=== PATIENT | male | born 1960 | race Caucasian/White ===

== ENCOUNTER 2019-03-03 13:00 | Inpatient (IN) | payer MEDICARE ==
[~2019-03-03] VITALS: Ht 172.7 cm; Wt 55.6 kg
[2019-03-03 03:49] VITALS: BP 159/63
[~2019-03-03 13:00] MED LIST: ASPI325T70 PO; CARV25TA PO; FURO-68 PO; FURO-69 PO; LISI-338 PO; LISI2.5T PO; POTA10TA12 PO
--- NOTE | 2019-03-03 13:16 | PDOC1 ---
History and Physical Date of Admission Date of Admission DATE: 03/03/19 TIME: 13:16 Identification/Chief Complaint Chief Complaint SEEN IN ER , Patient is a 58 year old MALE who presents with [ CHEST PRESSURE, soa, leg edema] Past Medical History Past Medical History Past Medical History Past Medical History: CHF, COPD Past Surgical History: Other Additional Past Surgical Histo: fX. WRIST Alcohol Use: None Drug Use: None, Marijuana Social History Narrative: last use yesterday Social history :- Ex-smoker,does not drink alcohol.No history of illicit drug use Past Medical History Past Medical History Nonischemic dilated cardiomyopathy, hypertension, hyperlipidemia Past Surgical History Past Surgical History Cardiac catheterization Family History Family History: Hypertension Cardiovascular: Other (CARDIOMYOPATHY) Psych: Addictions Family History Family History: Hypertension Social History Smoke: Quit ALCOHOL: occassional Drugs: Marijuana Current Medications Current Medications Active Scripts Active Reported Lisinopril 2.5 Mg Tablet 2.5 Mg PO NOON Klor-Con M10 (Potassium Chloride) 10 Meq Tab.er.prt 10 Meq PO DAILY Lisinopril 5 Mg Tablet 5 Mg PO DAILY Coreg (Carvedilol) 25 Mg Tablet 25 Mg PO BID Lasix (Furosemide) 40 Mg Tablet 40 Mg PO DAILY Aspirin Buffered 325 Mg Tab (Aspirin/Calcium Carbonate/Mag) 325 Mg Tablet 325 Mg PO DAILY Allergies Allergies: Coded Allergies: No Known Drug Allergies (Unverified , 08/12/13) ROS Review of System Review of Systems Review of Systems Constitutional: Denies fever or chills [] Eyes: Denies change in visual acuity, redness, or eye pain [] HENT: Denies nasal congestion or sore throat [] Respiratory: Denies cough POS shortness of breath [] Cardiovascular: No additional information not addressed in HPI [] GI: Denies abdominal pain, nausea, vomiting, bloody stools or diarrhea [] : Denies dysuria or hematuria [] Musculoskeletal: Denies back pain or joint pain [] Integument: Denies rash or skin lesions [] Neurologic: Denies headache, focal weakness or sensory changes [] Endocrine: Denies polyuria or polydipsia [] 14 PT systems were reviewed and found to be within normal limits, except as doc umented Hematological and Lymphatic: No: Bleeding Problems, Blood Clots, Blood Transfusions, Brusing, Night Sweats, Pallor, Swollen Lymph Nodes, Other Respiratory: YES: Shortness of breath, SOB with excertion Musculoskeletal: Yes Joint Stiffness, Yes Muscular Weakness Physical Exam Physical Exam Physical Exam Physical Exam Constitutional: Well developed, well nourished, no acute distress, non-toxic appearance. [] HENT: Normocephalic, atraumatic, bilateral external ears normal, oropharynx moist, no oral exudates, nose normal. [] Eyes: PERRLA, EOMI, conjunctiva normal, no discharge. [] Neck: Normal range of motion, no tenderness, supple, no stridor. [] Cardiovascular:Heart rate regular rhythm, no murmur [] Lungs & Thorax: Bilateral breath sounds clear to auscultation [] Abdomen: Bowel sounds normal, soft, no tenderness, no masses, no pulsatile masses. [] Skin: Warm, dry, no erythema, no rash. [] Back: No tenderness, no CVA tenderness. [] Extremities: No tenderness, no cyanosis, no clubbing, ROM intact, 2 PLUS ANKLE edema. [] Neurologic: Alert and oriented X 3, normal motor function, normal sensory function, no focal deficits noted. [] Psychologic: Affect normal, judgement normal, mood normal. [] General: Alert, Oriented X3, Cooperative, No acute distress HEENT: Atraumatic, Mucous membr. moist/pink Heart: no thrills Breasts: Not examined Abdomen: Normal bowel sounds, Soft Rectal Exam: not examined Extremities: No cyanosis Neuro: Normal speech, Cranial nerves 3-12 NL Psych/Mental Status: Mental status NL, Mood NL Images Images Tricuspid Valve TR P. Velocity 253cm/s TR Peak Gr. 26mmHg Pulmonary Vein S1 Velocity 54.6cm/s D2 Velocity 42.1cm/s LEFT VENTRICLE The left ventricle is normal size. There is normal left ventricular wall thickness. Left ventricle systolic function is moderately to severely impaired. The Ejection Fraction is 25-30%. RIGHT VENTRICLE The right ventricle is normal size. The right ventricular systolic function is normal. ATRIA The left atrium size is normal. The right atrium size is normal. The interatrial septum is intact with no evidence for an atrial septal defect or patent foramen ovale as noted on 2-D or Doppler imaging. AORTIC VALVE The aortic valve is normal in structure and function. Doppler and Color Flow revealed no significant aortic regurgitation. There is no significant aortic valvular stenosis. MITRAL VALVE The mitral valve is normal in structure and function. There is no mitral valve stenosis. Doppler and Color Flow revealed trace to mild mitral regurgitation. TRICUSPID VALVE The tricuspid valve is normal in structure and function. Doppler and Color Flow revealed trace to mild tricuspid regurgitation. The pulmonary artery systolic pressure is estimated at 30-40 mmHg. PULMONIC VALVE The pulmonic valve is not well visualized. Doppler and Color Flow revealed no pulmonic valvular regurgitation. There is no pulmonic valvular stenosis. GREAT VESSELS The aortic root is normal in size. Normal pulmonary venous flow (Doppler). The IVC is normal in size and collapses >50% with inspiration. PERICARDIAL EFFUSION There is no evidence of significant pericardial effusion. Critical Notification Critical Value: No <Conclusion> Left ventricle systolic function is moderately to severely impaired. The Ejection Fraction is 25-30%. Doppler and Color Flow revealed trace to mild mitral regurgitation. Doppler and Color Flow revealed trace to mild tricuspid regurgitation. The pulmonary artery systolic pressure is estimated at 30-40 mmHg. DICTATED and SIGNED BY: COREY SHERMAN MD DATE: 10/28/13 1526 Imaging Protocol IMAGE PROTOCOL: Rest Tc-99m/stress Tc-99m 1 day Rest: Stress: Viability: Radiopharm. Tc99m Sestamibi Dose 10mCi Img Date 03/03/2019 Inj-Img Time 60min. Rest Admin Site: IV - Right Antecubital Director Sales Support: FELY Camejo, JUS (R)(N) LV Perfusion Normal perfusion at rest. Non-gated study. Stress portion not performed due to lab abnormalities. Patient sent to ER. LV Perf. Quant 17 Seg. SRS 4.00 Stress Defect Extent (% LAD) Rest Defect Extent (% LAD) 0.00 Rev. Defect Extent (% LAD) Stress Defect Extent (% LCX) Rest Defect Extent (% LCX) 15.00 Rev. Defect Extent (% LCX) Stress Defect Extent (% RCA) Rest Defect Extent (% RCA) 0.00 Rev. Defect Extent (% RCA) Stress Defect Extent (% GABBY) Rest Defect Extent (% GABBY) 3.30 Rev. Defect Extent (% GABBY) Other Information Quality:Average Risk Assessment: Low Risk Conclusion 1. Normal perfusion at rest. 2. patient sent to ER for lab abnormalities prior to stress evaluation Signed by : Fahad Ruggiero, Electronically Approved : 03/03/2019 15:01:13 PORTABLE CHEST 1V History: Hypercalcemia Comparison: August 04, 2013. July 06, 2016 Findings: Left lung volume loss. Left mid and basilar masslike opacities with hazy opacities, concerning for left upper lung atelectasis. No pleural effusion. Normal heart size. Impression: 1. Findings concerning for left upper lobe atelectasis with left central and basilar masslike opacities. Recommend CT to further evaluate and rule out obstructing lesion. Electronically signed by: Dylan Hull DO (03/03/2019 2:08 PM) [id number] VTE Prophylaxis Ordered VTE Prophylaxis Devices: Yes VTE Pharmacological Prophylaxi: Yes Assessment/Plan Assessment/Plan Impression: 1. CXR C/W left upper lobe atelectasis with left central and basilar masslike opacities. PLAN CT to further evaluate and rule out obstructing lesion. 2. HX CARDIOMYOPATHY Left ventricle systolic function is moderately to severely impaired. The Ejec tion Fraction is 25-30%. ECHO 2013 3. HYPERCALCEMIA 4. THC ABUSE 5. CHEST DISCOMFORT Normal perfusion at rest. 03/03 6. ACUTE HYPOXIC RESP FAILURE PLAN ADMIT CARDIOLOGY CONSULT CT CHEST/ ABD/ PELVIS GOPAL PULM CONSULT IV FLUID SUPPORT ZOMETA 4 MG IV X 1 DVT PROPHYLAXIS ONCOLOGY CONSULT O2 SUPPORT 78 MIN PT EXAM, CHART REVIEW, > 50% OF TIME SPENT WITH EXAM, CHART REVIEW, PT CARE COORDINATION MIAH HERNANDEZ MD Mar 03, 2019 13:16
--- NOTE | 2019-03-03 13:35 | EKG ---
[facility] [address] [place] [address] Test Date: 2019-03-03 Test Time: 13:12:45 Pat Name: DELORIS VERNON Department: Room: Gender: M [employer]essionals: : 1960 Requested By: DILCIA AVENDANO Order Number: [id number] Reading MD: Measurements Intervals [place] Rate: 81 P: -5 AR: 210 QRS: 20 QRSD: 120 T: 75 QT: 394 QTc: 463 Interpretive Statements SINUS RHYTHM T ABNORMALITY IN HIGH LATERAL LEADS ABNORMAL ECG No previous ECG available for comparison
--- NOTE | 2019-03-03 14:10 | PHYS DOC ---
Past Medical History Past Medical History: CHF, COPD Past Surgical History: Other Additional Past Surgical Histo: fX. 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 Patient had labs performed that showed calcium of 14.2 and potassium of 2.6. Patient denies nausea and vomiting, fever and chills, chest pain, shortness of breath, history of cancer. Review of Systems Review of Systems Constitutional: Denies fever or chills [] Eyes: Denies change in visual acuity, redness, or eye pain [] HENT: Denies nasal congestion or sore throat [] Respiratory: Reports chronic cough and shortness of breath Cardiovascular: No additional information not addressed in HPI [] GI: Denies abdominal pain, nausea, vomiting, bloody stools or diarrhea [] : Denies dysuria or hematuria [] Musculoskeletal: Denies back pain or joint pain [] Integument: Denies rash or skin lesions [] Neurologic: Denies headache, focal weakness or sensory changes [] Endocrine: Denies polyuria or polydipsia [] All other systems were reviewed and found to be within normal limits, except as documented in this note. Current Medications Current Medications Allergies Allergies Allergies Coded Allergies Type Severity Reaction Last Updated Verified No Known Drug Allergies 08/12/13 No Physical Exam Physical Exam Constitutional: Well developed, no distress, non-toxic appearance. [] HENT: Normocephalic, atraumatic, mild pallor. Eyes: PERRLA, EOMI, conjunctiva normal, no discharge. [] Neck: Normal range of motion, no tenderness, supple, no stridor. [] Cardiovascular:Heart rate regular rhythm, no murmur [] Lungs & Thorax: Bibasilar rales without respiratory distress Abdomen: Bowel sounds normal, soft, no tenderness, no masses, no pulsatile masses. [] Skin: Warm, dry, no erythema, no rash. [] Back: No tenderness, no CVA tenderness. [] Extremities: No tenderness, no cyanosis, no clubbing, ROM intact, bilateral lower extremity 2+ edema. [] Neurologic: Alert and oriented X 3, no focal deficits noted. [] Psychologic: Affect normal, judgement normal, mood normal. [] Current Patient Data Vital Signs Vital Signs Date Time Temp Pulse Resp B/P (MAP) Pulse Ox O2 Delivery O2 Flow Rate FiO2 03/03/19 13:05 98.0 82 16 153/72 (99) 94 Nasal Cannula 3.0 98.0 EKG EKG EKG interpreted by me. EKG at 1312 showed normal sinus rhythm at rate of 82, T- wave abnormality and high lateral leads, Q wave in anteroseptal leads, no acute ST and T-wave elevation. Radiology/Procedures Radiology/Procedures [][facility] [address] [place], [place] [id number] IMAGING REPORT Signed PATIENT: DELORIS VERNONACCOUNT: [id number] : 1960 LOCATION: ER AGE: 58 SEX: M EXAM STATUS: REG ER ORD. PHYSICIAN: DILCIA AVENDANO MD REASON: hypercalcemia PROCEDURE: PORTABLE CHEST 1V PORTABLE CHEST 1V History: Hypercalcemia Comparison: August 04, 2013. July 06, 2016 Findings: Left lung volume loss. Left mid and basilar masslike opacities with hazy opacities, concerning for left upper lung atelectasis. No pleural effusion. Normal heart size. Impression: 1. Findings concerning for left upper lobe atelectasis with left central and basilar masslike opacities. Recommend CT to further evaluate and rule out obstructing lesion. Electronically signed by: Dylan Hull DO (03/03/2019 2:08 PM) [id number] DICTATED and SIGNED BY: DYLAN HULL DO DATE: 03/03/19 1408 Course & Med Decision Making Course & Med Decision Making Pertinent Labs and Imaging studies reviewed. (See chart for details) Evaluation of patient in ER showed 58-year-old male patient sent from cardiology office because of high calcium and low potassium without known history of cancer. Patient has CHF and COPD on home oxygen. Plan to evaluate for possible malignancy. Patient treated with IV potassium.Patient requiring admission for further evaluation and treatment. Discussed with Dr. Correa who is in agreement with admission. Discussed findings and plan with patient and family, who acknowledge understanding and agreement. Dragon Disclaimer Dragon Disclaimer This electronic medical record was generated, in whole or in part, using a voice recognition dictation system. Departure Departure Impression: Primary Impression: Hypercalcemia Additional Impressions: Hypokalemia Anemia Hypomagnesemia CHF (congestive heart failure) Tobacco abuse Disposition: 09 ADMITTED INPATIENT (at 1311) Admitting Physician: MARY (Dr. Correa accepted admission at 1311) Condition: IMPROVED Referrals: DION YEE MD (PCP) Problem Qualifiers Additional Impressions: Anemia Anemia type: unspecified type Qualified Codes: D64.9 - Anemia, unspecified CHF (congestive heart failure) Heart failure type: unspecified Heart failure chronicity: unspecified Qualified Codes: I50.9 - Heart failure, unspecified DILCIA AVENDANO MD Mar 03, 2019 14:10
[2019-03-03] MEDS: POTASSIUM CHLORIDE 10MEQ 100 ML IV SCH ×2 (14:11→15:19)
[2019-03-03 14:33] LABS: BILIRUBIN,URINE NEGATIVE (NEG); CLARITY,URINE CLEAR; COLOR,URINE YELLOW; NITRITE,URINE NEGATIVE (NEG); PH,URINE 6.5; PROTEIN,URINE NEGATIVE (NEG-TRACE); UROBILINOGEN,URINE 0.2 mg/dL (0.2 mg/dL)
[2019-03-03 14:36] LABS: PROTHROMBIN TIME PATIENT 12.6 SEC (11.7-14.0)
[2019-03-03 14:43] LABS: BACTERIA,URINE 0 /HPF (0-FEW); HYALINE CASTS, URINE FEW /HPF; RBC,URINE 0 /HPF (0-2); WBC,URINE OCC /HPF (0-4)
[2019-03-03 15:24] LABS: BASO % 0 % (0-3); EOS % 0 % (0-3); HEMATOCRIT 31.1 % (39.0-53.0); LYMPH # 0.8 x10^3/uL (1.0-4.8); LYMPH % 7 % (24-48); MEAN CORPUSCULAR HEMOGLOBIN 30 pg (25-35); MEAN CORPUSCULAR HGB CONC 32 g/dL (31-37); MEAN CORPUSCULAR VOLUME 92 fL (79-100); MONO # 0.8 x10^3/uL (0.0-1.1); MONO % 7 % (0-9); NEUT # 10.1 x10^3/uL (1.8-7.7); NEUT % 86 % (31-73); PLATELET COUNT 487 x10^3/uL (140-400); RED BLOOD COUNT 3.38 x10^6/uL (4.30-5.70); RED CELL DISTRIBUTION WIDTH 12.8 % (11.5-14.5); WHITE BLOOD COUNT 11.8 x10^3/uL (4.0-11.0)
[2019-03-03] MEDS ORDERED: DOCUSATE SODIUM 100 MG CAPSULE. PO PRN (15:30)
[2019-03-03] MEDS ORDERED: ONDANSETRON PF 4 MG/2 ML VIAL. IV PRN (15:30)
[2019-03-03] MEDS ORDERED: guaiFENesin ORAL 200 MG/10 ML LIQUID. PO PRN (15:30)
[2019-03-03] MEDS ORDERED: ALBUTEROL SULFATE 2.5 MG/3 ML NEBU. NEB PRN (15:30)
[2019-03-03] MEDS ORDERED: 0.9 % SODIUM CHLORIDE 10 ML DISP.SYRIN. IV PRN (15:30)
[2019-03-03] MEDS ORDERED: LORazepam 0.5 MG TABLET PO PRN (15:30)
[2019-03-03] MEDS ORDERED: cloNIDine HCL 0.1 MG TABLET PO PRN (15:30)
[2019-03-03] MEDS ORDERED: ACETAMINOPHEN 325 MG TABLET. PO PRN (15:30)
[2019-03-03 15:42] LABS: ALBUMIN 3.1 g/dL (3.4-5.0); ALBUMIN/GLOBULIN RATIO 0.7 (1.0-1.7); ALK PHOS 288 U/L (46-116); ALT (SGPT) 30 U/L (16-63); AST (SGOT) 38 U/L (15-37); BLOOD UREA NITROGEN 17 mg/dL (8-26); BUN/CREATININE RATIO 21 (6-20); CHLORIDE 91 mmol/L (98-107); CREATININE 0.8 mg/dL (0.7-1.3); GFR 98.6; GLUCOSE 116 mg/dL (70-99); SODIUM 142 mmol/L (136-145); TOTAL BILIRUBIN 0.4 mg/dL (0.2-1.0); TOTAL PROTEIN 7.3 g/dL (6.4-8.2)
[2019-03-03 15:45] LABS: CALCIUM 13.5 mg/dL (8.5-10.1); CARBON DIOXIDE > 45 mmol/L (21-32); POTASSIUM 2.6 mmol/L (3.5-5.1)
[2019-03-03 15:52] LABS: % BANDS 6 % (0-9); % LYMPHS 9 % (24-48); % MONOS 2 % (0-10); % SEGS 83 % (35-66)
[2019-03-03 15:53] LABS: PLT ESTIMATE INCREASED (ADEQUATE)
[2019-03-03] MEDS ORDERED: ZOLEDRONICACID 4mg/100mlPREMIX 100 ML IV ONE (16:00)
--- NOTE | 2019-03-03 16:14 | RAD ---
EXAM: CT Chest, Abdomen and Pelvis without IV contrast CLINICAL HISTORY: Mass, shortness of air, chest and abd pain COMPARISON: None. TECHNIQUE: Helical CT of the chest, abdomen and pelvis was performed without intravenous contrast. Axial, coronal and sagittal reformatted images were generated. ---PQRS compliance statement - One or more of the following individualized dose reduction techniques were utilized for this study: 1. Automated exposure control 2. Adjustment of the mA and/or kV according to patient size 3. Use of iterative reconstruction technique--- FINDINGS: Lack of intravenous contrast limits evaluation of solid organs, vasculature, and lymph nodes. Chest: A 1 cm left thyroid nodule is seen. This can be further assessed by thyroid ultrasound. Heart is not enlarged. Coronary artery calcifications are seen. No pericardial effusion. A 2.2 x 2.2 cm left lower lobe pleural-based spiculated mass is seen. Cavitary lingular mass is also seen. 3 mm middle lobe lung nodule (series 2 image 46) is seen. Background of emphysematous change. 4 mm right lower lobe lung nodule is noted. Evaluation of the mediastinal and joe limited on this noncontrast exam. Within these constraints there is a left hilar mass with postobstructive atelectasis of the majority of the left upper lobe with narrowing of the associated central airways. This mass measures approximately 6.8 x 5.5 cm (series 2 image 30) with associated postobstructive atelectasis. Central calcifications are seen. Within the constraints of noncontrast examination, no definite right hilar lymphadenopathy. Prominent mediastinal lymph nodes are seen. No significant pleural effusion or pneumothorax. Abdomen and Pelvis: Numerous rounded hepatic hypodense lesions are seen suspicious for metastatic disease. For example a left hepatic lobe lesion measures approximately 5.2 x 2.5 cm (series 4 image 16) and a right hepatic lobe lesion measures 3.7 x 3.2 cm. Spleen is unremarkable. Mild nodular thickening of the adrenal glands. Lateral Biliary 0 pancreas is unremarkable. Duodenal diverticulum is seen. No focal renal lesion. No hydronephrosis. No hydroureter. Bladder is moderately distended. Moderate to large volume colonic stool content is seen. No evidence for bowel obstruction. Trace pelvic ascites. No abdominal or pelvic lymphadenopathy. Aortic calcifications are seen. Bones: Small right cervical rib is seen. A 4.7 cm lytic left fifth rib lesion is seen. Pathologic fracture through a lytic posterior lateral left seventh rib lesion. Lytic right lateral seventh and ninth rib lesions are seen. A 4.5 cm left iliac wing lytic lesion is seen. A 4.9 x 3.7 cm right proximal femoral shaft lytic lesion extends into the lesser trochanter, predisposing to lesser trochanteric or femoral shaft fracture. Left iliac wing lytic lesion is also seen. IMPRESSION: 1. Left hilar mass with postobstructive atelectasis and spiculated left lower lobe lung mass are seen. 2. Numerous hepatic hypodense lesions likely metastatic. 3. Numerous lytic lesions are seen throughout the skeletal structures including the ribs, pelvis and right proximal femur. The right proximal femoral shaft lesion extends into the lesser trochanter and is sizable enough which may predispose to pathologic fracture of the right lesser trochanter or proximal femoral shaft. Consider orthopedic evaluation. 4. A 1 cm left thyroid nodule is seen. This can be further assessed by thyroid ultrasound. Findings discussed with Dr. Correa at 4:10 PM 03/03/2019 Electronically signed by: Pan James MD (03/03/2019 4:11 PM) [facility]
[2019-03-03 16:15] LABS: BARBITURATES NEG (NEG); BENZODIAZEPINES NEG (NEG); CANNABINOIDS POS (NEG); COCAINE NEG (NEG); METHADONE NEG (NEG); OPIATES NEG (NEG); PHENCYCLIDINE NEG (NEG)
[2019-03-03 16:18] LABS: AMPHETAMINE/METHAMPHETAMINE NEG (NEG)
--- NOTE | 2019-03-03 16:33 | RAD ---
Examination: VENOUS LOWER EXT BILATERAL History: Edema Comparison/Correlation: None FINDINGS: Bilateral lower extremity duplex venous ultrasound exam was performed. Grayscale, color Doppler, and spectral Doppler imaging was performed. Compression and augmentation was performed. The right common femoral vein, superficial femoral vein, popliteal vein, and greater saphenous vein are normal with no evidence of deep venous thrombus. Normal compressibility and augmentation is evident. The left common femoral vein, superficial femoral vein, popliteal vein, and greater saphenous vein are normal with no evidence of deep venous thrombus. Normal compressibility and augmentation is evident. Visualized calf veins bilaterally are unremarkable. 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 IMPRESSION: No evidence of deep venous thrombus involving the lower extremities. Electronically signed by: Nilton Hamlin MD (03/03/2019 4:30 PM) [facility]
[2019-03-03] MEDS: IV NORMAL SALINE 1000ML BAG 1,000 ML IV SCH (16:37)
[2019-03-03] MEDS ORDERED: KETOROLAC 30 MG/ML VIAL. IV ONE (16:45)
[2019-03-03] MEDS ORDERED: MAGNESIUM SULFATE 3 GM in IV DEXTROSE 5% 100ML 100 ML IV ONE (17:00)
[2019-03-03] MEDS: CARVEDILOL 12.5 MG TABLET. PO SCH (18:57)
[2019-03-03 19:50] VITALS: BP 137/49
[2019-03-03] MEDS ORDERED: LISI-334 PO (20:12)
[2019-03-03] MEDS ORDERED: ASPI-630 PO (20:12)
[2019-03-03] MEDS ORDERED: IPRA0.2S5 NEB (20:14)
[2019-03-03] MEDS ORDERED: IBUP-1027 PO (20:14)
[2019-03-03] MEDS: ENOXAPARIN 40 MG/0.4 ML SYRINGE. SQ SCH (21:32)
[2019-03-03] MEDS: IPRATROPIUM BROMIDE 0.5 MG/2.5 ML NEBU. NEB SCH (21:38)
[2019-03-03 23:51] VITALS: BP 138/58
[2019-03-04] VITALS (15 sets, daily range): BP systolic 66–159; BP diastolic 39–96
[2019-03-04] MEDS: IV NORMAL SALINE 1000ML BAG 1,000 ML IV SCH ×3 (01:36→21:25)
[2019-03-04] MEDS: IPRATROPIUM BROMIDE 0.5 MG/2.5 ML NEBU. NEB SCH ×5 (07:30→20:17)
[2019-03-04] MEDS ORDERED: ASPIRIN 325 MG TABLET PO SCH (08:00)
--- NOTE | 2019-03-04 08:11 | PDOC2 ---
TRANG PEREZ PROJECT SYSTEMS ENGINEER 03/04/19 0811: CARDIAC CONSULT DATE OF CONSULT Date of Consult DATE: 03/04/19 TIME: 08:07 REASON FOR CONSULT Reason for Consult: cardiomyopathy, CP REFERRING PHYSICIAN Referring Physician: Fullbright SOURCE Source: Chart review, Patient HISTORY OF PRESENT ILLNESS HISTORY OF PRESENT ILLNESS This is a pleasant 58 yo male admitted for complains of SOA and feeling weak. He has chest pain but mainly generalized body aches. Has been complaining of no energy with some SOA and also constipation. Upon further testing he was noted with high serum calcium and imaging noted with luis CA with mets to the bone. PAST MEDICAL HISTORY Cardiovascular: CHF, HTN, Syncope, Hyperlipidemia, Other (NICM) Pulmonary: COPD CENTRAL NERVOUS SYSTEM: Migraine PAST SURGICAL HISTORY Past Surgical History: Other (tendon repair) SOCIAL HISTORY Smoke: Quit (2012) CURRENT MEDICATIONS CURRENT MEDICATIONS Current Medications Medications (Trade) Dose Ordered Sig/Renetta Route PRN Reason Start Time Stop Time Status Last Admin Dose Admin Potassium Chloride/Water 100 ml @ 100 mls/hr Q1H IV 03/03/19 13:30 03/03/19 15:29 DC 03/03/19 15:19 Zoledronic Acid 100 ml @ 400 mls/hr 1X ONCE IV 03/03/19 16:00 03/03/19 16:14 DC 03/03/19 16:04 Sodium Chloride 1,000 ml @ 100 mls/hr Q10H IV 03/03/19 15:24 03/04/19 01:36 Lorazepam (Ativan) 0.5 mg PRN Q4HRS PRN PO ANXIETY / AGITATION 03/03/19 15:30 03/03/19 21:32 Enoxaparin Sodium (Lovenox 40mg Syringe) 40 mg QHS SQ 03/03/19 21:00 03/03/19 21:32 Carvedilol (Coreg) 25 mg BIDWMEALS PO 03/03/19 17:00 03/03/19 18:57 Magnesium Sulfate 3 gm/Dextrose 106 ml @ 35.333 mls/ hr 1X ONCE IV 03/03/19 17:00 03/03/19 19:59 DC 03/03/19 16:57 Ketorolac Tromethamine (Toradol 30mg Vial) 30 mg 1X ONCE IV 03/03/19 16:45 03/03/19 16:46 DC 03/03/19 16:57 Ipratropium [place] (Atrovent) 0.5 mg RTQID NEB 03/03/19 21:30 03/04/19 07:30 ALLERGIES ALLERGIES: Coded Allergies: No Known Drug Allergies (Unverified , 08/12/13) ROS Review of System 14 point ROS evaluated with pertinent positives noted per HPI PHYSICAL EXAM General: Alert, Oriented X3, Cooperative HEENT: Atraumatic, Mucous membr. moist/pink Lungs: Other (diminished) Heart: Regular rate (SR) Abdomen: Soft, No tenderness Extremities: No cyanosis, Other (1+ bilateral LE pitting edema) Skin: No breakdown, No significant lesion Neuro: Normal speech, Sensation intact Psych/Mental Status: Mental status NL, Mood NL MUSCULOSKELETAL: Osteoarthritic changes both hands VITALS/I&O VITALS/I&O: Vital Signs Date Time Temp Pulse Resp B/P (MAP) Pulse Ox O2 Delivery O2 Flow Rate FiO2 03/04/19 07:31 97 Room Air 03/04/19 03:51 97.7 82 20 159/63 (95) 3.0 97.7 I & O 03/03/19 03/03/19 03/04/19 15:00 23:00 07:00 Intake Total 200 ml 240 ml Output Total 500 ml Balance 200 ml -260 ml LABS Lab: Laboratory Tests Test 03/03/19 14:10 03/03/19 14:21 White Blood Count 11.8 x10^3/uL (4.0-11.0) H Red Blood Count 3.38 x10^6/uL (4.30-5.70) L Hemoglobin 10.0 g/dL (13.0-17.5) L Hematocrit 31.1 % (39.0-53.0) L Mean Corpuscular Volume 92 fL (79-100) Mean Corpuscular Hemoglobin 30 pg (25-35) Mean Corpuscular Hemoglobin Concent 32 g/dL (31-37) Red Cell Distribution Width 12.8 % (11.5-14.5) Platelet Count 487 x10^3/uL (140-400) H Neutrophils (%) (Auto) 86 % (31-73) H Lymphocytes (%) (Auto) 7 % (24-48) L Monocytes (%) (Auto) 7 % (0-9) Eosinophils (%) (Auto) 0 % (0-3) Basophils (%) (Auto) 0 % (0-3) Neutrophils # (Auto) 10.1 x10^3/uL (1.8-7.7) H Lymphocytes # (Auto) 0.8 x10^3/uL (1.0-4.8) L Monocytes # (Auto) 0.8 x10^3/uL (0.0-1.1) Eosinophils # (Auto) 0.0 x10^3/uL (0.0-0.7) Basophils # (Auto) 0.0 x10^3/uL (0.0-0.2) Segmented Neutrophils % 83 % (35-66) H Band Neutrophils % 6 % (0-9) Lymphocytes % 9 % (24-48) L Monocytes % 2 % (0-10) Platelet Estimate Increased (ADEQUATE) Prothrombin Time 12.6 SEC (11.7-14.0) Prothrombin Time INR 1.0 (0.8-1.1) Sodium Level 142 mmol/L (136-145) Potassium Level 2.6 mmol/L (3.5-5.1) *L Chloride Level 91 mmol/L (98-107) L Carbon Dioxide Level > 45 mmol/L (21-32) H Anion Gap (6-14) Blood Urea Nitrogen 17 mg/dL (8-26) Creatinine 0.8 mg/dL (0.7-1.3) Estimated GFR (Cockcroft-Gault) 98.6 BUN/Creatinine Ratio 21 (6-20) H Glucose Level 116 mg/dL (70-99) H Calcium Level 13.5 mg/dL (8.5-10.1) *H Phosphorus Level 2.6 mg/dL (2.6-4.7) Magnesium Level 1.4 mg/dL (1.8-2.4) L Total Bilirubin 0.4 mg/dL (0.2-1.0) Aspartate Amino Transferase (AST) 38 U/L (15-37) H Alanine Aminotransferase (ALT) 30 U/L (16-63) Alkaline Phosphatase 288 U/L (46-116) H Troponin I Quantitative 0.027 ng/mL (0.000-0.055) UR-Yad-B-Type Natriuretic Peptide 1027 pg/mL (0-124) H Total Protein 7.3 g/dL (6.4-8.2) Albumin 3.1 g/dL (3.4-5.0) L Albumin/Globulin Ratio 0.7 (1.0-1.7) L Urine Collection Type Unknown Urine Color Yellow Urine Clarity Clear Urine pH 6.5 Urine Specific [place] 1.010 Urine Protein Negative mg/dL (NEG-TRACE) Urine Glucose (UA) Negative mg/dL (NEG) Urine Ketones (Stick) Negative mg/dL (NEG) Urine Blood Negative (NEG) Urine Nitrite Negative (NEG) Urine Bilirubin Negative (NEG) Urine Urobilinogen Dipstick 0.2 mg/dL (0.2 mg/dL) Urine Leukocyte Esterase Negative (NEG) Urine RBC 0 /HPF (0-2) Urine WBC Occ /HPF (0-4) Urine Bacteria 0 /HPF (0-FEW) Urine Hyaline Casts Few /HPF Urine Mucus Slight /LPF Urine Opiates Screen Neg (NEG) Urine Methadone Screen Neg (NEG) Urine Barbiturates Neg (NEG) Urine Phencyclidine Screen Neg (NEG) Urine Amphetamine/Methamphetamine Neg (NEG) Urine Benzodiazepines Screen Neg (NEG) Urine Cocaine Screen Neg (NEG) Urine Cannabinoids Screen Pos (NEG) Urine Ethyl Alcohol Neg (NEG) Laboratory Tests 03/03/19 14:10 Laboratory Tests 03/03/19 14:10 IMAGES IMAGES IMPRESSION: 1. Left hilar mass with postobstructive atelectasis and spiculated left lower lobe lung mass are seen. 2. Numerous hepatic hypodense lesions likely metastatic. 3. Numerous lytic lesions are seen throughout the skeletal structures including the ribs, pelvis and right proximal femur. The right proximal femoral shaft lesion extends into the lesser trochanter and is sizable enough which may predispose to pathologic fracture of the right lesser trochanter or proximal femoral shaft. Consider orthopedic evaluation. 4. A 1 cm left thyroid nodule is seen. This can be further assessed by thyroid ultrasound. DATE: 03/03/19 1611 ECHOCARDIOGRAM ECHOCARDIOGRAM <Conclusion> Left ventricle ejection fraction is mildly diminished. EF 45% Not well visualized. Mild global hypokinesis. DATE: 05/26/17 1353 STRESS TEST STRESS TEST Conclusion 1. Normal perfusion at rest. 2. patient sent to ER for lab abnormalities prior to stress evaluation DATE: 03/03/19 1307 ASSESSMENT/PLAN ASSESSMENT/PLAN 1. Body aches/CP: possibly due to lung CA with bone mets 2. Lung CA with bone metastasis 3. Hypercalcemia 4. Hypokalemia 5. Mild CM: EF 45%, likely NICM 6. COPD with tobaccoism 7. HTN: controlled Recommendations 1. CA workup ongoing 2. Replace K 3. Nothing further cardiac nair. Caution with IVF 4. Continue with BP regimen, titrate per BP trend. Would hold off ACEi for now till K level is stable. LEANDRA HUDSON MD 03/04/19 1712: CARDIAC CONSULT ASSESSMENT/PLAN ASSESSMENT/PLAN 58-year-old male well known to us admitted with hypercalcemia. Patient seen and examined. Agree with above nurse practitioner note He likely has metastatic lung cancer. Further workup per hematology oncology service as well as the pulmonary service. Supportive care from a cardiac standpoint. Discussed with the patient and his family. Overall poor prognosis. TRANG PEREZ APRN Mar 04, 2019 08:11 LEANDRA HUDSON MD Mar 04, 2019 17:12
[2019-03-04] MEDS: IBUPROFEN 400 MG TABLET. PO PRN ×2 (08:39→16:59)
[2019-03-04] MEDS: CARVEDILOL 12.5 MG TABLET. PO SCH ×2 (08:39→16:58)
[2019-03-04] MEDS: ASPIRIN CHEWABLE 81 MG TABLET. PO SCH (08:39)
[2019-03-04 08:57] LABS: BASO # 0.1 x10^3/uL (0.0-0.2); BASO % 1 % (0-3); EOS # 0.1 x10^3/uL (0.0-0.7); EOS % 1 % (0-3); HEMATOCRIT 30.8 % (39.0-53.0); LYMPH # 0.3 x10^3/uL (1.0-4.8); LYMPH % 2 % (24-48); MEAN CORPUSCULAR HEMOGLOBIN 30 pg (25-35); MEAN CORPUSCULAR HGB CONC 32 g/dL (31-37); MEAN CORPUSCULAR VOLUME 93 fL (79-100); MONO # 0.7 x10^3/uL (0.0-1.1); MONO % 5 % (0-9); NEUT # 12.2 x10^3/uL (1.8-7.7); NEUT % 91 % (31-73); PLATELET COUNT 472 x10^3/uL (140-400); RED BLOOD COUNT 3.32 x10^6/uL (4.30-5.70); RED CELL DISTRIBUTION WIDTH 13.1 % (11.5-14.5); WHITE BLOOD COUNT 13.3 x10^3/uL (4.0-11.0)
[2019-03-04] MEDS ORDERED: LISINOPRIL 20 MG TABLET PO SCH (09:00)
[2019-03-04] MEDS ORDERED: FUROSEMIDE 40 MG TABLET. PO SCH (09:00)
[2019-03-04] MEDS ORDERED: LISINOPRIL 5 MG TABLET. PO SCH ×2 (09:00→12:00)
--- NOTE | 2019-03-04 09:08 | PDOC ---
PROGRESS NOTES Chief Complaint Chief Complaint ACUTE HYPOXIC RESP FAILURE CHEST DISCOMFORT - likely from mass and CHF exacerbation, trend trops HYPERCALCEMIA - likely of malignancy given his lung mass and bony lesions. On NSS and lasix. check phos and vitamin D. Consult nephrology. Left lung mass Liver lesions Bone lytic lesions - right hip needs ortho evaluation Non-ischemic CARDIOMYOPATHY Acute on chronic systolic CHF - EF 25-50% from 2013 echo [facility]C ABUSE Hypokalemia Hypomagnesemia Leukocytosis Anemia Transaminitis Metabolic alkalosis 34 minutes spent on chart review and consultation with specialists History of Present Illness History of Present Illness Mr Almanza is a 58yo M w/ PMHx of Nonischemic dilated cardiomyopathy, hypertension, hyperlipidemia who presents to ED on 03/03 c/o soa, leg edema, chest pressure. Found with WBC 11.8, K 2.6, Ca of 13.5, Mg 1.4 and abnormal CXR which prompted a CT chest which revealed a left hilar mass with post-obstructive atelecatsis and spiculated left lower lobe lung mass as well as numerous hepatic lesions and lytic lesions throughout his skeletal structure ribs, pelvis and right proximal femur and a 1cm left thyroid nodule. He was admitted for further work-up and care. This morning still with calcium 13, low K. He is feeling weak, diffuse pain, short of breath, more swollen in his lower extremities. He is amenable to bronchoscopy for further evaluation of his lung mass. Vitals Vitals Vital Signs Date Time Temp Pulse Resp B/P (MAP) Pulse Ox O2 Delivery O2 Flow Rate FiO2 03/04/19 08:40 85 137/59 03/04/19 07:31 97 Room Air 03/04/19 07:00 97.8 18 2.0 97.8 Physical Exam General: Alert, Oriented X3, Cooperative, No acute distress Abdomen: Normal bowel sounds, Soft Extremities: No cyanosis Labs LABS Laboratory Tests Test 03/03/19 14:10 03/03/19 14:21 White Blood Count 11.8 x10^3/uL (4.0-11.0) Red Blood Count 3.38 x10^6/uL (4.30-5.70) Hemoglobin 10.0 g/dL (13.0-17.5) Hematocrit 31.1 % (39.0-53.0) Mean Corpuscular Volume 92 fL (79-100) Mean Corpuscular Hemoglobin 30 pg (25-35) Mean Corpuscular Hemoglobin Concent 32 g/dL (31-37) Red Cell Distribution Width 12.8 % (11.5-14.5) Platelet Count 487 x10^3/uL (140-400) Neutrophils (%) (Auto) 86 % (31-73) Lymphocytes (%) (Auto) 7 % (24-48) Monocytes (%) (Auto) 7 % (0-9) Eosinophils (%) (Auto) 0 % (0-3) Basophils (%) (Auto) 0 % (0-3) Neutrophils # (Auto) 10.1 x10^3/uL (1.8-7.7) Lymphocytes # (Auto) 0.8 x10^3/uL (1.0-4.8) Monocytes # (Auto) 0.8 x10^3/uL (0.0-1.1) Eosinophils # (Auto) 0.0 x10^3/uL (0.0-0.7) Basophils # (Auto) 0.0 x10^3/uL (0.0-0.2) Segmented Neutrophils % 83 % (35-66) Band Neutrophils % 6 % (0-9) Lymphocytes % 9 % (24-48) Monocytes % 2 % (0-10) Platelet Estimate Increased (ADEQUATE) Prothrombin Time 12.6 SEC (11.7-14.0) Prothromb Time International Ratio 1.0 (0.8-1.1) Sodium Level 142 mmol/L (136-145) Potassium Level 2.6 mmol/L (3.5-5.1) Chloride Level 91 mmol/L (98-107) Carbon Dioxide Level > 45 mmol/L (21-32) Anion Gap (6-14) Blood Urea Nitrogen 17 mg/dL (8-26) Creatinine 0.8 mg/dL (0.7-1.3) Estimated GFR (Cockcroft-Gault) 98.6 BUN/Creatinine Ratio 21 (6-20) Glucose Level 116 mg/dL (70-99) Calcium Level 13.5 mg/dL (8.5-10.1) Phosphorus Level 2.6 mg/dL (2.6-4.7) Magnesium Level 1.4 mg/dL (1.8-2.4) Total Bilirubin 0.4 mg/dL (0.2-1.0) Aspartate Amino Transf (AST/SGOT) 38 U/L (15-37) Alanine Aminotransferase (ALT/SGPT) 30 U/L (16-63) Alkaline Phosphatase 288 U/L (46-116) Troponin I Quantitative 0.027 ng/mL (0.000-0.055) JP-Jpb-C-Type Natriuretic Peptide 1027 pg/mL (0-124) Total Protein 7.3 g/dL (6.4-8.2) Albumin 3.1 g/dL (3.4-5.0) Albumin/Globulin Ratio 0.7 (1.0-1.7) Urine Collection Type Unknown Urine Color Yellow Urine Clarity Clear Urine pH 6.5 Urine Specific [place] 1.010 Urine Protein Negative mg/dL (NEG-TRACE) Urine Glucose (UA) Negative mg/dL (NEG) Urine Ketones (Stick) Negative mg/dL (NEG) Urine Blood Negative (NEG) Urine Nitrite Negative (NEG) Urine Bilirubin Negative (NEG) Urine Urobilinogen Dipstick 0.2 mg/dL (0.2 mg/dL) Urine Leukocyte Esterase Negative (NEG) Urine RBC 0 /HPF (0-2) Urine WBC Occ /HPF (0-4) Urine Bacteria 0 /HPF (0-FEW) Urine Hyaline Casts Few /HPF Urine Mucus Slight /LPF Urine Opiates Screen Neg (NEG) Urine Methadone Screen Neg (NEG) Urine Barbiturates Neg (NEG) Urine Phencyclidine Screen Neg (NEG) Urine Amphetamine/Methamphetamine Neg (NEG) Urine Benzodiazepines Screen Neg (NEG) Urine Cocaine Screen Neg (NEG) Urine Cannabinoids Screen Pos (NEG) Urine Ethyl Alcohol Neg (NEG) Assessment and Plan Assessmemt and Plan Problems Medical Problems: (1) Anemia Status: Acute (2) CHF (congestive heart failure) Status: Acute (3) Hypercalcemia Status: Acute (4) Hypokalemia Status: Acute (5) Hypomagnesemia Status: Acute (6) Tobacco abuse Status: Acute Comment Review of Relevant I have reviewed the following items jose (where applicable) has been applied. Labs Laboratory Tests Test 03/03/19 14:10 03/03/19 14:21 White Blood Count 11.8 x10^3/uL (4.0-11.0) Red Blood Count 3.38 x10^6/uL (4.30-5.70) Hemoglobin 10.0 g/dL (13.0-17.5) Hematocrit 31.1 % (39.0-53.0) Mean Corpuscular Volume 92 fL (79-100) Mean Corpuscular Hemoglobin 30 pg (25-35) Mean Corpuscular Hemoglobin Concent 32 g/dL (31-37) Red Cell Distribution Width 12.8 % (11.5-14.5) Platelet Count 487 x10^3/uL (140-400) Neutrophils (%) (Auto) 86 % (31-73) Lymphocytes (%) (Auto) 7 % (24-48) Monocytes (%) (Auto) 7 % (0-9) Eosinophils (%) (Auto) 0 % (0-3) Basophils (%) (Auto) 0 % (0-3) Neutrophils # (Auto) 10.1 x10^3/uL (1.8-7.7) Lymphocytes # (Auto) 0.8 x10^3/uL (1.0-4.8) Monocytes # (Auto) 0.8 x10^3/uL (0.0-1.1) Eosinophils # (Auto) 0.0 x10^3/uL (0.0-0.7) Basophils # (Auto) 0.0 x10^3/uL (0.0-0.2) Segmented Neutrophils % 83 % (35-66) Band Neutrophils % 6 % (0-9) Lymphocytes % 9 % (24-48) Monocytes % 2 % (0-10) Platelet Estimate Increased (ADEQUATE) Prothrombin Time 12.6 SEC (11.7-14.0) Prothromb Time International Ratio 1.0 (0.8-1.1) Sodium Level 142 mmol/L (136-145) Potassium Level 2.6 mmol/L (3.5-5.1) Chloride Level 91 mmol/L (98-107) Carbon Dioxide Level > 45 mmol/L (21-32) Anion Gap (6-14) Blood Urea Nitrogen 17 mg/dL (8-26) Creatinine 0.8 mg/dL (0.7-1.3) Estimated GFR (Cockcroft-Gault) 98.6 BUN/Creatinine Ratio 21 (6-20) Glucose Level 116 mg/dL (70-99) Calcium Level 13.5 mg/dL (8.5-10.1) Phosphorus Level 2.6 mg/dL (2.6-4.7) Magnesium Level 1.4 mg/dL (1.8-2.4) Total Bilirubin 0.4 mg/dL (0.2-1.0) Aspartate Amino Transf (AST/SGOT) 38 U/L (15-37) Alanine Aminotransferase (ALT/SGPT) 30 U/L (16-63) Alkaline Phosphatase 288 U/L (46-116) Troponin I Quantitative 0.027 ng/mL (0.000-0.055) TA-Nih-E-Type Natriuretic Peptide 1027 pg/mL (0-124) Total Protein 7.3 g/dL (6.4-8.2) Albumin 3.1 g/dL (3.4-5.0) Albumin/Globulin Ratio 0.7 (1.0-1.7) Urine Collection Type Unknown Urine Color Yellow Urine Clarity Clear Urine pH 6.5 Urine Specific [place] 1.010 Urine Protein Negative mg/dL (NEG-TRACE) Urine Glucose (UA) Negative mg/dL (NEG) Urine Ketones (Stick) Negative mg/dL (NEG) Urine Blood Negative (NEG) Urine Nitrite Negative (NEG) Urine Bilirubin Negative (NEG) Urine Urobilinogen Dipstick 0.2 mg/dL (0.2 mg/dL) Urine Leukocyte Esterase Negative (NEG) Urine RBC 0 /HPF (0-2) Urine WBC Occ /HPF (0-4) Urine Bacteria 0 /HPF (0-FEW) Urine Hyaline Casts Few /HPF Urine Mucus Slight /LPF Urine Opiates Screen Neg (NEG) Urine Methadone Screen Neg (NEG) Urine Barbiturates Neg (NEG) Urine Phencyclidine Screen Neg (NEG) Urine Amphetamine/Methamphetamine Neg (NEG) Urine Benzodiazepines Screen Neg (NEG) Urine Cocaine Screen Neg (NEG) Urine Cannabinoids Screen Pos (NEG) Urine Ethyl Alcohol Neg (NEG) Laboratory Tests Test 03/03/19 14:10 03/03/19 14:21 White Blood Count 11.8 x10^3/uL (4.0-11.0) Red Blood Count 3.38 x10^6/uL (4.30-5.70) Hemoglobin 10.0 g/dL (13.0-17.5) Hematocrit 31.1 % (39.0-53.0) Mean Corpuscular Volume 92 fL (79-100) Mean Corpuscular Hemoglobin 30 pg (25-35) Mean Corpuscular Hemoglobin Concent 32 g/dL (31-37) Red Cell Distribution Width 12.8 % (11.5-14.5) Platelet Count 487 x10^3/uL (140-400) Neutrophils (%) (Auto) 86 % (31-73) Lymphocytes (%) (Auto) 7 % (24-48) Monocytes (%) (Auto) 7 % (0-9) Eosinophils (%) (Auto) 0 % (0-3) Basophils (%) (Auto) 0 % (0-3) Neutrophils # (Auto) 10.1 x10^3/uL (1.8-7.7) Lymphocytes # (Auto) 0.8 x10^3/uL (1.0-4.8) Monocytes # (Auto) 0.8 x10^3/uL (0.0-1.1) Eosinophils # (Auto) 0.0 x10^3/uL (0.0-0.7) Basophils # (Auto) 0.0 x10^3/uL (0.0-0.2) Segmented Neutrophils % 83 % (35-66) Band Neutrophils % 6 % (0-9) Lymphocytes % 9 % (24-48) Monocytes % 2 % (0-10) Platelet Estimate Increased (ADEQUATE) Prothrombin Time 12.6 SEC (11.7-14.0) Prothromb Time International Ratio 1.0 (0.8-1.1) Sodium Level 142 mmol/L (136-145) Potassium Level 2.6 mmol/L (3.5-5.1) Chloride Level 91 mmol/L (98-107) Carbon Dioxide Level > 45 mmol/L (21-32) Anion Gap (6-14) Blood Urea Nitrogen 17 mg/dL (8-26) Creatinine 0.8 mg/dL (0.7-1.3) Estimated GFR (Cockcroft-Gault) 98.6 BUN/Creatinine Ratio 21 (6-20) Glucose Level 116 mg/dL (70-99) Calcium Level 13.5 mg/dL (8.5-10.1) Phosphorus Level 2.6 mg/dL (2.6-4.7) Magnesium Level 1.4 mg/dL (1.8-2.4) Total Bilirubin 0.4 mg/dL (0.2-1.0) Aspartate Amino Transf (AST/SGOT) 38 U/L (15-37) Alanine Aminotransferase (ALT/SGPT) 30 U/L (16-63) Alkaline Phosphatase 288 U/L (46-116) Troponin I Quantitative 0.027 ng/mL (0.000-0.055) ZJ-Qlm-T-Type Natriuretic Peptide 1027 pg/mL (0-124) Total Protein 7.3 g/dL (6.4-8.2) Albumin 3.1 g/dL (3.4-5.0) Albumin/Globulin Ratio 0.7 (1.0-1.7) Urine Collection Type Unknown Urine Color Yellow Urine Clarity Clear Urine pH 6.5 Urine Specific [place] 1.010 Urine Protein Negative mg/dL (NEG-TRACE) Urine Glucose (UA) Negative mg/dL (NEG) Urine Ketones (Stick) Negative mg/dL (NEG) Urine Blood Negative (NEG) Urine Nitrite Negative (NEG) Urine Bilirubin Negative (NEG) Urine Urobilinogen Dipstick 0.2 mg/dL (0.2 mg/dL) Urine Leukocyte Esterase Negative (NEG) Urine RBC 0 /HPF (0-2) Urine WBC Occ /HPF (0-4) Urine Bacteria 0 /HPF (0-FEW) Urine Hyaline Casts Few /HPF Urine Mucus Slight /LPF Urine Opiates Screen Neg (NEG) Urine Methadone Screen Neg (NEG) Urine Barbiturates Neg (NEG) Urine Phencyclidine Screen Neg (NEG) Urine Amphetamine/Methamphetamine Neg (NEG) Urine Benzodiazepines Screen Neg (NEG) Urine Cocaine Screen Neg (NEG) Urine Cannabinoids Screen Pos (NEG) Urine Ethyl Alcohol Neg (NEG) Medications Current Medications Potassium Chloride/Water 100 ml @ 100 mls/hr Q1H IV Last administered on 03/03/19at 15:19; Start 03/03/19 at 13:30; Stop 03/03/19 at 15:29; Status DC Zoledronic Acid 100 ml @ 400 mls/hr 1X ONCE IV Last administered on 03/03/19at 16:04; Start 03/03/19 at 16:00; Stop 03/03/19 at 16:14; Status DC Sodium Chloride (Normal Saline Flush) 3 ml QSHIFT PRN IV AFTER MEDS AND BLOOD DRAWS; Start 03/03/19 at 15:30 Sodium Chloride 1,000 ml @ 100 mls/hr Q10H IV Last administered on 03/04/19at 01:36; Start 03/03/19 at 15:24 Ondansetron HCl (Zofran) 4 mg PRN Q4HRS PRN IV NAUSEA/VOMITING; Start 03/03/19 at 15:30 Acetaminophen (Tylenol) 650 mg PRN Q4HRS PRN PO TEMP OVER 100.4F OR MILD PAIN; Start 03/03/19 at 15:30 Clonidine HCl (Catapres) 0.1 mg PRN Q6HRS PRN PO SBP>160 OR DBP>90; Start 03/03/19 at 15:30 Docusate Sodium (Colace) 100 mg PRN BID PRN PO CONSTIPATION; Start 03/03/19 at 15:30 Albuterol Sulfate (Ventolin Neb Soln) 2.5 mg PRN Q4HRS PRN NEB SHORTNESS OF BREATH; Start 03/03/19 at 15:30 Guaifenesin (Robitussin) 200 mg PRN Q4HRS PRN PO COUGH; Start 03/03/19 at 15:30 Lorazepam (Ativan) 0.5 mg PRN Q4HRS PRN PO ANXIETY / AGITATION Last administered on 03/03/19at 21:32; Start 03/03/19 at 15:30 Enoxaparin Sodium (Lovenox 40mg Syringe) 40 mg QHS SQ Last administered on 03/03/19at 21:32; Start 03/03/19 at 21:00 Furosemide (Lasix) 40 mg DAILY PO ; Start 03/04/19 at 09:00 Lisinopril (Prinivil) 5 mg DAILY PO ; Start 03/04/19 at 09:00; Status Cancel Potassium Chloride (Klor-Con) 10 meq DAILY PO ; Start 03/04/19 at 09:00 Aspirin (Marcell Aspirin) 325 mg DAILYWBKFT PO ; Start 03/04/19 at 08:00; Status Cancel Carvedilol (Coreg) 25 mg BIDWMEALS PO Last administered on 03/04/19at 08:40; Start 03/03/19 at 17:00 Lisinopril (Prinivil) 2.5 mg DAILYWLUN PO ; Start 03/04/19 at 12:00; Status Cancel Magnesium Sulfate 3 gm/Dextrose 106 ml @ 35.333 mls/ hr 1X ONCE IV Last administered on 03/03/19at 16:57; Start 03/03/19 at 17:00; Stop 03/03/19 at 19:59; Status DC Ketorolac Tromethamine (Toradol 30mg Vial) 30 mg 1X ONCE IV Last administered on 03/03/19at 16:57; Start 03/03/19 at 16:45; Stop 03/03/19 at 16:46; Status DC Aspirin (Children'S Aspirin) 81 mg DAILY PO Last administered on 03/04/19at 08:40; Start 03/04/19 at 09:00 Ibuprofen (Motrin) 400 mg PRN Q6HRS PRN PO INFLAMMATION Last administered on 03/04/19at 08:40; Start 03/03/19 at 21:15 Lisinopril (Prinivil) 20 mg DAILY PO Last administered on 03/04/19at 08:40; Start 03/04/19 at 09:00 Ipratropium [place] (Atrovent) 0.5 mg RTQID NEB Last administered on 03/04/19at 07:30; Start 03/03/19 at 21:30 Active Scripts Active Reported Ipratropium [place] 0.2 Mg/1 Ml Solution 1 Vial NEB QID Ibuprofen 400 Mg Tablet 400 Mg PO PRN Q6HRS PRN Lisinopril 20 Mg Tablet 1 Tab PO DAILY Aspirin 81 Mg Tab.chew 1 Tab PO DAILY Coreg (Carvedilol) 25 Mg Tablet 25 Mg PO BID Lasix (Furosemide) 40 Mg Tablet 40 Mg PO DAILY Vitals/I & O Vital Sign - Last 24 Hours 03/03/19 03/03/19 03/03/19 03/03/19 13:05 13:30 14:00 14:30 Temp 98.0 98.0 Pulse 82 82 84 86 Resp 16 22 22 20 B/P (MAP) 153/72 (99) 155/72 (99) 151/69 (96) 162/75 (104) Pulse Ox 94 98 100 100 O2 Delivery Nasal Cannula Room Air Room Air Nasal Cannula O2 Flow Rate 3.0 3.0 9/19/03/03/19 03/03/19 03/03/19 15:00 16:00 16:30 17:00 Pulse 84 84 88 86 Resp 22 B/P (MAP) 158/74 (102) 172/81 (111) 179/84 (115) 174/82 (112) Pulse Ox 99 99 97 100 O2 Delivery Nasal Cannula Nasal Cannula Nasal Cannula Nasal Cannula O2 Flow Rate 3.0 3.0 3.0 3.0 03/03/19 03/03/19 03/03/19 03/03/19 18:00 18:30 18:57 19:00 Pulse 86 86 83 82 Resp 20 B/P (MAP) 154/70 (98) 151/73 (99) 138/71 151/73 (99) Pulse Ox 97 97 96 O2 Delivery Nasal Cannula Nasal Cannula Nasal Cannula O2 Flow Rate 3.0 3.0 3.0 03/03/19 03/03/19 03/03/19 03/03/19 19:50 19:50 19:50 21:43 Temp 97.5 97.5 97.5 97.5 Pulse 79 79 Resp 18 B/P (MAP) 137/49 (78) 137/49 (78) Pulse Ox 94 94 98 O2 Delivery Nasal Cannula Nasal Cannula Nasal Cannula Room Air O2 Flow Rate 3.0 3.0 3.0 03/03/19 03/04/19 03/04/19 03/04/19 23:51 03:51 07:00 07:31 Temp 98.3 97.7 97.8 98.3 97.7 97.8 Pulse 81 82 85 Resp 18 B/P (MAP) 138/58 (84) 159/63 (95) 137/59 (85) Pulse Ox 100 94 97 97 O2 Delivery Nasal Cannula Nasal Cannula Nasal Cannula Room Air O2 Flow Rate 3.0 3.0 2.0 03/04/19 03/04/19 08:40 08:40 Pulse 85 85 B/P (MAP) 137/59 137/59 Intake and Output 03/03/19 03/03/19 03/04/19 14:59 22:59 06:59 Intake Total 200 ml 240 ml Output Total 500 ml Balance 200 ml -[address] Chest - 1. Left hilar mass with postobstructive atelectasis and spiculated left lower lobe lung mass are seen. 2. Numerous hepatic hypodense lesions likely metastatic. 3. Numerous lytic lesions are seen throughout the skeletal structures including the ribs, pelvis and right proximal femur. The right proximal femoral shaft lesion extends into the lesser trochanter and is sizable enough which may predispose to pathologic fracture of the right lesser trochanter or proximal femoral shaft. Consider orthopedic evaluation. 4. A 1 cm left thyroid nodule is seen. This can be further assessed by thyroid ultrasound. MARIA FERNANDA STANFORD MD Mar 04, 2019 09:08
[2019-03-04 09:18] LABS: ALBUMIN 3.1 g/dL (3.4-5.0); ALBUMIN/GLOBULIN RATIO 0.7 (1.0-1.7); ALK PHOS 321 U/L (46-116); ALT (SGPT) 33 U/L (16-63); AST (SGOT) 45 U/L (15-37); BLOOD UREA NITROGEN 14 mg/dL (8-26); BUN/CREATININE RATIO 20 (6-20); CHLORIDE 97 mmol/L (98-107); CREATININE 0.7 mg/dL (0.7-1.3); GLUCOSE 121 mg/dL (70-99); SODIUM 144 mmol/L (136-145); TOTAL BILIRUBIN 0.4 mg/dL (0.2-1.0); TOTAL PROTEIN 7.7 g/dL (6.4-8.2)
[2019-03-04 09:21] LABS: CARBON DIOXIDE > 45 mmol/L (21-32)
[2019-03-04 09:29] LABS: ANION GAP 2 (6-14); POTASSIUM 2.8 mmol/L (3.5-5.1)
[2019-03-04 09:31] LABS: MAGNESIUM 1.9 mg/dL (1.8-2.4); PHOSPHORUS 2.2 mg/dL (2.6-4.7)
[2019-03-04 10:15] LABS: CALCIUM PTH 14.3
[2019-03-04 10:16] LABS: PHOSPHORUS PTH 2.3
[2019-03-04 10:17] LABS: CREATININE PTH 0.64
[2019-03-04] MEDS: POTASSIUM CHLORIDE 10MEQ 100 ML IV SCH ×4 (10:37→15:22)
--- NOTE | 2019-03-04 10:53 | CONS ---
DATE OF CONSULTATION: PULMONARY CONSULTATION ATTENDING PHYSICIAN: Sergio Correa MD REASON FOR CONSULTATION: Abnormal CT of the chest, lung mass. HISTORY OF PRESENT ILLNESS: The patient is a 58-year-old male who has been a smoker since age 11, quit in 2012. He presented to the hospital with complaint of overall weakness. He has been on oxygen at 3 liters. He was sent by his digital music instructor because of high calcium level and decreased potassium. The patient had no headaches, no nausea or vomiting, no diarrhea. He has been having pain in his left-sided rib. He has lost about 5 pounds. He has lower extremity edema as well. The patient underwent imaging study including CT of the chest, which was reviewed by me. The patient has a large left hilar mass causing postobstructive atelectasis. He also has a spiculated left lower lobe metastatic lesion as well. He has numerous hepatic lesions suggesting metastasis and also numerous lytic lesions throughout the skeletal structures including ribs, pelvis and right proximal femur. The right proximal femur shaft lesion extends to the lesser trochanter and is sizable enough which may be predisposing to pathological fracture. I have been asked to see him for further evaluation. Oncology has been consulted as well. PAST MEDICAL HISTORY: Significant for history of chronic obstructive airway disease, suspect severe history of chronic hypoxic respiratory failure on 3 liters on a 24-hour basis, and history of nonischemic cardiomyopathy. PAST SURGICAL HISTORY: No recent surgeries. In the past, he had some wrist surgery. SOCIAL HISTORY: Smoked since age 11, quit in 2012. Has some history of marijuana use. Does not drink alcohol. FAMILY HISTORY: Hypertension. ALLERGIES: None. CURRENT MEDICATIONS: Reviewed as listed in the MRAD. PHYSICAL EXAMINATION: VITAL SIGNS: Reviewed. Blood pressure 137/59, afebrile, and pulse ox 97% on 2 liters. HEENT: Sclerae are nonicteric. NECK: Supple. LUNGS: With diminished breath sounds bilaterally. CARDIOVASCULAR: Regular rate. ABDOMEN: Soft and nontender. EXTREMITIES: With no pitting edema. LABORATORY DATA: Reviewed. White cell count 13.3, hemoglobin 10.0, and platelets are 472. His calcium was 13.5 and potassium is 2.8. Albumin is 3.1. IMPRESSION: 1. Abnormal CT chest with a large left hilar mass 6.8 x 5.5 cm in size, resulting in postobstructive left upper lobe atelectasis. In addition, he also has a left lower lobe 2.2 cm pleural based spiculated mass, likely metastatic. He also has a cavitary lingular mass and few smaller lung nodules. He has multiple bony lesions involving the ribs, pelvis in the right proximal femur. In addition, he has suspicious hepatic metastasis. These findings are highly suggestive of metastatic primary lung cancer. 2. Underlying chronic obstructive pulmonary disease with chronic hypoxic respiratory failure. 3. Hypercalcemia of malignancy. 4. Nonischemic cardiomyopathy. RECOMMENDATIONS: 1. Discussed with Dr. Serrano and discussed with the patient. We will proceed with CT-guided biopsy of the pelvic bone.vs the rib lesions. 2. Once diagnosis is confirmed, then he will probably need palliative chemo and radiation. 3. Continue present oxygen. 4. Follow Oncology and Cardiology recommendations. 5. Treatment of hypercalcemia per primary care. 6. We will follow along with you. MAICO COOK MD DR: JAM/wilton JOB#: [id number] / [id number] JASBIR
[2019-03-04] MEDS: POTASSIUM CHLORIDE 10 MEQ TABLET.ER. PO SCH (10:57)
[2019-03-04] MEDS: FUROSEMIDE 40 MG/4 ML VIAL. IVP SCH ×2 (10:57→15:23)
[2019-03-04] MEDS: KETOROLAC 15 MG/ML VIAL. IV PRN (12:01)
[2019-03-04] MEDS ORDERED: TIOT18CA IH (12:09)
--- NOTE | 2019-03-04 12:48 | PDOC2 ---
CONSULT Date of Consult Date of Consult DATE: 03/04/19 TIME: 12:48 Reason for Consult Reason for Consult: Hypercalcemia Source Source: Chart review, Patient History of Present Illness Reason for Visit: Mr Almanza is a 58yo CM w/ PMHx of Nonischemic dilated cardiomyopathy, hypertension, who presents to ED on 03/03 with c/o soa, leg edema, chest pressure. Found to have low K and high Ca CXR was abnormal which prompted a CT chest which revealed a left hilar mass with post-obstructive atelecatsis and spiculated left lower lobe lung mass as well as numerous hepatic lesions and lytic lesions throughout his skeletal st ructure ribs, pelvis and right proximal femur and a 1cm left thyroid nodule. He was admitted for further work-up and care. He states he is feeling weak, diffuse pain, short of breath, and LE edema . He states he has been seeing a supervisor felting recently. He reports he may have lost 5 lbs of weight, appetite decreased, no night sweats. denies any N/V/D. denies any PO TUMS, Vit D or Ca supplements Denies urinary complaints. Denies any baldev-oral numbness or tingling . No Cramps . Home med list- ibuprofen , lisinopril, Furosemide and Coreg Past Medical History Cardiovascular: CHF, HTN, Syncope, Hyperlipidemia, Other (NICM) Pulmonary: COPD CENTRAL NERVOUS SYSTEM: Migraine Psych: Addictions Past Surgical History Past Surgical History: Other (tendon repair) Family History Family History: Hypertension Social History Quit (2012) ALCOHOL: occassional Drugs: Marijuana Current Problem List Problem List Problems Medical Problems: (1) Acute respiratory failure with hypoxia Status: Acute (2) Anemia Status: Acute (3) Atelectasis of left lung Status: Acute (4) CHF (congestive heart failure) Status: Acute (5) Hypercalcemia Status: Acute (6) Hypokalemia Status: Acute (7) Hypomagnesemia Status: Acute (8) Mild tetrahydrocannabinol (THC) abuse Status: Acute (9) Tobacco abuse Status: Acute Current Medications Current Medications Current Medications Potassium Chloride/Water 100 ml @ 100 mls/hr Q1H IV Last administered on 03/03/19at 15:19; Start 03/03/19 at 13:30; Stop 03/03/19 at 15:29; Status DC Zoledronic Acid 100 ml @ 400 mls/hr 1X ONCE IV Last administered on 03/03/19at 16:04; Start 03/03/19 at 16:00; Stop 03/03/19 at 16:14; Status DC Sodium Chloride (Normal Saline Flush) 3 ml QSHIFT PRN IV AFTER MEDS AND BLOOD DRAWS; Start 03/03/19 at 15:30 Sodium Chloride 1,000 ml @ 100 mls/hr Q10H IV Last administered on 03/04/19at 12:02; Start 03/03/19 at 15:24 Ondansetron HCl (Zofran) 4 mg PRN Q4HRS PRN IV NAUSEA/VOMITING; Start 03/03/19 at 15:30 Acetaminophen (Tylenol) 650 mg PRN Q4HRS PRN PO TEMP OVER 100.4F OR MILD PAIN; Start 03/03/19 at 15:30 Clonidine HCl (Catapres) 0.1 mg PRN Q6HRS PRN PO SBP>160 OR DBP>90; Start 03/03/19 at 15:30 Docusate Sodium (Colace) 100 mg PRN BID PRN PO CONSTIPATION; Start 03/03/19 at 15:30 Albuterol Sulfate (Ventolin Neb Soln) 2.5 mg PRN Q4HRS PRN NEB SHORTNESS OF BREATH; Start 03/03/19 at 15:30 Guaifenesin (Robitussin) 200 mg PRN Q4HRS PRN PO COUGH; Start 03/03/19 at 15:30 Lorazepam (Ativan) 0.5 mg PRN Q4HRS PRN PO ANXIETY / AGITATION Last administered on 03/03/19at 21:32; Start 03/03/19 at 15:30 Enoxaparin Sodium (Lovenox 40mg Syringe) 40 mg QHS SQ Last administered on 03/03/19at 21:32; Start 03/03/19 at 21:00 Furosemide (Lasix) 40 mg DAILY PO ; Start 03/04/19 at 09:00; Stop 03/04/19 at 09:59; Status DC Lisinopril (Prinivil) 5 mg DAILY PO ; Start 03/04/19 at 09:00; Status Cancel Potassium Chloride (Klor-Con) 10 meq DAILY PO ; Start 03/04/19 at 09:00 Aspirin (Marcell Aspirin) 325 mg DAILYWBKFT PO ; Start 03/04/19 at 08:00; Status Cancel Carvedilol (Coreg) 25 mg BIDWMEALS PO Last administered on 03/04/19 08:40; Start 03/03/19 at 17:00 Lisinopril (Prinivil) 2.5 mg DAILYWLUN PO ; Start 03/04/19 at 12:00; Status Cancel Magnesium Sulfate 3 gm/Dextrose 106 ml @ 35.333 mls/ hr 1X ONCE IV Last administered on 03/03/19 16:57; Start 03/03/19 at 17:00; Stop 03/03/19 at 19:59; Status DC Ketorolac Tromethamine (Toradol 30mg Vial) 30 mg 1X ONCE IV Last administered on 03/03/19 16:57; Start 03/03/19 at 16:45; Stop 03/03/19 at 16:46; Status DC Aspirin (Children'S Aspirin) 81 mg DAILY PO Last administered on 03/04/19 08:40; Start 03/04/19 at 09:00 Ibuprofen (Motrin) 400 mg PRN Q6HRS PRN PO INFLAMMATION Last administered on 03/04/19 08:40; Start 03/03/19 at 21:15 Lisinopril (Prinivil) 20 mg DAILY PO Last administered on 03/04/19 08:40; Start 03/04/19 at 09:00 Ipratropium Maddock (Atrovent) 0.5 mg RTQID NEB Last administered on 03/04/19 12:11; Start 03/03/19 at 21:30 Potassium Chloride/Water 100 ml @ 100 mls/hr Q1H IV Last administered on 03/04/19 12:02; Start 03/04/19 at 10:30; Stop 03/04/19 at 14:29 Furosemide (Lasix) 40 mg BID92 IVP Last administered on 03/04/19 10:59; Start 03/04/19 at 10:30 Ketorolac Tromethamine (Toradol 15mg Vial) 15 mg PRN Q6HRS PRN IV PAIN Last administered on 03/04/19 12:02; Start 03/04/19 at 12:00; Stop 03/09/19 at 11:59 Active Scripts Active Reported Spiriva (Tiotropium Maddock) 18 Mcg Cap.w.dev 2 Inh IH DAILY Ipratropium Maddock 0.2 Mg/1 Ml Solution 1 Vial NEB QID Ibuprofen 400 Mg Tablet 400 Mg PO PRN Q6HRS PRN Lisinopril 20 Mg Tablet 1 Tab PO DAILY Aspirin 81 Mg Tab.chew 1 Tab PO DAILY Coreg (Carvedilol) 25 Mg Tablet 25 Mg PO BID Lasix (Furosemide) 40 Mg Tablet 40 Mg PO DAILY Allergies Allergies: Coded Allergies: No Known Drug Allergies (Unverified , 08/12/13) ROS Review of System Per HPI Physical Exam Physical Exam Gen- NAD, sitting with his head resting on the table HEENT: Sclerae are nonicteric,OM dryish . NECK: Supple. LUNGS: With diminished breath sounds bilaterally. CARDIOVASCULAR: Regular rate. ABDOMEN: Soft and nontender. EXTREMITIES: Pitting edema LE bilat 1-2+ Neuro- Grossly normal - No Solo Skin No rash Vital Signs Vital Signs Date Time Temp Pulse Resp B/P (MAP) Pulse Ox O2 Delivery O2 Flow Rate FiO2 03/04/19 12:12 97 Room Air 03/04/19 10:50 83 114/57 (76) 03/04/19 07:00 97.8 18 2.0 97.8 Assessment & Plan Hypercalcemia - Etiology presumably Malignancy /dehydration Improving since presentation down to 13 from 14.7 Pt is asymptomatic, PTH Low Normal , further garsia if not improved with IVF including garsia for MM Recommend IVF at 150 to 200 ml/hr (if no hx of CHF), , strict I/O , No indication for Calcitonin or Bisphosphonates currently,Oncology to follow if persistent and 2/2 malignancy Vit D Def- Very low Vit D , PTH low as well Replace Vit D, consider PTHrP, will defer to Onc Bone Lytic lesion - ortho consulted Hypokalemia - Replace Anemia- Per Primary HTN- Home BP Coreg, lisinopril, Lasix Cardiology managing Left hilar mass -with postobstructive atelectasis and spiculated left lower lobe lung mass are seen. with numerous hepatic hypodense lesions likely metastatic and numerous lytic lesions are seen throughout the skeletal structures Left thyroid nodule- radiology recommends US Defer to primary Labs Labs Laboratory Tests Test 03/03/19 10:40 03/03/19 14:10 03/03/19 14:21 03/04/19 08:35 Estimated GFR (Non- 106 EGFR 123 PTH (Intact) Specimen Description Parathyroid Hormone (Intact) 8 Calcium (PTH Intact) 14.3 Creatinine (PTH Intact) 0.64 Phosphorus (PTH Intact) 2.3 White Blood Count 11.8 x10^3/uL (4.0-11.0) 13.3 x10^3/uL (4.0-11.0) Red Blood Count 3.38 x10^6/uL (4.30-5.70) 3.32 x10^6/uL (4.30-5.70) Hemoglobin 10.0 g/dL (13.0-17.5) 10.0 g/dL (13.0-17.5) Hematocrit 31.1 % (39.0-53.0) 30.8 % (39.0-53.0) Mean Corpuscular Volume 92 fL (79-100) 93 fL (79-100) Mean Corpuscular Hemoglobin 30 pg (25-35) 30 pg (25-35) Mean Corpuscular Hemoglobin Concent 32 g/dL (31-37) 32 g/dL (31-37) Red Cell Distribution Width 12.8 % (11.5-14.5) 13.1 % (11.5-14.5) Platelet Count 487 x10^3/uL (140-400) 472 x10^3/uL (140-400) Neutrophils (%) (Auto) 86 % (31-73) 91 % (31-73) Lymphocytes (%) (Auto) 7 % (24-48) 2 % (24-48) Monocytes (%) (Auto) 7 % (0-9) 5 % (0-9) Eosinophils (%) (Auto) 0 % (0-3) 1 % (0-3) Basophils (%) (Auto) 0 % (0-3) 1 % (0-3) Neutrophils # (Auto) 10.1 x10^3/uL (1.8-7.7) 12.2 x10^3/uL (1.8-7.7) Lymphocytes # (Auto) 0.8 x10^3/uL (1.0-4.8) 0.3 x10^3/uL (1.0-4.8) Monocytes # (Auto) 0.8 x10^3/uL (0.0-1.1) 0.7 x10^3/uL (0.0-1.1) Eosinophils # (Auto) 0.0 x10^3/uL (0.0-0.7) 0.1 x10^3/uL (0.0-0.7) Basophils # (Auto) 0.0 x10^3/uL (0.0-0.2) 0.1 x10^3/uL (0.0-0.2) Segmented Neutrophils % 83 % (35-66) Band Neutrophils % 6 % (0-9) Lymphocytes % 9 % (24-48) Monocytes % 2 % (0-10) Platelet Estimate Increased (ADEQUATE) Prothrombin Time 12.6 SEC (11.7-14.0) Prothromb Time International Ratio 1.0 (0.8-1.1) Sodium Level 142 mmol/L (136-145) 144 mmol/L (136-145) Potassium Level 2.6 mmol/L (3.5-5.1) 2.8 mmol/L (3.5-5.1) Chloride Level 91 mmol/L (98-107) 97 mmol/L (98-107) Carbon Dioxide Level > 45 mmol/L (21-32) > 45 mmol/L (21-32) Anion Gap (6-14) 2 (6-14) Blood Urea Nitrogen 17 mg/dL (8-26) 14 mg/dL (8-26) Creatinine 0.8 mg/dL (0.7-1.3) 0.7 mg/dL (0.7-1.3) Estimated GFR (Cockcroft-Gault) 98.6 115.0 BUN/Creatinine Ratio 21 (6-20) 20 (6-20) Glucose Level 116 mg/dL (70-99) 121 mg/dL (70-99) Calcium Level 13.5 mg/dL (8.5-10.1) 13.0 mg/dL (8.5-10.1) Phosphorus Level 2.6 mg/dL (2.6-4.7) 2.2 mg/dL (2.6-4.7) Magnesium Level 1.4 mg/dL (1.8-2.4) 1.9 mg/dL (1.8-2.4) Total Bilirubin 0.4 mg/dL (0.2-1.0) 0.4 mg/dL (0.2-1.0) Aspartate Amino Transf (AST/SGOT) 38 U/L (15-37) 45 U/L (15-37) Alanine Aminotransferase (ALT/SGPT) 30 U/L (16-63) 33 U/L (16-63) Alkaline Phosphatase 288 U/L (46-116) 321 U/L (46-116) Troponin I Quantitative 0.027 ng/mL (0.000-0.055) XT-Vdo-G-Type Natriuretic Peptide 1027 pg/mL (0-124) Total Protein 7.3 g/dL (6.4-8.2) 7.7 g/dL (6.4-8.2) Albumin 3.1 g/dL (3.4-5.0) 3.1 g/dL (3.4-5.0) Albumin/Globulin Ratio 0.7 (1.0-1.7) 0.7 (1.0-1.7) Urine Collection Type Unknown Urine Color Yellow Urine Clarity Clear Urine pH 6.5 Urine Specific [place] 1.010 Urine Protein Negative mg/dL (NEG-TRACE) Urine Glucose (UA) Negative mg/dL (NEG) Urine Ketones (Stick) Negative mg/dL (NEG) Urine Blood Negative (NEG) Urine Nitrite Negative (NEG) Urine Bilirubin Negative (NEG) Urine Urobilinogen Dipstick 0.2 mg/dL (0.2 mg/dL) Urine Leukocyte Esterase Negative (NEG) Urine RBC 0 /HPF (0-2) Urine WBC Occ /HPF (0-4) Urine Bacteria 0 /HPF (0-FEW) Urine Hyaline Casts Few /HPF Urine Mucus Slight /LPF Urine Opiates Screen Neg (NEG) Urine Methadone Screen Neg (NEG) Urine Barbiturates Neg (NEG) Urine Phencyclidine Screen Neg (NEG) Urine Amphetamine/Methamphetamine Neg (NEG) Urine Benzodiazepines Screen Neg (NEG) Urine Cocaine Screen Neg (NEG) Urine Cannabinoids Screen Pos (NEG) Urine Ethyl Alcohol Neg (NEG) 25-Hydroxy Vitamin D Total 7.4 ng/mL (30-100) Thyroid Stimulating Hormone (TSH) 4.303 uIU/mL (0.358-3.74) Laboratory Tests Test 9/19/19 14:10 03/03/19 14:21 03/04/19 08:35 White Blood Count 11.8 x10^3/uL (4.0-11.0) 13.3 x10^3/uL (4.0-11.0) Red Blood Count 3.38 x10^6/uL (4.30-5.70) 3.32 x10^6/uL (4.30-5.70) Hemoglobin 10.0 g/dL (13.0-17.5) 10.0 g/dL (13.0-17.5) Hematocrit 31.1 % (39.0-53.0) 30.8 % (39.0-53.0) Mean Corpuscular Volume 92 fL (79-100) 93 fL (79-100) Mean Corpuscular Hemoglobin 30 pg (25-35) 30 pg (25-35) Mean Corpuscular Hemoglobin Concent 32 g/dL (31-37) 32 g/dL (31-37) Red Cell Distribution Width 12.8 % (11.5-14.5) 13.1 % (11.5-14.5) Platelet Count 487 x10^3/uL (140-400) 472 x10^3/uL (140-400) Neutrophils (%) (Auto) 86 % (31-73) 91 % (31-73) Lymphocytes (%) (Auto) 7 % (24-48) 2 % (24-48) Monocytes (%) (Auto) 7 % (0-9) 5 % (0-9) Eosinophils (%) (Auto) 0 % (0-3) 1 % (0-3) Basophils (%) (Auto) 0 % (0-3) 1 % (0-3) Neutrophils # (Auto) 10.1 x10^3/uL (1.8-7.7) 12.2 x10^3/uL (1.8-7.7) Lymphocytes # (Auto) 0.8 x10^3/uL (1.0-4.8) 0.3 x10^3/uL (1.0-4.8) Monocytes # (Auto) 0.8 x10^3/uL (0.0-1.1) 0.7 x10^3/uL (0.0-1.1) Eosinophils # (Auto) 0.0 x10^3/uL (0.0-0.7) 0.1 x10^3/uL (0.0-0.7) Basophils # (Auto) 0.0 x10^3/uL (0.0-0.2) 0.1 x10^3/uL (0.0-0.2) Segmented Neutrophils % 83 % (35-66) Band Neutrophils % 6 % (0-9) Lymphocytes % 9 % (24-48) Monocytes % 2 % (0-10) Platelet Estimate Increased (ADEQUATE) Prothrombin Time 12.6 SEC (11.7-14.0) Prothromb Time International Ratio 1.0 (0.8-1.1) Sodium Level 142 mmol/L (136-145) 144 mmol/L (136-145) Potassium Level 2.6 mmol/L (3.5-5.1) 2.8 mmol/L (3.5-5.1) Chloride Level 91 mmol/L (98-107) 97 mmol/L (98-107) Carbon Dioxide Level > 45 mmol/L (21-32) > 45 mmol/L (21-32) Anion Gap (6-14) 2 (6-14) Blood Urea Nitrogen 17 mg/dL (8-26) 14 mg/dL (8-26) Creatinine 0.8 mg/dL (0.7-1.3) 0.7 mg/dL (0.7-1.3) Estimated GFR (Cockcroft-Gault) 98.6 115.0 BUN/Creatinine Ratio 21 (6-20) 20 (6-20) Glucose Level 116 mg/dL (70-99) 121 mg/dL (70-99) Calcium Level 13.5 mg/dL (8.5-10.1) 13.0 mg/dL (8.5-10.1) Phosphorus Level 2.6 mg/dL (2.6-4.7) 2.2 mg/dL (2.6-4.7) Magnesium Level 1.4 mg/dL (1.8-2.4) 1.9 mg/dL (1.8-2.4) Total Bilirubin 0.4 mg/dL (0.2-1.0) 0.4 mg/dL (0.2-1.0) Aspartate Amino Transf (AST/SGOT) 38 U/L (15-37) 45 U/L (15-37) Alanine Aminotransferase (ALT/SGPT) 30 U/L (16-63) 33 U/L (16-63) Alkaline Phosphatase 288 U/L (46-116) 321 U/L (46-116) Troponin I Quantitative 0.027 ng/mL (0.000-0.055) CJ-Nht-O-Type Natriuretic Peptide 1027 pg/mL (0-124) Total Protein 7.3 g/dL (6.4-8.2) 7.7 g/dL (6.4-8.2) Albumin 3.1 g/dL (3.4-5.0) 3.1 g/dL (3.4-5.0) Albumin/Globulin Ratio 0.7 (1.0-1.7) 0.7 (1.0-1.7) Urine Collection Type Unknown Urine Color Yellow Urine Clarity Clear Urine pH 6.5 Urine Specific [place] 1.010 Urine Protein Negative mg/dL (NEG-TRACE) Urine Glucose (UA) Negative mg/dL (NEG) Urine Ketones (Stick) Negative mg/dL (NEG) Urine Blood Negative (NEG) Urine Nitrite Negative (NEG) Urine Bilirubin Negative (NEG) Urine Urobilinogen Dipstick 0.2 mg/dL (0.2 mg/dL) Urine Leukocyte Esterase Negative (NEG) Urine RBC 0 /HPF (0-2) Urine WBC Occ /HPF (0-4) Urine Bacteria 0 /HPF (0-FEW) Urine Hyaline Casts Few /HPF Urine Mucus Slight /LPF Urine Opiates Screen Neg (NEG) Urine Methadone Screen Neg (NEG) Urine Barbiturates Neg (NEG) Urine Phencyclidine Screen Neg (NEG) Urine Amphetamine/Methamphetamine Neg (NEG) Urine Benzodiazepines Screen Neg (NEG) Urine Cocaine Screen Neg (NEG) Urine Cannabinoids Screen Pos (NEG) Urine Ethyl Alcohol Neg (NEG) 25-Hydroxy Vitamin D Total 7.4 ng/mL (30-100) Thyroid Stimulating Hormone (TSH) 4.303 uIU/mL (0.358-3.74) Review All relevant outside records, renal labs, imaging studies, telemetry/EKG's were reviewed. Images Images IMPRESSION: 1. Left hilar mass with postobstructive atelectasis and spiculated left lower lobe lung mass are seen. 2. Numerous hepatic hypodense lesions likely metastatic. 3. Numerous lytic lesions are seen throughout the skeletal structures including the ribs, pelvis and right proximal femur. The right proximal femoral shaft lesion extends into the lesser trochanter and is sizable enough which may predispose to pathologic fracture of the right lesser trochanter or proximal femoral shaft. Consider orthopedic evaluation. 4. A 1 cm left thyroid nodule is seen. This can be further assessed by thyroid ultrasound. JEREMIAS SALDANA MD Mar 04, 2019 12:48
[2019-03-04] MEDS ORDERED: LIDOCAINE WITH 8.4% SOD BICARB 3 ML DISP.SYRIN. ONE (14:33)
[2019-03-04] MEDS ORDERED: MIDAZOLAM HCL/PF 2 MG/2 ML VIAL. ONE (14:38)
[2019-03-04] MEDS ORDERED: fentaNYL PF VIAL 100 MCG/2 ML VIAL ONE (14:38)
[2019-03-04] MEDS ORDERED: LIDOCAINE WITH 8.4% SOD BICARB 3 ML DISP.SYRIN. IJ ONE (14:45)
[2019-03-04] MEDS ORDERED: fentaNYL PF VIAL 100 MCG/2 ML VIAL IV ONE (14:45)
[2019-03-04] MEDS ORDERED: MIDAZOLAM HCL/PF 2 MG/2 ML VIAL. IV ONE (14:45)
--- NOTE | 2019-03-04 14:47 | PDOC2 ---
CONSULT Date of Consult Date of Consult DATE: 03/04/19 TIME: 14:46 Reason for Consult Reason for Consult: Right femur lesion Identification/Chief Complaint Chief Complaint Multiple complaints at admission, does report right proximal thigh pain Source Source: Chart review, Patient History of Present Illness Reason for Visit: This 58-year-old man was admitted through the emergency room with shortness of breath and chest pain. He sees a plant tender regularly and is a smoker. He has a very high blood calcium. Initial scans in the ER such as CT of chest abdomen and pelvis seem to indicate that there is metastatic disease. There is a spiculated lesion in the lung. He had a left iliac biopsy today of a lesion. He has right thigh pain and feels fatigued Past Medical History Cardiovascular: CHF, HTN, Syncope, Hyperlipidemia, Other (NICM) Pulmonary: COPD CENTRAL NERVOUS SYSTEM: Migraine Psych: Addictions Past Surgical History Past Surgical History: Other (tendon repair) Family History Family History: Hypertension Social History Quit (2012) ALCOHOL: occassional Drugs: Marijuana Current Problem List Problem List Problems Medical Problems: (1) Acute respiratory failure with hypoxia Status: Acute (2) Anemia Status: Acute (3) Atelectasis of left lung Status: Acute (4) CHF (congestive heart failure) Status: Acute (5) Hypercalcemia Status: Acute (6) Hypokalemia Status: Acute (7) Hypomagnesemia Status: Acute (8) Mild tetrahydrocannabinol (THC) abuse Status: Acute (9) Tobacco abuse Status: Acute Current Medications Current Medications Current Medications Potassium Chloride/Water 100 ml @ 100 mls/hr Q1H IV Last administered on 03/03/19at 15:19; Start 03/03/19 at 13:30; Stop 03/03/19 at 15:29; Status DC Zoledronic Acid 100 ml @ 400 mls/hr 1X ONCE IV Last administered on 03/03/19at 16:04; Start 03/03/19 at 16:00; Stop 03/03/19 at 16:14; Status DC Sodium Chloride (Normal Saline Flush) 3 ml QSHIFT PRN IV AFTER MEDS AND BLOOD DRAWS; Start 03/03/19 at 15:30 Sodium Chloride 1,000 ml @ 100 mls/hr Q10H IV Last administered on 03/04/19at 12:02; Start 03/03/19 at 15:24 Ondansetron HCl (Zofran) 4 mg PRN Q4HRS PRN IV NAUSEA/VOMITING; Start 03/03/19 at 15:30 Acetaminophen (Tylenol) 650 mg PRN Q4HRS PRN PO TEMP OVER 100.4F OR MILD PAIN; Start 03/03/19 at 15:30 Clonidine HCl (Catapres) 0.1 mg PRN Q6HRS PRN PO SBP>160 OR DBP>90; Start 03/03/19 at 15:30 Docusate Sodium (Colace) 100 mg PRN BID PRN PO CONSTIPATION; Start 03/03/19 at 15:30 Albuterol Sulfate (Ventolin Neb Soln) 2.5 mg PRN Q4HRS PRN NEB SHORTNESS OF BREATH; Start 03/03/19 at 15:30 Guaifenesin (Robitussin) 200 mg PRN Q4HRS PRN PO COUGH; Start 03/03/19 at 15:30 Lorazepam (Ativan) 0.5 mg PRN Q4HRS PRN PO ANXIETY / AGITATION Last administered on 03/03/19at 21:32; Start 03/03/19 at 15:30 Enoxaparin Sodium (Lovenox 40mg Syringe) 40 mg QHS SQ Last administered on 03/03/19at 21:32; Start 03/03/19 at 21:00 Furosemide (Lasix) 40 mg DAILY PO ; Start 03/04/19 at 09:00; Stop 03/04/19 at 09:59; Status DC Lisinopril (Prinivil) 5 mg DAILY PO ; Start 03/04/19 at 09:00; Status Cancel Potassium Chloride (Klor-Con) 10 meq DAILY PO ; Start 03/04/19 at 09:00 Aspirin (Marcell Aspirin) 325 mg DAILYWBKFT PO ; Start 03/04/19 at 08:00; Status Cancel Carvedilol (Coreg) 25 mg BIDWMEALS PO Last administered on 03/04/19at 08:40; Start 03/03/19 at 17:00 Lisinopril (Prinivil) 2.5 mg DAILYWLUN PO ; Start 03/04/19 at 12:00; Status Cancel Magnesium Sulfate 3 gm/Dextrose 106 ml @ 35.333 mls/ hr 1X ONCE IV Last administered on 03/03/19 16:57; Start 03/03/19 at 17:00; Stop 03/03/19 at 19:59; Status DC Ketorolac Tromethamine (Toradol 30mg Vial) 30 mg 1X ONCE IV Last administered on 03/03/19 16:57; Start 03/03/19 at 16:45; Stop 03/03/19 at 16:46; Status DC Aspirin (Children'S Aspirin) 81 mg DAILY PO Last administered on 03/04/19 08:40; Start 03/04/19 at 09:00 Ibuprofen (Motrin) 400 mg PRN Q6HRS PRN PO INFLAMMATION Last administered on 03/04/19 08:40; Start 03/03/19 at 21:15 Lisinopril (Prinivil) 20 mg DAILY PO Last administered on 03/04/19 08:40; Start 03/04/19 at 09:00 Ipratropium [place] (Atrovent) 0.5 mg RTQID NEB Last administered on 03/04/19 12:11; Start 03/03/19 at 21:30 Potassium Chloride/Water 100 ml @ 100 mls/hr Q1H IV Last administered on 03/04/19 13:31; Start 03/04/19 at 10:30; Stop 03/04/19 at 14:29; Status DC Furosemide (Lasix) 40 mg BID92 IVP Last administered on 03/04/19 10:59; Start 03/04/19 at 10:30 Ketorolac Tromethamine (Toradol 15mg Vial) 15 mg PRN Q6HRS PRN IV PAIN Last administered on 03/04/19 12:02; Start 03/04/19 at 12:00; Stop 03/09/19 at 11:59 Lidocaine/Sodium Bicarbonate (Buffered Lidocaine 1%) 3 ml STK-MED ONCE .ROUTE ; Start 03/04/19 at 14:33; Stop 03/04/19 at 14:33; Status DC Midazolam HCl (Versed) 2 mg STK-MED ONCE .ROUTE ; Start 03/04/19 at 14:38; Stop 03/04/19 at 14:39; Status DC Fentanyl Citrate (Fentanyl 2ml Vial) 100 mcg STK-MED ONCE .ROUTE ; Start 03/04/19 at 14:38; Stop 03/04/19 at 14:39; Status DC Lidocaine/Sodium Bicarbonate (Buffered Lidocaine 1%) 3 ml 1X ONCE IJ ; Start 03/04/19 at 14:45; Stop 03/04/19 at 14:46; Status DC Midazolam HCl (Versed) 2 mg 1X ONCE IV ; Start 03/04/19 at 14:45; Stop 03/04/19 at 14:46; Status DC Fentanyl Citrate (Fentanyl 2ml Vial) 100 mcg 1X ONCE IV ; Start 03/04/19 at 14:45; Stop 03/04/19 at 14:46; Status DC Active Scripts Active Reported Spiriva (Tiotropium [place]) 18 Mcg Cap.w.dev 2 Inh IH DAILY Ipratropium [place] 0.2 Mg/1 Ml Solution 1 Vial NEB QID Ibuprofen 400 Mg Tablet 400 Mg PO PRN Q6HRS PRN Lisinopril 20 Mg Tablet 1 Tab PO DAILY Aspirin 81 Mg Tab.chew 1 Tab PO DAILY Coreg (Carvedilol) 25 Mg Tablet 25 Mg PO BID Lasix (Furosemide) 40 Mg Tablet 40 Mg PO DAILY Allergies Allergies: Coded Allergies: No Known Drug Allergies (Unverified , 08/12/13) Physical Exam General: Other (appears fatigued, difficult historian) HEENT: Other (appears older than his stated age) Lungs: Normal air movement Heart: Regular rate Abdomen: Soft Extremities: Other (tenderness of the right proximal thigh, no deformity or crepitus) Skin: No breakdown Neuro: Normal speech, Sensation intact Vitals VITALS Vital Signs Date Time Temp Pulse Resp B/P (MAP) Pulse Ox O2 Delivery O2 Flow Rate FiO2 03/04/19 12:12 97 Room Air 03/04/19 10:50 83 114/57 (76) 03/04/19 07:00 97.8 18 2.0 97.8 Labs Labs Laboratory Tests Test 03/03/19 10:40 03/03/19 14:10 03/03/19 14:21 03/04/19 08:35 Estimated GFR (Non- 106 EGFR 123 PTH (Intact) Specimen Description Parathyroid Hormone (Intact) 8 Calcium (PTH Intact) 14.3 Creatinine (PTH Intact) 0.64 Phosphorus (PTH Intact) 2.3 White Blood Count 11.8 x10^3/uL (4.0-11.0) 13.3 x10^3/uL (4.0-11.0) Red Blood Count 3.38 x10^6/uL (4.30-5.70) 3.32 x10^6/uL (4.30-5.70) Hemoglobin 10.0 g/dL (13.0-17.5) 10.0 g/dL (13.0-17.5) Hematocrit 31.1 % (39.0-53.0) 30.8 % (39.0-53.0) Mean Corpuscular Volume 92 fL (79-100) 93 fL (79-100) Mean Corpuscular Hemoglobin 30 pg (25-35) 30 pg (25-35) Mean Corpuscular Hemoglobin Concent 32 g/dL (31-37) 32 g/dL (31-37) Red Cell Distribution Width 12.8 % (11.5-14.5) 13.1 % (11.5-14.5) Platelet Count 487 x10^3/uL (140-400) 472 x10^3/uL (140-400) Neutrophils (%) (Auto) 86 % (31-73) 91 % (31-73) Lymphocytes (%) (Auto) 7 % (24-48) 2 % (24-48) Monocytes (%) (Auto) 7 % (0-9) 5 % (0-9) Eosinophils (%) (Auto) 0 % (0-3) 1 % (0-3) Basophils (%) (Auto) 0 % (0-3) 1 % (0-3) Neutrophils # (Auto) 10.1 x10^3/uL (1.8-7.7) 12.2 x10^3/uL (1.8-7.7) Lymphocytes # (Auto) 0.8 x10^3/uL (1.0-4.8) 0.3 x10^3/uL (1.0-4.8) Monocytes # (Auto) 0.8 x10^3/uL (0.0-1.1) 0.7 x10^3/uL (0.0-1.1) Eosinophils # (Auto) 0.0 x10^3/uL (0.0-0.7) 0.1 x10^3/uL (0.0-0.7) Basophils # (Auto) 0.0 x10^3/uL (0.0-0.2) 0.1 x10^3/uL (0.0-0.2) Segmented Neutrophils % 83 % (35-66) Band Neutrophils % 6 % (0-9) Lymphocytes % 9 % (24-48) Monocytes % 2 % (0-10) Platelet Estimate Increased (ADEQUATE) Prothrombin Time 12.6 SEC (11.7-14.0) Prothromb Time International Ratio 1.0 (0.8-1.1) Sodium Level 142 mmol/L (136-145) 144 mmol/L (136-145) Potassium Level 2.6 mmol/L (3.5-5.1) 2.8 mmol/L (3.5-5.1) Chloride Level 91 mmol/L (98-107) 97 mmol/L (98-107) Carbon Dioxide Level > 45 mmol/L (21-32) > 45 mmol/L (21-32) Anion Gap (6-14) 2 (6-14) Blood Urea Nitrogen 17 mg/dL (8-26) 14 mg/dL (8-26) Creatinine 0.8 mg/dL (0.7-1.3) 0.7 mg/dL (0.7-1.3) Estimated GFR (Cockcroft-Gault) 98.6 115.0 BUN/Creatinine Ratio 21 (6-20) 20 (6-20) Glucose Level 116 mg/dL (70-99) 121 mg/dL (70-99) Calcium Level 13.5 mg/dL (8.5-10.1) 13.0 mg/dL (8.5-10.1) Phosphorus Level 2.6 mg/dL (2.6-4.7) 2.2 mg/dL (2.6-4.7) Magnesium Level 1.4 mg/dL (1.8-2.4) 1.9 mg/dL (1.8-2.4) Total Bilirubin 0.4 mg/dL (0.2-1.0) 0.4 mg/dL (0.2-1.0) Aspartate Amino Transf (AST/SGOT) 38 U/L (15-37) 45 U/L (15-37) Alanine Aminotransferase (ALT/SGPT) 30 U/L (16-63) 33 U/L (16-63) Alkaline Phosphatase 288 U/L (46-116) 321 U/L (46-116) Troponin I Quantitative 0.027 ng/mL (0.000-0.055) QW-Tqt-J-Type Natriuretic Peptide 1027 pg/mL (0-124) Total Protein 7.3 g/dL (6.4-8.2) 7.7 g/dL (6.4-8.2) Albumin 3.1 g/dL (3.4-5.0) 3.1 g/dL (3.4-5.0) Albumin/Globulin Ratio 0.7 (1.0-1.7) 0.7 (1.0-1.7) Urine Collection Type Unknown Urine Color Yellow Urine Clarity Clear Urine pH 6.5 Urine Specific Randall 1.010 Urine Protein Negative mg/dL (NEG-TRACE) Urine Glucose (UA) Negative mg/dL (NEG) Urine Ketones (Stick) Negative mg/dL (NEG) Urine Blood Negative (NEG) Urine Nitrite Negative (NEG) Urine Bilirubin Negative (NEG) Urine Urobilinogen Dipstick 0.2 mg/dL (0.2 mg/dL) Urine Leukocyte Esterase Negative (NEG) Urine RBC 0 /HPF (0-2) Urine WBC Occ /HPF (0-4) Urine Bacteria 0 /HPF (0-FEW) Urine Hyaline Casts Few /HPF Urine Mucus Slight /LPF Urine Opiates Screen Neg (NEG) Urine Methadone Screen Neg (NEG) Urine Barbiturates Neg (NEG) Urine Phencyclidine Screen Neg (NEG) Urine Amphetamine/Methamphetamine Neg (NEG) Urine Benzodiazepines Screen Neg (NEG) Urine Cocaine Screen Neg (NEG) Urine Cannabinoids Screen Pos (NEG) Urine Ethyl Alcohol Neg (NEG) 25-Hydroxy Vitamin D Total 7.4 ng/mL (30-100) Thyroid Stimulating Hormone (TSH) 4.303 uIU/mL (0.358-3.74) Laboratory Tests Test 03/04/19 08:35 White Blood Count 13.3 x10^3/uL (4.0-11.0) Red Blood Count 3.32 x10^6/uL (4.30-5.70) Hemoglobin 10.0 g/dL (13.0-17.5) Hematocrit 30.8 % (39.0-53.0) Mean Corpuscular Volume 93 fL (79-100) Mean Corpuscular Hemoglobin 30 pg (25-35) Mean Corpuscular Hemoglobin Concent 32 g/dL (31-37) Red Cell Distribution Width 13.1 % (11.5-14.5) Platelet Count 472 x10^3/uL (140-400) Neutrophils (%) (Auto) 91 % (31-73) Lymphocytes (%) (Auto) 2 % (24-48) Monocytes (%) (Auto) 5 % (0-9) Eosinophils (%) (Auto) 1 % (0-3) Basophils (%) (Auto) 1 % (0-3) Neutrophils # (Auto) 12.2 x10^3/uL (1.8-7.7) Lymphocytes # (Auto) 0.3 x10^3/uL (1.0-4.8) Monocytes # (Auto) 0.7 x10^3/uL (0.0-1.1) Eosinophils # (Auto) 0.1 x10^3/uL (0.0-0.7) Basophils # (Auto) 0.1 x10^3/uL (0.0-0.2) Sodium Level 144 mmol/L (136-145) Potassium Level 2.8 mmol/L (3.5-5.1) Chloride Level 97 mmol/L (98-107) Carbon Dioxide Level > 45 mmol/L (21-32) Anion Gap 2 (6-14) Blood Urea Nitrogen 14 mg/dL (8-26) Creatinine 0.7 mg/dL (0.7-1.3) Estimated GFR (Cockcroft-Gault) 115.0 BUN/Creatinine Ratio 20 (6-20) Glucose Level 121 mg/dL (70-99) Calcium Level 13.0 mg/dL (8.5-10.1) Phosphorus Level 2.2 mg/dL (2.6-4.7) Magnesium Level 1.9 mg/dL (1.8-2.4) Total Bilirubin 0.4 mg/dL (0.2-1.0) Aspartate Amino Transf (AST/SGOT) 45 U/L (15-37) Alanine Aminotransferase (ALT/SGPT) 33 U/L (16-63) Alkaline Phosphatase 321 U/L (46-116) Total Protein 7.7 g/dL (6.4-8.2) Albumin 3.1 g/dL (3.4-5.0) Albumin/Globulin Ratio 0.7 (1.0-1.7) 25-Hydroxy Vitamin D Total 7.4 ng/mL (30-100) Thyroid Stimulating Hormone (TSH) 4.303 uIU/mL (0.358-3.74) Images Images Report reviewed, images independently reviewed. [facility] [address] [place] [address] IMAGING REPORT Signed PATIENT: DELORIS VERNON ACCOUNT: [id number] : 1960 LOCATION: ER AGE: 58 SEX: M EXAM STATUS: REG ER ORD. PHYSICIAN: MIAH HERNANDEZ MD REASON: MASS, soa, chest and abd pain, non contrast per ordering doctor PROCEDURE: CT CHEST ABDOMEN PELVIS WO EXAM: CT Chest, Abdomen and Pelvis without IV contrast CLINICAL HISTORY: Mass, shortness of air, chest and abd pain COMPARISON: None. TECHNIQUE: Helical CT of the chest, abdomen and pelvis was performed without intravenous contrast. Axial, coronal and sagittal reformatted images were generated. ---PQRS compliance statement - One or more of the following individualized dose reduction techniques were utilized for this study: 1. Automated exposure control 2. Adjustment of the mA and/or kV according to patient size 3. Use of iterative reconstruction technique--- FINDINGS: Lack of intravenous contrast limits evaluation of solid organs, vasculature, and lymph nodes. Chest: A 1 cm left thyroid nodule is seen. This can be further assessed by thyroid ultrasound. Heart is not enlarged. Coronary artery calcifications are seen. No pericardial effusion. A 2.2 x 2.2 cm left lower lobe pleural-based spiculated mass is seen. Cavitary lingular mass is also seen. 3 mm middle lobe lung nodule (series 2 image 46) is seen. Background of emphysematous change. 4 mm right lower lobe lung nodule is noted. Evaluation of the mediastinal and joe limited on this noncontrast exam. Within these constraints there is a left hilar mass with postobstructive atelectasis of the majority of the left upper lobe with narrowing of the associated central airways. This mass measures approximately 6.8 x 5.5 cm (series 2 image 30) with associated postobstructive atelectasis. Central calcifications are seen. Within the constraints of noncontrast examination, no definite right hilar lymphadenopathy. Prominent mediastinal lymph nodes are seen. No significant pleural effusion or pneumothorax. Abdomen and Pelvis: Numerous rounded hepatic hypodense lesions are seen suspicious for metastatic disease. For example a left hepatic lobe lesion measures approximately 5.2 x 2.5 cm (series 4 image 16) and a right hepatic lobe lesion measures 3.7 x 3.2 cm. Spleen is unremarkable. Mild nodular thickening of the adrenal glands. Lateral Biliary 0 pancreas is unremarkable. Duodenal diverticulum is seen. No focal renal lesion. No hydronephrosis. No hydroureter. Bladder is moderately distended. Moderate to large volume colonic stool content is seen. No evidence for bowel obstruction. Trace pelvic ascites. No abdominal or pelvic lymphadenopathy. Aortic calcifications are seen. Bones: Small right cervical rib is seen. A 4.7 cm lytic left fifth rib lesion is seen. Pathologic fracture through a lytic posterior lateral left seventh rib lesion. Lytic right lateral seventh and ninth rib lesions are seen. A 4.5 cm left iliac wing lytic lesion is seen. A 4.9 x 3.7 cm right proximal femoral shaft lytic lesion extends into the lesser trochanter, predisposing to lesser trochanteric or femoral shaft fracture. Left iliac wing lytic lesion is also seen. IMPRESSION: 1. Left hilar mass with postobstructive atelectasis and spiculated left lower lobe lung mass are seen. 2. Numerous hepatic hypodense lesions likely metastatic. 3. Numerous lytic lesions are seen throughout the skeletal structures including the ribs, pelvis and right proximal femur. The right proximal femoral shaft lesion extends into the lesser trochanter and is sizable enough which may predispose to pathologic fracture of the right lesser trochanter or proximal femoral shaft. Consider orthopedic evaluation. 4. A 1 cm left thyroid nodule is seen. This can be further assessed by thyroid ultrasound. Findings discussed with Dr. Hernandez at 4:10 PM 03/03/2019 Electronically signed by: Pan Fine MD (03/03/2019 4:11 PM) [facility] DICTATED and SIGNED BY: PAN FINE MD DATE: 03/03/19 [id number] Assessment/Plan Assessment/Plan Proximal R femoral lesion likely metastatic disease, workup in progress. Biopsy obtained today, so the primary will likely be known in a few days. Will benefit from prophylactic surgical stabilization, most likely IM hip nail, but X-rays ordered for surgical planning. Will order hip/femur x-rays. Discussed my findings with the patient. Probable surgery Thursday. Hopefully by that time the primary will be known, as that can change the surgical planning regarding need for cement, and expected blood loss. He should be toe-touch weightbearing with a walker for now. MASON CROCKER MD Mar 04, 2019 14:47
--- NOTE | 2019-03-04 16:18 | RAD ---
CT-guided bone marrow biopsy. 03/04/2019 2:12 PM Indication: Likely multifocal metastasis involving multiple osseous structures, the liver, and the bilateral lungs. Left hilar and mediastinal mass could represent primary lung cancer. Discussion: The risks and benefits of the procedure, including but not limited to, bleeding and infection were discussed patient. Informed consent was obtained. The patient was brought to the CT scanner and placed in the supine position. A timeout procedure was performed. CT imaging of the pelvis demonstrated relatively large lytic lesion within the anterior left ilium, minimal percutaneous biopsy.. The overlying soft tissues were prepped and draped using maximum sterile barrier technique. 1% lidocaine without epinephrine was administered for local anesthesia. Under intermittent CT guidance, 17-gauge needle was advanced into the lesion. Its position was confirmed with CT. Multiple 18-gauge core biopsies were obtained and placed in formalin. Holden were removed and manual pressure held to achieve hemostasis. Sterile dressings were applied. The procedure was performed under conscious sedation including continuous cardiopulmonary monitoring via dedicated sedation nurse. Sedation time: 20 minutes Impression: CT-guided biopsy, lytic lesion left ilium. PQRS Compliance Statement: One or more of the following individualized dose reduction techniques were utilized for this examination: 1. Automated exposure control 2. Adjustment of the mA and/or kV according to patient size 3. Use of iterative reconstruction technique
--- NOTE | 2019-03-04 17:19 | RAD ---
Examination: 2 views of the right hip and frontal view the pelvis HISTORY: History of right proximal femur lesion COMPARISON: None available Findings/ impression: There is a lytic lesion identified in the region of the right lesser trochanter likely malignancy or metastasis. There is partially visualized lucency identified in the left iliac bone probably metastasis or malignancy. Electronically signed by: Kadeem Yan MD (03/04/2019 5:16 PM) [facility]
[2019-03-04] MEDS: ENOXAPARIN 40 MG/0.4 ML SYRINGE. SQ SCH (21:26)
[2019-03-05] MEDS: IBUPROFEN 400 MG TABLET. PO PRN ×3 (01:21→17:50)
[2019-03-05 03:37] VITALS: BP 136/58
[2019-03-05] MEDS: KETOROLAC 15 MG/ML VIAL. IV PRN ×3 (05:04→20:23)
[2019-03-05 05:43] LABS: ALBUMIN 2.6 g/dL (3.4-5.0); ALBUMIN/GLOBULIN RATIO 0.7 (1.0-1.7); ALK PHOS 258 U/L (46-116); ALT (SGPT) 28 U/L (16-63); AST (SGOT) 39 U/L (15-37); BLOOD UREA NITROGEN 17 mg/dL (8-26); BUN/CREATININE RATIO 28 (6-20); CHLORIDE 98 mmol/L (98-107); CREATININE 0.6 mg/dL (0.7-1.3); GFR 137.4; GLUCOSE 92 mg/dL (70-99); MAGNESIUM 1.6 mg/dL (1.8-2.4); PHOSPHORUS 1.7 mg/dL (2.6-4.7); SODIUM 144 mmol/L (136-145); TOTAL BILIRUBIN 0.3 mg/dL (0.2-1.0); TOTAL PROTEIN 6.4 g/dL (6.4-8.2)
[2019-03-05 05:55] LABS: CARBON DIOXIDE > 45 mmol/L (21-32); POTASSIUM 2.9 mmol/L (3.5-5.1)
--- NOTE | 2019-03-05 06:50 | CONS ---
DATE OF CONSULTATION: 03/04/2019 MEDICAL ONCOLOGY CONSULTATION REQUESTING PHYSICIAN: Dr. Sergio Correa. REASON FOR CONSULTATION: Left lower lobe lung mass along with liver metastasis and bone metastasis, concerning for malignancy. HISTORY OF PRESENT ILLNESS: The patient is a 58-year-old gentleman, who has a history of cigarette smoking from the age of 11 and he quit in 2012. He has a 97-fyre-bgox smoking history, as he used to smoke one and half pack of cigarettes per day. He is currently on home oxygen at 3 L. He was seen by his hse advisor recently, who noted hypercalcemia and hypokalemia and hence he was sent to the Emergency Room. He reports decreased appetite and about a 5-pound weight loss. He has had left-sided rib pains. He has had chronic dyspnea. No fevers, chills, or night sweats. No hematemesis, melena, or hematochezia. No hemoptysis. He underwent further workup with a CT scan of the chest, abdomen, and pelvis on 03/03/2019, which revealed left hilar mass with postobstructive atelectasis and a spiculated left lower lobe lung lesion. Numerous hepatic hypodense lesions are likely metastatic. Numerous lytic lesions are seen throughout the skeletal structures including the ribs, pelvis, and right proximal femur. The right proximal femoral shaft lesion extends into the lesser trochanter and a sizable enough that it may predispose to pathologic fracture of the right lesser trochanter or proximal femoral shaft. Orthopedic consultation was recommended. PAST MEDICAL HISTORY: Chronic obstructive airway disease, he is on home oxygen. He has a history of nonischemic cardiomyopathy. SOCIAL HISTORY: He has a 19-aspm-hmob smoking history that he quit in 2012. FAMILY HISTORY: Positive for hypertension. REVIEW OF SYSTEMS: A 12-point review of system was performed. Pertinent positives are mentioned in the history of present illness. Rest of the system review is negative. PHYSICAL EXAMINATION: GENERAL APPEARANCE: The patient is a 58-year-old gentleman, who is in no acute cardiorespiratory distress. VITAL SIGNS: Blood pressure 114/57 and temperature 97.8. HEENT: Head atraumatic, normocephalic. Eyes, no icterus. NECK: Supple. CHEST: Bilaterally symmetrical, decreased air entry bilaterally. HEART: S1, S2 normal. ABDOMEN: Soft, nontender. CENTRAL NERVOUS SYSTEM: No focal deficits. LYMPHATICS: No lymphadenopathy. SKIN: No rashes. PSYCHOLOGIC: Mood and affect are appropriate. LABORATORY DATA: WBC 13.3, hemoglobin 10, and platelet count 472. Calcium at the time of admission on 03/03/2019, was 13.5. Calcium on 03/04/2019, is 13.0. Creatinine is 0.7, sodium 144, potassium 2.8, total bilirubin 0.4, AST 45, ALT 33, alkaline phosphatase 321, and albumin 3.1. Intact PTH is 8. IMPRESSION AND PLAN: 1. Left lower lobe lung mass along with left hilar mass and numerous hepatic metastatic disease and numerous lytic lesions are all suggestive of a primary lung cancer stage 4. I consulted Dr. Yomi Moncada. I discussed with Dr. Moncada, who is going to consult Interventional Radiology for CT-guided biopsy of the left rib lesion or the lung lesion. I discussed in detail with the patient that the clinical concern is of stage 4 lung cancer and treatments are only palliative and not curative. I will discuss regarding the choice of chemotherapy after histologic diagnosis. 2. 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 The patient received Zometa 4 mg on 03/03/2019. Continue to monitor calcium levels. Consult Nephrology. 3. Chronic obstructive pulmonary disease. He is on oxygen. 4. Nonischemic cardiomyopathy. 5. Anemia. I will check iron studies and B12 levels. I suspect anemia is due to malignancy. 6. Liver metastasis. Continue to monitor. 7. Bone metastasis. I agree to consult Orthopedics because of a potential impending fracture in the femur. Plan radiation therapy after confirmation of diagnosis and also Xgeva as outpatient. SHUN FELDMAN MD DR: LIZZIE/wilton JOB#: [id number] / [id number]
[2019-03-05 07:51] VITALS: BP 127/58
[2019-03-05] MEDS ORDERED: POTASSIUM CHLORIDE 20 MEQ TABLET.ER. PO ONE (08:00)
[2019-03-05] MEDS: POTASSIUM CHLORIDE 10 MEQ TABLET.ER. PO SCH (08:42)
[2019-03-05] MEDS: IV NORMAL SALINE 1000ML BAG 1,000 ML IV SCH ×2 (08:42→20:24)
[2019-03-05] MEDS: FUROSEMIDE 40 MG/4 ML VIAL. IVP SCH ×2 (08:42→15:01)
[2019-03-05] MEDS: CARVEDILOL 12.5 MG TABLET. PO SCH ×2 (08:43→17:43)
[2019-03-05] MEDS: ASPIRIN CHEWABLE 81 MG TABLET. PO SCH (08:43)
[2019-03-05] MEDS: IPRATROPIUM BROMIDE 0.5 MG/2.5 ML NEBU. NEB SCH ×4 (08:54→18:32)
--- NOTE | 2019-03-05 09:22 | PDOC ---
PROGRESS NOTES Chief Complaint Chief Complaint ACUTE HYPOXIC RESP FAILURE CHEST DISCOMFORT - likely from mass and CHF exacerbation, trend trops HYPERCALCEMIA - likely of malignancy given his lung mass and bony lesions. On NSS and lasix. check phos and vitamin D. Consult nephrology. Left lung mass Liver lesions Bone lytic lesions - right hip needs ortho evaluation Non-ischemic CARDIOMYOPATHY Acute on chronic systolic CHF - EF 25-50% from 2014 echo THC ABUSE Hypokalemia Hypomagnesemia Vitamin D deficiency Hypophosphatemia Leukocytosis Anemia Transaminitis Metabolic alkalosis 32 minutes spent on chart review and consultation with specialists History of Present Illness History of Present Illness Mr Almanza is a 58yo M w/ PMHx of Nonischemic dilated cardiomyopathy, hypertension, hyperlipidemia who presents to ED on 03/03 c/o soa, leg edema, chest pressure. Found with WBC 11.8, K 2.6, Ca of 13.5, Mg 1.4 and abnormal CXR which prompted a CT chest which revealed a left hilar mass with post-obstructive atelecatsis and spiculated left lower lobe lung mass as well as numerous hepatic lesions and lytic lesions throughout his skeletal structure ribs, pelvis and right proximal femur and a 1cm left thyroid nodule. He was admitted for further work-up and care. 03/04: This morning still with calcium 13 down from 14.7, low K at 2.9. He is feeling weak, diffuse pain, short of breath, more swollen in his lower extremities. He is amenable to bronchoscopy for further evaluation of his lung mass. Underwent left hip bone biopsy of lytic lesion Still feeling weak. Phos 1.7, Mg 1.6, Ca down to 11. Vitamin D returned at 7.4. K still 2.9. His shortness of breath is stable. Vitals Vitals Vital Signs Date Time Temp Pulse Resp B/P (MAP) Pulse Ox O2 Delivery O2 Flow Rate FiO2 03/05/19 08:56 96 Nasal Cannula 5.0 03/05/19 08:43 84 127/58 03/05/19 07:51 98.3 20 98.3 Physical Exam General: Alert, Oriented X3, Cooperative Heart: Regular rate (SR) Abdomen: Soft, No tenderness Extremities: No cyanosis, Other (1+ bilateral LE pitting edema) Skin: No breakdown, No significant lesion Labs LABS Laboratory Tests Test 03/05/19 04:35 Sodium Level 144 mmol/L (136-145) Potassium Level 2.9 mmol/L (3.5-5.1) Chloride Level 98 mmol/L (98-107) Carbon Dioxide Level > 45 mmol/L (21-32) Anion Gap (6-14) Blood Urea Nitrogen 17 mg/dL (8-26) Creatinine 0.6 mg/dL (0.7-1.3) Estimated GFR (Cockcroft-Gault) 137.4 BUN/Creatinine Ratio 28 (6-20) Glucose Level 92 mg/dL (70-99) Calcium Level 11.0 mg/dL (8.5-10.1) Phosphorus Level 1.7 mg/dL (2.6-4.7) Magnesium Level 1.6 mg/dL (1.8-2.4) Total Bilirubin 0.3 mg/dL (0.2-1.0) Aspartate Amino Transf (AST/SGOT) 39 U/L (15-37) Alanine Aminotransferase (ALT/SGPT) 28 U/L (16-63) Alkaline Phosphatase 258 U/L (46-116) Total Protein 6.4 g/dL (6.4-8.2) Albumin 2.6 g/dL (3.4-5.0) Albumin/Globulin Ratio 0.7 (1.0-1.7) Assessment and Plan Assessmemt and Plan Problems Medical Problems: (1) Acute respiratory failure with hypoxia Status: Acute (2) Anemia Status: Acute (3) Atelectasis of left lung Status: Acute (4) CHF (congestive heart failure) Status: Acute (5) Hypercalcemia Status: Acute (6) Hypokalemia Status: Acute (7) Hypomagnesemia Status: Acute (8) Mild tetrahydrocannabinol (THC) abuse Status: Acute (9) Tobacco abuse Status: Acute Comment Review of Relevant I have reviewed the following items jose (where applicable) has been applied. Labs Laboratory Tests Test 03/03/19 10:40 03/03/19 14:10 03/03/19 14:21 03/04/19 08:35 Estimated GFR (Non- 106 EGFR 123 PTH (Intact) Specimen Description Parathyroid Hormone (Intact) 8 Calcium (PTH Intact) 14.3 Creatinine (PTH Intact) 0.64 Phosphorus (PTH Intact) 2.3 White Blood Count 11.8 x10^3/uL (4.0-11.0) 13.3 x10^3/uL (4.0-11.0) Red Blood Count 3.38 x10^6/uL (4.30-5.70) 3.32 x10^6/uL (4.30-5.70) Hemoglobin 10.0 g/dL (13.0-17.5) 10.0 g/dL (13.0-17.5) Hematocrit 31.1 % (39.0-53.0) 30.8 % (39.0-53.0) Mean Corpuscular Volume 92 fL (79-100) 93 fL (79-100) Mean Corpuscular Hemoglobin 30 pg (25-35) 30 pg (25-35) Mean Corpuscular Hemoglobin Concent 32 g/dL (31-37) 32 g/dL (31-37) Red Cell Distribution Width 12.8 % (11.5-14.5) 13.1 % (11.5-14.5) Platelet Count 487 x10^3/uL (140-400) 472 x10^3/uL (140-400) Neutrophils (%) (Auto) 86 % (31-73) 91 % (31-73) Lymphocytes (%) (Auto) 7 % (24-48) 2 % (24-48) Monocytes (%) (Auto) 7 % (0-9) 5 % (0-9) Eosinophils (%) (Auto) 0 % (0-3) 1 % (0-3) Basophils (%) (Auto) 0 % (0-3) 1 % (0-3) Neutrophils # (Auto) 10.1 x10^3/uL (1.8-7.7) 12.2 x10^3/uL (1.8-7.7) Lymphocytes # (Auto) 0.8 x10^3/uL (1.0-4.8) 0.3 x10^3/uL (1.0-4.8) Monocytes # (Auto) 0.8 x10^3/uL (0.0-1.1) 0.7 x10^3/uL (0.0-1.1) Eosinophils # (Auto) 0.0 x10^3/uL (0.0-0.7) 0.1 x10^3/uL (0.0-0.7) Basophils # (Auto) 0.0 x10^3/uL (0.0-0.2) 0.1 x10^3/uL (0.0-0.2) Segmented Neutrophils % 83 % (35-66) Band Neutrophils % 6 % (0-9) Lymphocytes % 9 % (24-48) Monocytes % 2 % (0-10) Platelet Estimate Increased (ADEQUATE) Prothrombin Time 12.6 SEC (11.7-14.0) Prothromb Time International Ratio 1.0 (0.8-1.1) Sodium Level 142 mmol/L (136-145) 144 mmol/L (136-145) Potassium Level 2.6 mmol/L (3.5-5.1) 2.8 mmol/L (3.5-5.1) Chloride Level 91 mmol/L (98-107) 97 mmol/L (98-107) Carbon Dioxide Level > 45 mmol/L (21-32) > 45 mmol/L (21-32) Anion Gap (6-14) 2 (6-14) Blood Urea Nitrogen 17 mg/dL (8-26) 14 mg/dL (8-26) Creatinine 0.8 mg/dL (0.7-1.3) 0.7 mg/dL (0.7-1.3) Estimated GFR (Cockcroft-Gault) 98.6 115.0 BUN/Creatinine Ratio 21 (6-20) 20 (6-20) Glucose Level 116 mg/dL (70-99) 121 mg/dL (70-99) Calcium Level 13.5 mg/dL (8.5-10.1) 13.0 mg/dL (8.5-10.1) Phosphorus Level 2.6 mg/dL (2.6-4.7) 2.2 mg/dL (2.6-4.7) Magnesium Level 1.4 mg/dL (1.8-2.4) 1.9 mg/dL (1.8-2.4) Total Bilirubin 0.4 mg/dL (0.2-1.0) 0.4 mg/dL (0.2-1.0) Aspartate Amino Transf (AST/SGOT) 38 U/L (15-37) 45 U/L (15-37) Alanine Aminotransferase (ALT/SGPT) 30 U/L (16-63) 33 U/L (16-63) Alkaline Phosphatase 288 U/L (46-116) 321 U/L (46-116) Troponin I Quantitative 0.027 ng/mL (0.000-0.055) AS-Ofa-Z-Type Natriuretic Peptide 1027 pg/mL (0-124) Total Protein 7.3 g/dL (6.4-8.2) 7.7 g/dL (6.4-8.2) Albumin 3.1 g/dL (3.4-5.0) 3.1 g/dL (3.4-5.0) Albumin/Globulin Ratio 0.7 (1.0-1.7) 0.7 (1.0-1.7) Urine Collection Type Unknown Urine Color Yellow Urine Clarity Clear Urine pH 6.5 Urine Specific [place] 1.010 Urine Protein Negative mg/dL (NEG-TRACE) Urine Glucose (UA) Negative mg/dL (NEG) Urine Ketones (Stick) Negative mg/dL (NEG) Urine Blood Negative (NEG) Urine Nitrite Negative (NEG) Urine Bilirubin Negative (NEG) Urine Urobilinogen Dipstick 0.2 mg/dL (0.2 mg/dL) Urine Leukocyte Esterase Negative (NEG) Urine RBC 0 /HPF (0-2) Urine WBC Occ /HPF (0-4) Urine Bacteria 0 /HPF (0-FEW) Urine Hyaline Casts Few /HPF Urine Mucus Slight /LPF Urine Opiates Screen Neg (NEG) Urine Methadone Screen Neg (NEG) Urine Barbiturates Neg (NEG) Urine Phencyclidine Screen Neg (NEG) Urine Amphetamine/Methamphetamine Neg (NEG) Urine Benzodiazepines Screen Neg (NEG) Urine Cocaine Screen Neg (NEG) Urine Cannabinoids Screen Pos (NEG) Urine Ethyl Alcohol Neg (NEG) 25-Hydroxy Vitamin D Total 7.4 ng/mL (30-100) Thyroid Stimulating Hormone (TSH) 4.303 uIU/mL (0.358-3.74) Test 03/05/19 04:35 Sodium Level 144 mmol/L (136-145) Potassium Level 2.9 mmol/L (3.5-5.1) Chloride Level 98 mmol/L (98-107) Carbon Dioxide Level > 45 mmol/L (21-32) Anion Gap (6-14) Blood Urea Nitrogen 17 mg/dL (8-26) Creatinine 0.6 mg/dL (0.7-1.3) Estimated GFR (Cockcroft-Gault) 137.4 BUN/Creatinine Ratio 28 (6-20) Glucose Level 92 mg/dL (70-99) Calcium Level 11.0 mg/dL (8.5-10.1) Phosphorus Level 1.7 mg/dL (2.6-4.7) Magnesium Level 1.6 mg/dL (1.8-2.4) Total Bilirubin 0.3 mg/dL (0.2-1.0) Aspartate Amino Transf (AST/SGOT) 39 U/L (15-37) Alanine Aminotransferase (ALT/SGPT) 28 U/L (16-63) Alkaline Phosphatase 258 U/L (46-116) Total Protein 6.4 g/dL (6.4-8.2) Albumin 2.6 g/dL (3.4-5.0) Albumin/Globulin Ratio 0.7 (1.0-1.7) Laboratory Tests Test 03/05/19 04:35 Sodium Level 144 mmol/L (136-145) Potassium Level 2.9 mmol/L (3.5-5.1) Chloride Level 98 mmol/L (98-107) Carbon Dioxide Level > 45 mmol/L (21-32) Anion Gap (6-14) Blood Urea Nitrogen 17 mg/dL (8-26) Creatinine 0.6 mg/dL (0.7-1.3) Estimated GFR (Cockcroft-Gault) 137.4 BUN/Creatinine Ratio 28 (6-20) Glucose Level 92 mg/dL (70-99) Calcium Level 11.0 mg/dL (8.5-10.1) Phosphorus Level 1.7 mg/dL (2.6-4.7) Magnesium Level 1.6 mg/dL (1.8-2.4) Total Bilirubin 0.3 mg/dL (0.2-1.0) Aspartate Amino Transf (AST/SGOT) 39 U/L (15-37) Alanine Aminotransferase (ALT/SGPT) 28 U/L (16-63) Alkaline Phosphatase 258 U/L (46-116) Total Protein 6.4 g/dL (6.4-8.2) Albumin 2.6 g/dL (3.4-5.0) Albumin/Globulin Ratio 0.7 (1.0-1.7) Medications Current Medications Potassium Chloride/Water 100 ml @ 100 mls/hr Q1H IV Last administered on 03/03/19at 15:19; Start 03/03/19 at 13:30; Stop 03/03/19 at 15:29; Status DC Zoledronic Acid 100 ml @ 400 mls/hr 1X ONCE IV Last administered on 03/03/19at 16:04; Start 03/03/19 at 16:00; Stop 03/03/19 at 16:14; Status DC Sodium Chloride (Normal Saline Flush) 3 ml QSHIFT PRN IV AFTER MEDS AND BLOOD DRAWS; Start 03/03/19 at 15:30 Sodium Chloride 1,000 ml @ 100 mls/hr Q10H IV Last administered on 03/05/19at 08:43; Start 03/03/19 at 15:24 Ondansetron HCl (Zofran) 4 mg PRN Q4HRS PRN IV NAUSEA/VOMITING; Start 03/03/19 at 15:30 Acetaminophen (Tylenol) 650 mg PRN Q4HRS PRN PO TEMP OVER 100.4F OR MILD PAIN; Start 03/03/19 at 15:30 Clonidine HCl (Catapres) 0.1 mg PRN Q6HRS PRN PO SBP>160 OR DBP>90; Start 03/03/19 at 15:30 Docusate Sodium (Colace) 100 mg PRN BID PRN PO CONSTIPATION; Start 03/03/19 at 15:30 Albuterol Sulfate (Ventolin Neb Soln) 2.5 mg PRN Q4HRS PRN NEB SHORTNESS OF BREATH; Start 03/03/19 at 15:30 Guaifenesin (Robitussin) 200 mg PRN Q4HRS PRN PO COUGH; Start 03/03/19 at 15:30 Lorazepam (Ativan) 0.5 mg PRN Q4HRS PRN PO ANXIETY / AGITATION Last administered on 03/03/19at 21:32; Start 03/03/19 at 15:30 Enoxaparin Sodium (Lovenox 40mg Syringe) 40 mg QHS SQ Last administered on 03/04/19at 21:26; Start 03/03/19 at 21:00 Furosemide (Lasix) 40 mg DAILY PO ; Start 03/04/19 at 09:00; Stop 03/04/19 at 09:59; Status DC Lisinopril (Prinivil) 5 mg DAILY PO ; Start 03/04/19 at 09:00; Status Cancel Potassium Chloride (Klor-Con) 10 meq DAILY PO Last administered on 03/05/19at 08:43; Start 03/04/19 at 09:00 Aspirin (Marcell Aspirin) 325 mg DAILYWBKFT PO ; Start 03/04/19 at 08:00; Status Cancel Carvedilol (Coreg) 25 mg BIDWMEALS PO Last administered on 03/05/19at 08:43; Start 03/03/19 at 17:00 Lisinopril (Prinivil) 2.5 mg DAILYWLUN PO ; Start 03/04/19 at 12:00; Status Cancel Magnesium Sulfate 3 gm/Dextrose 106 ml @ 35.333 mls/ hr 1X ONCE IV Last administered on 03/03/19at 16:57; Start 03/03/19 at 17:00; Stop 03/03/19 at 19:59; Status DC Ketorolac Tromethamine (Toradol 30mg Vial) 30 mg 1X ONCE IV Last administered on 03/03/19at 16:57; Start 03/03/19 at 16:45; Stop 03/03/19 at 16:46; Status DC Aspirin (Children'S Aspirin) 81 mg DAILY PO Last administered on 03/05/19at 08:43; Start 03/04/19 at 09:00 Ibuprofen (Motrin) 400 mg PRN Q6HRS PRN PO INFLAMMATION Last administered on 03/05/19at 08:54; Start 03/03/19 at 21:15 Lisinopril (Prinivil) 20 mg DAILY PO Last administered on 03/04/19at 08:40; Start 03/04/19 at 09:00; Stop 03/04/19 at 16:41; Status DC Ipratropium [place] (Atrovent) 0.5 mg RTQID NEB Last administered on 03/05/19at 08:55; Start 03/03/19 at 21:30 Potassium Chloride/Water 100 ml @ 100 mls/hr Q1H IV Last administered on 03/04/19at 15:23; Start 03/04/19 at 10:30; Stop 03/04/19 at 14:29; Status DC Furosemide (Lasix) 40 mg BID92 IVP Last administered on 03/05/19 08:43; Start 03/04/19 at 10:30 Ketorolac Tromethamine (Toradol 15mg Vial) 15 mg PRN Q6HRS PRN IV PAIN Last a dministered on 03/05/19 05:04; Start 03/04/19 at 12:00; Stop 03/09/19 at 11:59 Lidocaine/Sodium Bicarbonate (Buffered Lidocaine 1%) 3 ml STK-MED ONCE .ROUTE ; Start 03/04/19 at 14:33; Stop 03/04/19 at 14:33; Status DC Midazolam HCl (Versed) 2 mg STK-MED ONCE .ROUTE ; Start 03/04/19 at 14:38; Stop 03/04/19 at 14:39; Status DC Fentanyl Citrate (Fentanyl 2ml Vial) 100 mcg STK-MED ONCE .ROUTE ; Start 03/04/19 at 14:38; Stop 03/04/19 at 14:39; Status DC Lidocaine/Sodium Bicarbonate (Buffered Lidocaine 1%) 3 ml 1X ONCE IJ Last administered on 03/04/19 15:11; Start 03/04/19 at 14:45; Stop 03/04/19 at 14:46; Status DC Midazolam HCl (Versed) 2 mg 1X ONCE IV Last administered on 03/04/19 15:11; Start 03/04/19 at 14:45; Stop 03/04/19 at 14:46; Status DC Fentanyl Citrate (Fentanyl 2ml Vial) 100 mcg 1X ONCE IV Last administered on 03/04/19at 15:11; Start 03/04/19 at 14:45; Stop 03/04/19 at 14:46; Status DC Potassium Chloride (Klor-Con) 40 meq BIDWBKFT/SARAHI ONCE PO Last administered on 03/05/19 08:43; Start 03/05/19 at 08:00; Stop 03/05/19 at 08:01; Status DC Active Scripts Active Reported Spiriva (Tiotropium [place]) 18 Mcg Cap.w.dev 2 Inh IH DAILY Ipratropium [place] 0.2 Mg/1 Ml Solution 1 Vial NEB QID Ibuprofen 400 Mg Tablet 400 Mg PO PRN Q6HRS PRN Lisinopril 20 Mg Tablet 1 Tab PO DAILY Aspirin 81 Mg Tab.chew 1 Tab PO DAILY Coreg (Carvedilol) 25 Mg Tablet 25 Mg PO BID Lasix (Furosemide) 40 Mg Tablet 40 Mg PO DAILY Vitals/I & O Vital Sign - Last 24 Hours 03/04/19 03/04/19 03/04/19 03/04/19 10:50 12:12 14:57 15:00 Temp 97.4 97.4 Pulse 83 84 83 Resp 19 19 B/P (MAP) 114/57 (76) 144/96 (112) Pulse Ox 97 97 91 96 O2 Delivery Nasal Cannula Room Air Nasal Cannula Nasal Cannula O2 Flow Rate 4.0 3.0 03/04/19 03/04/19 03/04/19 03/04/19 15:02 15:06 15:11 15:11 Pulse 84 84 84 Resp 16 16 18 18 Pulse Ox 88 87 91 87 O2 Delivery Nasal Cannula Nasal Cannula Nasal Cannula Nasal Cannula O2 Flow Rate 6.0 6.0 6.0 6.0 03/04/19 03/04/19 03/04/19 03/04/19 15:21 15:45 16:01 16:15 Pulse 94 B/P (MAP) 150/71 (97) 144/60 (88) 154/51 (85) Pulse Ox 95 97 O2 Delivery Nasal Cannula O2 Flow Rate 5.0 3.0 03/04/19 03/04/19 03/04/19 03/04/19 16:15 16:30 16:59 17:30 Pulse 89 89 84 B/P (MAP) 143/66 (91) 147/60 99/39 (59) O2 Delivery Nasal Cannula O2 Flow Rate 3.0 03/04/19 03/04/19 03/04/19 03/04/19 19:49 20:00 20:18 23:33 Temp 98.3 97.4 98.3 97.4 Pulse 79 77 Resp 16 16 B/P (MAP) 82/43 (56) 134/65 (88) Pulse Ox 99 97 99 O2 Delivery Nasal Cannula Nasal Cannula Nasal Cannula Nasal Cannula O2 Flow Rate 3.0 3.0 5.0 3.0 03/05/19 03/05/19 03/05/19 03/05/19 03:37 07:51 08:43 08:56 Temp 98.1 98.3 98.1 98.3 Pulse 82 84 84 Resp 16 20 B/P (MAP) 136/58 (84) 127/58 (81) 127/58 Pulse Ox 98 100 96 O2 Delivery Nasal Cannula Nasal Cannula Nasal Cannula O2 Flow Rate 3.0 3.0 5.0 Intake and Output 03/04/19 03/04/19 03/05/19 14:59 22:59 06:59 Output Total 700 ml 400 ml Balance -700 ml -400 ml MARIA FERNANDA STANFORD MD Mar 05, 2019 09:22
[2019-03-05] MEDS ORDERED: MAGNESIUM SULFATE 2GM 50 ML IV ONE (09:30)
[2019-03-05] MEDS: CHOLECALCIFEROL (VITAMIN D3) 5,000 UNIT CAPSULE PO SCH (11:19)
[2019-03-05] MEDS: POTASSIUM & SODIUM PHOSPHATES PACKET. PO SCH (11:19)
[2019-03-05 11:20] VITALS: BP 114/58
--- NOTE | 2019-03-05 12:48 | PDOC ---
SUBJECTIVE ROS Stable, No ac events overnight OBJECTIVE Vital Signs Vital Signs Date Time Temp Pulse Resp B/P (MAP) Pulse Ox O2 Delivery O2 Flow Rate FiO2 03/05/19 11:20 97.4 79 20 114/58 (76) 100 Nasal Cannula 3.0 97.4 I & 0 Intake and Output 03/05/19 07:00 Output Total 1100 ml Balance -1100 ml Output Urine Total 1100 ml # Voids 2 PHYSICAL EXAM Physical Exam Gen- NAD, sitting with his head resting on the table HEENT: Sclerae are nonicteric,OM dryish . NECK: Supple. LUNGS: With diminished breath sounds bilaterally. CARDIOVASCULAR: Regular rate. ABDOMEN: Soft and nontender. EXTREMITIES: Pitting edema LE bilat 1-2+ Neuro- Grossly normal - No Solo Skin No rash DIAGNOSIS/ASSESSMENT Assessment & Plan Hypercalcemia - Etiology presumably Malignancy /dehydration Improving since presentation down to 11 from 14.7 recd one dose of Zometa on 03/03 Vit D Def- Very low Vit D , recommended to replace- On Vit D 5000 U QD Once Ca is normal, recommend 50,000 U Q week x 12 weeks, with close monitoring of Ca/Phos PTH low as well Bone Lytic lesion - ortho consulted HyPoPhos- replace Hypo Mg - Replace Hypokalemia - Replace On lasix PO - if clinically no indication recommend holding, defer to Cardiology Anemia- Per Primary HTN- Home BP Coreg, lisinopril, Lasix Cardiology managing Left hilar mass -with postobstructive atelectasis and spiculated left lower lobe lung mass are seen. with numerous hepatic hypodense lesions likely metastatic and numerous lytic lesions are seen throughout the skeletal structures COMMENT/RELEVANT DATA Meds Current Medications Medications (Trade) Dose Ordered Sig/Renetta Start Time Stop Time Status Last Admin Dose Admin Acetaminophen (Tylenol) 650 mg PRN Q4HRS PRN 03/03/19 15:30 Albuterol Sulfate (Ventolin Neb Soln) 2.5 mg PRN Q4HRS PRN 03/03/19 15:30 Aspirin (Marcell Aspirin) 325 mg DAILYWBKFT 03/04/19 08:00 Cancel Aspirin (Children'S Aspirin) 81 mg DAILY 03/04/19 09:00 03/05/19 08:43 81 MG Carvedilol (Coreg) 25 mg BIDWMEALS 03/03/19 17:00 03/05/19 08:43 25 MG Clonidine HCl (Catapres) 0.1 mg PRN Q6HRS PRN 03/03/19 15:30 Docusate Sodium (Colace) 100 mg PRN BID PRN 03/03/19 15:30 Enoxaparin Sodium (Lovenox 40mg Syringe) 40 mg QHS 03/03/19 21:00 03/04/19 21:26 40 MG Fentanyl Citrate (Fentanyl 2ml Vial) 100 mcg 1X ONCE 03/04/19 14:45 03/04/19 14:46 DC 03/04/19 15:11 50 MCG Furosemide (Lasix) 40 mg BID92 03/04/19 10:30 03/05/19 08:43 40 MG Guaifenesin (Robitussin) 200 mg PRN Q4HRS PRN 03/03/19 15:30 Ibuprofen (Motrin) 400 mg PRN Q6HRS PRN 03/03/19 21:15 03/05/19 08:54 400 MG Ipratropium [place] (Atrovent) 0.5 mg RTQID 03/03/19 21:30 03/05/19 08:55 0.5 MG Ketorolac Tromethamine (Toradol 15mg Vial) 15 mg PRN Q6HRS PRN 03/04/19 12:00 03/09/19 11:59 03/05/19 05:04 15 MG Ketorolac Tromethamine (Toradol 30mg Vial) 30 mg 1X ONCE 03/03/19 16:45 03/03/19 16:46 DC 03/03/19 16:57 30 MG Lidocaine/Sodium Bicarbonate (Buffered Lidocaine 1%) 3 ml 1X ONCE 03/04/19 14:45 03/04/19 14:46 DC 03/04/19 15:11 5 ML Lisinopril (Prinivil) 20 mg DAILY 03/04/19 09:00 03/04/19 16:41 DC 03/04/19 08:40 20 MG Lorazepam (Ativan) 0.5 mg PRN Q4HRS PRN 03/03/19 15:30 03/03/19 21:32 0.5 MG Magnesium Sulfate 50 ml @ 25 mls/hr 1X ONCE 03/05/19 09:30 03/05/19 11:29 DC 03/05/19 11:20 25 MLS/HR Magnesium Sulfate 3 gm/Dextrose 106 ml @ 35.333 mls/ hr 1X ONCE 03/03/19 17:00 03/03/19 19:59 DC 03/03/19 16:57 35.333 MLS/HR Midazolam HCl (Versed) 2 mg 1X ONCE 03/04/19 14:45 03/04/19 14:46 DC 03/04/19 15:11 1 MG Ondansetron HCl (Zofran) 4 mg PRN Q4HRS PRN 03/03/19 15:30 Potassium Chloride/Water 100 ml @ 100 mls/hr Q1H 03/05/19 10:00 03/05/19 13:59 Potassium Chloride (Klor-Con) 40 meq BIDWBKFT/SARAHI ONCE 03/05/19 08:00 03/05/19 08:01 DC 03/05/19 08:43 40 MEQ Potassium Phos/ Sodium Phos (Phos-Nak) 1 pkt DAILY 03/05/19 09:30 03/05/19 11:20 1 PKT Sodium Chloride 1,000 ml @ 100 mls/hr Q10H 03/03/19 15:24 03/05/19 08:43 100 MLS/HR Sodium Chloride (Normal Saline Flush) 3 ml QSHIFT PRN 03/03/19 15:30 Vitamin D (Vitamin D3) 5,000 unit DAILY 03/05/19 09:30 03/05/19 11:20 5,000 UNIT Zoledronic Acid 100 ml @ 400 mls/hr 1X ONCE 03/03/19 16:00 03/03/19 16:14 DC 03/03/19 16:04 400 MLS/HR Lab Laboratory Tests Test 03/05/19 04:35 Sodium Level 144 mmol/L (136-145) Potassium Level 2.9 mmol/L (3.5-5.1) Chloride Level 98 mmol/L (98-107) Carbon Dioxide Level > 45 mmol/L (21-32) Anion Gap (6-14) Blood Urea Nitrogen 17 mg/dL (8-26) Creatinine 0.6 mg/dL (0.7-1.3) Estimated GFR (Cockcroft-Gault) 137.4 BUN/Creatinine Ratio 28 (6-20) Glucose Level 92 mg/dL (70-99) Calcium Level 11.0 mg/dL (8.5-10.1) Phosphorus Level 1.7 mg/dL (2.6-4.7) Magnesium Level 1.6 mg/dL (1.8-2.4) Total Bilirubin 0.3 mg/dL (0.2-1.0) Aspartate Amino Transf (AST/SGOT) 39 U/L (15-37) Alanine Aminotransferase (ALT/SGPT) 28 U/L (16-63) Alkaline Phosphatase 258 U/L (46-116) Total Protein 6.4 g/dL (6.4-8.2) Albumin 2.6 g/dL (3.4-5.0) Albumin/Globulin Ratio 0.7 (1.0-1.7) Results All relevant outside records, renal labs, imaging studies, telemetry/EKG's were reviewed. JEREMIAS SALDANA MD Mar 05, 2019 12:48
[2019-03-05] MEDS: POTASSIUM CHLORIDE 10MEQ 100 ML IV SCH ×4 (13:43→17:44)
[2019-03-05 15:30] VITALS: BP 119/47
--- NOTE | 2019-03-05 17:19 | PDOC ---
PULMONARY PROGRESS NOTES Subjective 58 y.o. male with long past smoking hx, presented with hypoxia, left hilar mass, TITA atelectasis, lytic bone lesions, liver lesions and hypercalcemia. Bone bx done yesterday without complication. Feels the same. Vitals Vital Signs Date Time Temp Pulse Resp B/P (MAP) Pulse Ox O2 Delivery O2 Flow Rate FiO2 03/05/19 16:08 Nasal Cannula 5.0 03/05/19 15:30 97.5 78 20 119/47 (71) 98 97.5 General: Alert, Oriented X4 Lungs: Other (diminished breath sounds bilaterally) Cardiovascular: S1, S2 Abdomen: Soft, Non-tender Neuro Exam: Alert, Oriented, No Focal Findings Extremities: No Edema Labs Laboratory Tests Test 03/04/19 08:35 03/05/19 04:35 White Blood Count 13.3 x10^3/uL (4.0-11.0) Red Blood Count 3.32 x10^6/uL (4.30-5.70) Hemoglobin 10.0 g/dL (13.0-17.5) Hematocrit 30.8 % (39.0-53.0) Mean Corpuscular Volume 93 fL (79-100) Mean Corpuscular Hemoglobin 30 pg (25-35) Mean Corpuscular Hemoglobin Concent 32 g/dL (31-37) Red Cell Distribution Width 13.1 % (11.5-14.5) Platelet Count 472 x10^3/uL (140-400) Neutrophils (%) (Auto) 91 % (31-73) Lymphocytes (%) (Auto) 2 % (24-48) Monocytes (%) (Auto) 5 % (0-9) Eosinophils (%) (Auto) 1 % (0-3) Basophils (%) (Auto) 1 % (0-3) Neutrophils # (Auto) 12.2 x10^3/uL (1.8-7.7) Lymphocytes # (Auto) 0.3 x10^3/uL (1.0-4.8) Monocytes # (Auto) 0.7 x10^3/uL (0.0-1.1) Eosinophils # (Auto) 0.1 x10^3/uL (0.0-0.7) Basophils # (Auto) 0.1 x10^3/uL (0.0-0.2) Sodium Level 144 mmol/L (136-145) 144 mmol/L (136-145) Potassium Level 2.8 mmol/L (3.5-5.1) 2.9 mmol/L (3.5-5.1) Chloride Level 97 mmol/L (98-107) 98 mmol/L (98-107) Carbon Dioxide Level > 45 mmol/L (21-32) > 45 mmol/L (21-32) Anion Gap 2 (6-14) (6-14) Blood Urea Nitrogen 14 mg/dL (8-26) 17 mg/dL (8-26) Creatinine 0.7 mg/dL (0.7-1.3) 0.6 mg/dL (0.7-1.3) Estimated GFR (Cockcroft-Gault) 115.0 137.4 BUN/Creatinine Ratio 20 (6-20) 28 (6-20) Glucose Level 121 mg/dL (70-99) 92 mg/dL (70-99) Calcium Level 13.0 mg/dL (8.5-10.1) 11.0 mg/dL (8.5-10.1) Phosphorus Level 2.2 mg/dL (2.6-4.7) 1.7 mg/dL (2.6-4.7) Magnesium Level 1.9 mg/dL (1.8-2.4) 1.6 mg/dL (1.8-2.4) Total Bilirubin 0.4 mg/dL (0.2-1.0) 0.3 mg/dL (0.2-1.0) Aspartate Amino Transf (AST/SGOT) 45 U/L (15-37) 39 U/L (15-37) Alanine Aminotransferase (ALT/SGPT) 33 U/L (16-63) 28 U/L (16-63) Alkaline Phosphatase 321 U/L (46-116) 258 U/L (46-116) Total Protein 7.7 g/dL (6.4-8.2) 6.4 g/dL (6.4-8.2) Albumin 3.1 g/dL (3.4-5.0) 2.6 g/dL (3.4-5.0) Albumin/Globulin Ratio 0.7 (1.0-1.7) 0.7 (1.0-1.7) 25-Hydroxy Vitamin D Total 7.4 ng/mL (30-100) Thyroid Stimulating Hormone (TSH) 4.303 uIU/mL (0.358-3.74) Laboratory Tests Test 03/05/19 04:35 Sodium Level 144 mmol/L (136-145) Potassium Level 2.9 mmol/L (3.5-5.1) Chloride Level 98 mmol/L (98-107) Carbon Dioxide Level > 45 mmol/L (21-32) Anion Gap (6-14) Blood Urea Nitrogen 17 mg/dL (8-26) Creatinine 0.6 mg/dL (0.7-1.3) Estimated GFR (Cockcroft-Gault) 137.4 BUN/Creatinine Ratio 28 (6-20) Glucose Level 92 mg/dL (70-99) Calcium Level 11.0 mg/dL (8.5-10.1) Phosphorus Level 1.7 mg/dL (2.6-4.7) Magnesium Level 1.6 mg/dL (1.8-2.4) Total Bilirubin 0.3 mg/dL (0.2-1.0) Aspartate Amino Transf (AST/SGOT) 39 U/L (15-37) Alanine Aminotransferase (ALT/SGPT) 28 U/L (16-63) Alkaline Phosphatase 258 U/L (46-116) Total Protein 6.4 g/dL (6.4-8.2) Albumin 2.6 g/dL (3.4-5.0) Albumin/Globulin Ratio 0.7 (1.0-1.7) Medications Active Scripts Medications Dose Route/Sig Max Daily Dose Days Date Category Spiriva (Tiotropium Grayling) 18 Mcg Cap.w.dev 2 Inh IH DAILY 03/04/19 Reported Ipratropium Grayling 0.2 Mg/1 Ml Solution 1 Vial NEB QID 03/03/19 Reported Ibuprofen 400 Mg Tablet 400 Mg PO PRN Q6HRS PRN 03/03/19 Reported Lisinopril 20 Mg Tablet 1 Tab PO DAILY 03/03/19 Reported Aspirin 81 Mg Tab.chew 1 Tab PO DAILY 03/03/19 Reported Coreg (Carvedilol) 25 Mg Tablet 25 Mg PO BID 08/13/13 Reported Lasix (Furosemide) 40 Mg Tablet 40 Mg PO DAILY 08/13/13 Reported Impression . 1. hypoxic respiratory failure 2. metastatic lung cancer, biopsy pending 3. COPD 4. hypercalcemia of malignancy Plan . 1. await bx 2. oxygen 3. nebulized bronchodilators Will follow. MIROSLAVA WELLS MD Mar 05, 2019 17:18
[2019-03-05 19:30] VITALS: BP 101/52
[2019-03-05] MEDS: ENOXAPARIN 40 MG/0.4 ML SYRINGE. SQ SCH (20:19)
[2019-03-05 23:08] VITALS: BP 108/38
[2019-03-06] MEDS: IBUPROFEN 400 MG TABLET. PO PRN ×3 (00:11→21:19)
[2019-03-06 03:00] VITALS: BP 136/58
[2019-03-06] MEDS: IV NORMAL SALINE 1000ML BAG 1,000 ML IV SCH ×3 (03:50→21:07)
[2019-03-06] MEDS: KETOROLAC 15 MG/ML VIAL. IV PRN ×2 (03:50→17:34)
[2019-03-06 05:04] LABS: BASO % 0 % (0-3); EOS # 0.3 x10^3/uL (0.0-0.7); EOS % 3 % (0-3); LYMPH # 0.5 x10^3/uL (1.0-4.8); LYMPH % 5 % (24-48); MEAN CORPUSCULAR HEMOGLOBIN 30 pg (25-35); MEAN CORPUSCULAR HGB CONC 32 g/dL (31-37); MEAN CORPUSCULAR VOLUME 93 fL (79-100); MONO # 0.7 x10^3/uL (0.0-1.1); MONO % 6 % (0-9); NEUT # 9.9 x10^3/uL (1.8-7.7); NEUT % 86 % (31-73); PLATELET COUNT 413 x10^3/uL (140-400); RED CELL DISTRIBUTION WIDTH 13.1 % (11.5-14.5); WHITE BLOOD COUNT 11.5 x10^3/uL (4.0-11.0)
[2019-03-06] MEDS: IPRATROPIUM BROMIDE 0.5 MG/2.5 ML NEBU. NEB SCH ×4 (06:02→21:14)
[2019-03-06 06:13] LABS: ALBUMIN 2.4 g/dL (3.4-5.0); CALCIUM 9.8 mg/dL (8.5-10.1); CREATININE 0.7 mg/dL (0.7-1.3); PHOSPHORUS 1.4 mg/dL (2.6-4.7); POTASSIUM 3.6 mmol/L (3.5-5.1)
[2019-03-06 07:31] VITALS: BP 132/64
--- NOTE | 2019-03-06 07:58 | PDOC ---
PROGRESS NOTES Chief Complaint Chief Complaint ACUTE HYPOXIC RESP FAILURE CHEST DISCOMFORT - likely from mass and CHF exacerbation, trend trops HYPERCALCEMIA - likely of malignancy given his lung mass and bony lesions. On NSS and lasix. check phos and vitamin D. Consult nephrology. Left lung mass Liver lesions Bone lytic lesions - right hip needs ortho evaluation Non-ischemic CARDIOMYOPATHY Acute on chronic systolic CHF - EF 25-50% from 2013 echo THC ABUSE Hypokalemia Hypomagnesemia Vitamin D deficiency Hypophosphatemia Leukocytosis Anemia Transaminitis Metabolic alkalosis 32 minutes spent on chart review and consultation with specialists History of Present Illness History of Present Illness Mr Almanza is a 58yo M w/ PMHx of Nonischemic dilated cardiomyopathy, hypertension, hyperlipidemia who presents to ED on 03/03 c/o soa, leg edema, chest pressure. Found with WBC 11.8, K 2.6, Ca of 13.5, Mg 1.4 and abnormal CXR which prompted a CT chest which revealed a left hilar mass with post-obstructive atelecatsis and spiculated left lower lobe lung mass as well as numerous hepatic lesions and lytic lesions throughout his skeletal structure ribs, pelvis and right proximal femur and a 1cm left thyroid nodule. He was admitted for further work-up and care. 03/04: This morning still with calcium 13 down from 14.7, low K at 2.9. He is feeling weak, diffuse pain, short of breath, more swollen in his lower extremities. He is amenable to bronchoscopy for further evaluation of his lung mass. Underwent left hip bone biopsy of lytic lesion 03/05: Phos 1.7, Mg 1.6, Ca down to 11. Vitamin D returned at 7.4. K still 2.9. His shortness of breath is stable. K up to 3.6. Phos down to 1.4, Ca2+ to 9.8, albumin 2.4. Still feeling weak. Swelling and shortness of breath minimally improved. Hb now 9. He did not sleep at all last night. Plan: F/u biopsy results. Cont electrolyte derangement management, phos is diaz to replace today Monitor Hb Sleep aid Vitals Vitals Vital Signs Date Time Temp Pulse Resp B/P (MAP) Pulse Ox O2 Delivery O2 Flow Rate FiO2 03/06/19 07:31 97.4 77 18 132/64 (86) 100 Nasal Cannula 3.0 97.4 Physical Exam General: Alert, Oriented X3, Cooperative Heart: Regular rate (SR) Lungs: Other (diminished breath sounds bilaterally) Abdomen: Soft, No tenderness Extremities: No cyanosis, Other (1+ bilateral LE pitting edema) Skin: No breakdown, No significant lesion Labs LABS Laboratory Tests Test 03/06/19 04:40 White Blood Count 11.5 x10^3/uL (4.0-11.0) Red Blood Count 3.00 x10^6/uL (4.30-5.70) Hemoglobin 9.0 g/dL (13.0-17.5) Hematocrit 28.0 % (39.0-53.0) Mean Corpuscular Volume 93 fL (79-100) Mean Corpuscular Hemoglobin 30 pg (25-35) Mean Corpuscular Hemoglobin Concent 32 g/dL (31-37) Red Cell Distribution Width 13.1 % (11.5-14.5) Platelet Count 413 x10^3/uL (140-400) Neutrophils (%) (Auto) 86 % (31-73) Lymphocytes (%) (Auto) 5 % (24-48) Monocytes (%) (Auto) 6 % (0-9) Eosinophils (%) (Auto) 3 % (0-3) Basophils (%) (Auto) 0 % (0-3) Neutrophils # (Auto) 9.9 x10^3/uL (1.8-7.7) Lymphocytes # (Auto) 0.5 x10^3/uL (1.0-4.8) Monocytes # (Auto) 0.7 x10^3/uL (0.0-1.1) Eosinophils # (Auto) 0.3 x10^3/uL (0.0-0.7) Basophils # (Auto) 0.0 x10^3/uL (0.0-0.2) Sodium Level 144 mmol/L (136-145) Potassium Level 3.6 mmol/L (3.5-5.1) Chloride Level 100 mmol/L (98-107) Carbon Dioxide Level 43 mmol/L (21-32) Anion Gap 1 (6-14) Blood Urea Nitrogen 16 mg/dL (8-26) Creatinine 0.7 mg/dL (0.7-1.3) Estimated GFR (Cockcroft-Gault) 115.0 Glucose Level 100 mg/dL (70-99) Calcium Level 9.8 mg/dL (8.5-10.1) Phosphorus Level 1.4 mg/dL (2.6-4.7) Albumin 2.4 g/dL (3.4-5.0) Assessment and Plan Assessmemt and Plan Problems Medical Problems: (1) Acute respiratory failure with hypoxia Status: Acute (2) Anemia Status: Acute (3) Atelectasis of left lung Status: Acute (4) CHF (congestive heart failure) Status: Acute (5) Hypercalcemia Status: Acute (6) Hypokalemia Status: Acute (7) Hypomagnesemia Status: Acute (8) Mild tetrahydrocannabinol (THC) abuse Status: Acute (9) Tobacco abuse Status: Acute Comment Review of Relevant I have reviewed the following items jose (where applicable) has been applied. Labs Laboratory Tests Test 03/04/19 08:35 03/05/19 04:35 03/06/19 04:40 White Blood Count 13.3 x10^3/uL (4.0-11.0) 11.5 x10^3/uL (4.0-11.0) Red Blood Count 3.32 x10^6/uL (4.30-5.70) 3.00 x10^6/uL (4.30-5.70) Hemoglobin 10.0 g/dL (13.0-17.5) 9.0 g/dL (13.0-17.5) Hematocrit 30.8 % (39.0-53.0) 28.0 % (39.0-53.0) Mean Corpuscular Volume 93 fL (79-100) 93 fL (79-100) Mean Corpuscular Hemoglobin 30 pg (25-35) 30 pg (25-35) Mean Corpuscular Hemoglobin Concent 32 g/dL (31-37) 32 g/dL (31-37) Red Cell Distribution Width 13.1 % (11.5-14.5) 13.1 % (11.5-14.5) Platelet Count 472 x10^3/uL (140-400) 413 x10^3/uL (140-400) Neutrophils (%) (Auto) 91 % (31-73) 86 % (31-73) Lymphocytes (%) (Auto) 2 % (24-48) 5 % (24-48) Monocytes (%) (Auto) 5 % (0-9) 6 % (0-9) Eosinophils (%) (Auto) 1 % (0-3) 3 % (0-3) Basophils (%) (Auto) 1 % (0-3) 0 % (0-3) Neutrophils # (Auto) 12.2 x10^3/uL (1.8-7.7) 9.9 x10^3/uL (1.8-7.7) Lymphocytes # (Auto) 0.3 x10^3/uL (1.0-4.8) 0.5 x10^3/uL (1.0-4.8) Monocytes # (Auto) 0.7 x10^3/uL (0.0-1.1) 0.7 x10^3/uL (0.0-1.1) Eosinophils # (Auto) 0.1 x10^3/uL (0.0-0.7) 0.3 x10^3/uL (0.0-0.7) Basophils # (Auto) 0.1 x10^3/uL (0.0-0.2) 0.0 x10^3/uL (0.0-0.2) Sodium Level 144 mmol/L (136-145) 144 mmol/L (136-145) 144 mmol/L (136-145) Potassium Level 2.8 mmol/L (3.5-5.1) 2.9 mmol/L (3.5-5.1) 3.6 mmol/L (3.5-5.1) Chloride Level 97 mmol/L (98-107) 98 mmol/L (98-107) 100 mmol/L (98-107) Carbon Dioxide Level > 45 mmol/L (21-32) > 45 mmol/L (21-32) 43 mmol/L (21-32) Anion Gap 2 (6-14) (6-14) 1 (6-14) Blood Urea Nitrogen 14 mg/dL (8-26) 17 mg/dL (8-26) 16 mg/dL (8-26) Creatinine 0.7 mg/dL (0.7-1.3) 0.6 mg/dL (0.7-1.3) 0.7 mg/dL (0.7-1.3) Estimated GFR (Cockcroft-Gault) 115.0 137.4 115.0 BUN/Creatinine Ratio 20 (6-20) 28 (6-20) Glucose Level 121 mg/dL (70-99) 92 mg/dL (70-99) 100 mg/dL (70-99) Calcium Level 13.0 mg/dL (8.5-10.1) 11.0 mg/dL (8.5-10.1) 9.8 mg/dL (8.5-10.1) Phosphorus Level 2.2 mg/dL (2.6-4.7) 1.7 mg/dL (2.6-4.7) 1.4 mg/dL (2.6-4.7) Magnesium Level 1.9 mg/dL (1.8-2.4) 1.6 mg/dL (1.8-2.4) Total Bilirubin 0.4 mg/dL (0.2-1.0) 0.3 mg/dL (0.2-1.0) Aspartate Amino Transf (AST/SGOT) 45 U/L (15-37) 39 U/L (15-37) Alanine Aminotransferase (ALT/SGPT) 33 U/L (16-63) 28 U/L (16-63) Alkaline Phosphatase 321 U/L (46-116) 258 U/L (46-116) Total Protein 7.7 g/dL (6.4-8.2) 6.4 g/dL (6.4-8.2) Albumin 3.1 g/dL (3.4-5.0) 2.6 g/dL (3.4-5.0) 2.4 g/dL (3.4-5.0) Albumin/Globulin Ratio 0.7 (1.0-1.7) 0.7 (1.0-1.7) 25-Hydroxy Vitamin D Total 7.4 ng/mL (30-100) Thyroid Stimulating Hormone (TSH) 4.303 uIU/mL (0.358-3.74) Laboratory Tests Test 03/06/19 04:40 White Blood Count 11.5 x10^3/uL (4.0-11.0) Red Blood Count 3.00 x10^6/uL (4.30-5.70) Hemoglobin 9.0 g/dL (13.0-17.5) Hematocrit 28.0 % (39.0-53.0) Mean Corpuscular Volume 93 fL (79-100) Mean Corpuscular Hemoglobin 30 pg (25-35) Mean Corpuscular Hemoglobin Concent 32 g/dL (31-37) Red Cell Distribution Width 13.1 % (11.5-14.5) Platelet Count 413 x10^3/uL (140-400) Neutrophils (%) (Auto) 86 % (31-73) Lymphocytes (%) (Auto) 5 % (24-48) Monocytes (%) (Auto) 6 % (0-9) Eosinophils (%) (Auto) 3 % (0-3) Basophils (%) (Auto) 0 % (0-3) Neutrophils # (Auto) 9.9 x10^3/uL (1.8-7.7) Lymphocytes # (Auto) 0.5 x10^3/uL (1.0-4.8) Monocytes # (Auto) 0.7 x10^3/uL (0.0-1.1) Eosinophils # (Auto) 0.3 x10^3/uL (0.0-0.7) Basophils # (Auto) 0.0 x10^3/uL (0.0-0.2) Sodium Level 144 mmol/L (136-145) Potassium Level 3.6 mmol/L (3.5-5.1) Chloride Level 100 mmol/L (98-107) Carbon Dioxide Level 43 mmol/L (21-32) Anion Gap 1 (6-14) Blood Urea Nitrogen 16 mg/dL (8-26) Creatinine 0.7 mg/dL (0.7-1.3) Estimated GFR (Cockcroft-Gault) 115.0 Glucose Level 100 mg/dL (70-99) Calcium Level 9.8 mg/dL (8.5-10.1) Phosphorus Level 1.4 mg/dL (2.6-4.7) Albumin 2.4 g/dL (3.4-5.0) Medications Current Medications Potassium Chloride/Water 100 ml @ 100 mls/hr Q1H IV Last administered on 03/03/19at 15:19; Start 03/03/19 at 13:30; Stop 03/03/19 at 15:29; Status DC Zoledronic Acid 100 ml @ 400 mls/hr 1X ONCE IV Last administered on 03/03/19at 16:04; Start 03/03/19 at 16:00; Stop 03/03/19 at 16:14; Status DC Sodium Chloride (Normal Saline Flush) 3 ml QSHIFT PRN IV AFTER MEDS AND BLOOD DRAWS; Start 03/03/19 at 15:30 Sodium Chloride 1,000 ml @ 100 mls/hr Q10H IV Last administered on 03/06/19at 03:50; Start 03/03/19 at 15:24 Ondansetron HCl (Zofran) 4 mg PRN Q4HRS PRN IV NAUSEA/VOMITING; Start 03/03/19 at 15:30 Acetaminophen (Tylenol) 650 mg PRN Q4HRS PRN PO TEMP OVER 100.4F OR MILD PAIN; Start 03/03/19 at 15:30 Clonidine HCl (Catapres) 0.1 mg PRN Q6HRS PRN PO SBP>160 OR DBP>90; Start 03/03/19 at 15:30 Docusate Sodium (Colace) 100 mg PRN BID PRN PO CONSTIPATION; Start 03/03/19 at 15:30 Albuterol Sulfate (Ventolin Neb Soln) 2.5 mg PRN Q4HRS PRN NEB SHORTNESS OF BREATH Last administered on 03/05/19at 12:43; Start 03/03/19 at 15:30 Guaifenesin (Robitussin) 200 mg PRN Q4HRS PRN PO COUGH; Start 03/03/19 at 15:30 Lorazepam (Ativan) 0.5 mg PRN Q4HRS PRN PO ANXIETY / AGITATION Last administered on 03/03/19at 21:32; Start 03/03/19 at 15:30 Enoxaparin Sodium (Lovenox 40mg Syringe) 40 mg QHS SQ Last administered on 03/05/19at 20:24; Start 03/03/19 at 21:00 Furosemide (Lasix) 40 mg DAILY PO ; Start 03/04/19 at 09:00; Stop 03/04/19 at 09:59; Status DC Lisinopril (Prinivil) 5 mg DAILY PO ; Start 03/04/19 at 09:00; Status Cancel Potassium Chloride (Klor-Con) 10 meq DAILY PO Last administered on 03/05/19at 08:43; Start 03/04/19 at 09:00 Aspirin (Marcell Aspirin) 325 mg DAILYWBKFT PO ; Start 03/04/19 at 08:00; Status Cancel Carvedilol (Coreg) 25 mg BIDWMEALS PO Last administered on 03/05/19at 17:44; Start 03/03/19 at 17:00 Lisinopril (Prinivil) 2.5 mg DAILYWLUN PO ; Start 03/04/19 at 12:00; Status Cancel Magnesium Sulfate 3 gm/Dextrose 106 ml @ 35.333 mls/ hr 1X ONCE IV Last administered on 03/03/19 16:57; Start 03/03/19 at 17:00; Stop 03/03/19 at 19:59; Status DC Ketorolac Tromethamine (Toradol 30mg Vial) 30 mg 1X ONCE IV Last administered on 03/03/19at 16:57; Start 03/03/19 at 16:45; Stop 03/03/19 at 16:46; Status DC Aspirin (Children'S Aspirin) 81 mg DAILY PO Last administered on 03/05/19at 08:43; Start 03/04/19 at 09:00 Ibuprofen (Motrin) 400 mg PRN Q6HRS PRN PO INFLAMMATION Last administered on 03/06/19at 06:22; Start 03/03/19 at 21:15 Lisinopril (Prinivil) 20 mg DAILY PO Last administered on 03/04/19at 08:40; Start 03/04/19 at 09:00; Stop 03/04/19 at 16:41; Status DC Ipratropium [place] (Atrovent) 0.5 mg RTQID NEB Last administered on 03/06/19 06:02; Start 03/03/19 at 21:30 Potassium Chloride/Water 100 ml @ 100 mls/hr Q1H IV Last administered on 03/04/19at 15:23; Start 03/04/19 at 10:30; Stop 03/04/19 at 14:29; Status DC Furosemide (Lasix) 40 mg BID92 IVP Last administered on 03/05/19at 15:01; Start 03/04/19 at 10:30 Ketorolac Tromethamine (Toradol 15mg Vial) 15 mg PRN Q6HRS PRN IV PAIN Last administered on 03/06/19at 03:50; Start 03/04/19 at 12:00; Stop 03/09/19 at 11:59 Lidocaine/Sodium Bicarbonate (Buffered Lidocaine 1%) 3 ml STK-MED ONCE .ROUTE ; Start 03/04/19 at 14:33; Stop 03/04/19 at 14:33; Status DC Midazolam HCl (Versed) 2 mg STK-MED ONCE .ROUTE ; Start 03/04/19 at 14:38; Stop 03/04/19 at 14:39; Status DC Fentanyl Citrate (Fentanyl 2ml Vial) 100 mcg STK-MED ONCE .ROUTE ; Start 03/04/19 at 14:38; Stop 03/04/19 at 14:39; Status DC Lidocaine/Sodium Bicarbonate (Buffered Lidocaine 1%) 3 ml 1X ONCE IJ Last administered on 03/04/19at 15:11; Start 03/04/19 at 14:45; Stop 03/04/19 at 14:46; Status DC Midazolam HCl (Versed) 2 mg 1X ONCE IV Last administered on 03/04/19at 15:11; Start 03/04/19 at 14:45; Stop 03/04/19 at 14:46; Status DC Fentanyl Citrate (Fentanyl 2ml Vial) 100 mcg 1X ONCE IV Last administered on 03/04/19at 15:11; Start 03/04/19 at 14:45; Stop 03/04/19 at 14:46; Status DC Potassium Chloride (Klor-Con) 40 meq BIDWBKFT/SARAHI ONCE PO Last administered on 03/05/19at 08:43; Start 03/05/19 at 08:00; Stop 03/05/19 at 08:01; Status DC Magnesium Sulfate 50 ml @ 25 mls/hr 1X ONCE IV Last administered on 03/05/19at 11:20; Start 03/05/19 at 09:30; Stop 03/05/19 at 11:29; Status DC Potassium Chloride/Water 100 ml @ 100 mls/hr Q1H IV Last administered on 03/05/19at 17:44; Start 03/05/19 at 10:00; Stop 03/05/19 at 13:59; Status DC Potassium Phos/ Sodium Phos (Phos-Nak) 1 pkt DAILY PO Last administered on 03/05/19at 11:20; Start 03/05/19 at 09:30 Vitamin D (Vitamin D3) 5,000 unit DAILY PO Last administered on 03/05/19at 11:20; Start 03/05/19 at 09:30 Active Scripts Active Reported Spiriva (Tiotropium [place]) 18 Mcg Cap.w.dev 2 Inh IH DAILY Ipratropium [place] 0.2 Mg/1 Ml Solution 1 Vial NEB QID Ibuprofen 400 Mg Tablet 400 Mg PO PRN Q6HRS PRN Lisinopril 20 Mg Tablet 1 Tab PO DAILY Aspirin 81 Mg Tab.chew 1 Tab PO DAILY Coreg (Carvedilol) 25 Mg Tablet 25 Mg PO BID Lasix (Furosemide) 40 Mg Tablet 40 Mg PO DAILY Vitals/I & O Vital Sign - Last 24 Hours 03/05/19 03/05/19 03/05/19 03/05/19 08:00 08:43 08:56 11:20 Temp 97.4 97.4 Pulse 84 79 Resp 20 B/P (MAP) 127/58 114/58 (76) Pulse Ox 96 100 O2 Delivery Nasal Cannula Nasal Cannula Nasal Cannula O2 Flow Rate 3.0 5.0 3.0 03/05/19 03/05/19 03/05/19 03/05/19 12:44 15:30 16:08 17:44 Temp 97.5 97.5 Pulse 78 78 Resp 20 B/P (MAP) 119/47 (71) 119/47 Pulse Ox 98 O2 Delivery Nasal Cannula Nasal Cannula Nasal Cannula O2 Flow Rate 5.0 3.0 5.0 03/05/19 03/05/19 03/05/19 03/05/19 18:32 19:30 20:05 23:08 Temp 98.5 98.5 98.5 98.5 Pulse 83 80 Resp 16 16 B/P (MAP) 101/52 (68) 108/38 (61) Pulse Ox 97 97 O2 Delivery Nasal Cannula Nasal Cannula Nasal Cannula Nasal Cannula O2 Flow Rate 5.0 3.0 3.0 3.0 03/06/19 03/06/19 03/06/19 03:00 06:02 07:31 Temp 98.7 97.4 98.7 97.4 Pulse 76 77 Resp 18 18 B/P (MAP) 136/58 (84) 132/64 (86) Pulse Ox 98 96 100 O2 Delivery Nasal Cannula Nasal Cannula Nasal Cannula O2 Flow Rate 3.0 3.0 3.0 Intake and Output 03/05/19 03/05/19 03/06/19 15:00 23:00 07:00 Intake Total 400 ml 200 ml 400 ml Output Total 300 ml Balance 400 ml -100 ml 400 ml MARIA FERNANDA STANFORD MD Mar 06, 2019 07:58
[2019-03-06] MEDS: ASPIRIN CHEWABLE 81 MG TABLET. PO SCH (10:26)
[2019-03-06] MEDS: CHOLECALCIFEROL (VITAMIN D3) 5,000 UNIT CAPSULE PO SCH (10:27)
[2019-03-06] MEDS: POTASSIUM CHLORIDE 10 MEQ TABLET.ER. PO SCH (10:27)
[2019-03-06] MEDS: POTASSIUM & SODIUM PHOSPHATES PACKET. PO SCH (10:27)
[2019-03-06] MEDS: CARVEDILOL 12.5 MG TABLET. PO SCH ×2 (10:27→17:21)
[2019-03-06] MEDS: FUROSEMIDE 40 MG/4 ML VIAL. IVP SCH ×2 (10:28→14:36)
[2019-03-06] MEDS: POTASSIUM PHOSPHATE DIBASIC 10 MMOL in IV DEXTROSE 5% 100ML 100 ML IV SCH ×2 (10:28→14:35)
--- NOTE | 2019-03-06 10:48 | PDOC ---
PULMONARY PROGRESS NOTES Subjective 58 y.o. male with long past smoking hx, presented with hypoxia, left hilar mass, TITA atelectasis, lytic bone lesions, liver lesions and hypercalcemia. Bone bx done yesterday without complication. Feels the same. Vitals Vital Signs Date Time Temp Pulse Resp B/P (MAP) Pulse Ox O2 Delivery O2 Flow Rate FiO2 03/06/19 10:28 77 132/64 03/06/19 07:31 97.4 18 100 Nasal Cannula 3.0 97.4 General: Alert, Oriented X4 Lungs: Other (diminished breath sounds bilaterally) Cardiovascular: S1, S2 Abdomen: Soft, Non-tender Neuro Exam: Alert, Oriented, No Focal Findings Extremities: No Edema Labs Laboratory Tests Test 03/05/19 04:35 03/06/19 04:40 Sodium Level 144 mmol/L (136-145) 144 mmol/L (136-145) Potassium Level 2.9 mmol/L (3.5-5.1) 3.6 mmol/L (3.5-5.1) Chloride Level 98 mmol/L (98-107) 100 mmol/L (98-107) Carbon Dioxide Level > 45 mmol/L (21-32) 43 mmol/L (21-32) Anion Gap (6-14) 1 (6-14) Blood Urea Nitrogen 17 mg/dL (8-26) 16 mg/dL (8-26) Creatinine 0.6 mg/dL (0.7-1.3) 0.7 mg/dL (0.7-1.3) Estimated GFR (Cockcroft-Gault) 137.4 115.0 BUN/Creatinine Ratio 28 (6-20) Glucose Level 92 mg/dL (70-99) 100 mg/dL (70-99) Calcium Level 11.0 mg/dL (8.5-10.1) 9.8 mg/dL (8.5-10.1) Phosphorus Level 1.7 mg/dL (2.6-4.7) 1.4 mg/dL (2.6-4.7) Magnesium Level 1.6 mg/dL (1.8-2.4) 1.8 mg/dL (1.8-2.4) Total Bilirubin 0.3 mg/dL (0.2-1.0) Aspartate Amino Transf (AST/SGOT) 39 U/L (15-37) Alanine Aminotransferase (ALT/SGPT) 28 U/L (16-63) Alkaline Phosphatase 258 U/L (46-116) Total Protein 6.4 g/dL (6.4-8.2) Albumin 2.6 g/dL (3.4-5.0) 2.4 g/dL (3.4-5.0) Albumin/Globulin Ratio 0.7 (1.0-1.7) White Blood Count 11.5 x10^3/uL (4.0-11.0) Red Blood Count 3.00 x10^6/uL (4.30-5.70) Hemoglobin 9.0 g/dL (13.0-17.5) Hematocrit 28.0 % (39.0-53.0) Mean Corpuscular Volume 93 fL (79-100) Mean Corpuscular Hemoglobin 30 pg (25-35) Mean Corpuscular Hemoglobin Concent 32 g/dL (31-37) Red Cell Distribution Width 13.1 % (11.5-14.5) Platelet Count 413 x10^3/uL (140-400) Neutrophils (%) (Auto) 86 % (31-73) Lymphocytes (%) (Auto) 5 % (24-48) Monocytes (%) (Auto) 6 % (0-9) Eosinophils (%) (Auto) 3 % (0-3) Basophils (%) (Auto) 0 % (0-3) Neutrophils # (Auto) 9.9 x10^3/uL (1.8-7.7) Lymphocytes # (Auto) 0.5 x10^3/uL (1.0-4.8) Monocytes # (Auto) 0.7 x10^3/uL (0.0-1.1) Eosinophils # (Auto) 0.3 x10^3/uL (0.0-0.7) Basophils # (Auto) 0.0 x10^3/uL (0.0-0.2) Laboratory Tests Test 03/06/19 04:40 White Blood Count 11.5 x10^3/uL (4.0-11.0) Red Blood Count 3.00 x10^6/uL (4.30-5.70) Hemoglobin 9.0 g/dL (13.0-17.5) Hematocrit 28.0 % (39.0-53.0) Mean Corpuscular Volume 93 fL (79-100) Mean Corpuscular Hemoglobin 30 pg (25-35) Mean Corpuscular Hemoglobin Concent 32 g/dL (31-37) Red Cell Distribution Width 13.1 % (11.5-14.5) Platelet Count 413 x10^3/uL (140-400) Neutrophils (%) (Auto) 86 % (31-73) Lymphocytes (%) (Auto) 5 % (24-48) Monocytes (%) (Auto) 6 % (0-9) Eosinophils (%) (Auto) 3 % (0-3) Basophils (%) (Auto) 0 % (0-3) Neutrophils # (Auto) 9.9 x10^3/uL (1.8-7.7) Lymphocytes # (Auto) 0.5 x10^3/uL (1.0-4.8) Monocytes # (Auto) 0.7 x10^3/uL (0.0-1.1) Eosinophils # (Auto) 0.3 x10^3/uL (0.0-0.7) Basophils # (Auto) 0.0 x10^3/uL (0.0-0.2) Sodium Level 144 mmol/L (136-145) Potassium Level 3.6 mmol/L (3.5-5.1) Chloride Level 100 mmol/L (98-107) Carbon Dioxide Level 43 mmol/L (21-32) Anion Gap 1 (6-14) Blood Urea Nitrogen 16 mg/dL (8-26) Creatinine 0.7 mg/dL (0.7-1.3) Estimated GFR (Cockcroft-Gault) 115.0 Glucose Level 100 mg/dL (70-99) Calcium Level 9.8 mg/dL (8.5-10.1) Phosphorus Level 1.4 mg/dL (2.6-4.7) Magnesium Level 1.8 mg/dL (1.8-2.4) Albumin 2.4 g/dL (3.4-5.0) Medications Active Scripts Medications Dose Route/Sig Max Daily Dose Days Date Category Spiriva (Tiotropium [place]) 18 Mcg Cap.w.dev 2 Inh IH DAILY 03/04/19 Reported Ipratropium [place] 0.2 Mg/1 Ml Solution 1 Vial NEB QID 03/03/19 Reported Ibuprofen 400 Mg Tablet 400 Mg PO PRN Q6HRS PRN 03/03/19 Reported Lisinopril 20 Mg Tablet 1 Tab PO DAILY 03/03/19 Reported Aspirin 81 Mg Tab.chew 1 Tab PO DAILY 03/03/19 Reported Coreg (Carvedilol) 25 Mg Tablet 25 Mg PO BID 08/13/13 Reported Lasix (Furosemide) 40 Mg Tablet 40 Mg PO DAILY 08/13/13 Reported Impression . 1. hypoxic respiratory failure, improving 2. metastatic lung cancer, biopsy pending 3. COPD 4. hypercalcemia of malignancy Plan . 1. await bx 2. oxygen 3. nebulized bronchodilators Will follow. MIROSLAVA WELLS MD Mar 06, 2019 10:48
[2019-03-06] MEDS ORDERED: traZODone 50 MG TABLET. PO PRN (11:00)
[2019-03-06] MEDS ORDERED: ZOLPIDEM 5 MG TABLET. PO PRN (11:00)
[2019-03-06 11:56] VITALS: BP 127/51
--- NOTE | 2019-03-06 13:46 | PDOC ---
SUBJECTIVE ROS Stable,looking better, No ac events overnight OBJECTIVE Vital Signs Vital Signs Date Time Temp Pulse Resp B/P (MAP) Pulse Ox O2 Delivery O2 Flow Rate FiO2 03/06/19 11:56 98.2 83 18 127/51 (76) 96 Nasal Cannula 3.0 98.2 I & 0 Intake and Output 03/06/19 06:59 Intake Total 1000 ml Output Total 300 ml Balance 700 ml Intake Oral 1000 ml Output Urine Total 300 ml # Voids 2 PHYSICAL EXAM Physical Exam Gen- NAD, HEENT: Sclerae are nonicteric,OM moist NECK: Supple. LUNGS: With diminished breath sounds bilaterally. CARDIOVASCULAR: Regular rate. ABDOMEN: Soft and nontender. EXTREMITIES: Pitting edema LE bilat 1-2+ Neuro- Grossly normal - No Solo Skin No rash DIAGNOSIS/ASSESSMENT Assessment & Plan Hypercalcemia - Etiology presumably Malignancy /dehydration Ca Back to Normal recd one dose of Zometa on 03/03 Vit D Def- Very low Vit D , on replacement PTH low Alkalosis- Bicarb > 45 , improving Hypercalcemia, furosemide IV Bone Lytic lesion - s/p Bx HyPoPhos- replace Hypo Mg - Replace Hypokalemia - Replace On lasix PO - if clinically no indication recommend holding, defer to Cardiology Anemia- Per Primary HTN- Home BP Coreg, lisinopril, Lasix Cardiology managing Left hilar mass -with postobstructive atelectasis and spiculated left lower lobe lung mass are seen. with numerous hepatic hypodense lesions likely metastatic and numerous lytic lesions are seen throughout the skeletal structures COMMENT/RELEVANT DATA Meds Current Medications Medications (Trade) Dose Ordered Sig/Renetta Start Time Stop Time Status Last Admin Dose Admin Acetaminophen (Tylenol) 650 mg PRN Q4HRS PRN 03/03/19 15:30 Albuterol Sulfate (Ventolin Neb Soln) 2.5 mg PRN Q4HRS PRN 03/03/19 15:30 03/05/19 12:43 2.5 MG Aspirin (Marcell Aspirin) 325 mg DAILYWBKFT 03/04/19 08:00 Cancel Aspirin (Children'S Aspirin) 81 mg DAILY 03/04/19 09:00 03/06/19 10:28 81 MG Carvedilol (Coreg) 25 mg BIDWMEALS 03/03/19 17:00 03/06/19 10:28 25 MG Clonidine HCl (Catapres) 0.1 mg PRN Q6HRS PRN 03/03/19 15:30 Docusate Sodium (Colace) 100 mg PRN BID PRN 03/03/19 15:30 Enoxaparin Sodium (Lovenox 40mg Syringe) 40 mg QHS 03/03/19 21:00 03/05/19 20:24 40 MG Fentanyl Citrate (Fentanyl 2ml Vial) 100 mcg 1X ONCE 03/04/19 14:45 03/04/19 14:46 DC 03/04/19 15:11 50 MCG Furosemide (Lasix) 40 mg [id number] 03/04/19 10:30 03/06/19 10:28 40 MG Guaifenesin (Robitussin) 200 mg PRN Q4HRS PRN 03/03/19 15:30 Ibuprofen (Motrin) 400 mg PRN Q6HRS PRN 03/03/19 21:15 03/06/19 06:22 400 MG Ipratropium [place] (Atrovent) 0.5 mg RTQID 03/03/19 21:30 03/06/19 10:57 0.5 MG Ketorolac Tromethamine (Toradol 15mg Vial) 15 mg PRN Q6HRS PRN 03/04/19 12:00 03/09/19 11:59 03/06/19 03:50 15 MG Ketorolac Tromethamine (Toradol 30mg Vial) 30 mg 1X ONCE 03/03/19 16:45 03/03/19 16:46 DC 03/03/19 16:57 30 MG Lidocaine/Sodium Bicarbonate (Buffered Lidocaine 1%) 3 ml 1X ONCE 03/04/19 14:45 03/04/19 14:46 DC 03/04/19 15:11 5 ML Lisinopril (Prinivil) 20 mg DAILY 03/04/19 09:00 03/04/19 16:41 DC 03/04/19 08:40 20 MG Lorazepam (Ativan) 0.5 mg PRN Q4HRS PRN 03/03/19 15:30 03/03/19 21:32 0.5 MG Magnesium Sulfate 50 ml @ 25 mls/hr 1X ONCE 03/05/19 09:30 03/05/19 11:29 DC 03/05/19 11:20 25 MLS/HR Magnesium Sulfate 3 gm/Dextrose 106 ml @ 35.333 mls/ hr 1X ONCE 03/03/19 17:00 03/03/19 19:59 DC 03/03/19 16:57 35.333 MLS/HR Midazolam HCl (Versed) 2 mg 1X ONCE 03/04/19 14:45 03/04/19 14:46 DC 03/04/19 15:11 1 MG Ondansetron HCl (Zofran) 4 mg PRN Q4HRS PRN 03/03/19 15:30 Potassium Chloride/Water 100 ml @ 100 mls/hr Q1H 03/05/19 10:00 03/05/19 13:59 DC 03/05/19 17:44 100 MLS/HR Potassium Phosphate 10 mmol/ Dextrose 103.3333 ml @ 51.667 m... Q2H 03/06/19 08:00 03/06/19 11:59 DC 03/06/19 10:28 51.667 MLS/HR Potassium Chloride (Klor-Con) 40 meq BIDWBKFT/SARAHI ONCE 03/05/19 08:00 03/05/19 08:01 DC 03/05/19 08:43 40 MEQ Potassium Phos/ Sodium Phos (Phos-Nak) 1 pkt DAILY 03/05/19 09:30 03/06/19 10:28 1 PKT Sodium Chloride 1,000 ml @ 100 mls/hr Q10H 03/03/19 15:24 03/06/19 03:50 100 MLS/HR Sodium Chloride (Normal Saline Flush) 3 ml QSHIFT PRN 03/03/19 15:30 Trazodone HCl (Desyrel) 50 mg PRN QHS PRN 03/06/19 11:00 Vitamin D (Vitamin D3) 5,000 unit DAILY 03/05/19 09:30 03/06/19 10:28 5,000 UNIT Zoledronic Acid 100 ml @ 400 mls/hr 1X ONCE 03/03/19 16:00 03/03/19 16:14 DC 03/03/19 16:04 400 MLS/HR Zolpidem Tartrate (Ambien) 5 mg PRN QHS PRN 03/06/19 11:00 Lab Laboratory Tests Test 03/06/19 04:40 White Blood Count 11.5 x10^3/uL (4.0-11.0) Red Blood Count 3.00 x10^6/uL (4.30-5.70) Hemoglobin 9.0 g/dL (13.0-17.5) Hematocrit 28.0 % (39.0-53.0) Mean Corpuscular Volume 93 fL (79-100) Mean Corpuscular Hemoglobin 30 pg (25-35) Mean Corpuscular Hemoglobin Concent 32 g/dL (31-37) Red Cell Distribution Width 13.1 % (11.5-14.5) Platelet Count 413 x10^3/uL (140-400) Neutrophils (%) (Auto) 86 % (31-73) Lymphocytes (%) (Auto) 5 % (24-48) Monocytes (%) (Auto) 6 % (0-9) Eosinophils (%) (Auto) 3 % (0-3) Basophils (%) (Auto) 0 % (0-3) Neutrophils # (Auto) 9.9 x10^3/uL (1.8-7.7) Lymphocytes # (Auto) 0.5 x10^3/uL (1.0-4.8) Monocytes # (Auto) 0.7 x10^3/uL (0.0-1.1) Eosinophils # (Auto) 0.3 x10^3/uL (0.0-0.7) Basophils # (Auto) 0.0 x10^3/uL (0.0-0.2) Sodium Level 144 mmol/L (136-145) Potassium Level 3.6 mmol/L (3.5-5.1) Chloride Level 100 mmol/L (98-107) Carbon Dioxide Level 43 mmol/L (21-32) Anion Gap 1 (6-14) Blood Urea Nitrogen 16 mg/dL (8-26) Creatinine 0.7 mg/dL (0.7-1.3) Estimated GFR (Cockcroft-Gault) 115.0 Glucose Level 100 mg/dL (70-99) Calcium Level 9.8 mg/dL (8.5-10.1) Phosphorus Level 1.4 mg/dL (2.6-4.7) Magnesium Level 1.8 mg/dL (1.8-2.4) Albumin 2.4 g/dL (3.4-5.0) Results All relevant outside records, renal labs, imaging studies, telemetry/EKG's were reviewed. JEREMIAS SALDANA MD Mar 06, 2019 13:46
[2019-03-06 15:39] VITALS: BP 134/58
[2019-03-06 19:08] VITALS: BP 133/74
[2019-03-06] MEDS: ENOXAPARIN 40 MG/0.4 ML SYRINGE. SQ SCH (21:08)
[2019-03-06 23:05] VITALS: BP 142/61
[2019-03-07 03:17] VITALS: BP 145/78
[2019-03-07 04:14] LABS: ALBUMIN 2.4 g/dL (3.4-5.0); CREATININE 0.7 mg/dL (0.7-1.3); PHOSPHORUS 1.9 mg/dL (2.6-4.7); POTASSIUM 3.6 mmol/L (3.5-5.1)
[2019-03-07 07:00] VITALS: BP 152/71
[2019-03-07] MEDS: IPRATROPIUM BROMIDE 0.5 MG/2.5 ML NEBU. NEB SCH ×4 (07:35→19:44)
[2019-03-07] MEDS: CHOLECALCIFEROL (VITAMIN D3) 5,000 UNIT CAPSULE PO SCH (07:56)
[2019-03-07] MEDS: POTASSIUM CHLORIDE 10 MEQ TABLET.ER. PO SCH (07:57)
[2019-03-07] MEDS: POTASSIUM & SODIUM PHOSPHATES PACKET. PO SCH (07:57)
[2019-03-07] MEDS: CARVEDILOL 12.5 MG TABLET. PO SCH ×2 (07:57→17:09)
[2019-03-07] MEDS: ASPIRIN CHEWABLE 81 MG TABLET. PO SCH (07:58)
[2019-03-07] MEDS: FUROSEMIDE 40 MG/4 ML VIAL. IVP SCH (07:58)
[2019-03-07] MEDS: KETOROLAC 15 MG/ML VIAL. IV PRN ×3 (07:59→21:24)
[2019-03-07] MEDS: IV NORMAL SALINE 1000ML BAG 1,000 ML IV SCH (08:02)
[2019-03-07] MEDS ORDERED: HYDROcodone/APAP 5/325MG 1 TAB TABLET PO PRN (09:00)
--- NOTE | 2019-03-07 09:01 | PDOC ---
PROGRESS NOTES Subjective Subjective HPI - f/u of Bone metastasis ROS - no CP Objective Objective Vital Signs Date Time Temp Pulse Resp B/P (MAP) Pulse Ox O2 Delivery O2 Flow Rate FiO2 03/07/19 08:06 82 145/78 03/07/19 07:37 98 Nasal Cannula 2.0 03/07/19 07:00 97.6 20 97.6 Intake and Output 03/07/19 07:00 Intake Total 700 ml Output Total 450 ml Balance 250 ml Intake Oral 700 ml Output Urine Total 450 ml Physical Exam Heart: Normal S1, Normal S2 General: Alert, Oriented X3 Lungs: Clear to auscultation Neuro: Normal speech Psych/Mental Status: Mental status NL Assessment Assessment Problems Medical Problems: (1) Acute respiratory failure with hypoxia Status: Acute (2) Anemia Status: Acute (3) Atelectasis of left lung Status: Acute (4) CHF (congestive heart failure) Status: Acute (5) Hypercalcemia Status: Acute (6) Hypokalemia Status: Acute (7) Hypomagnesemia Status: Acute (8) Lytic bone lesions on xray Status: Chronic (9) Mild tetrahydrocannabinol (THC) abuse Status: Acute (10) Tobacco abuse Status: Acute IMPRESSION AND PLAN: 1. Left lower lobe lung mass along with left hilar mass and numerous hepatic metastatic disease and numerous lytic lesions are all suggestive of a primary lung cancer stage 4. I consulted Dr. Yomi Moncada. s/p CT-guided biopsy of the lytic lesion left ilium 03/04/19. I discussed in detail with the patient that the clinical concern is of stage 4 lung cancer and treatments are only palliative and not curative. I will discuss regarding the choice of chemotherapy after histologic diagnosis. Consult palliative care. 2. 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 The patient received Zometa 4 mg on 03/03/2019. Continue to monitor calcium levels. Consulted Nephrology. Ca now 9.0. 3. Chronic obstructive pulmonary disease. He is on oxygen. 4. Nonischemic cardiomyopathy. 5. Anemia. I will check iron studies and B12 levels. I suspect anemia is due to malignancy. 6. Liver metastasis. Continue to monitor. 7. Bone metastasis. I agree to consult Orthopedics because of a potential impending fracture in the femur. Plan radiation therapy after confirmation of diagnosis and also Xgeva as outpatient. Appreciate ortho consult: Proximal R femoral lesion likely metastatic disease. Will benefit from prophylactic surgical stabilization, most likely IM hip nail, but X-rays ordered for surgical planning. Probable surgery Thursday. Comment Review of Relevant I have reviewed the following items jose (where applicable) has been applied. Labs Laboratory Tests Test 03/06/19 04:40 03/07/19 03:05 White Blood Count 11.5 x10^3/uL (4.0-11.0) Red Blood Count 3.00 x10^6/uL (4.30-5.70) Hemoglobin 9.0 g/dL (13.0-17.5) Hematocrit 28.0 % (39.0-53.0) Mean Corpuscular Volume 93 fL (79-100) Mean Corpuscular Hemoglobin 30 pg (25-35) Mean Corpuscular Hemoglobin Concent 32 g/dL (31-37) Red Cell Distribution Width 13.1 % (11.5-14.5) Platelet Count 413 x10^3/uL (140-400) Neutrophils (%) (Auto) 86 % (31-73) Lymphocytes (%) (Auto) 5 % (24-48) Monocytes (%) (Auto) 6 % (0-9) Eosinophils (%) (Auto) 3 % (0-3) Basophils (%) (Auto) 0 % (0-3) Neutrophils # (Auto) 9.9 x10^3/uL (1.8-7.7) Lymphocytes # (Auto) 0.5 x10^3/uL (1.0-4.8) Monocytes # (Auto) 0.7 x10^3/uL (0.0-1.1) Eosinophils # (Auto) 0.3 x10^3/uL (0.0-0.7) Basophils # (Auto) 0.0 x10^3/uL (0.0-0.2) Sodium Level 144 mmol/L (136-145) 146 mmol/L (136-145) Potassium Level 3.6 mmol/L (3.5-5.1) 3.6 mmol/L (3.5-5.1) Chloride Level 100 mmol/L (98-107) 101 mmol/L (98-107) Carbon Dioxide Level 43 mmol/L (21-32) 42 mmol/L (21-32) Anion Gap 1 (6-14) 3 (6-14) Blood Urea Nitrogen 16 mg/dL (8-26) 14 mg/dL (8-26) Creatinine 0.7 mg/dL (0.7-1.3) 0.7 mg/dL (0.7-1.3) Estimated GFR (Cockcroft-Gault) 115.0 115.0 Glucose Level 100 mg/dL (70-99) 100 mg/dL (70-99) Calcium Level 9.8 mg/dL (8.5-10.1) 9.0 mg/dL (8.5-10.1) Phosphorus Level 1.4 mg/dL (2.6-4.7) 1.9 mg/dL (2.6-4.7) Magnesium Level 1.8 mg/dL (1.8-2.4) Albumin 2.4 g/dL (3.4-5.0) 2.4 g/dL (3.4-5.0) Laboratory Tests Test 03/07/19 03:05 Sodium Level 146 mmol/L (136-145) Potassium Level 3.6 mmol/L (3.5-5.1) Chloride Level 101 mmol/L (98-107) Carbon Dioxide Level 42 mmol/L (21-32) Anion Gap 3 (6-14) Blood Urea Nitrogen 14 mg/dL (8-26) Creatinine 0.7 mg/dL (0.7-1.3) Estimated GFR (Cockcroft-Gault) 115.0 Glucose Level 100 mg/dL (70-99) Calcium Level 9.0 mg/dL (8.5-10.1) Phosphorus Level 1.9 mg/dL (2.6-4.7) Albumin 2.4 g/dL (3.4-5.0) Medications Current Medications Potassium Chloride/Water 100 ml @ 100 mls/hr Q1H IV Last administered on 03/03/19at 15:19; Start 03/03/19 at 13:30; Stop 03/03/19 at 15:29; Status DC Zoledronic Acid 100 ml @ 400 mls/hr 1X ONCE IV Last administered on 03/03/19at 16:04; Start 03/03/19 at 16:00; Stop 03/03/19 at 16:14; Status DC Sodium Chloride (Normal Saline Flush) 3 ml QSHIFT PRN IV AFTER MEDS AND BLOOD DRAWS; Start 03/03/19 at 15:30 Sodium Chloride 1,000 ml @ 100 mls/hr Q10H IV Last administered on 03/07/19at 08:06; Start 03/03/19 at 15:24 Ondansetron HCl (Zofran) 4 mg PRN Q4HRS PRN IV NAUSEA/VOMITING; Start 03/03/19 at 15:30 Acetaminophen (Tylenol) 650 mg PRN Q4HRS PRN PO TEMP OVER 100.4F OR MILD PAIN; Start 03/03/19 at 15:30 Clonidine HCl (Catapres) 0.1 mg PRN Q6HRS PRN PO SBP>160 OR DBP>90; Start 02/13 03/03 at 15:30 Docusate Sodium (Colace) 100 mg PRN BID PRN PO CONSTIPATION; Start 03/03/19 at 15:30 Albuterol Sulfate (Ventolin Neb Soln) 2.5 mg PRN Q4HRS PRN NEB SHORTNESS OF BREATH Last administered on 03/05/19at 12:43; Start 03/03/19 at 15:30 Guaifenesin (Robitussin) 200 mg PRN Q4HRS PRN PO COUGH; Start 03/03/19 at 15:30 Lorazepam (Ativan) 0.5 mg PRN Q4HRS PRN PO ANXIETY / AGITATION Last administered on 03/03/19at 21:32; Start 03/03/19 at 15:30 Enoxaparin Sodium (Lovenox 40mg Syringe) 40 mg QHS SQ Last administered on 03/06/19at 21:08; Start 03/03/19 at 21:00 Furosemide (Lasix) 40 mg DAILY PO ; Start 03/04/19 at 09:00; Stop 03/04/19 at 09:59; Status DC Lisinopril (Prinivil) 5 mg DAILY PO ; Start 03/04/19 at 09:00; Status Cancel Potassium Chloride (Klor-Con) 10 meq DAILY PO Last administered on 03/07/19at 08:06; Start 03/04/19 at 09:00 Aspirin (Marcell Aspirin) 325 mg DAILYWBKFT PO ; Start 03/04/19 at 08:00; Status Cancel Carvedilol (Coreg) 25 mg BIDWMEALS PO Last administered on 03/07/19 08:06; Start 03/03/19 at 17:00 Lisinopril (Prinivil) 2.5 mg DAILYWLUN PO ; Start 03/04/19 at 12:00; Status Cancel Magnesium Sulfate 3 gm/Dextrose 106 ml @ 35.333 mls/ hr 1X ONCE IV Last administered on 03/03/19 16:57; Start 03/03/19 at 17:00; Stop 03/03/19 at 19:59 ; Status DC Ketorolac Tromethamine (Toradol 30mg Vial) 30 mg 1X ONCE IV Last administered on 03/03/19 16:57; Start 03/03/19 at 16:45; Stop 03/03/19 at 16:46; Status DC Aspirin (Children'S Aspirin) 81 mg DAILY PO Last administered on 03/07/19 08:06; Start 03/04/19 at 09:00 Ibuprofen (Motrin) 400 mg PRN Q6HRS PRN PO INFLAMMATION Last administered on 03/06/19 21:20; Start 03/03/19 at 21:15 Lisinopril (Prinivil) 20 mg DAILY PO Last administered on 03/04/19 08:40; Start 03/04/19 at 09:00; Stop 03/04/19 at 16:41; Status DC Ipratropium [place] (Atrovent) 0.5 mg RTQID NEB Last administered on 03/07/19at 07:35; Start 03/03/19 at 21:30 Potassium Chloride/Water 100 ml @ 100 mls/hr Q1H IV Last administered on 03/04/19at 15:23; Start 03/04/19 at 10:30; Stop 03/04/19 at 14:29; Status DC Furosemide (Lasix) 40 mg BID92 IVP Last administered on 03/07/19 08:06; Start 03/04/19 at 10:30 Ketorolac Tromethamine (Toradol 15mg Vial) 15 mg PRN Q6HRS PRN IV PAIN Last administered on 03/07/19 08:06; Start 03/04/19 at 12:00; Stop 03/09/19 at 11:59 Lidocaine/Sodium Bicarbonate (Buffered Lidocaine 1%) 3 ml STK-MED ONCE .ROUTE ; Start 03/04/19 at 14:33; Stop 03/04/19 at 14:33; Status DC Midazolam HCl (Versed) 2 mg STK-MED ONCE .ROUTE ; Start 03/04/19 at 14:38; Stop 03/04/19 at 14:39; Status DC Fentanyl Citrate (Fentanyl 2ml Vial) 100 mcg STK-MED ONCE .ROUTE ; Start 03/04/19 at 14:38; Stop 03/04/19 at 14:39; Status DC Lidocaine/Sodium Bicarbonate (Buffered Lidocaine 1%) 3 ml 1X ONCE IJ Last administered on 03/04/19at 15:11; Start 03/04/19 at 14:45; Stop 03/04/19 at 14:46; Status DC Midazolam HCl (Versed) 2 mg 1X ONCE IV Last administered on 03/04/19at 15:11; Start 03/04/19 at 14:45; Stop 03/04/19 at 14:46; Status DC Fentanyl Citrate (Fentanyl 2ml Vial) 100 mcg 1X ONCE IV Last administered on 03/04/19at 15:11; Start 03/04/19 at 14:45; Stop 03/04/19 at 14:46; Status DC Potassium Chloride (Klor-Con) 40 meq BIDWBKFT/SARAHI ONCE PO Last administered on 03/05/19at 08:43; Start 03/05/19 at 08:00; Stop 03/05/19 at 08:01; Status DC Magnesium Sulfate 50 ml @ 25 mls/hr 1X ONCE IV Last administered on 03/05/19at 11:20; Start 03/05/19 at 09:30; Stop 03/05/19 at 11:29; Status DC Potassium Chloride/Water 100 ml @ 100 mls/hr Q1H IV Last administered on 03/05/19at 17:44; Start 03/05/19 at 10:00; Stop 03/05/19 at 13:59; Status DC Potassium Phos/ Sodium Phos (Phos-Nak) 1 pkt DAILY PO Last administered on 03/07at 08:06; Start 03/05/19 at 09:30 Vitamin D (Vitamin D3) 5,000 unit DAILY PO Last administered on 03/07/19at 08:06; Start 03/05/19 at 09:30 Potassium Phosphate 10 mmol/ Dextrose 103.3333 ml @ 51.667 m... Q2H IV Last administered on 03/06/19at 14:36; Start 03/06/19 at 08:00; Stop 03/06/19 at 11:59; Status DC Trazodone HCl (Desyrel) 50 mg PRN QHS PRN PO INSOMNIA Last administered on 03/06/19at 21:08; Start 03/06/19 at 11:00 Zolpidem Tartrate (Ambien) 5 mg PRN QHS PRN PO INSOMNIA; Start 03/06/19 at 11:00 Active Scripts Active Reported Spiriva (Tiotropium [place]) 18 Mcg Cap.w.dev 2 Inh IH DAILY Ipratropium [place] 0.2 Mg/1 Ml Solution 1 Vial NEB QID Ibuprofen 400 Mg Tablet 400 Mg PO PRN Q6HRS PRN Lisinopril 20 Mg Tablet 1 Tab PO DAILY Aspirin 81 Mg Tab.chew 1 Tab PO DAILY Coreg (Carvedilol) 25 Mg Tablet 25 Mg PO BID Lasix (Furosemide) 40 Mg Tablet 40 Mg PO DAILY Vitals/I & O Vital Sign - Last 24 Hours 03/06/19 03/06/19 03/06/19 03/06/19 10:28 10:58 11:56 15:39 Temp 98.2 98.0 98.2 98.0 Pulse 77 83 77 Resp 18 18 B/P (MAP) 132/64 127/51 (76) 134/58 (83) Pulse Ox 96 96 O2 Delivery Nasal Cannula Nasal Cannula Nasal Cannula O2 Flow Rate 3.0 3.0 3.0 03/06/19 03/06/19 03/06/19 03/06/19 16:21 17:21 19:08 20:20 Temp 97.4 97.4 Pulse 77 85 Resp 18 B/P (MAP) 134/58 133/74 (93) Pulse Ox 98 O2 Delivery Nasal Cannula Nasal Cannula Nasal Cannula O2 Flow Rate 3.0 3.0 3.0 03/06/19 03/06/19 03/07/19 03/07/19 21:15 23:05 03:17 07:00 Temp 98.5 97.8 97.6 98.5 97.8 97.6 Pulse 84 82 85 Resp 17 18 20 B/P (MAP) 142/61 (88) 145/78 (100) 152/71 (98) Pulse Ox 98 99 99 98 O2 Delivery Nasal Cannula Nasal Cannula Nasal Cannula Nasal Cannula O2 Flow Rate 2.0 3.0 3.0 3.0 03/07/19 03/07/19 07:37 08:06 Pulse 82 B/P (MAP) 145/78 Pulse Ox 98 O2 Delivery Nasal Cannula O2 Flow Rate 2.0 Intake and Output 0 03/06/19 03/06/19 03/07/19 15:00 23:00 07:00 Intake Total 400 ml 200 ml 100 ml Output Total 450 ml Balance 400 ml 200 ml -350 ml SHUN FELDMAN MD Mar 07, 2019 09:01
[2019-03-07 11:00] VITALS: BP 120/61
--- NOTE | 2019-03-07 11:34 | PDOC ---
PROGRESS NOTES Chief Complaint Chief Complaint ACUTE HYPOXIC RESP FAILURE NEw lung CA with mets to bone s/p left iliac biopsy Tobaccosim CHEST DISCOMFORT, pleuritic - likely from mass HYPERCALCEMIA - of malignancy Liver lesions Bone lytic lesions - Non-ischemic CARDIOMYOPATHY Acute on chronic systolic CHF - EF 25-50% from 2013 echo THC ABUSE Hypokalemia, corrected Hypomagnesemia, corrected Vitamin D deficiency Hypophosphatemia, corrected Leukocytosis Anemia Transaminitis Metabolic alkalosis GEn weakness, SNU candidate History of Present Illness History of Present Illness Just worked with OT HE has no complaints HE is agreeable to SNU if needed HE came from home HE is aware of the new luis cancer dx and mets to bone - but he does nt know if chemo is the plan S.p left iliac bone biopsy Ca BETTER! Colleage has him on lasix and IVF HE did move BM 03.06 PLAN: Dc current IVF - EF low MAke lasix PO Ortho plans of sx based on mar 04 note? NOt on any blood thinners Dw RN NPO post MN - just in case OR Vitals Vitals Vital Signs Date Time Temp Pulse Resp B/P (MAP) Pulse Ox O2 Delivery O2 Flow Rate FiO2 03/07/19 11:00 97.7 80 18 120/61 (80) 98 Nasal Cannula 3.0 97.7 Physical Exam General: Alert, Oriented X3 Heart: Regular rate, Normal S1, Normal S2 Lungs: Clear, Other (diminished breath sounds bilaterally) Abdomen: Normal bowel sounds, Soft, No tenderness Extremities: No cyanosis, Other (1+ bilateral LE pitting edema) Skin: No breakdown, No significant lesion Labs LABS Laboratory Tests Test 03/07/19 03:05 Red Blood Count 2.91 x10^6/uL (4.30-5.70) Absolute Reticulocyte Count 0.031 x10^6/uL (0.020-0.120) Percent Reticulocyte Count 1.1 % (0.5-2.3) Immature Reticulocyte Fraction 0.45 (0.20-0.60) Sodium Level 146 mmol/L (136-145) Potassium Level 3.6 mmol/L (3.5-5.1) Chloride Level 101 mmol/L (98-107) Carbon Dioxide Level 42 mmol/L (21-32) Anion Gap 3 (6-14) Blood Urea Nitrogen 14 mg/dL (8-26) Creatinine 0.7 mg/dL (0.7-1.3) Estimated GFR (Cockcroft-Gault) 115.0 Glucose Level 100 mg/dL (70-99) Calcium Level 9.0 mg/dL (8.5-10.1) Phosphorus Level 1.9 mg/dL (2.6-4.7) Iron Level 23 ug/dL (65-175) Ferritin 906 ng/mL (26-388) Albumin 2.4 g/dL (3.4-5.0) Vitamin B12 Level 415 pg/mL (247-911) Review of Systems Review of Systems weak, no soa, no cp, no fevers, no constipation, no abd pain, n,v, Assessment and Plan Assessmemt and Plan Problems Medical Problems: (1) Acute respiratory failure with hypoxia Status: Acute (2) Anemia Status: Acute (3) Atelectasis of left lung Status: Acute (4) CHF (congestive heart failure) Status: Acute (5) Hypercalcemia Status: Acute (6) Hypokalemia Status: Acute (7) Hypomagnesemia Status: Acute (8) Lytic bone lesions on xray Status: Chronic (9) Mild tetrahydrocannabinol (THC) abuse Status: Acute (10) Tobacco abuse Status: Acute Comment Review of Relevant I have reviewed the following items jose (where applicable) has been applied. Labs Laboratory Tests Test 03/06/19 04:40 03/07/19 03:05 White Blood Count 11.5 x10^3/uL (4.0-11.0) Red Blood Count 3.00 x10^6/uL (4.30-5.70) 2.91 x10^6/uL (4.30-5.70) Hemoglobin 9.0 g/dL (13.0-17.5) Hematocrit 28.0 % (39.0-53.0) Mean Corpuscular Volume 93 fL (79-100) Mean Corpuscular Hemoglobin 30 pg (25-35) Mean Corpuscular Hemoglobin Concent 32 g/dL (31-37) Red Cell Distribution Width 13.1 % (11.5-14.5) Platelet Count 413 x10^3/uL (140-400) Neutrophils (%) (Auto) 86 % (31-73) Lymphocytes (%) (Auto) 5 % (24-48) Monocytes (%) (Auto) 6 % (0-9) Eosinophils (%) (Auto) 3 % (0-3) Basophils (%) (Auto) 0 % (0-3) Neutrophils # (Auto) 9.9 x10^3/uL (1.8-7.7) Lymphocytes # (Auto) 0.5 x10^3/uL (1.0-4.8) Monocytes # (Auto) 0.7 x10^3/uL (0.0-1.1) Eosinophils # (Auto) 0.3 x10^3/uL (0.0-0.7) Basophils # (Auto) 0.0 x10^3/uL (0.0-0.2) Sodium Level 144 mmol/L (136-145) 146 mmol/L (136-145) Potassium Level 3.6 mmol/L (3.5-5.1) 3.6 mmol/L (3.5-5.1) Chloride Level 100 mmol/L (98-107) 101 mmol/L (98-107) Carbon Dioxide Level 43 mmol/L (21-32) 42 mmol/L (21-32) Anion Gap 1 (6-14) 3 (6-14) Blood Urea Nitrogen 16 mg/dL (8-26) 14 mg/dL (8-26) Creatinine 0.7 mg/dL (0.7-1.3) 0.7 mg/dL (0.7-1.3) Estimated GFR (Cockcroft-Gault) 115.0 115.0 Glucose Level 100 mg/dL (70-99) 100 mg/dL (70-99) Calcium Level 9.8 mg/dL (8.5-10.1) 9.0 mg/dL (8.5-10.1) Phosphorus Level 1.4 mg/dL (2.6-4.7) 1.9 mg/dL (2.6-4.7) Magnesium Level 1.8 mg/dL (1.8-2.4) Albumin 2.4 g/dL (3.4-5.0) 2.4 g/dL (3.4-5.0) Absolute Reticulocyte Count 0.031 x10^6/uL (0.020-0.120) Percent Reticulocyte Count 1.1 % (0.5-2.3) Immature Reticulocyte Fraction 0.45 (0.20-0.60) Iron Level 23 ug/dL (65-175) Ferritin 906 ng/mL (26-388) Vitamin B12 Level 415 pg/mL (247-911) Laboratory Tests Test 03/07/19 03:05 Red Blood Count 2.91 x10^6/uL (4.30-5.70) Absolute Reticulocyte Count 0.031 x10^6/uL (0.020-0.120) Percent Reticulocyte Count 1.1 % (0.5-2.3) Immature Reticulocyte Fraction 0.45 (0.20-0.60) Sodium Level 146 mmol/L (136-145) Potassium Level 3.6 mmol/L (3.5-5.1) Chloride Level 101 mmol/L (98-107) Carbon Dioxide Level 42 mmol/L (21-32) Anion Gap 3 (6-14) Blood Urea Nitrogen 14 mg/dL (8-26) Creatinine 0.7 mg/dL (0.7-1.3) Estimated GFR (Cockcroft-Gault) 115.0 Glucose Level 100 mg/dL (70-99) Calcium Level 9.0 mg/dL (8.5-10.1) Phosphorus Level 1.9 mg/dL (2.6-4.7) Iron Level 23 ug/dL (65-175) Ferritin 906 ng/mL (26-388) Albumin 2.4 g/dL (3.4-5.0) Vitamin B12 Level 415 pg/mL (247-911) Medications Current Medications Potassium Chloride/Water 100 ml @ 100 mls/hr Q1H IV Last administered on 03/03/19at 15:19; Start 03/03/19 at 13:30; Stop 03/03/19 at 15:29; Status DC Zoledronic Acid 100 ml @ 400 mls/hr 1X ONCE IV Last administered on 03/03/19at 16:04; Start 03/03/19 at 16:00; Stop 03/03/19 at 16:14; Status DC Sodium Chloride (Normal Saline Flush) 3 ml QSHIFT PRN IV AFTER MEDS AND BLOOD DRAWS; Start 03/03/19 at 15:30 Sodium Chloride 1,000 ml @ 100 mls/hr Q10H IV Last administered on 03/07/19at 08:06; Start 03/03/19 at 15:24 Ondansetron HCl (Zofran) 4 mg PRN Q4HRS PRN IV NAUSEA/VOMITING; Start 03/03/19 at 15:30 Acetaminophen (Tylenol) 650 mg PRN Q4HRS PRN PO TEMP OVER 100.4F OR MILD PAIN; Start 03/03/19 at 15:30 Clonidine HCl (Catapres) 0.1 mg PRN Q6HRS PRN PO SBP>160 OR DBP>90; Start 03/03/19 at 15:30 Docusate Sodium (Colace) 100 mg PRN BID PRN PO CONSTIPATION; Start 03/03/19 at 15:30 Albuterol Sulfate (Ventolin Neb Soln) 2.5 mg PRN Q4HRS PRN NEB SHORTNESS OF BREATH Last administered on 03/05/19at 12:43; Start 03/03/19 at 15:30 Guaifenesin (Robitussin) 200 mg PRN Q4HRS PRN PO COUGH; Start 03/03/19 at 15:30 Lorazepam (Ativan) 0.5 mg PRN Q4HRS PRN PO ANXIETY / AGITATION Last administered on 03/03/19at 21:32; Start 03/03/19 at 15:30 Enoxaparin Sodium (Lovenox 40mg Syringe) 40 mg QHS SQ Last administered on 03/06/19at 21:08; Start 03/03/19 at 21:00 Furosemide (Lasix) 40 mg DAILY PO ; Start 03/04/19 at 09:00; Stop 03/04/19 at 09:59; Status DC Lisinopril (Prinivil) 5 mg DAILY PO ; Start 03/04/19 at 09:00; Status Cancel Potassium Chloride (Klor-Con) 10 meq DAILY PO Last administered on 03/07/19at 08:06; Start 03/04/19 at 09:00 Aspirin (Marcell Aspirin) 325 mg DAILYWBKFT PO ; Start 03/04/19 at 08:00; Status Cancel Carvedilol (Coreg) 25 mg BIDWMEALS PO Last administered on 03/07/19at 08:06; Start 03/03/19 at 17:00 Lisinopril (Prinivil) 2.5 mg DAILYWLUN PO ; Start 03/04/19 at 12:00; Status Cancel Magnesium Sulfate 3 gm/Dextrose 106 ml @ 35.333 mls/ hr 1X ONCE IV Last administered on 03/03/19 16:57; Start 03/03/19 at 17:00; Stop 03/03/19 at 19:59; Status DC Ketorolac Tromethamine (Toradol 30mg Vial) 30 mg 1X ONCE IV Last administered on 03/03/19at 16:57; Start 03/03/19 at 16:45; Stop 03/03/19 at 16:46; Status DC Aspirin (Children'S Aspirin) 81 mg DAILY PO Last administered on 03/07/19 08:06; Start 03/04/19 at 09:00 Ibuprofen (Motrin) 400 mg PRN Q6HRS PRN PO INFLAMMATION Last administered on 03/06/19 21:20; Start 03/03/19 at 21:15 Lisinopril (Prinivil) 20 mg DAILY PO Last administered on 03/04/19at 08:40; Start 03/04/19 at 09:00; Stop 03/04/19 at 16:41; Status DC Ipratropium Casar (Atrovent) 0.5 mg RTQID NEB Last administered on 03/07/19at 07:35; Start 03/03/19 at 21:30 Potassium Chloride/Water 100 ml @ 100 mls/hr Q1H IV Last administered on 03/04/19at 15:23; Start 03/04/19 at 10:30; Stop 03/04/19 at 14:29; Status DC Furosemide (Lasix) 40 mg BID92 IVP Last administered on 03/07/19 08:06; Start 03/04/19 at 10:30; Stop 03/07/19 at 08:56; Status DC Ketorolac Tromethamine (Toradol 15mg Vial) 15 mg PRN Q6HRS PRN IV PAIN Last administered on 03/07/19 08:06; Start 03/04/19 at 12:00; Stop 03/09/19 at 11:59 Lidocaine/Sodium Bicarbonate (Buffered Lidocaine 1%) 3 ml STK-MED ONCE .ROUTE ; Start 03/04/19 at 14:33; Stop 03/04/19 at 14:33; Status DC Midazolam HCl (Versed) 2 mg STK-MED ONCE .ROUTE ; Start 03/04/19 at 14:38; Stop 03/04/19 at 14:39; Status DC Fentanyl Citrate (Fentanyl 2ml Vial) 100 mcg STK-MED ONCE .ROUTE ; Start 03/04/19 at 14:38; Stop 03/04/19 at 14:39; Status DC Lidocaine/Sodium Bicarbonate (Buffered Lidocaine 1%) 3 ml 1X ONCE IJ Last administered on 03/04/19at 15:11; Start 03/04/19 at 14:45; Stop 03/04/19 at 14:46; Status DC Midazolam HCl (Versed) 2 mg 1X ONCE IV Last administered on 03/04/19at 15:11; Start 03/04/19 at 14:45; Stop 03/04/19 at 14:46; Status DC Fentanyl Citrate (Fentanyl 2ml Vial) 100 mcg 1X ONCE IV Last administered on 03/04/19at 15:11; Start 03/04/19 at 14:45; Stop 03/04/19 at 14:46; Status DC Potassium Chloride (Klor-Con) 40 meq BIDWBKFT/LUIS ONCE PO Last administered on 03/05/19 08:43; Start 03/05/19 at 08:00; Stop 03/05/19 at 08:01; Status DC Magnesium Sulfate 50 ml @ 25 mls/hr 1X ONCE IV Last administered on 03/05/19at 11:20; Start 03/05/19 at 09:30; Stop 03/05/19 at 11:29; Status DC Potassium Chloride/Water 100 ml @ 100 mls/hr Q1H IV Last administered on 03/05/19at 17:44; Start 03/05/19 at 10:00; Stop 03/05/19 at 13:59; Status DC Potassium Phos/ Sodium Phos (Phos-Nak) 1 pkt DAILY PO Last administered on 03/07/19 08:06; Start 03/05/19 at 09:30 Vitamin D (Vitamin D3) 5,000 unit DAILY PO Last administered on 03/07/19 08:06; Start 03/05/19 at 09:30 Potassium Phosphate 10 mmol/ Dextrose 103.3333 ml @ 51.667 m... Q2H IV Last administered on 9/22/19at 14:36; Start 03/06/19 at 08:00; Stop 03/06/19 at 11:59; Status DC Trazodone HCl (Desyrel) 50 mg PRN QHS PRN PO INSOMNIA Last administered on 03/06/19at 21:08; Start 03/06/19 at 11:00 Zolpidem Tartrate (Ambien) 5 mg PRN QHS PRN PO INSOMNIA; Start 03/06/19 at 11:00 Acetaminophen/ Hydrocodone Bitart (Lortab 5/325) 1 tab PRN Q4HRS PRN PO PAIN MODERATE TO SEVERE; Start 03/07/19 at 09:00 Active Scripts Active Reported Spiriva (Tiotropium Casar) 18 Mcg Cap.w.dev 2 Inh IH DAILY Ipratropium Casar 0.2 Mg/1 Ml Solution 1 Vial NEB QID Ibuprofen 400 Mg Tablet 400 Mg PO PRN Q6HRS PRN Lisinopril 20 Mg Tablet 1 Tab PO DAILY Aspirin 81 Mg Tab.chew 1 Tab PO DAILY Coreg (Carvedilol) 25 Mg Tablet 25 Mg PO BID Lasix (Furosemide) 40 Mg Tablet 40 Mg PO DAILY Vitals/I & O Vital Sign - Last 24 Hours 03/06/19 03/06/19 03/06/19 03/06/19 11:56 15:39 16:21 17:21 Temp 98.2 98.0 98.2 98.0 Pulse 83 77 77 Resp 18 18 B/P (MAP) 127/51 (76) 134/58 (83) 134/58 Pulse Ox 96 96 O2 Delivery Nasal Cannula Nasal Cannula Nasal Cannula O2 Flow Rate 3.0 3.0 3.0 03/06/19 03/06/19 03/06/19 03/06/19 19:08 20:20 21:15 23:05 Temp 97.4 98.5 97.4 98.5 Pulse 85 84 Resp 18 17 B/P (MAP) 133/74 (93) 142/61 (88) Pulse Ox 98 98 99 O2 Delivery Nasal Cannula Nasal Cannula Nasal Cannula Nasal Cannula O2 Flow Rate 3.0 3.0 2.0 3.0 03/07/19 03/07/19 03/07/19 03/07/19 03:17 07:00 07:37 08:00 Temp 97.8 97.6 97.8 97.6 Pulse 82 85 Resp 18 20 B/P (MAP) 145/78 (100) 152/71 (98) Pulse Ox 99 98 98 O2 Delivery Nasal Cannula Nasal Cannula Nasal Cannula Nasal Cannula O2 Flow Rate 3.0 3.0 2.0 2.0 03/07/19 03/07/19 08:06 11:00 Temp 97.7 97.7 Pulse 82 80 Resp 18 B/P (MAP) 145/78 120/61 (80) Pulse Ox 98 O2 Delivery Nasal Cannula O2 Flow Rate 3.0 Intake and Output 03/06/19 03/06/19 03/07/19 15:00 23:00 07:00 Intake Total 400 ml 200 ml 100 ml Output Total 450 ml Balance 400 ml 200 ml -350 ml Nutrition Consultation Dietary Evaluation: Comments: pt declines ensure and other supplements at this time pt ordering alternate foods from menu Expected Outcomes/Goals: to meet > 75% est nutr needs Interpretation of weight loss: >5% in 1 month Malnutrition Findings: Food and Nutrition Intake (Sev: <50% est energy req 5days Weight Status: Underweight WALKER CASTILLO MD Mar 07, 2019 11:34
--- NOTE | 2019-03-07 12:13 | PDOC ---
PULMONARY PROGRESS NOTES Subjective 58 y.o. male with long past smoking hx, presented with hypoxia, left hilar mass, TITA atelectasis, lytic bone lesions, liver lesions and hypercalcemia. Bone bx done yesterday without complication. Feels the same. Vitals Vital Signs Date Time Temp Pulse Resp B/P (MAP) Pulse Ox O2 Delivery O2 Flow Rate FiO2 03/07/19 12:05 98 Nasal Cannula 2.0 03/07/19 11:00 97.7 80 18 120/61 (80) 97.7 General: Alert, Oriented X4 Lungs: Other (diminished breath sounds bilaterally) Cardiovascular: S1, S2 Abdomen: Soft, Non-tender Neuro Exam: Alert, Oriented, No Focal Findings Extremities: No Edema Labs Laboratory Tests Test 03/06/19 04:40 03/07/19 03:05 White Blood Count 11.5 x10^3/uL (4.0-11.0) Red Blood Count 3.00 x10^6/uL (4.30-5.70) 2.91 x10^6/uL (4.30-5.70) Hemoglobin 9.0 g/dL (13.0-17.5) Hematocrit 28.0 % (39.0-53.0) Mean Corpuscular Volume 93 fL (79-100) Mean Corpuscular Hemoglobin 30 pg (25-35) Mean Corpuscular Hemoglobin Concent 32 g/dL (31-37) Red Cell Distribution Width 13.1 % (11.5-14.5) Platelet Count 413 x10^3/uL (140-400) Neutrophils (%) (Auto) 86 % (31-73) Lymphocytes (%) (Auto) 5 % (24-48) Monocytes (%) (Auto) 6 % (0-9) Eosinophils (%) (Auto) 3 % (0-3) Basophils (%) (Auto) 0 % (0-3) Neutrophils # (Auto) 9.9 x10^3/uL (1.8-7.7) Lymphocytes # (Auto) 0.5 x10^3/uL (1.0-4.8) Monocytes # (Auto) 0.7 x10^3/uL (0.0-1.1) Eosinophils # (Auto) 0.3 x10^3/uL (0.0-0.7) Basophils # (Auto) 0.0 x10^3/uL (0.0-0.2) Sodium Level 144 mmol/L (136-145) 146 mmol/L (136-145) Potassium Level 3.6 mmol/L (3.5-5.1) 3.6 mmol/L (3.5-5.1) Chloride Level 100 mmol/L (98-107) 101 mmol/L (98-107) Carbon Dioxide Level 43 mmol/L (21-32) 42 mmol/L (21-32) Anion Gap 1 (6-14) 3 (6-14) Blood Urea Nitrogen 16 mg/dL (8-26) 14 mg/dL (8-26) Creatinine 0.7 mg/dL (0.7-1.3) 0.7 mg/dL (0.7-1.3) Estimated GFR (Cockcroft-Gault) 115.0 115.0 Glucose Level 100 mg/dL (70-99) 100 mg/dL (70-99) Calcium Level 9.8 mg/dL (8.5-10.1) 9.0 mg/dL (8.5-10.1) Phosphorus Level 1.4 mg/dL (2.6-4.7) 1.9 mg/dL (2.6-4.7) Magnesium Level 1.8 mg/dL (1.8-2.4) Albumin 2.4 g/dL (3.4-5.0) 2.4 g/dL (3.4-5.0) Absolute Reticulocyte Count 0.031 x10^6/uL (0.020-0.120) Percent Reticulocyte Count 1.1 % (0.5-2.3) Immature Reticulocyte Fraction 0.45 (0.20-0.60) Iron Level 23 ug/dL (65-175) Ferritin 906 ng/mL (26-388) Vitamin B12 Level 415 pg/mL (247-911) Laboratory Tests Test 03/07/19 03:05 Red Blood Count 2.91 x10^6/uL (4.30-5.70) Absolute Reticulocyte Count 0.031 x10^6/uL (0.020-0.120) Percent Reticulocyte Count 1.1 % (0.5-2.3) Immature Reticulocyte Fraction 0.45 (0.20-0.60) Sodium Level 146 mmol/L (136-145) Potassium Level 3.6 mmol/L (3.5-5.1) Chloride Level 101 mmol/L (98-107) Carbon Dioxide Level 42 mmol/L (21-32) Anion Gap 3 (6-14) Blood Urea Nitrogen 14 mg/dL (8-26) Creatinine 0.7 mg/dL (0.7-1.3) Estimated GFR (Cockcroft-Gault) 115.0 Glucose Level 100 mg/dL (70-99) Calcium Level 9.0 mg/dL (8.5-10.1) Phosphorus Level 1.9 mg/dL (2.6-4.7) Iron Level 23 ug/dL (65-175) Ferritin 906 ng/mL (26-388) Albumin 2.4 g/dL (3.4-5.0) Vitamin B12 Level 415 pg/mL (247-911) Medications Active Scripts Medications Dose Route/Sig Max Daily Dose Days Date Category Spiriva (Tiotropium Palmetto) 18 Mcg Cap.w.dev 2 Inh IH DAILY 03/04/19 Reported Ipratropium Palmetto 0.2 Mg/1 Ml Solution 1 Vial NEB QID 03/03/19 Reported Ibuprofen 400 Mg Tablet 400 Mg PO PRN Q6HRS PRN 03/03/19 Reported Lisinopril 20 Mg Tablet 1 Tab PO DAILY 03/03/19 Reported Aspirin 81 Mg Tab.chew 1 Tab PO DAILY 03/03/19 Reported Coreg (Carvedilol) 25 Mg Tablet 25 Mg PO BID 08/13/13 Reported Lasix (Furosemide) 40 Mg Tablet 40 Mg PO DAILY 08/13/13 Reported Impression . 1. hypoxic respiratory failure, improving 2. metastatic lung cancer, biopsy results pending 3. COPD 4. hypercalcemia of malignancy Plan . 1. await bx 2. oxygen 3. nebulized bronchodilators Will follow. MAICO COOK MD Mar 07, 2019 12:13
--- NOTE | 2019-03-07 12:31 | PDOC ---
Renal-Progress Notes Subjective Notes Notes SOME SOB History of Present Illness Hx of present illness NO CHANGE Vitals Vitals Vital Signs Date Time Temp Pulse Resp B/P (MAP) Pulse Ox O2 Delivery O2 Flow Rate FiO2 03/07/19 12:05 98 Nasal Cannula 2.0 03/07/19 11:00 97.7 80 18 120/61 (80) 97.7 Weight Weight [ ] I.O. Intake and Output Intake and Output 03/07/19 07:00 Intake Total 700 ml Output Total 450 ml Balance 250 ml Intake Oral 700 ml Output Urine Total 450 ml Labs Labs Laboratory Tests Test 03/07/19 03:05 Red Blood Count 2.91 x10^6/uL (4.30-5.70) Absolute Reticulocyte Count 0.031 x10^6/uL (0.020-0.120) Percent Reticulocyte Count 1.1 % (0.5-2.3) Immature Reticulocyte Fraction 0.45 (0.20-0.60) Sodium Level 146 mmol/L (136-145) Potassium Level 3.6 mmol/L (3.5-5.1) Chloride Level 101 mmol/L (98-107) Carbon Dioxide Level 42 mmol/L (21-32) Anion Gap 3 (6-14) Blood Urea Nitrogen 14 mg/dL (8-26) Creatinine 0.7 mg/dL (0.7-1.3) Estimated GFR (Cockcroft-Gault) 115.0 Glucose Level 100 mg/dL (70-99) Calcium Level 9.0 mg/dL (8.5-10.1) Phosphorus Level 1.9 mg/dL (2.6-4.7) Iron Level 23 ug/dL (65-175) Ferritin 906 ng/mL (26-388) Albumin 2.4 g/dL (3.4-5.0) Vitamin B12 Level 415 pg/mL (247-911) Review of Systems Constitutional: yes: weakness, oriented Ears/Nose/Throat: Yes: no symptom reported Eyes: Yes: no symptom reported Pulmonary: Yes dyspnea Cardiovascular: Yes no symptom reported Gastrointestional: Yes: no symptom reported Genitourinary: Yes: no symptom reported Musculoskeletal: Yes: muscle pain, muscle stiffness Skin: Yes no symptom reported Psychiatric/Neurological: Yes: no symptom reported Physical Exam General Appearance: no apparent distress Skin: warm Heart: S1S2 Abdomen: soft, bowel sounds present Genitourinary: bladder flat Extremities: pulses present Neurology: alert, oriented Assessment Assessment IMP HYPERCALCEMIA-RESOLVED HYPOPHOSPHATEMIA MET LUNG CANCER HYPOXIC RESP FAILURE COPD PLAN ONGOING HEME/ONC EVAL AND TX REPLACE PO4 WILL FOLLOW NEEDED DEVIN SELBY MD Mar 07, 2019 12:31
[2019-03-07] MEDS ORDERED: SODIUM PHOSPHATE 20 MMOL in IV DEXTROSE 5% 250 ML IV ONE (13:00)
[2019-03-07 14:58] VITALS: BP 141/62
--- NOTE | 2019-03-07 15:42 | PDOC ---
Provider Note Provider Note 58 yo disabled man from CHF now with widespread metastatic lung cancer with osseous and liver mets. Had hypokalemia K 2.6 and hypercalcemia 13.5 on admit. Underwent left iliac bx 03/04/[address] C/A/P left medial lung mass with prox TITA airway narrowing distal collapse, left iliac met bulky right prox femur met with significant cortical destruction and at risk for path fracture. Multiple low density liver lesions c/w mets. Now co severe fatigue and generalized whole body pain. PE: Elderly appearing in NAD abd benign no percussion tenderness across back or hip regions bilateral pedal pitting edema Impression: Metastatic lung carcinoma with bulky multiorgan metastatic disease and poor performance status. Agree with surgical stabilization of right femur. Consider post op RT to femur to preserve bone integrity. Not currently symptomatic at primary site, No localized sites of pain noted at this time. Agree with his choice of DNR code status. Await bx result and MRI of brain currently underway. ERICKA CHOE MD Mar 07, 2019 15:42
[2019-03-07] MEDS ORDERED: GADOTERATE 7.5 MMOL/15ML VIAL. IVP ONE (15:45)
--- NOTE | 2019-03-07 16:16 | RAD ---
Examination: BONE SCAN WHOLE BODY History: Bone metastases. Lung cancer. Upper back and left hip pain. Right knee pain. Comparison/Correlation: 03/04/2019 right hip to the x-ray exam 03/03/2019 CT chest abdomen and pelvis without contrast Findings: 26 mCi technetium 99m MDP was intravenously administered for purposes of total body bone scintigraphy. Uptake in radiotracer involving the head and neck is unremarkable. There is minimal uptake along the right maxilla likely representing dental disease. Uptake of radiotracer is identified involving the posterior elements of T2 and T3. Uptake of radiotracer is also present involving vertebral bodies of the upper thoracic spine and this is primarily seen on the lateral projection. Uptake involving the left posterolateral seventh rib is focal. This corresponds to the site of fracture on the recently performed CT exam. Kidneys are visualized. Radiotracer is seen in the urinary bladder. Impression: Uptake of radiotracer involving the upper thoracic spine corresponding to metastatic bony lesions noted on recently performed CT exam. Uptake involving the left seventh rib also is present corresponding to a destructive lytic rib lesion. Electronically signed by: Nilton Hamlin MD (03/07/2019 4:13 PM) [facility]
--- NOTE | 2019-03-07 16:34 | RAD ---
MRI Brain with and without contrast History: Lung cancer Technique: Multiplanar, multi sequential pre and postcontrast MR imaging was performed of the brain. Comparison: None Findings: There is motion degradation variably for all image sequences. No convincing abnormal intracranial enhancement is identified. There is no new midline shift or extra-axial fluid collection. Ventricular size is within normal limits. There is no evidence of recent infarct. There are some xanthogranulomatous cysts of the choroid plexus. There is preservation of the major arterial intracranial flow-voids at the skull base. There is patchy minimal ethmoid air cell mucosal thickening. There are anastasia bullosa bilaterally. Mastoid air cells are aerated. Cerebellar tonsils are normal in location. There is nonspecific mild heterogeneity of the marrow of the nonexpanded clivus. There is no abnormality of pineal gland or pituitary gland. Impression: 1. Exam is degraded by motion, no convincing abnormal intracranial enhancement identified. There is nonspecific heterogeneity of the marrow of the nonexpanded clivus. Electronically signed by: Pete Raya MD (03/07/2019 4:31 PM) [id number]
[2019-03-07 19:47] VITALS: BP 124/60
[2019-03-07] MEDS: ENOXAPARIN 40 MG/0.4 ML SYRINGE. SQ SCH ×2 (21:00→21:21)
[2019-03-07 23:09] VITALS: BP 137/71
[2019-03-08] VITALS (13 sets, daily range): BP systolic 120–166; BP diastolic 54–87
--- NOTE | 2019-03-08 02:03 | CONS ---
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 He has now just undergone osseous biopsy of a bulky left iliac crest by a lesion on 03/04/2019. He also has significant metastatic disease in the proximal right femur necessitating surgical stabilization. We were asked to see him regarding the role of palliative radiation therapy in his care. HISTORY OF PRESENT ILLNESS: The patient is a 58-year-old gentleman who has been chronically disabled due to congestive heart failure. He had a significant smoking history in the past up to one and half pack a day for 50 years, quit in 03/2013. He has noted recent onset of severe fatigue, sanchez body pain, shortness of breath over 2-month period. He was seen by Dr. Winchester here at which time he was found to be hypercalcemic and hypokalemic and admitted. Laboratory studies on admission here on 03/03/2019, hemoglobin 10.0, white count 11,800 and platelet count 487,000. Chemistry panel at that time was remarkable for potassium 2.6 and calcium of 13.5; those have now been normalized with hydration ,electrolyte support snd Zometa treatment. CT scan of the chest, abdomen, and pelvis was remarkable for a bulky 6.8 cm mass in the medial left lung in the left upper lobe and hilar region with proximal airway narrowing and distal collapse of the left upper lobe. There were 2 distinct left chest wall rib metastasis as well as a spiculated mass inferiorly in the left lung. There were multiple low density lesions throughout the liver compatible with metastatic disease as well as a bulky left iliac crest metastasis with soft tissue mass and a bulky mass in the proximal right femoral shaft, greater trochanteric region with lytic destruction of the cortical bone posteriorly worrisome for impending path fracture. He underwent biopsy of the left iliac metastasis on 03/04/2019, the results of which are still pending. He is now undergoing an MRI of the brain today. He has been seen by Dr. Dany Borrero who recommended surgical stabilization of the right femur. During this time, he noted 4-5 pound weight loss, diminished appetite. He had no headache, no neurologic symptoms. PAST MEDICAL HISTORY: Remarkable for chronic obstructive lung disease, nonischemic cardiomyopathy with congestive heart failure. PAST SURGICAL HISTORY: No significant surgeries in the past. SOCIAL HISTORY: for 23 years. is housebound with metastatic breast carcinoma and now on hospice herself. She is getting support from her sister as well as hospice at home. They have no children. He has had a multitude of different jobs, disabled in the past due to congestive heart failure. Smoked from age 12 to age 52 up to one and cdi-zmm-w-half packs a day and quit in 2012. Heavy alcohol use in the past. He continued to smoke marijuana to the current time. He does have a brother, Chauncey living in [phone] who is concerned and involved in the patient's welfare. PHYSICAL EXAMINATION: GENERAL: Revealed a pleasant elderly appearing gentleman older than his 58 years of age. HEENT: He had no maxillary teeth, mandibular teeth were in poor repair. He had no scleral icterus. LYMPH NODES: He had no palpable cervical or supraclavicular adenopathy. He had no focal percussion tenderness across the chest wall, ribs, pelvis, or femur regions. ABDOMEN: Unremarkable. No hepatomegaly, masses, or tenderness. EXTREMITIES: Revealed significant bilateral pitting pedal edema. No clubbing or cyanosis. NEUROLOGIC: Revealed no focal deficits. LABORATORY STUDIES: From 03/06/2019, hemoglobin 9.0, white count 11,500, and platelet count 413,000. Chemistry panel within normal limits. Sodium 144, potassium 3.6, creatinine 0.7 and calcium 9.8. ASSESSMENT AND PLAN: In summary, my impression is widespread metastatic bronchogenic carcinoma. Biopsy of the left iliac crest metastasis is pending at this time. He has had a rapid decline of his performance status. He has no focal areas of pain expressed at this time, but does complain of general body pain in total. He has chosen already to be treated conservatively and has a do not resuscitate status. This is appropriate and I agree with his decision. Right femur stabilization is planned for as early as tomorrow 03/08, this is appropriate to help preserve ambulation and his functional status. Following this, a short course of radiation postoperatively would be indicated to help preserve bone integrity. He has a bleak home life with his and hospice already. He may indeed require hospice support as well, in which case both of them may require [facility] [place] [facility]. Palliative care consult and social work evaluation are appropriate considerations. I had a general discussion with the patient. I also reviewed this in detail with his brother, Chauncey by phone today. We will standby awaiting the biopsy and the outcome of his anticipated surgical stabilization of the right femur. He is asymptomatic at the primary site and therefore, I did not recommend palliative radiation to the chest at this time. Thank you for allowing us to participate in his evaluation. ERICKA CHOE MD DR: SUHAS/wilton JOB#: [id number] / [id number] JEREMIAS Vasquez MD, AMAN MD Vani, John MD , MTDD
[2019-03-08] MEDS: KETOROLAC 15 MG/ML VIAL. IV PRN (03:49)
[2019-03-08 05:27] LABS: ALBUMIN 2.4 g/dL (3.4-5.0); CALCIUM 8.3 mg/dL (8.5-10.1); CREATININE 0.7 mg/dL (0.7-1.3); POTASSIUM 3.7 mmol/L (3.5-5.1)
[2019-03-08] MEDS: IPRATROPIUM BROMIDE 0.5 MG/2.5 ML NEBU. NEB SCH ×4 (07:30→19:46)
[2019-03-08] MEDS: CARVEDILOL 12.5 MG TABLET. PO SCH ×2 (08:00→17:00)
--- NOTE | 2019-03-08 08:59 | PDOC ---
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 ROS - no CP Objective Objective Vital Signs Date Time Temp Pulse Resp B/P (MAP) Pulse Ox O2 Delivery O2 Flow Rate FiO2 03/08/19 07:30 97 Nasal Cannula 3.0 03/08/19 07:00 98.0 96 16 166/78 (107) 98.0 Intake and Output 03/08/19 07:00 Intake Total 1710 ml Balance 1710 ml Intake Oral 1710 ml # Voids 2 Physical Exam Heart: Normal S1, Normal S2 General: Alert, Oriented X3, No acute distress Lungs: Clear to auscultation Neuro: Normal speech Psych/Mental Status: Mental status NL Assessment Assessment Problems Medical Problems: (1) Acute respiratory failure with hypoxia Status: Acute (2) Anemia Status: Acute (3) Atelectasis of left lung Status: Acute (4) CHF (congestive heart failure) Status: Acute (5) Hypercalcemia Status: Acute (6) Hypokalemia Status: Acute (7) Hypomagnesemia Status: Acute (8) Lytic bone lesions on xray Status: Chronic (9) Mild tetrahydrocannabinol (THC) abuse Status: Acute (10) Tobacco abuse Status: Acute IMPRESSION AND PLAN: 1. Stage IV NSCLC/Sq cell ca - Left lower lobe lung mass along with left hilar mass and numerous hepatic metastatic disease and numerous lytic lesions are all suggestive of a primary lung cancer stage 4. s/p CT-guided biopsy of the lytic lesion left ilium 03/04/19. I discussed in detail with the patient that he has stage 4 lung cancer and treatments are only palliative and not curative. I discussed the option of chemotherapy with immunotherapy vs hospice. He wants to think about it. I will PD-L1 and BRAF biomarkers. MRI brain 03/07/19 - no mets Consult palliative care. I d/w Pat. 2. 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 The patient received Zometa 4 mg on 03/03/2019. Continue to monitor calcium levels. Consulted Nephrology. Ca now 8.3. 3. Chronic obstructive pulmonary disease. He is on oxygen. 4. Nonischemic cardiomyopathy. 5. Anemia. I will check iron studies and B12 levels. I suspect anemia is due to malignancy. 6. Liver metastasis. Continue to monitor. 7. Bone metastasis. I agree to consult Orthopedics because of a potential impending fracture in the femur. Plan radiation therapy after confirmation of diagnosis and also Xgeva as outpatient. Appreciate ortho consult: Proximal R femoral lesion likely metastatic disease. Will benefit from prophylactic surgical stabilization, most likely IM hip nail, but X-rays ordered for surgical planning. Probable surgery Thursday. Bone scan: 03/07/19: Uptake of radiotracer involving the upper thoracic spine corresponding to metastatic bony lesions noted on recently performed CT exam. Uptake involving the left seventh rib also is present corresponding to a destructive lytic rib lesion Comment Review of Relevant I have reviewed the following items jose (where applicable) has been applied. Labs Laboratory Tests Test 03/07/19 03:05 03/08/19 03:50 Red Blood Count 2.91 x10^6/uL (4.30-5.70) Absolute Reticulocyte Count 0.031 x10^6/uL (0.020-0.120) Percent Reticulocyte Count 1.1 % (0.5-2.3) Immature Reticulocyte Fraction 0.45 (0.20-0.60) Sodium Level 146 mmol/L (136-145) 148 mmol/L (136-145) Potassium Level 3.6 mmol/L (3.5-5.1) 3.7 mmol/L (3.5-5.1) Chloride Level 101 mmol/L (98-107) 103 mmol/L (98-107) Carbon Dioxide Level 42 mmol/L (21-32) 41 mmol/L (21-32) Anion Gap 3 (6-14) 4 (6-14) Blood Urea Nitrogen 14 mg/dL (8-26) 11 mg/dL (8-26) Creatinine 0.7 mg/dL (0.7-1.3) 0.7 mg/dL (0.7-1.3) Estimated GFR (Cockcroft-Gault) 115.0 115.0 Glucose Level 100 mg/dL (70-99) 89 mg/dL (70-99) Calcium Level 9.0 mg/dL (8.5-10.1) 8.3 mg/dL (8.5-10.1) Phosphorus Level 1.9 mg/dL (2.6-4.7) 2.0 mg/dL (2.6-4.7) Iron Level 23 ug/dL (65-175) Ferritin 906 ng/mL (26-388) Albumin 2.4 g/dL (3.4-5.0) 2.4 g/dL (3.4-5.0) Vitamin B12 Level 415 pg/mL (247-911) Laboratory Tests Test 03/08/19 03:50 Sodium Level 148 mmol/L (136-145) Potassium Level 3.7 mmol/L (3.5-5.1) Chloride Level 103 mmol/L (98-107) Carbon Dioxide Level 41 mmol/L (21-32) Anion Gap 4 (6-14) Blood Urea Nitrogen 11 mg/dL (8-26) Creatinine 0.7 mg/dL (0.7-1.3) Estimated GFR (Cockcroft-Gault) 115.0 Glucose Level 89 mg/dL (70-99) Calcium Level 8.3 mg/dL (8.5-10.1) Phosphorus Level 2.0 mg/dL (2.6-4.7) Albumin 2.4 g/dL (3.4-5.0) Medications Current Medications Potassium Chloride/Water 100 ml @ 100 mls/hr Q1H IV Last administered on 03/03/19at 15:19; Start 03/03/19 at 13:30; Stop 03/03/19 at 15:29; Status DC Zoledronic Acid 100 ml @ 400 mls/hr 1X ONCE IV Last administered on 03/03/19at 16:04; Start 03/03/19 at 16:00; Stop 03/03/19 at 16:14; Status DC Sodium Chloride (Normal Saline Flush) 3 ml QSHIFT PRN IV AFTER MEDS AND BLOOD DRAWS Last administered on 03/07/19at 21:25; Start 03/03/19 at 15:30 Sodium Chloride 1,000 ml @ 100 mls/hr Q10H IV Last administered on 03/07/19at 08:06; Start 03/03/19 at 15:24; Stop 03/07/19 at 11:35; Status DC Ondansetron HCl (Zofran) 4 mg PRN Q4HRS PRN IV NAUSEA/VOMITING; Start 03/03/19 at 15:30 Acetaminophen (Tylenol) 650 mg PRN Q4HRS PRN PO TEMP OVER 100.4F OR MILD PAIN; Start 03/03/19 at 15:30 Clonidine HCl (Catapres) 0.1 mg PRN Q6HRS PRN PO SBP>160 OR DBP>90; Start 03/03/19 at 15:30 Docusate Sodium (Colace) 100 mg PRN BID PRN PO CONSTIPATION; Start 03/03/19 at 15:30 Albuterol Sulfate (Ventolin Neb Soln) 2.5 mg PRN Q4HRS PRN NEB SHORTNESS OF BREATH Last administered on 03/05/19at 12:43; Start 03/03/19 at 15:30 Guaifenesin (Robitussin) 200 mg PRN Q4HRS PRN PO COUGH; Start 03/03/19 at 15:30 Lorazepam (Ativan) 0.5 mg PRN Q4HRS PRN PO ANXIETY / AGITATION Last administered on 03/03/19at 21:32; Start 03/03/19 at 15:30 Enoxaparin Sodium (Lovenox 40mg Syringe) 40 mg QHS SQ Last administered on 03/06/19at 21:08; Start 03/03/19 at 21:00 Furosemide (Lasix) 40 mg DAILY PO ; Start 03/04/19 at 09:00; Stop 03/04/19 at 09:59; Status DC Lisinopril (Prinivil) 5 mg DAILY PO ; Start 03/04/19 at 09:00; Status Cancel Potassium Chloride (Klor-Con) 10 meq DAILY PO Last administered on 03/07/19at 08:06; Start 03/04/19 at 09:00 Aspirin (Marcell Aspirin) 325 mg DAILYWBKFT PO ; Start 03/04/19 at 08:00; Status Cancel Carvedilol (Coreg) 25 mg BIDWMEALS PO Last administered on 03/07/19at 17:09; Start 03/03/19 at 17:00 Lisinopril (Prinivil) 2.5 mg DAILYWLUN PO ; Start 03/04/19 at 12:00; Status Cancel Magnesium Sulfate 3 gm/Dextrose 106 ml @ 35.333 mls/ hr 1X ONCE IV Last administered on 03/03/19at 16:57; Start 03/03/19 at 17:00; Stop 03/03/19 at 19:59; Status DC Ketorolac Tromethamine (Toradol 30mg Vial) 30 mg 1X ONCE IV Last administered on 03/03/19at 16:57; Start 03/03/19 at 16:45; Stop 03/03/19 at 16:46; Status DC Aspirin (Children'S Aspirin) 81 mg DAILY PO Last administered on 03/07/19at 08:06; Start 03/04/19 at 09:00 Ibuprofen (Motrin) 400 mg PRN Q6HRS PRN PO INFLAMMATION Last administered on 03/06/19at 21:20; Start 03/03/19 at 21:15 Lisinopril (Prinivil) 20 mg DAILY PO Last administered on 03/04/19 08:40; Start 03/04/19 at 09:00; Stop 03/04/19 at 16:41; Status DC Ipratropium [place] (Atrovent) 0.5 mg RTQID NEB Last administered on 03/08/19 07:30; Start 03/03/19 at 21:30 Potassium Chloride/Water 100 ml @ 100 mls/hr Q1H IV Last administered on 03/04/19at 15:23; Start 03/04/19 at 10:30; Stop 03/04/19 at 14:29; Status DC Furosemide (Lasix) 40 mg BID92 IVP Last administered on 03/07/19 08:06; Start 03/04/19 at 10:30; Stop 03/07/19 at 08:56; Status DC Ketorolac Tromethamine (Toradol 15mg Vial) 15 mg PRN Q6HRS PRN IV PAIN Last administered on 03/08/19 03:49; Start 03/04/19 at 12:00; Stop 03/09/19 at 11:59 Lidocaine/Sodium Bicarbonate (Buffered Lidocaine 1%) 3 ml STK-MED ONCE .ROUTE ; Start 03/04/19 at 14:33; Stop 03/04/19 at 14:33; Status DC Midazolam HCl (Versed) 2 mg STK-MED ONCE .ROUTE ; Start 03/04/19 at 14:38; Stop 03/04/19 at 14:39; Status DC Fentanyl Citrate (Fentanyl 2ml Vial) 100 mcg STK-MED ONCE .ROUTE ; Start 03/04/19 at 14:38; Stop 03/04/19 at 14:39; Status DC Lidocaine/Sodium Bicarbonate (Buffered Lidocaine 1%) 3 ml 1X ONCE IJ Last administered on 03/04/19 15:11; Start 03/04/19 at 14:45; Stop 03/04/19 at 14:46; Status DC Midazolam HCl (Versed) 2 mg 1X ONCE IV Last administered on 03/04/19at 15:11; Start 03/04/19 at 14:45; Stop 03/04/19 at 14:46; Status DC Fentanyl Citrate (Fentanyl 2ml Vial) 100 mcg 1X ONCE IV Last administered on 03/04/19at 15:11; Start 03/04/19 at 14:45; Stop 03/04/19 at 14:46; Status DC Potassium Chloride (Klor-Con) 40 meq BIDWBKFT/SARAHI ONCE PO Last administered on 03/05/19at 08:43; Start 03/05/19 at 08:00; Stop 03/05/19 at 08:01; Status DC Magnesium Sulfate 50 ml @ 25 mls/hr 1X ONCE IV Last administered on 03/05/19at 11:20; Start 03/05/19 at 09:30; Stop 03/05/19 at 11:29; Status DC Potassium Chloride/Water 100 ml @ 100 mls/hr Q1H IV Last administered on 03/05/19at 17:44; Start 03/05/19 at 10:00; Stop 03/05/19 at 13:59; Status DC Potassium Phos/ Sodium Phos (Phos-Nak) 1 pkt DAILY PO Last administered on 03/07/19 08:06; Start 03/05/19 at 09:30 Vitamin D (Vitamin D3) 5,000 unit DAILY PO Last administered on 03/07/19 08:06; Start 03/05/19 at 09:30 Potassium Phosphate 10 mmol/ Dextrose 103.3333 ml @ 51.667 m... Q2H IV Last administered on 03/06/19at 14:36; Start 03/06/19 at 08:00; Stop 03/06/19 at 11:59; Status DC Trazodone HCl (Desyrel) 50 mg PRN QHS PRN PO INSOMNIA Last administered on 03/06/19at 21:08; Start 03/06/19 at 11:00 Zolpidem Tartrate (Ambien) 5 mg PRN QHS PRN PO INSOMNIA; Start 03/06/19 at 11:00 Acetaminophen/ Hydrocodone Bitart (Lortab 5/325) 1 tab PRN Q4HRS PRN PO PAIN MODERATE TO SEVERE; Start 03/07/19 at 09:00 Sodium Phosphate 20 mmol/Dextrose 256.6667 ml @ 64.167 m... 1X ONCE IV Last administered on 03/07/19at 14:42; Start 03/07/19 at 13:00; Stop 03/07/19 at 16:59; Status DC Gadoterate Meglumine (Dotarem) 10 ml 1X ONCE IVP Last administered on 03/07/19 at 15:58; Start 03/07/19 at 15:45; Stop 03/07/19 at 15:46; Status DC Active Scripts Active Reported Spiriva (Tiotropium [place]) 18 Mcg Cap.w.dev 2 Inh IH DAILY Ipratropium [place] 0.2 Mg/1 Ml Solution 1 Vial NEB QID Ibuprofen 400 Mg Tablet 400 Mg PO PRN Q6HRS PRN Lisinopril 20 Mg Tablet 1 Tab PO DAILY Aspirin 81 Mg Tab.chew 1 Tab PO DAILY Coreg (Carvedilol) 25 Mg Tablet 25 Mg PO BID Lasix (Furosemide) 40 Mg Tablet 40 Mg PO DAILY Vitals/I & O Vital Sign - Last 24 Hours 03/07/19 03/07/19 03/07/19 03/07/19 11:00 12:05 14:58 17:09 Temp 97.7 98.3 97.7 98.3 Pulse 80 84 84 Resp 18 B/P (MAP) 120/61 (80) 141/62 (88) 141/62 Pulse Ox 98 98 98 O2 Delivery Nasal Cannula Nasal Cannula Room Air O2 Flow Rate 3.0 2.0 03/07/19 03/07/19 03/07/19 03/07/19 19:44 19:47 20:00 23:09 Temp 98.6 98.6 Pulse 78 84 Resp 18 B/P (MAP) 124/60 (81) 137/71 (93) Pulse Ox 94 94 98 O2 Delivery Nasal Cannula Nasal Cannula Nasal Cannula Nasal Cannula O2 Flow Rate 2.0 3.0 2.0 3.0 03/08/19 03/08/19 03/08/19 03:41 07:00 07:30 Temp 98.2 98.0 98.2 98.0 Pulse 87 96 Resp 19 16 B/P (MAP) 148/62 (90) 166/78 (107) Pulse Ox 95 99 97 O2 Delivery Nasal Cannula Nasal Cannula Nasal Cannula O2 Flow Rate 2.0 3.0 3.0 Intake and Output 03/07/19 03/07/19 03/08/19 15:00 23:00 07:00 Intake Total 670 ml 540 ml 500 ml Balance 670 ml 540 ml 500 ml Nutrition Consultation Dietary Evaluation: Comments: pt declines ensure and other supplements at this time pt ordering alternate foods from menu Expected Outcomes/Goals: to meet > 75% est nutr needs Interpretation of weight loss: >5% in 1 month Malnutrition Findings: Food and Nutrition Intake (Sev: <50% est energy req 5days Weight Status: Underweight SHUN FELDMAN MD Mar 08, 2019 08:59
[2019-03-08] MEDS: POTASSIUM CHLORIDE 10 MEQ TABLET.ER. PO SCH (09:00)
[2019-03-08] MEDS: CHOLECALCIFEROL (VITAMIN D3) 5,000 UNIT CAPSULE PO SCH (09:00)
[2019-03-08] MEDS: POTASSIUM & SODIUM PHOSPHATES PACKET. PO SCH (09:00)
[2019-03-08] MEDS: ASPIRIN CHEWABLE 81 MG TABLET. PO SCH (09:00)
--- NOTE | 2019-03-08 11:16 | PDOC ---
PULMONARY PROGRESS NOTES Subjective 58 y.o. male with long past smoking hx, presented with hypoxia, left hilar mass, TITA atelectasis, lytic bone lesions, liver lesions and hypercalcemia. Bone bx done yesterday without complication. Feels the same. Vitals Vital Signs Date Time Temp Pulse Resp B/P (MAP) Pulse Ox O2 Delivery O2 Flow Rate FiO2 03/08/19 10:51 98.0 91 16 159/66 (97) 99 Nasal Cannula 3.0 98.0 General: Alert, Oriented X4 Lungs: Other (diminished breath sounds bilaterally) Cardiovascular: S1, S2 Abdomen: Soft, Non-tender Neuro Exam: Alert, Oriented, No Focal Findings Extremities: No Edema Labs Laboratory Tests Test 03/07/19 03:05 03/08/19 03:50 Red Blood Count 2.91 x10^6/uL (4.30-5.70) Absolute Reticulocyte Count 0.031 x10^6/uL (0.020-0.120) Percent Reticulocyte Count 1.1 % (0.5-2.3) Immature Reticulocyte Fraction 0.45 (0.20-0.60) Sodium Level 146 mmol/L (136-145) 148 mmol/L (136-145) Potassium Level 3.6 mmol/L (3.5-5.1) 3.7 mmol/L (3.5-5.1) Chloride Level 101 mmol/L (98-107) 103 mmol/L (98-107) Carbon Dioxide Level 42 mmol/L (21-32) 41 mmol/L (21-32) Anion Gap 3 (6-14) 4 (6-14) Blood Urea Nitrogen 14 mg/dL (8-26) 11 mg/dL (8-26) Creatinine 0.7 mg/dL (0.7-1.3) 0.7 mg/dL (0.7-1.3) Estimated GFR (Cockcroft-Gault) 115.0 115.0 Glucose Level 100 mg/dL (70-99) 89 mg/dL (70-99) Calcium Level 9.0 mg/dL (8.5-10.1) 8.3 mg/dL (8.5-10.1) Phosphorus Level 1.9 mg/dL (2.6-4.7) 2.0 mg/dL (2.6-4.7) Iron Level 23 ug/dL (65-175) Ferritin 906 ng/mL (26-388) Albumin 2.4 g/dL (3.4-5.0) 2.4 g/dL (3.4-5.0) Vitamin B12 Level 415 pg/mL (247-911) Laboratory Tests Test 03/08/19 03:50 Sodium Level 148 mmol/L (136-145) Potassium Level 3.7 mmol/L (3.5-5.1) Chloride Level 103 mmol/L (98-107) Carbon Dioxide Level 41 mmol/L (21-32) Anion Gap 4 (6-14) Blood Urea Nitrogen 11 mg/dL (8-26) Creatinine 0.7 mg/dL (0.7-1.3) Estimated GFR (Cockcroft-Gault) 115.0 Glucose Level 89 mg/dL (70-99) Calcium Level 8.3 mg/dL (8.5-10.1) Phosphorus Level 2.0 mg/dL (2.6-4.7) Albumin 2.4 g/dL (3.4-5.0) Medications Active Scripts Medications Dose Route/Sig Max Daily Dose Days Date Category Spiriva (Tiotropium [place]) 18 Mcg Cap.w.dev 2 Inh IH DAILY 03/04/19 Reported Ipratropium [place] 0.2 Mg/1 Ml Solution 1 Vial NEB QID 03/03/19 Reported Ibuprofen 400 Mg Tablet 400 Mg PO PRN Q6HRS PRN 03/03/19 Reported Lisinopril 20 Mg Tablet 1 Tab PO DAILY 03/03/19 Reported Aspirin 81 Mg Tab.chew 1 Tab PO DAILY 03/03/19 Reported Coreg (Carvedilol) 25 Mg Tablet 25 Mg PO BID 08/13/13 Reported Lasix (Furosemide) 40 Mg Tablet 40 Mg PO DAILY 08/13/13 Reported Impression . 1. hypoxic respiratory failure, improving 2. metastatic lung cancer, left hilar mass, TITA atelectasis, lytic bone lesions, liver lesions and hypercalcemia. BX c/w Squamous cell lung cancer 3. COPD 4. hypercalcemia of malignancy Plan . 1. squamous cell lung cancer/ metastatic 2. oxygen 3. nebulized bronchodilators 4. Ortho rec 5. XRT/ Medical Onc rec 6. Poor prognosis Will follow. MAICO COOK MD Mar 08, 2019 11:16
--- NOTE | 2019-03-08 11:23 | PDOC ---
Provider Note Provider Note I discussed the metastatic lesion in the proximal femur with the patient, and that he will likely sustain a pathologic fracture if surgery is not performed prophylactically. If the femur breaks then he would require more of an urgent surgery, and it would be more painful and more difficult surgery. I recommend surgical stabilization and he agrees. We discussed the potential risks of nonunion or malunion, bleeding, infection, blood clots, or other potential surgical or anesthetic complications. I plan a long intramedullary nail to stabilize the entire right femur. surgery later today NPO for surgery lung CA with bone and other mets is still presumptive but very likely. I will order a type and screen in case there is intraoperative bleeding. All of his questions about the surgery of intramedullary nail for the right femur were answered and he would like to proceed. MASON CROCKER MD Mar 08, 2019 11:23
--- NOTE | 2019-03-08 11:40 | PDOC ---
PROGRESS NOTES Chief Complaint Chief Complaint ACUTE HYPOXIC RESP FAILURE NEw lung CA with mets to bone s/p left iliac biopsy Tobaccosim CHEST DISCOMFORT, pleuritic - likely from mass HYPERCALCEMIA - of malignancy Liver lesions Bone lytic lesions - Non-ischemic CARDIOMYOPATHY Acute on chronic systolic CHF - EF 25-50% from 2014 echo THC ABUSE Hypokalemia, corrected Hypomagnesemia, corrected Vitamin D deficiency Hypophosphatemia, corrected Leukocytosis Anemia Transaminitis Metabolic alkalosis GEn weakness, SNU candidate History of Present Illness History of Present Illness no complaints agreeable to SNU if needed came from home HE is aware of the new luis cancer dx and mets to bone - but he does nt know if chemo is the plan S.p left iliac bone biopsy Ca improved plan for OR today for pinning still awaiting bx apprec ortho, pulm, onc Vitals Vitals Vital Signs Date Time Temp Pulse Resp B/P (MAP) Pulse Ox O2 Delivery O2 Flow Rate FiO2 03/08/19 11:34 91 159/66 03/08/19 11:28 Nasal Cannula 3.0 03/08/19 10:51 98.0 16 99 98.0 Physical Exam General: Alert, Oriented X3, No acute distress Heart: Normal S1, Normal S2 Lungs: Other (diminished breath sounds bilaterally) Abdomen: Normal bowel sounds, Soft, No tenderness Extremities: No cyanosis, Other (1+ bilateral LE pitting edema) Skin: No breakdown, No significant lesion Labs LABS Laboratory Tests Test 03/08/19 03:50 Sodium Level 148 mmol/L (136-145) Potassium Level 3.7 mmol/L (3.5-5.1) Chloride Level 103 mmol/L (98-107) Carbon Dioxide Level 41 mmol/L (21-32) Anion Gap 4 (6-14) Blood Urea Nitrogen 11 mg/dL (8-26) Creatinine 0.7 mg/dL (0.7-1.3) Estimated GFR (Cockcroft-Gault) 115.0 Glucose Level 89 mg/dL (70-99) Calcium Level 8.3 mg/dL (8.5-10.1) Phosphorus Level 2.0 mg/dL (2.6-4.7) Albumin 2.4 g/dL (3.4-5.0) Assessment and Plan Assessmemt and Plan Problems Medical Problems: (1) Acute respiratory failure with hypoxia Status: Acute (2) Anemia Status: Acute (3) Atelectasis of left lung Status: Acute (4) CHF (congestive heart failure) Status: Acute (5) Hypercalcemia Status: Acute (6) Hypokalemia Status: Acute (7) Hypomagnesemia Status: Acute (8) Lytic bone lesions on xray Status: Chronic (9) Mild tetrahydrocannabinol (THC) abuse Status: Acute (10) Tobacco abuse Status: Acute Comment Review of Relevant I have reviewed the following items jose (where applicable) has been applied. Labs Laboratory Tests Test 03/07/19 03:05 03/08/19 03:50 Red Blood Count 2.91 x10^6/uL (4.30-5.70) Absolute Reticulocyte Count 0.031 x10^6/uL (0.020-0.120) Percent Reticulocyte Count 1.1 % (0.5-2.3) Immature Reticulocyte Fraction 0.45 (0.20-0.60) Sodium Level 146 mmol/L (136-145) 148 mmol/L (136-145) Potassium Level 3.6 mmol/L (3.5-5.1) 3.7 mmol/L (3.5-5.1) Chloride Level 101 mmol/L (98-107) 103 mmol/L (98-107) Carbon Dioxide Level 42 mmol/L (21-32) 41 mmol/L (21-32) Anion Gap 3 (6-14) 4 (6-14) Blood Urea Nitrogen 14 mg/dL (8-26) 11 mg/dL (8-26) Creatinine 0.7 mg/dL (0.7-1.3) 0.7 mg/dL (0.7-1.3) Estimated GFR (Cockcroft-Gault) 115.0 115.0 Glucose Level 100 mg/dL (70-99) 89 mg/dL (70-99) Calcium Level 9.0 mg/dL (8.5-10.1) 8.3 mg/dL (8.5-10.1) Phosphorus Level 1.9 mg/dL (2.6-4.7) 2.0 mg/dL (2.6-4.7) Iron Level 23 ug/dL (65-175) Ferritin 906 ng/mL (26-388) Albumin 2.4 g/dL (3.4-5.0) 2.4 g/dL (3.4-5.0) Vitamin B12 Level 415 pg/mL (247-911) Laboratory Tests Test 03/08/19 03:50 Sodium Level 148 mmol/L (136-145) Potassium Level 3.7 mmol/L (3.5-5.1) Chloride Level 103 mmol/L (98-107) Carbon Dioxide Level 41 mmol/L (21-32) Anion Gap 4 (6-14) Blood Urea Nitrogen 11 mg/dL (8-26) Creatinine 0.7 mg/dL (0.7-1.3) Estimated GFR (Cockcroft-Gault) 115.0 Glucose Level 89 mg/dL (70-99) Calcium Level 8.3 mg/dL (8.5-10.1) Phosphorus Level 2.0 mg/dL (2.6-4.7) Albumin 2.4 g/dL (3.4-5.0) Medications Current Medications Potassium Chloride/Water 100 ml @ 100 mls/hr Q1H IV Last administered on 03/03/19at 15:19; Start 03/03/19 at 13:30; Stop 03/03/19 at 15:29; Status DC Zoledronic Acid 100 ml @ 400 mls/hr 1X ONCE IV Last administered on 03/03/19at 16:04; Start 03/03/19 at 16:00; Stop 03/03/19 at 16:14; Status DC Sodium Chloride (Normal Saline Flush) 3 ml QSHIFT PRN IV AFTER MEDS AND BLOOD DRAWS Last administered on 03/07/19at 21:25; Start 03/03/19 at 15:30 Sodium Chloride 1,000 ml @ 100 mls/hr Q10H IV Last administered on 03/07/19at 08:06; Start 03/03/19 at 15:24; Stop 03/07/19 at 11:35; Status DC Ondansetron HCl (Zofran) 4 mg PRN Q4HRS PRN IV NAUSEA/VOMITING; Start 03/03/19 at 15:30 Acetaminophen (Tylenol) 650 mg PRN Q4HRS PRN PO TEMP OVER 100.4F OR MILD PAIN; Start 03/03/19 at 15:30 Clonidine HCl (Catapres) 0.1 mg PRN Q6HRS PRN PO SBP>160 OR DBP>90; Start 03/03/19 at 15:30 Docusate Sodium (Colace) 100 mg PRN BID PRN PO CONSTIPATION; Start 03/03/19 at 15:30 Albuterol Sulfate (Ventolin Neb Soln) 2.5 mg PRN Q4HRS PRN NEB SHORTNESS OF BREATH Last administered on 03/05/19at 12:43; Start 03/03/19 at 15:30 Guaifenesin (Robitussin) 200 mg PRN Q4HRS PRN PO COUGH; Start 03/03/19 at 15:30 Lorazepam (Ativan) 0.5 mg PRN Q4HRS PRN PO ANXIETY / AGITATION Last administered on 03/03/19at 21:32; Start 03/03/19 at 15:30 Enoxaparin Sodium (Lovenox 40mg Syringe) 40 mg QHS SQ Last administered on 03/06/19at 21:08; Start 03/03/19 at 21:00 Furosemide (Lasix) 40 mg DAILY PO ; Start 03/04/19 at 09:00; Stop 03/04/19 at 0 9:59; Status DC Lisinopril (Prinivil) 5 mg DAILY PO ; Start 03/04/19 at 09:00; Status Cancel Potassium Chloride (Klor-Con) 10 meq DAILY PO Last administered on 03/07/19at 08:06; Start 03/04/19 at 09:00 Aspirin (Marcell Aspirin) 325 mg DAILYWBKFT PO ; Start 03/04/19 at 08:00; Status Cancel Carvedilol (Coreg) 25 mg BIDWMEALS PO Last administered on 03/07/19at 17:09; Start 03/03/19 at 17:00 Lisinopril (Prinivil) 2.5 mg DAILYWLUN PO ; Start 03/04/19 at 12:00; Status Cancel Magnesium Sulfate 3 gm/Dextrose 106 ml @ 35.333 mls/ hr 1X ONCE IV Last administered on 03/03/19at 16:57; Start 03/03/19 at 17:00; Stop 03/03/19 at 19:59; Status DC Ketorolac Tromethamine (Toradol 30mg Vial) 30 mg 1X ONCE IV Last administered on 03/03/19at 16:57; Start 03/03/19 at 16:45; Stop 03/03/19 at 16:46; Status DC Aspirin (Children'S Aspirin) 81 mg DAILY PO Last administered on 03/07/19at 08:06; Start 03/04/19 at 09:00 Ibuprofen (Motrin) 400 mg PRN Q6HRS PRN PO INFLAMMATION Last administered on 03/06/19at 21:20; Start 03/03/19 at 21:15 Lisinopril (Prinivil) 20 mg DAILY PO Last administered on 03/04/19at 08:40; Start 03/04/19 at 09:00; Stop 03/04/19 at 16:41; Status DC Ipratropium [place] (Atrovent) 0.5 mg RTQID NEB Last administered on 03/08/19at 11:28; Start 03/03/19 at 21:30 Potassium Chloride/Water 100 ml @ 100 mls/hr Q1H IV Last administered on 03/04/19at 15:23; Start 03/04/19 at 10:30; Stop 03/04/19 at 14:29; Status DC Furosemide (Lasix) 40 mg BID92 IVP Last administered on 03/07/19 08:06; Start 03/04/19 at 10:30; Stop 03/07/19 at 08:56; Status DC Ketorolac Tromethamine (Toradol 15mg Vial) 15 mg PRN Q6HRS PRN IV PAIN Last administered on 03/08/19at 03:49; Start 03/04/19 at 12:00; Stop 03/09/19 at 11:59 Lidocaine/Sodium Bicarbonate (Buffered Lidocaine 1%) 3 ml STK-MED ONCE .ROUTE ; Start 03/04/19 at 14:33; Stop 03/04/19 at 14:33; Status DC Midazolam HCl (Versed) 2 mg STK-MED ONCE .ROUTE ; Start 03/04/19 at 14:38; Stop 03/04/19 at 14:39; Status DC Fentanyl Citrate (Fentanyl 2ml Vial) 100 mcg STK-MED ONCE .ROUTE ; Start 02/14 at 14:38; Stop 03/04/19 at 14:39; Status DC Lidocaine/Sodium Bicarbonate (Buffered Lidocaine 1%) 3 ml 1X ONCE IJ Last ad ministered on 03/04/19at 15:11; Start 03/04/19 at 14:45; Stop 03/04/19 at 14:46; Status DC Midazolam HCl (Versed) 2 mg 1X ONCE IV Last administered on 03/04/19at 15:11; Start 03/04/19 at 14:45; Stop 03/04/19 at 14:46; Status DC Fentanyl Citrate (Fentanyl 2ml Vial) 100 mcg 1X ONCE IV Last administered on 03/04/19at 15:11; Start 03/04/19 at 14:45; Stop 03/04/19 at 14:46; Status DC Potassium Chloride (Klor-Con) 40 meq BIDWBKFT/LUIS ONCE PO Last administered on 03/05/19at 08:43; Start 03/05/19 at 08:00; Stop 03/05/19 at 08:01; Status DC Magnesium Sulfate 50 ml @ 25 mls/hr 1X ONCE IV Last administered on 03/05/19at 11:20; Start 03/05/19 at 09:30; Stop 03/05/19 at 11:29; Status DC Potassium Chloride/Water 100 ml @ 100 mls/hr Q1H IV Last administered on at 17:44; Start 03/05/19 at 10:00; Stop 03/05/19 at 13:59; Status DC Potassium Phos/ Sodium Phos (Phos-Nak) 1 pkt DAILY PO Last administered on 03/07/19 08:06; Start 03/05/19 at 09:30 Vitamin D (Vitamin D3) 5,000 unit DAILY PO Last administered on 03/07/19at 08:06; Start 03/05/19 at 09:30 Potassium Phosphate 10 mmol/ Dextrose 103.3333 ml @ 51.667 m... Q2H IV Last administered on 03/06/19at 14:36; Start 03/06/19 at 08:00; Stop 03/06/19 at 11:59; Status DC Trazodone HCl (Desyrel) 50 mg PRN QHS PRN PO INSOMNIA Last administered on 03/06/19at 21:08; Start 03/06/19 at 11:00 Zolpidem Tartrate (Ambien) 5 mg PRN QHS PRN PO INSOMNIA; Start 03/06/19 at 11:00 Acetaminophen/ Hydrocodone Bitart (Lortab 5/325) 1 tab PRN Q4HRS PRN PO PAIN MODERATE TO SEVERE; Start 03/07/19 at 09:00 Sodium Phosphate 20 mmol/Dextrose 256.6667 ml @ 64.167 m... 1X ONCE IV Last administered on 03/07/19at 14:42; Start 03/07/19 at 13:00; Stop 03/07/19 at 16:59; Status DC Gadoterate Meglumine (Dotarem) 10 ml 1X ONCE IVP Last administered on 03/07/19at 15:58; Start 03/07/19 at 15:45; Stop 03/07/19 at 15:46; Status DC Cefazolin Sodium/ Dextrose 50 ml @ 100 mls/hr 1X PREOP PRN IV SEE COMMENTS; Start 03/08/19 at 11:30 Active Scripts Active Reported Spiriva (Tiotropium [place]) 18 Mcg Cap.w.dev 2 Inh IH DAILY Ipratropium [place] 0.2 Mg/1 Ml Solution 1 Vial NEB QID Ibuprofen 400 Mg Tablet 400 Mg PO PRN Q6HRS PRN Lisinopril 20 Mg Tablet 1 Tab PO DAILY Aspirin 81 Mg Tab.chew 1 Tab PO DAILY Coreg (Carvedilol) 25 Mg Tablet 25 Mg PO BID Lasix (Furosemide) 40 Mg Tablet 40 Mg PO DAILY Vitals/I & O Vital Sign - Last 24 Hours 03/07/19 03/07/19 03/07/19 03/07/19 12:05 14:58 17:09 19:44 Temp 98.3 98.3 Pulse 84 84 Resp 18 B/P (MAP) 141/62 (88) 141/62 Pulse Ox 98 98 94 O2 Delivery Nasal Cannula Room Air Nasal Cannula O2 Flow Rate 2.0 2.0 03/07/19 03/07/19 03/07/19 03/08/19 19:47 20:00 23:09 03:41 Temp 98.6 98.2 98.6 98.2 Pulse 78 84 87 Resp 18 19 B/P (MAP) 124/60 (81) 137/71 (93) 148/62 (90) Pulse Ox 94 98 95 O2 Delivery Nasal Cannula Nasal Cannula Nasal Cannula Nasal Cannula O2 Flow Rate 3.0 2.0 3.0 2.0 9/24/19 03/08/19 03/08/19 03/08/19 07:00 07:30 08:00 10:51 Temp 98.0 98.0 98.0 98.0 Pulse 96 91 Resp 16 16 B/P (MAP) 166/78 (107) 159/66 (97) Pulse Ox 99 97 99 O2 Delivery Nasal Cannula Nasal Cannula Nasal Cannula Nasal Cannula O2 Flow Rate 3.0 3.0 3.0 3.0 03/08/19 03/08/19 11:28 11:34 Pulse 91 B/P (MAP) 159/66 O2 Delivery Nasal Cannula O2 Flow Rate 3.0 Intake and Output 03/07/19 03/07/19 03/08/19 15:00 23:00 07:00 Intake Total 670 ml 540 ml 500 ml Balance 670 ml 540 ml 500 ml Nutrition Consultation Dietary Evaluation: Comments: pt declines ensure and other supplements at this time pt ordering alternate foods from menu Expected Outcomes/Goals: to meet > 75% est nutr needs Interpretation of weight loss: >5% in 1 month Malnutrition Findings: Food and Nutrition Intake (Sev: <50% est energy req 5days Weight Status: Underweight ROGELIO HODGES MD Mar 08, 2019 11:40
--- NOTE | 2019-03-08 12:01 | PDOC2 ---
PALLIATIVE CARE Palliative Care Note Palliative Care Consult requested by Dr. Serrano to address goals of care. Medical Assessment per Medical Record; ACUTE HYPOXIC RESP FAILURE NEw lung CA with mets to bone s/p left iliac biopsy Tobaccosim CHEST DISCOMFORT, pleuritic - likely from mass HYPERCALCEMIA - of malignancy Liver lesions Bone lytic lesions - Non-ischemic CARDIOMYOPATHY Acute on chronic systolic CHF - EF 25-50% from 2013 echo THC ABUSE Hypokalemia, corrected Hypomagnesemia, corrected Vitamin D deficiency Hypophosphatemia, corrected Leukocytosis Anemia Transaminitis Metabolic alkalosis Hip Nailing planned for today. Patient alert. Anxious to get surgery completed. Plan family meeting . Not sure about chemotherapy plans. Will discuss more and meet on . [id number] Spoke with Frank, patient's brother. Plan meeting on at 1300 RICH BARBER Mar 08, 2019 12:01
--- NOTE | 2019-03-08 13:50 | PDOC ---
Renal-Progress Notes Subjective Notes Notes NOTHING NEW History of Present Illness Hx of present illness STABLE Vitals Vitals Vital Signs Date Time Temp Pulse Resp B/P (MAP) Pulse Ox O2 Delivery O2 Flow Rate FiO2 03/08/19 11:34 91 159/66 03/08/19 11:28 Nasal Cannula 3.0 03/08/19 10:51 98.0 16 99 98.0 Weight Weight [ ] I.O. Intake and Output Intake and Output 03/08/19 07:00 Intake Total 1710 ml Balance 1710 ml Intake Oral 1710 ml # Voids 2 Labs Labs Laboratory Tests Test 03/08/19 03:50 Sodium Level 148 mmol/L (136-145) Potassium Level 3.7 mmol/L (3.5-5.1) Chloride Level 103 mmol/L (98-107) Carbon Dioxide Level 41 mmol/L (21-32) Anion Gap 4 (6-14) Blood Urea Nitrogen 11 mg/dL (8-26) Creatinine 0.7 mg/dL (0.7-1.3) Estimated GFR (Cockcroft-Gault) 115.0 Glucose Level 89 mg/dL (70-99) Calcium Level 8.3 mg/dL (8.5-10.1) Phosphorus Level 2.0 mg/dL (2.6-4.7) Albumin 2.4 g/dL (3.4-5.0) Review of Systems Constitutional: yes: weakness, oriented Ears/Nose/Throat: Yes: no symptom reported Eyes: Yes: no symptom reported Pulmonary: Yes dyspnea Cardiovascular: Yes no symptom reported Gastrointestional: Yes: no symptom reported Genitourinary: Yes: no symptom reported Musculoskeletal: Yes: muscle pain, muscle stiffness Skin: Yes no symptom reported Psychiatric/Neurological: Yes: no symptom reported Physical Exam General Appearance: no apparent distress Skin: warm Heart: S1S2 Abdomen: soft, bowel sounds present Genitourinary: bladder flat Extremities: pulses present Neurology: alert, oriented Assessment Assessment IMP HYPERCALCEMIA-RESOLVED HYPERNATREMIA HYPOPHOSPHATEMIA MET LUNG CANCER HYPOXIC RESP FAILURE COPD PLAN ONGOING HEME/ONC EVAL AND TX REPLACE PO4 AGAIN ENC FLUID INTAKE WILL FOLLOW NEEDED PALLIATIVE CARE DEVIN HURST MD Mar 08, 2019 13:50
[2019-03-08] MEDS ORDERED: SODIUM PHOSPHATE 20 MMOL in IV DEXTROSE 5% 250 ML IV ONE (14:00)
[2019-03-08] MEDS ORDERED: IV RINGERS,LACTATED 1000ML 1,000 ML IV SCH (14:41)
[2019-03-08] MEDS ORDERED: PROCHLORPERAZINE 10 MG/2 ML VIAL. IV PRN (14:45)
[2019-03-08] MEDS ORDERED: fentaNYL PF VIAL 100 MCG/2 ML VIAL IV PRN ×3 (14:45→17:30)
[2019-03-08] MEDS ORDERED: ONDANSETRON PF 4 MG/2 ML VIAL. IV PRN ×2 (14:45→17:30)
[2019-03-08] MEDS ORDERED: HYDROmorphone 2 MG/ML VIAL IV PRN (14:45)
[2019-03-08] MEDS ORDERED: MORPHINE SULFATE 2 MG/ML VIAL. IV PRN ×2 (14:45→17:30)
[2019-03-08] MEDS ORDERED: PROPOFOL 20 ML IV ONE (15:05)
[2019-03-08] MEDS ORDERED: SEVOFLURANE 61 TO 120 MINUTES. IH ONE (15:05)
[2019-03-08] MEDS ORDERED: PHENYLEPHRINE in 0.9% NACL PF 1 MG/10 ML SYRINGE. IV ONE (15:05)
[2019-03-08] MEDS ORDERED: KETAMINE HCL IN NACL, ISO-OSM 50 MG/5 ML SYRINGE ONE (15:06)
[2019-03-08] MEDS ORDERED: METOCLOPRAMIDE HCL 10 MG/2 ML VIAL. ONE (15:08)
[2019-03-08] MEDS ORDERED: FAMOTIDINE 20 MG/2 ML VIAL ONE (15:09)
[2019-03-08] MEDS ORDERED: MORPHINE SULFATE 5 MG, KETOROLAC 30MG VIAL 30 MG, ROPIVacaine 0.5% PF 60 ML, EPINEPHrin... INT ART ONE ×5 (15:30)
[2019-03-08] MEDS ORDERED: ONDANSETRON PF 4 MG/2 ML VIAL. ONE (15:42)
[2019-03-08] MEDS ORDERED: DEXAMETHASONE SOD PHOS 4 MG/ML VIAL ONE (15:42)
--- NOTE | 2019-03-08 17:27 | PDOC4 ---
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 Procedure: * right hip prophylactic treatment (intramedullary nail) femoral neck and proximal femur CPT 86002 Surgeon: Mason Borrero MD Anesthesia Type: General EBL: 200 mL Specimens Obtained: none Complications: None Implant Company: [employer] Implants: Gamma 3 system Long Nail Kit R1.5 right 11 mm x 380 mm x 125� Gamma 3 system Lag Screw Titanium 10.5 mm x90 mm; locking screw fully threaded 5 mm x 4 7.5 mm, locking screw fully threaded 5 mm x 47.5 mm INDICATION FOR PROCEDURE: This patient is 58 years old, and has lung cancer with multiple metastases, including a metastatic lesion in the right proximal femur large enough to be concerned about developing a pathologic fracture. The patient and I discussed the risks, benefits and alternatives of treatment. The alternative for treatment is nonoperative treatment but he would likely sustain a painful pathologic fracture and then would require more urgent (and more difficult) surgery. I recommended prophylactic intramedullary nailing, and I talked to him about the potential risks of this, including wound healing problems from future radiation therapy, continued pain, bleeding, infection, blood clots, or other potential surgical or anesthetic complications. All of his questions about surgery were answered, and he desired to proceed. A written consent was obtained. PROCEDURE IN DETAIL: The patient was identified in the preoperative holding area. The correct right hip was marked by me. The patient was taken to the operating room, where the patient was anesthetized by the Department of Anesthesia. Preoperative antibiotics were given intravenously. The HANA table was used and the well leg was placed in a padded lithotomy leg leo while the foot of the left leg was placed in a traction foot boot. A time-out procedure was performed. The image intensifier was used, and the lesion was identified in the proximal posterior femur. All of the images were interpreted intraoperatively by me, and the image intensifier was used throughout the case. The right hip area was prepared in sterile fashion with ChloraPrep solution and a sterile barrier Ioban hip drape was used. An incision was made over the superior aspect of the greater trochanter. I used a multidrug injection for hemostasis and pain relief which includes ropivacaine, epinephrine, and morphine. A 3.2 mm guide pin was placed at the tip of the greater trochanter, and advanced into the intramedullary canal. The one step conical reamer was used over the guidewire, and a reamer sleeve was used to protect the soft tissues. A long guide pin was placed down the intramedullary canal and the length was measured. The nail length was chosen based on that measurement. The canal was sequentially reamed for a long nail until intramedullary chatter occurred. The nail diameter was chosen based on the intramedullary chatter and had minimal chatter at 11 mm. The 12 mm Westminster reamer head fell to the floor. There was not another sterile Westminster reamer set in house and it would take hours to have one brought in and sterilized. Flashing instruments is also not recommended. I tried the 13 mm Westminster reamer over the guidewire after having reamed at 11 mm but the 13 mm reamer would not pass through the shaft without having reamed at 12 mm first. A second reamer from a different emergency crew supervisor ([employer]) was opened. The 12 mm Synthes reamer did not fit over the larger Vita guidewire. The Vita guidewire was removed and the 12 mm reamer was used and the Synthes 12 mm reamer head detached from the reamer shaft. Attempts were made with long graspers to remove the reamer head but it was not able to be retrieved. Further attempts at removal would likely be more risk than simply leaving the sterile reamer head which should not cause any future issues. In fact the reamer head acts as a block for the nail similar to a Poller blocking screw. I used the Westminster guidewire to confirm that the chosen length nail would still be able to be positioned up to the distal reamer head without difficulty. The 13 mm Vita reamer was now able to be used without difficulty. The chosen 11 mm x380 mm nail was attached to the targeting device with the Nail Holding Screw. The nail was placed down the canal on the targeting device, and the guide wire was removed. A second incision was now used over the lower part of the greater trochanter, to place a guide pin through the guide, near the center-center position of the femoral head, and measured. The tunnel for the lag screw was reamed using the cannulated Lag Screw Step Drill. The chosen lag screw was inserted using the guide and advanced until there was a low tip-apex distance, by using sequential checks on the image intensifier. A Set Screw was now placed to lock the Lag Screw. Finally, two 5.0 mm diameter Distal Cross Lock Screws were placed distally near the knee, using a freehand technique and the image intensifier, after predrilling. Satisfactory hardware position was obtained using image intensifier views in multiple planes. Copious irrigation was used and the fascia was closed with #2 Vicryl. Bovie electrocautery was used for hemostasis. My entry level marketing assistant completed the closure with 2-0 PDS and sj. A bulky sterile dressing was applied. The patient was gently transferred from the fracture table back to a hospital bed. The retained reamer head does not require any change to current or future treatment and does not cause any additional risk to the patient so I don�t believe it is a complication by definition. MASON BORRERO MD Mar 08, 2019 17:27
[2019-03-08] MEDS: IV 1/2 NORMAL SALINE 1,000 ML IV SCH ×2 (17:28→21:19)
[2019-03-08] MEDS ORDERED: oxyCODONE/APAP 5/325 1 TAB TABLET PO PRN (17:30)
[2019-03-08] MEDS ORDERED: MORPHINE SULFATE 4 MG/ML VIAL. IV PRN (17:30)
[2019-03-08] MEDS ORDERED: DEXTROSE 50% 25 GM / 50ML DISP.SYRIN. IV PRN (17:30)
[2019-03-08] MEDS ORDERED: IV DEXTROSE 5% 250 ML BAG. IV PRN (17:30)
[2019-03-08] MEDS ORDERED: POLYETHYLENE GLYCOL 3350 17 GM PACKET. PO PRN (17:30)
--- NOTE | 2019-03-08 18:06 | PATHOLOGY ---
[facility] Accession Number: [id number] . 01 Material submitted: . pelvic bone - RIGHT PELVIC BONE BIOPSY. Modifiers: right . 01 Clinical history: . Lung mass and bone mets . 02 Diagnosis: Right pelvic bone core biopsies: - METASTATIC KERATINIZING SQUAMOUS CELL CARCINOMA, MODERATELY DIFFERENTIATED. SEE COMMENT. . (JPM:farhad; 03/08/2019) QMS 03/08/2019 0900 Local . 02 Comment: Sections of the right pelvic bone core biopsy show replacement of bone by a metastatic epithelial neoplasm. The tumor cells form irregular nests within a reactive desmoplastic stroma. The tumor cells have a squamoid appearance and show abundant evidence of keratinization and dyskeratotic cells. The tumor cells show moderate nuclear pleomorphism. Mitotic figures are present. The morphologic findings are supportive of the diagnosis of a metastatic, moderately differentiated keratinizing squamous cell carcinoma, and are consistent with lung origin. The case is also examined by Dr. Charles Maldonado, who concurs with the diagnosis. The results are reported to Dr. Serrano at 08:30 a.m. on 03/08/2019. (JPM:farhad; 03/08/2019) . 02 Electronically signed: . Rao Higgins MD, Pathologist NPI- [id number] . 01 Gross description: . Received in formalin labeled "Alex Almanza, right pelvic bone BX," are multiple fragments of needle cores of possible light-mon bone measuring 1.7 x 0.5 x 0.1 cm in aggregate dimensions. The specimen is filtered and entirely submitted in cassette A1, following decalcification. (TSD; 03/07/2019) TOB/TOB 03/07/2019 1924 Local . 02 Pathologist provided ICD-10: C79.51 . 02 CPT . 430363, [id number] Specimen Comment: A courtesy copy of this report has been sent to Specimen Comment: [phone], , , . Specimen Comment: Report sent to ,DR COOK,DR HERNANDEZ / DR YEE Performed at: 01 [facility] [address], [place] [id number] MD Tashi Wylie MD Phone: [phone] Performed at: 02 [facility] [address] [place], [place] [id number] MD Rao Higgins MD Phone: [phone]
[2019-03-09 03:30] VITALS: BP 154/51
[2019-03-09 04:50] LABS: HEMOGLOBIN 9.2 g/dL (13.0-17.5)
[2019-03-09 05:25] LABS: CALCIUM 7.8 mg/dL (8.5-10.1); CREATININE 0.7 mg/dL (0.7-1.3); MAGNESIUM 1.5 mg/dL (1.8-2.4); PHOSPHORUS 3.6 mg/dL (2.6-4.7); POTASSIUM 4.4 mmol/L (3.5-5.1)
[2019-03-09] MEDS ORDERED: MAGNESIUM HYDROXIDE 2,400 MG/30 ML ORAL.SUSP. PO PRN (06:00)
[2019-03-09 07:00] VITALS: BP 131/71
[2019-03-09] MEDS: IPRATROPIUM BROMIDE 0.5 MG/2.5 ML NEBU. NEB SCH ×4 (07:43→19:44)
[2019-03-09] MEDS ORDERED: MAGNESIUM SULFATE 2GM 50 ML IV ONE (08:45)
[2019-03-09] MEDS: CHOLECALCIFEROL (VITAMIN D3) 5,000 UNIT CAPSULE PO SCH (09:00)
[2019-03-09] MEDS: ENOXAPARIN 40 MG/0.4 ML SYRINGE. SQ SCH (09:36)
[2019-03-09] MEDS: POTASSIUM CHLORIDE 10 MEQ TABLET.ER. PO SCH (09:37)
[2019-03-09] MEDS: KETOROLAC 15 MG/ML VIAL. IV PRN (09:37)
[2019-03-09] MEDS: POTASSIUM & SODIUM PHOSPHATES PACKET. PO SCH (09:37)
[2019-03-09] MEDS: SENNOSIDES/DOCUSATE 8.6/50MG TABLET. PO SCH (09:38)
[2019-03-09] MEDS: ASPIRIN ENTERIC COATED 325 MG TABLET.DR. PO SCH (09:38)
[2019-03-09] MEDS: CARVEDILOL 12.5 MG TABLET. PO SCH ×2 (09:38→17:31)
--- NOTE | 2019-03-09 10:16 | PDOC ---
PULMONARY PROGRESS NOTES Subjective 58 y.o. male with long past smoking hx, presented with hypoxia, left hilar mass, TITA atelectasis, lytic bone lesions, liver lesions and hypercalcemia. Vitals Vital Signs Date Time Temp Pulse Resp B/P (MAP) Pulse Ox O2 Delivery O2 Flow Rate FiO2 03/09/19 09:45 96 131/71 03/09/19 09:45 18 Nasal Cannula 2.0 03/09/19 07:45 99 03/09/19 07:00 97.5 97.5 General: Alert, No acute distress Lungs: Other (diminished breath sounds bilaterally) Cardiovascular: S1, S2 Abdomen: Soft, Non-tender Neuro Exam: Alert, Oriented, No Focal Findings Extremities: No Edema Labs Laboratory Tests Test 03/08/19 03:50 03/09/19 03:40 Sodium Level 148 mmol/L (136-145) 147 mmol/L (136-145) Potassium Level 3.7 mmol/L (3.5-5.1) 4.4 mmol/L (3.5-5.1) Chloride Level 103 mmol/L (98-107) 103 mmol/L (98-107) Carbon Dioxide Level 41 mmol/L (21-32) 40 mmol/L (21-32) Anion Gap 4 (6-14) 4 (6-14) Blood Urea Nitrogen 11 mg/dL (8-26) 10 mg/dL (8-26) Creatinine 0.7 mg/dL (0.7-1.3) 0.7 mg/dL (0.7-1.3) Estimated GFR (Cockcroft-Gault) 115.0 115.0 Glucose Level 89 mg/dL (70-99) 112 mg/dL (70-99) Calcium Level 8.3 mg/dL (8.5-10.1) 7.8 mg/dL (8.5-10.1) Phosphorus Level 2.0 mg/dL (2.6-4.7) 3.6 mg/dL (2.6-4.7) Albumin 2.4 g/dL (3.4-5.0) Hemoglobin 9.2 g/dL (13.0-17.5) Hematocrit 29.0 % (39.0-53.0) Mean Corpuscular Hemoglobin Concent 32 g/dL (31-37) Magnesium Level 1.5 mg/dL (1.8-2.4) Laboratory Tests Test 03/09/19 03:40 Hemoglobin 9.2 g/dL (13.0-17.5) Hematocrit 29.0 % (39.0-53.0) Mean Corpuscular Hemoglobin Concent 32 g/dL (31-37) Sodium Level 147 mmol/L (136-145) Potassium Level 4.4 mmol/L (3.5-5.1) Chloride Level 103 mmol/L (98-107) Carbon Dioxide Level 40 mmol/L (21-32) Anion Gap 4 (6-14) Blood Urea Nitrogen 10 mg/dL (8-26) Creatinine 0.7 mg/dL (0.7-1.3) Estimated GFR (Cockcroft-Gault) 115.0 Glucose Level 112 mg/dL (70-99) Calcium Level 7.8 mg/dL (8.5-10.1) Phosphorus Level 3.6 mg/dL (2.6-4.7) Magnesium Level 1.5 mg/dL (1.8-2.4) Medications Active Scripts Medications Dose Route/Sig Max Daily Dose Days Date Category Spiriva (Tiotropium [place]) 18 Mcg Cap.w.dev 2 Inh IH DAILY 03/04/19 Reported Ipratropium [place] 0.2 Mg/1 Ml Solution 1 Vial NEB QID 03/03/19 Reported Ibuprofen 400 Mg Tablet 400 Mg PO PRN Q6HRS PRN 03/03/19 Reported Lisinopril 20 Mg Tablet 1 Tab PO DAILY 03/03/19 Reported Aspirin 81 Mg Tab.chew 1 Tab PO DAILY 03/03/19 Reported Coreg (Carvedilol) 25 Mg Tablet 25 Mg PO BID 08/13/13 Reported Lasix (Furosemide) 40 Mg Tablet 40 Mg PO DAILY 08/13/13 Reported Impression . 1. hypoxic respiratory failure, STABLE 2. metastatic lung cancer, left hilar mass, TITA atelectasis, lytic bone lesions, liver lesions and hypercalcemia. BX c/w Squamous cell lung cancer 3. COPD 4. hypercalcemia of malignancy Plan . 1. squamous cell lung cancer/ metastatic 2. oxygen 3. nebulized bronchodilators 4. S/P hip pinning by Ortho 5. XRT/ Medical Onc rec 6. Poor prognosis supportive care/ not much to add pulmonary nair MAICO COOK MD Mar 09, 2019 10:16
[2019-03-09 10:49] VITALS: BP 105/45
--- NOTE | 2019-03-09 11:09 | PDOC ---
Renal-Progress Notes Subjective Notes Notes NOTHING NEW History of Present Illness Hx of present illness NO CHANGE Vitals Vitals Vital Signs Date Time Temp Pulse Resp B/P (MAP) Pulse Ox O2 Delivery O2 Flow Rate FiO2 03/09/19 10:49 97.5 108 105/45 (65) 94 Nasal Cannula 3.0 97.5 03/09/19 10:36 2 Weight Weight [ ] I.O. Intake and Output Intake and Output 03/09/19 07:00 Intake Total 100 ml Output Total 1050 ml Balance -950 ml Intake Oral 100 ml Output Urine Total 850 ml Estimated Blood Loss 200 ml Labs Labs Laboratory Tests Test 03/09/19 03:40 Hemoglobin 9.2 g/dL (13.0-17.5) Hematocrit 29.0 % (39.0-53.0) Mean Corpuscular Hemoglobin Concent 32 g/dL (31-37) Sodium Level 147 mmol/L (136-145) Potassium Level 4.4 mmol/L (3.5-5.1) Chloride Level 103 mmol/L (98-107) Carbon Dioxide Level 40 mmol/L (21-32) Anion Gap 4 (6-14) Blood Urea Nitrogen 10 mg/dL (8-26) Creatinine 0.7 mg/dL (0.7-1.3) Estimated GFR (Cockcroft-Gault) 115.0 Glucose Level 112 mg/dL (70-99) Calcium Level 7.8 mg/dL (8.5-10.1) Phosphorus Level 3.6 mg/dL (2.6-4.7) Magnesium Level 1.5 mg/dL (1.8-2.4) Review of Systems Constitutional: yes: weakness, oriented Ears/Nose/Throat: Yes: no symptom reported Eyes: Yes: no symptom reported Pulmonary: Yes dyspnea Cardiovascular: Yes no symptom reported Gastrointestional: Yes: no symptom reported Genitourinary: Yes: no symptom reported Musculoskeletal: Yes: muscle pain, muscle stiffness Skin: Yes no symptom reported Psychiatric/Neurological: Yes: no symptom reported Physical Exam General Appearance: no apparent distress Skin: warm Heart: S1S2 Abdomen: soft, bowel sounds present Genitourinary: bladder flat Extremities: pulses present Neurology: alert, oriented Assessment Assessment IMP HYPERCALCEMIA-RESOLVED HYPERNATREMIA-IMPROVING HYPOPHOSPHATEMIA-RESOLVED LOW MAG MET LUNG CANCER HYPOXIC RESP FAILURE COPD PLAN ONGOING HEME/ONC EVAL AND TX MG REPLACED ENC FLUID INTAKE WILL FOLLOW NEEDED PALLIATIVE CARE DEVIN HURST MD Mar 09, 2019 11:09
[2019-03-09 15:00] VITALS: BP 113/48
[2019-03-09] MEDS: oxyCODONE IR 5 MG TABLET PO PRN (15:24)
[2019-03-09] MEDS ORDERED: BISACODYL 10 MG SUPP.RECT. PR PRN (16:00)
[2019-03-09] MEDS: IBUPROFEN 400 MG TABLET. PO PRN ×2 (16:30→22:46)
[2019-03-09] MEDS: oxyCODONE/APAP 5/325 1 TAB TABLET PO PRN ×2 (16:32→21:35)
[2019-03-09] MEDS: IV 1/2 NORMAL SALINE 1,000 ML IV SCH (16:34)
--- NOTE | 2019-03-09 17:39 | PDOC ---
PROGRESS NOTES Chief Complaint Chief Complaint ACUTE HYPOXIC RESP FAILURE NEw lung CA with mets to bone s/p left iliac biopsy Tobaccosim CHEST DISCOMFORT, pleuritic - likely from mass HYPERCALCEMIA - of malignancy Liver lesions Bone lytic lesions - Non-ischemic CARDIOMYOPATHY Acute on chronic systolic CHF - EF 25-50% from 2014 echo THC ABUSE Hypokalemia, corrected Hypomagnesemia, corrected Vitamin D deficiency Hypophosphatemia, corrected Leukocytosis Anemia Transaminitis Metabolic alkalosis GEn weakness, SNU candidate History of Present Illness History of Present Illness no complaints, feels tired agreeable to SNU if needed came from home HE is aware of the new luis cancer dx and mets to bone - weighing options on comfort care vs chemo S.p left iliac bone biopsy Ca improved s/p pinning 03/08 of femur apprec ortho, pulm, onc, pallative care Vitals Vitals Vital Signs Date Time Temp Pulse Resp B/P (MAP) Pulse Ox O2 Delivery O2 Flow Rate FiO2 03/09/19 17:32 17 Nasal Cannula 3.0 03/09/19 17:31 90 113/48 03/09/19 15:37 95 03/09/19 15:00 98.0 98.0 Physical Exam General: Alert, Oriented X3, No acute distress Heart: Normal S1, Normal S2 Lungs: Other (diminished breath sounds bilaterally) Abdomen: Normal bowel sounds, Soft, No tenderness Extremities: No cyanosis, Other (1+ bilateral LE pitting edema) Skin: No breakdown, No significant lesion Labs LABS Laboratory Tests Test 03/09/19 03:40 Hemoglobin 9.2 g/dL (13.0-17.5) Hematocrit 29.0 % (39.0-53.0) Mean Corpuscular Hemoglobin Concent 32 g/dL (31-37) Sodium Level 147 mmol/L (136-145) Potassium Level 4.4 mmol/L (3.5-5.1) Chloride Level 103 mmol/L (98-107) Carbon Dioxide Level 40 mmol/L (21-32) Anion Gap 4 (6-14) Blood Urea Nitrogen 10 mg/dL (8-26) Creatinine 0.7 mg/dL (0.7-1.3) Estimated GFR (Cockcroft-Gault) 115.0 Glucose Level 112 mg/dL (70-99) Calcium Level 7.8 mg/dL (8.5-10.1) Phosphorus Level 3.6 mg/dL (2.6-4.7) Magnesium Level 1.5 mg/dL (1.8-2.4) Assessment and Plan Assessmemt and Plan Problems Medical Problems: (1) Acute respiratory failure with hypoxia Status: Acute (2) Anemia Status: Acute (3) Atelectasis of left lung Status: Acute (4) CHF (congestive heart failure) Status: Acute (5) Hypercalcemia Status: Acute (6) Hypokalemia Status: Acute (7) Hypomagnesemia Status: Acute (8) Lytic bone lesions on xray Status: Chronic (9) Mild tetrahydrocannabinol (THC) abuse Status: Acute (10) Tobacco abuse Status: Acute Comment Review of Relevant I have reviewed the following items jose (where applicable) has been applied. Labs Laboratory Tests Test 03/08/19 03:50 03/09/19 03:40 Sodium Level 148 mmol/L (136-145) 147 mmol/L (136-145) Potassium Level 3.7 mmol/L (3.5-5.1) 4.4 mmol/L (3.5-5.1) Chloride Level 103 mmol/L (98-107) 103 mmol/L (98-107) Carbon Dioxide Level 41 mmol/L (21-32) 40 mmol/L (21-32) Anion Gap 4 (6-14) 4 (6-14) Blood Urea Nitrogen 11 mg/dL (8-26) 10 mg/dL (8-26) Creatinine 0.7 mg/dL (0.7-1.3) 0.7 mg/dL (0.7-1.3) Estimated GFR (Cockcroft-Gault) 115.0 115.0 Glucose Level 89 mg/dL (70-99) 112 mg/dL (70-99) Calcium Level 8.3 mg/dL (8.5-10.1) 7.8 mg/dL (8.5-10.1) Phosphorus Level 2.0 mg/dL (2.6-4.7) 3.6 mg/dL (2.6-4.7) Albumin 2.4 g/dL (3.4-5.0) Hemoglobin 9.2 g/dL (13.0-17.5) Hematocrit 29.0 % (39.0-53.0) Mean Corpuscular Hemoglobin Concent 32 g/dL (31-37) Magnesium Level 1.5 mg/dL (1.8-2.4) Laboratory Tests Test 03/09/19 03:40 Hemoglobin 9.2 g/dL (13.0-17.5) Hematocrit 29.0 % (39.0-53.0) Mean Corpuscular Hemoglobin Concent 32 g/dL (31-37) Sodium Level 147 mmol/L (136-145) Potassium Level 4.4 mmol/L (3.5-5.1) Chloride Level 103 mmol/L (98-107) Carbon Dioxide Level 40 mmol/L (21-32) Anion Gap 4 (6-14) Blood Urea Nitrogen 10 mg/dL (8-26) Creatinine 0.7 mg/dL (0.7-1.3) Estimated GFR (Cockcroft-Gault) 115.0 Glucose Level 112 mg/dL (70-99) Calcium Level 7.8 mg/dL (8.5-10.1) Phosphorus Level 3.6 mg/dL (2.6-4.7) Magnesium Level 1.5 mg/dL (1.8-2.4) Medications Current Medications Potassium Chloride/Water 100 ml @ 100 mls/hr Q1H IV Last administered on 03/03/19at 15:19; Start 03/03/19 at 13:30; Stop 03/03/19 at 15:29; Status DC Zoledronic Acid 100 ml @ 400 mls/hr 1X ONCE IV Last administered on 03/03/19at 16:04; Start 03/03/19 at 16:00; Stop 03/03/19 at 16:14; Status DC Sodium Chloride (Normal Saline Flush) 3 ml QSHIFT PRN IV AFTER MEDS AND BLOOD DRAWS Last administered on 03/07/19at 21:25; Start 03/03/19 at 15:30 Sodium Chloride 1,000 ml @ 100 mls/hr Q10H IV Last administered on 03/07/19at 08:06; Start 03/03/19 at 15:24; Stop 03/07/19 at 11:35; Status DC Ondansetron HCl (Zofran) 4 mg PRN Q4HRS PRN IV NAUSEA/VOMITING; Start 03/03/19 at 15:30; Stop 03/09/19 at 16:13; Status DC Acetaminophen (Tylenol) 650 mg PRN Q4HRS PRN PO TEMP OVER 100.4F OR MILD PAIN; Start 03/03/19 at 15:30 Clonidine HCl (Catapres) 0.1 mg PRN Q6HRS PRN PO SBP>160 OR DBP>90; Start 03/03/19 at 15:30 Docusate Sodium (Colace) 100 mg PRN BID PRN PO CONSTIPATION; Start 03/03/19 at 15:30 Albuterol Sulfate (Ventolin Neb Soln) 2.5 mg PRN Q4HRS PRN NEB SHORTNESS OF BREATH Last administered on 03/05/19at 12:43; Start 03/03/19 at 15:30 Guaifenesin (Robitussin) 200 mg PRN Q4HRS PRN PO COUGH; Start 03/03/19 at 15:30 Lorazepam (Ativan) 0.5 mg PRN Q4HRS PRN PO ANXIETY / AGITATION Last administered on 03/03/19at 21:32; Start 03/03/19 at 15:30 Enoxaparin Sodium (Lovenox 40mg Syringe) 40 mg QHS SQ Last administered on 03/06/19at 21:08; Start 03/03/19 at 21:00; Stop 03/08/19 at 17:39; Status DC Furosemide (Lasix) 40 mg DAILY PO ; Start 03/04/19 at 09:00; Stop 03/04/19 at 09:59; Status DC Lisinopril (Prinivil) 5 mg DAILY PO ; Start 03/04/19 at 09:00; Status Cancel Potassium Chloride (Klor-Con) 10 meq DAILY PO Last administered on 03/09/19at 09:45; Start 03/04/19 at 09:00 Aspirin (Marcell Aspirin) 325 mg DAILYWBKFT PO ; Start 03/04/19 at 08:00; Status Cancel Carvedilol (Coreg) 25 mg BIDWMEALS PO Last administered on 03/09/19at 17:31; Start 03/03/19 at 17:00 Lisinopril (Prinivil) 2.5 mg DAILYWLUN PO ; Start 03/04/19 at 12:00; Status Cancel Magnesium Sulfate 3 gm/Dextrose 106 ml @ 35.333 mls/ hr 1X ONCE IV Last administered on 03/03/19 16:57; Start 03/03/19 at 17:00; Stop 03/03/19 at 19:59; Status DC Ketorolac Tromethamine (Toradol 30mg Vial) 30 mg 1X ONCE IV Last administered on 03/03/19 16:57; Start 03/03/19 at 16:45; Stop 03/03/19 at 16:46; Status DC Aspirin (Children'S Aspirin) 81 mg DAILY PO Last administered on 03/07/19 08:06; Start 03/04/19 at 09:00; Stop 03/08/19 at 17:40; Status DC Ibuprofen (Motrin) 400 mg PRN Q6HRS PRN PO INFLAMMATION Last administered on 03/09/19 16:30; Start 03/03/19 at 21:15 Lisinopril (Prinivil) 20 mg DAILY PO Last administered on 03/04/19 08:40; Start 03/04/19 at 09:00; Stop 03/04/19 at 16:41; Status DC Ipratropium [place] (Atrovent) 0.5 mg RTQID NEB Last administered on 03/09/19at 15:35; Start 03/03/19 at 21:30 Potassium Chloride/Water 100 ml @ 100 mls/hr Q1H IV Last administered on 03/04/19 15:23; Start 03/04/19 at 10:30; Stop 03/04/19 at 14:29; Status DC Furosemide (Lasix) 40 mg [id number] IVP Last administered on 03/07/19 08:06; Start 03/04/19 at 10:30; Stop 03/07/19 at 08:56; Status DC Ketorolac Tromethamine (Toradol 15mg Vial) 15 mg PRN Q6HRS PRN IV PAIN Last administered on 03/09/19 09:45; Start 03/04/19 at 12:00; Stop 03/09/19 at 11:59; Status DC Lidocaine/Sodium Bicarbonate (Buffered Lidocaine 1%) 3 ml STK-MED ONCE .ROUTE ; Start 03/04/19 at 14:33; Stop 03/04/19 at 14:33; Status DC Midazolam HCl (Versed) 2 mg STK-MED ONCE .ROUTE ; Start 03/04/19 at 14:38; Stop 03/04/19 at 14:39; Status DC Fentanyl Citrate (Fentanyl 2ml Vial) 100 mcg STK-MED ONCE .ROUTE ; Start 03/04/19 at 14:38; Stop 03/04/19 at 14:39; Status DC Lidocaine/Sodium Bicarbonate (Buffered Lidocaine 1%) 3 ml 1X ONCE IJ Last administered on 03/04/19at 15:11; Start 03/04/19 at 14:45; Stop 03/04/19 at 14:46; Status DC Midazolam HCl (Versed) 2 mg 1X ONCE IV Last administered on 03/04/19at 15:11; Start 03/04/19 at 14:45; Stop 03/04/19 at 14:46; Status DC Fentanyl Citrate (Fentanyl 2ml Vial) 100 mcg 1X ONCE IV Last administered on 03/04/19at 15:11; Start 03/04/19 at 14:45; Stop 03/04/19 at 14:46; Status DC Potassium Chloride (Klor-Con) 40 meq BIDWBKFT/LUIS ONCE PO Last administered on 03/05/19at 08:43; Start 03/05/19 at 08:00; Stop 03/05/19 at 08:01; Status DC Magnesium Sulfate 50 ml @ 25 mls/hr 1X ONCE IV Last administered on 03/05/19at 11:20; Start 03/05/19 at 09:30; Stop 03/05/19 at 11:29; Status DC Potassium Chloride/Water 100 ml @ 100 mls/hr Q1H IV Last administered on 03/05/19at 17:44; Start 03/05/19 at 10:00; Stop 03/05/19 at 13:59; Status DC Potassium Phos/ Sodium Phos (Phos-Nak) 1 pkt DAILY PO Last administered on 03/09/19 09:45; Start 03/05/19 at 09:30 Vitamin D (Vitamin D3) 5,000 unit DAILY PO Last administered on 03/09/19 09:46; Start 03/05/19 at 09:30 Potassium Phosphate 10 mmol/ Dextrose 103.3333 ml @ 51.667 m... Q2H IV Last administered on 03/06/19at 14:36; Start 03/06/19 at 08:00; Stop 03/06/19 at 11:59; Status DC Trazodone HCl (Desyrel) 50 mg PRN QHS PRN PO INSOMNIA, 1ST CHOICE Last administered on 03/06/19at 21:08; Start 03/06/19 at 11:00 Zolpidem Tartrate (Ambien) 5 mg PRN QHS PRN PO INSOMNIA, 2ND CHOICE; Start 03/06/19 at 11:00 Acetaminophen/ Hydrocodone Bitart (Lortab 5/325) 1 tab PRN Q4HRS PRN PO PAIN MODERATE TO SEVERE Last administered on 03/09/19at 09:45; Start 03/07/19 at 09:00 Sodium Phosphate 20 mmol/Dextrose 256.6667 ml @ 64.167 m... 1X ONCE IV Last administered on 03/07/19at 14:42; Start 03/07/19 at 13:00; Stop 03/07/19 at 16:59; Status DC Gadoterate Meglumine (Dotarem) 10 ml 1X ONCE IVP Last administered on 03/07/19at 15:58; Start 03/07/19 at 15:45; Stop 03/07/19 at 15:46; Status DC Cefazolin Sodium/ Dextrose 50 ml @ 100 mls/hr 1X PREOP PRN IV SEE COMMENTS Last administered on 03/08/19at 15:57; Start 03/08/19 at 11:30 Sodium Phosphate 20 mmol/Dextrose 256.6667 ml @ 64.167 m... 1X ONCE IV ; Start 03/08/19 at 14:00; Stop 03/08/19 at 17:59; Status DC Ondansetron HCl (Zofran) 4 mg PRN Q6HRS PRN IV NAUSEA/VOMITING; Start 03/08/19 at 14:45; Stop 03/09/19 at 14:44; Status DC Fentanyl Citrate (Fentanyl 2ml Vial) 25 mcg PRN Q5MIN PRN IV MILD PAIN 1-3; Start 03/08/19 at 14:45; Stop 03/09/19 at 14:44; Status DC Fentanyl Citrate (Fentanyl 2ml Vial) 50 mcg PRN Q5MIN PRN IV MODERATE TO SEVERE PAIN; Start 03/08/19 at 14:45; Stop 03/09/19 at 14:44; Status DC Morphine Sulfate (Morphine Sulfate) 1 mg PRN Q10MIN PRN IV SEVERE PAIN 7-10; Start 03/08/19 at 14:45; Stop 03/09/19 at 14:44; Status DC Ringer's Solution 1,000 ml @ 30 mls/hr Q24H IV Last administered on 03/08/19at 15:16; Start 03/08/19 at 14:41; Stop 03/09/19 at 02:40; Status DC Hydromorphone HCl (Dilaudid) 0.5 mg PRN Q10MIN PRN IV SEV PAIN, Second choice; Start 03/08/19 at 14:45; Stop 03/09/19 at 14:44; Status DC Prochlorperazine Edisylate (Compazine) 5 mg PACU PRN PRN IV NAUSEA, MRX1; Start 03/08/19 at 14:45; Stop 03/09/19 at 14:44; Status DC Sevoflurane (Ultane) 60 ml STK-MED ONCE IH ; Start 03/08/19 at 15:05; Stop 03/08/19 at 15:06; Status DC Propofol 20 ml @ As Directed STK-MED ONCE IV ; Start 03/08/19 at 15:05; Stop 03/08/19 at 15:06; Status DC Phenylephrine HCl (PHENYLEPHRINE in 0.9% NACL PF) 1 mg STK-MED ONCE IV ; Start 03/08/19 at 15:05; Stop 03/08/19 at 15:06; Status DC Ketamine HCl (Ketamine) 50 mg STK-MED ONCE .ROUTE ; Start 03/08/19 at 15:06; Stop 03/08/19 at 15:06; Status DC Metoclopramide HCl (Reglan Vial) 10 mg STK-MED ONCE .ROUTE ; Start 03/08/19 at 15:08; Stop 03/08/19 at 15:09; Status DC Famotidine (Pepcid Vial) 20 mg STK-MED ONCE .ROUTE ; Start 03/08/19 at 15:09; Stop 03/08/19 at 15:09; Status DC Morphine Sulfate 5 mg/Ketorolac Tromethamine 30 mg/Ropivacaine 60 ml/Epinephrine HCl 0.5 mg/Sodium Chloride 100 ml @ 100 mls/hr 1X ONCE INT ART Last administered on 03/08/19at 16:08; Start 03/08/19 at 15:30; Stop 03/08/19 at 16 :29; Status DC Dexamethasone Sodium Phosphate (Decadron) 4 mg STK-MED ONCE .ROUTE ; Start 03/08/19 at 15:42; Stop 03/08/19 at 15:42; Status DC Ondansetron HCl (Zofran) 4 mg STK-MED ONCE .ROUTE ; Start 03/08/19 at 15:42; Stop 03/08/19 at 15:42; Status DC Oxycodone HCl (Roxicodone) 5 mg PRN Q3HRS PRN PO PAIN Last administered on 03/09/19at 15:24; Start 03/08/19 at 17:30 Morphine Sulfate (Morphine Sulfate) 2 mg PRN Q1HR PRN IV PAIN; Start 03/08/19 at 17:30 Fentanyl Citrate (Fentanyl 2ml Vial) 25 mcg PRN Q1HR PRN IV PAIN; Start 03/08/19 at 17:30 Senna/Docusate Sodium (Senna Plus) 1 tab DAILY PO Last administered on 03/09/19at 09:45; Start 03/09/19 at 09:00 Polyethylene Glycol (miraLAX PACKET) 17 gm PRN DAILY PRN PO CONSTIPATION; Start 03/08/19 at 17:30 Sodium Chloride 1,000 ml @ 75 mls/hr [id number] IV Last administered on 03/09/19at 16:34; Start 03/08/19 at 17:28 Ondansetron HCl (Zofran) 4 mg PRN Q4HRS PRN IV NAUSEA/VOMITING; Start 03/08/19 at 17:30 Enoxaparin Sodium (Lovenox 40mg Syringe) 40 mg DAILY SQ Last administered on 03/09/19at 09:45; Start 03/09/19 at 09:00 Magnesium Hydroxide (Milk Of Magnesia) 2,400 mg 1X PRN PRN PO CONSTIPATION; Start 03/09/19 at 06:00; Stop 03/10/19 at 05:59 Bisacodyl (Dulcolax Supp) 10 mg 1X PRN PRN [place] CONSTIPATION; Start 03/09/19 at 16:00; Stop 03/10/19 at 15:59 Morphine Sulfate (Morphine Sulfate) 4 mg PRN Q2HR PRN IV PAIN; Start 03/08/19 at 17:30 Dextrose (Dextrose 50%-Water Syringe) 12.5 gm PRN Q15MIN PRN IV SEE COMMENTS; Start 03/08/19 at 17:30 Dextrose 250 ml PRN Q15MIN PRN IV SEE COMMENTS; Start 03/08/19 at 17:30 Cefazolin Sodium/ Dextrose 50 ml @ 100 mls/hr Q6H IV Last administered on 03/09/19at 12:58; Start 03/08/19 at 21:00; Stop 03/09/19 at 09:29; Status DC Oxycodone/ Acetaminophen (Percocet 5/325) 1 tab PRN Q4HRS PRN PO MODERATE PAIN, 3RD CHOICE; Start 03/08/19 at 17:30 Aspirin (Ecotrin) 325 mg DAILY PO Last administered on 03/09/19at 09:45; Start 03/09/19 at 09:00 Oxycodone/ Acetaminophen (Percocet 5/325) 2 tab PRN Q4HRS PRN PO SEVERE PAIN, 3RD CHOICE Last administered on 03/09/19at 16:32; Start 03/08/19 at 17:45 Magnesium Sulfate 50 ml @ 25 mls/hr 1X ONCE IV Last administered on 03/09/19at 09:45; Start 03/09/19 at 08:45; Stop 03/09/19 at 10:44; Status DC Active Scripts Active Reported Spiriva (Tiotropium Alta) 18 Mcg Cap.w.dev 2 Inh IH DAILY Ipratropium Alta 0.2 Mg/1 Ml Solution 1 Vial NEB QID Ibuprofen 400 Mg Tablet 400 Mg PO PRN Q6HRS PRN Lisinopril 20 Mg Tablet 1 Tab PO DAILY Aspirin 81 Mg Tab.chew 1 Tab PO DAILY Coreg (Carvedilol) 25 Mg Tablet 25 Mg PO BID Lasix (Furosemide) 40 Mg Tablet 40 Mg PO DAILY Vitals/I & O Vital Sign - Last 24 Hours 03/08/19 03/08/19 03/08/19 03/08/19 17:50 18:05 19:00 19:15 Temp 97.6 97.6 98.5 98.5 97.6 97.6 98.5 98.5 Pulse 76 75 95 94 Resp 12 12 18 18 B/P (MAP) 132/62 134/61 132/87 (102) 133/85 (101) Pulse Ox 99 99 94 94 O2 Delivery High Flow Nasal Cannula High Flow Nasal Cannula Nasal Cannula Nasal Cannula Simple Mask O2 Flow Rate 5 3.0 3.0 03/08/19 03/08/19 03/08/19 03/08/19 19:30 19:45 19:47 20:00 Temp 98.5 98.5 98.5 98.5 Pulse 82 83 Resp 18 18 B/P (MAP) 135/78 (97) 120/75 (90) Pulse Ox 95 100 98 O2 Delivery Nasal Cannula Nasal Cannula Nasal Cannula Mask O2 Flow Rate 3.0 3.0 5.0 5.0 03/08/19 03/08/19 03/08/19 03/08/19 20:15 20:45 21:45 22:45 Temp 98.5 98.5 98.5 98.5 98.5 98.5 98.5 98.5 Pulse 85 86 84 84 Resp 18 18 18 18 B/P (MAP) 151/73 (99) 166/78 (107) 155/71 (99) 153/71 (98) Pulse Ox 100 100 100 100 O2 Delivery Nasal Cannula Nasal Cannula Nasal Cannula Nasal Cannula O2 Flow Rate 3.0 3.0 3.0 3.0 03/08/19 03/09/19 03/09/19 03/09/19 23:45 03:30 07:00 07:45 Temp 98.5 98.0 97.5 98.5 98.0 97.5 Pulse 74 96 96 Resp 18 20 17 B/P (MAP) 125/54 (77) 154/51 (85) 131/71 (91) Pulse Ox 99 96 100 99 O2 Delivery Nasal Cannula Nasal Cannula Nasal Cannula O2 Flow Rate 3.0 3.0 3.0 3.0 03/09/19 03/09/19 03/09/19 03/09/19 08:00 09:45 09:45 10:36 Pulse 96 Resp 18 2 B/P (MAP) 131/71 O2 Delivery Mask Nasal Cannula Nasal Cannula O2 Flow Rate 3.0 2.0 3.0 03/09/19 03/09/19 03/09/19 03/09/19 10:49 11:56 15:00 15:24 Temp 97.5 98.0 97.5 98.0 Pulse 108 90 Resp 16 18 B/P (MAP) 105/45 (65) 113/48 (69) Pulse Ox 94 99 95 O2 Delivery Nasal Cannula Nasal Cannula Nasal Cannula O2 Flow Rate 3.0 3.0 3.0 3.0 03/09/19 03/09/19 03/09/19 03/09/19 15:37 16:32 16:34 17:31 Pulse 90 Resp 17 18 B/P (MAP) 113/48 Pulse Ox 95 O2 Delivery Nasal Cannula Nasal Cannula Nasal Cannula O2 Flow Rate 3.0 3.0 3.0 03/09/19 17:32 Resp 17 O2 Delivery Nasal Cannula O2 Flow Rate 3.0 Intake and Output 03/08/19 03/08/19 03/09/19 15:00 23:00 07:00 Intake Total 0 ml 100 ml Output Total 300 ml 500 ml 250 ml Balance -300 ml -500 ml -150 ml Nutrition Consultation Dietary Evaluation: Comments: pt declines ensure and other supplements at this time pt ordering alternate foods from menu Expected Outcomes/Goals: to meet > 75% est nutr needs Interpretation of weight loss: >5% in 1 month Malnutrition Findings: Food and Nutrition Intake (Sev: <50% est energy req 5days Weight Status: Underweight ROGELIO HODGES MD Mar 09, 2019 17:39
[2019-03-09 19:45] VITALS: BP 96/44
[2019-03-09 23:16] VITALS: BP 109/52
[2019-03-10 03:09] VITALS: BP 134/50
[2019-03-10] MEDS: IBUPROFEN 400 MG TABLET. PO PRN ×3 (06:09→23:32)
[2019-03-10] MEDS: IV 1/2 NORMAL SALINE 1,000 ML IV SCH ×2 (06:09→23:32)
[2019-03-10] MEDS: oxyCODONE/APAP 5/325 1 TAB TABLET PO PRN ×3 (06:09→18:42)
[2019-03-10 07:00] VITALS: BP 117/53
[2019-03-10] MEDS: IPRATROPIUM BROMIDE 0.5 MG/2.5 ML NEBU. NEB SCH ×4 (07:06→20:08)
--- NOTE | 2019-03-10 09:06 | PDOC ---
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 ROS - dyspnea stable Objective Objective Vital Signs Date Time Temp Pulse Resp B/P (MAP) Pulse Ox O2 Delivery O2 Flow Rate FiO2 03/10/19 07:08 98 Nasal Cannula 2.5 03/10/19 07:00 98.1 83 16 117/53 (74) 98.1 Intake and Output 03/10/19 06:59 Intake Total 640 ml Output Total 425 ml Balance 215 ml Intake Oral 640 ml Output Urine Total 425 ml Physical Exam Heart: Normal S1, Normal S2 General: Alert, Oriented X3 Lungs: Clear to auscultation Neuro: Normal speech Psych/Mental Status: Mental status NL Assessment Assessment Problems Medical Problems: (1) Acute respiratory failure with hypoxia Status: Acute (2) Anemia Status: Acute (3) Atelectasis of left lung Status: Acute (4) CHF (congestive heart failure) Status: Acute (5) Hypercalcemia Status: Acute (6) Hypokalemia Status: Acute (7) Hypomagnesemia Status: Acute (8) Lytic bone lesions on xray Status: Chronic (9) Mild tetrahydrocannabinol (THC) abuse Status: Acute (10) Tobacco abuse Status: Acute IMPRESSION AND PLAN: 1. Stage IV NSCLC/Sq cell ca - Left lower lobe lung mass along with left hilar mass and numerous hepatic metastatic disease and numerous lytic lesions are all suggestive of a primary lung cancer stage 4. s/p CT-guided biopsy of the lytic lesion left ilium 03/04/19. I discussed in detail with the patient that he has stage 4 lung cancer and treatments are only palliative and not curative. I discussed the option of chemotherapy with immunotherapy vs hospice. He wants to think about it. I will order PD-L1 and BRAF biomarkers. MRI brain 03/07/19 - no mets Consult palliative care. I d/w Pat. Family meeting today at 1 pm. 2. 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 The patient received Zometa 4 mg on 03/03/2019. Continue to monitor calcium levels. Consulted Nephrology. Ca now 7.8. 3. Chronic obstructive pulmonary disease. He is on oxygen. 4. Nonischemic cardiomyopathy. 5. Anemia. I will check iron studies and B12 levels. I suspect anemia is due to malignancy. 6. Liver metastasis. Continue to monitor. 7. Bone metastasis. I agree to consult Orthopedics because of a potential impending fracture in the femur. Plan radiation therapy after confirmation of diagnosis and also Xgeva as outpatient. Appreciate ortho consult: Proximal R femoral lesion likely metastatic disease. Will benefit from prophylactic surgical stabilization, most likely IM hip nail, but X-rays ordered for surgical planning. s/p surgery 03/08/19: right hip prophylactic treatment (intramedullary nail) femoral neck and proximal femur. Bone scan: 03/07/19: Uptake of radiotracer involving the upper thoracic spine corresponding to metastatic bony lesions noted on recently performed CT exam. Uptake involving the left seventh rib also is present corresponding to a destructive lytic rib lesion Comment Review of Relevant I have reviewed the following items jose (where applicable) has been applied. Labs Laboratory Tests Test 03/09/19 03:40 Hemoglobin 9.2 g/dL (13.0-17.5) Hematocrit 29.0 % (39.0-53.0) Mean Corpuscular Hemoglobin Concent 32 g/dL (31-37) Sodium Level 147 mmol/L (136-145) Potassium Level 4.4 mmol/L (3.5-5.1) Chloride Level 103 mmol/L (98-107) Carbon Dioxide Level 40 mmol/L (21-32) Anion Gap 4 (6-14) Blood Urea Nitrogen 10 mg/dL (8-26) Creatinine 0.7 mg/dL (0.7-1.3) Estimated GFR (Cockcroft-Gault) 115.0 Glucose Level 112 mg/dL (70-99) Calcium Level 7.8 mg/dL (8.5-10.1) Phosphorus Level 3.6 mg/dL (2.6-4.7) Magnesium Level 1.5 mg/dL (1.8-2.4) Medications Current Medications Potassium Chloride/Water 100 ml @ 100 mls/hr Q1H IV Last administered on 03/03/19at 15:19; Start 03/03/19 at 13:30; Stop 03/03/19 at 15:29; Status DC Zoledronic Acid 100 ml @ 400 mls/hr 1X ONCE IV Last administered on 03/03/19at 16:04; Start 03/03/19 at 16:00; Stop 03/03/19 at 16:14; Status DC Sodium Chloride (Normal Saline Flush) 3 ml QSHIFT PRN IV AFTER MEDS AND BLOOD DRAWS Last administered on 03/07/19at 21:25; Start 03/03/19 at 15:30 Sodium Chloride 1,000 ml @ 100 mls/hr Q10H IV Last administered on 03/07/19at 08:06; Start 03/03/19 at 15:24; Stop 03/07/19 at 11:35; Status DC Ondansetron HCl (Zofran) 4 mg PRN Q4HRS PRN IV NAUSEA/VOMITING; Start 03/03/19 at 15:30; Stop 03/09/19 at 16:13; Status DC Acetaminophen (Tylenol) 650 mg PRN Q4HRS PRN PO TEMP OVER 100.4F OR MILD PAIN; Start 03/03/19 at 15:30 Clonidine HCl (Catapres) 0.1 mg PRN Q6HRS PRN PO SBP>160 OR DBP>90; Start 03/03/19 at 15:30 Docusate Sodium (Colace) 100 mg PRN BID PRN PO CONSTIPATION; Start 03/03/19 at 15:30 Albuterol Sulfate (Ventolin Neb Soln) 2.5 mg PRN Q4HRS PRN NEB SHORTNESS OF BREATH Last administered on 03/05/19at 12:43; Start 03/03/19 at 15:30 Guaifenesin (Robitussin) 200 mg PRN Q4HRS PRN PO COUGH; Start 03/03/19 at 15:30 Lorazepam (Ativan) 0.5 mg PRN Q4HRS PRN PO ANXIETY / AGITATION Last administered on 03/03/19at 21:32; Start 03/03/19 at 15:30 Enoxaparin Sodium (Lovenox 40mg Syringe) 40 mg QHS SQ Last administered on 03/06/19at 21:08; Start 03/03/19 at 21:00; Stop 03/08/19 at 17:39; Status DC Furosemide (Lasix) 40 mg DAILY PO ; Start 03/04/19 at 09:00; Stop 03/04/19 at 09:59; Status DC Lisinopril (Prinivil) 5 mg DAILY PO ; Start 03/04/19 at 09:00; Status Cancel Potassium Chloride (Klor-Con) 10 meq DAILY PO Last administered on 03/09/19at 09:45; Start 03/04/19 at 09:00 Aspirin (Marcell Aspirin) 325 mg DAILYWBKFT PO ; Start 03/04/19 at 08:00; Status Cancel Carvedilol (Coreg) 25 mg BIDWMEALS PO Last administered on 03/09/19at 17:31; Start 03/03/19 at 17:00 Lisinopril (Prinivil) 2.5 mg DAILYWLUN PO ; Start 03/04/19 at 12:00; Status Cancel Magnesium Sulfate 3 gm/Dextrose 106 ml @ 35.333 mls/ hr 1X ONCE IV Last administered on 03/03/19at 16:57; Start 03/03/19 at 17:00; Stop 03/03/19 at 19:59; Status DC Ketorolac Tromethamine (Toradol 30mg Vial) 30 mg 1X ONCE IV Last administered on 03/03/19at 16:57; Start 03/03/19 at 16:45; Stop 03/03/19 at 16:46; Status DC Aspirin (Children'S Aspirin) 81 mg DAILY PO Last administered on 03/07/19at 08:06; Start 03/04/19 at 09:00; Stop 03/08/19 at 17:40; Status DC Ibuprofen (Motrin) 400 mg PRN Q6HRS PRN PO INFLAMMATION Last administered on 03/10/19 06:09; Start 03/03/19 at 21:15 Lisinopril (Prinivil) 20 mg DAILY PO Last administered on 03/04/19at 08:40; Start 03/04/19 at 09:00; Stop 03/04/19 at 16:41; Status DC Ipratropium [place] (Atrovent) 0.5 mg RTQID NEB Last administered on 03/10/19at 07:06; Start 03/03/19 at 21:30 Potassium Chloride/Water 100 ml @ 100 mls/hr Q1H IV Last administered on 03/04/19at 15:23; Start 03/04/19 at 10:30; Stop 03/04/19 at 14:29; Status DC Furosemide (Lasix) 40 mg [id number] IVP Last administered on 03/07/19 08:06; Start 03/04/19 at 10:30; Stop 03/07/19 at 08:56; Status DC Ketorolac Tromethamine (Toradol 15mg Vial) 15 mg PRN Q6HRS PRN IV PAIN Last administered on 03/09/19at 09:45; Start 03/04/19 at 12:00; Stop 03/09/19 at 11:59; Status DC Lidocaine/Sodium Bicarbonate (Buffered Lidocaine 1%) 3 ml STK-MED ONCE .ROUTE ; Start 03/04/19 at 14:33; Stop 03/04/19 at 14:33; Status DC Midazolam HCl (Versed) 2 mg STK-MED ONCE .ROUTE ; Start 03/04/19 at 14:38; Stop 03/04/19 at 14:39; Status DC Fentanyl Citrate (Fentanyl 2ml Vial) 100 mcg STK-MED ONCE .ROUTE ; Start 03/04/19 at 14:38; Stop 03/04/19 at 14:39; Status DC Lidocaine/Sodium Bicarbonate (Buffered Lidocaine 1%) 3 ml 1X ONCE IJ Last administered on 03/04/19at 15:11; Start 03/04/19 at 14:45; Stop 03/04/19 at 14:46; Status DC Midazolam HCl (Versed) 2 mg 1X ONCE IV Last administered on 03/04/19at 15:11; Start 03/04/19 at 14:45; Stop 03/04/19 at 14:46; Status DC Fentanyl Citrate (Fentanyl 2ml Vial) 100 mcg 1X ONCE IV Last administered on 03/04/19at 15:11; Start 03/04/19 at 14:45; Stop 03/04/19 at 14:46; Status DC Potassium Chloride (Klor-Con) 40 meq BIDWBKFT/SARAHI ONCE PO Last administered on 03/05/19at 08:43; Start 03/05/19 at 08:00; Stop 03/05/19 at 08:01; Status DC Magnesium Sulfate 50 ml @ 25 mls/hr 1X ONCE IV Last administered on 03/05/19at 11:20; Start 03/05/19 at 09:30; Stop 03/05/19 at 11:29; Status DC Potassium Chloride/Water 100 ml @ 100 mls/hr Q1H IV Last administered on 03/05/19at 17:44; Start 03/05/19 at 10:00; Stop 03/05/19 at 13:59; Status DC Potassium Phos/ Sodium Phos (Phos-Nak) 1 pkt DAILY PO Last administered on 03/09/19 09:45; Start 03/05/19 at 09:30 Vitamin D (Vitamin D3) 5,000 unit DAILY PO Last administered on 03/09/19 09:46; Start 03/05/19 at 09:30 Potassium Phosphate 10 mmol/ Dextrose 103.3333 ml @ 51.667 m... Q2H IV Last administered on 03/06/19at 14:36; Start 03/06/19 at 08:00; Stop 03/06/19 at 11:59; Status DC Trazodone HCl (Desyrel) 50 mg PRN QHS PRN PO INSOMNIA, 1ST CHOICE Last administered on 03/06/19at 21:08; Start 03/06/19 at 11:00 Zolpidem Tartrate (Ambien) 5 mg PRN QHS PRN PO INSOMNIA, 2ND CHOICE; Start 03/06/19 at 11:00 Acetaminophen/ Hydrocodone Bitart (Lortab 5/325) 1 tab PRN Q4HRS PRN PO PAIN MODERATE TO SEVERE Last administered on 03/09/19at 09:45; Start 03/07/19 at 09:00 Sodium Phosphate 20 mmol/Dextrose 256.6667 ml @ 64.167 m... 1X ONCE IV Last administered on 03/07/19at 14:42; Start 03/07/19 at 13:00; Stop 03/07/19 at 16 :59; Status DC Gadoterate Meglumine (Dotarem) 10 ml 1X ONCE IVP Last administered on 03/07/19at 15:58; Start 03/07/19 at 15:45; Stop 03/07/19 at 15:46; Status DC Cefazolin Sodium/ Dextrose 50 ml @ 100 mls/hr 1X PREOP PRN IV SEE COMMENTS Last administered on 03/08/19at 15:57; Start 03/08/19 at 11:30 Sodium Phosphate 20 mmol/Dextrose 256.6667 ml @ 64.167 m... 1X ONCE IV ; Star t 03/08/19 at 14:00; Stop 03/08/19 at 17:59; Status DC Ondansetron HCl (Zofran) 4 mg PRN Q6HRS PRN IV NAUSEA/VOMITING; Start 03/08/19 at 14:45; Stop 03/09/19 at 14:44; Status DC Fentanyl Citrate (Fentanyl 2ml Vial) 25 mcg PRN Q5MIN PRN IV MILD PAIN 1-3; Start 03/08/19 at 14:45; Stop 03/09/19 at 14:44; Status DC Fentanyl Citrate (Fentanyl 2ml Vial) 50 mcg PRN Q5MIN PRN IV MODERATE TO SEVERE PAIN; Start 03/08/19 at 14:45; Stop 03/09/19 at 14:44; Status DC Morphine Sulfate (Morphine Sulfate) 1 mg PRN Q10MIN PRN IV SEVERE PAIN 7-10; Start 03/08/19 at 14:45; Stop 03/09/19 at 14:44; Status DC Ringer's Solution 1,000 ml @ 30 mls/hr Q24H IV Last administered on 03/08/19at 15:16; Start 03/08/19 at 14:41; Stop 03/09/19 at 02:40; Status DC Hydromorphone HCl (Dilaudid) 0.5 mg PRN Q10MIN PRN IV SEV PAIN, Second choice; Start 03/08/19 at 14:45; Stop 03/09/19 at 14:44; Status DC Prochlorperazine Edisylate (Compazine) 5 mg PACU PRN PRN IV NAUSEA, MRX1; Start 03/08/19 at 14:45; Stop 03/09/19 at 14:44; Status DC Sevoflurane (Ultane) 60 ml STK-MED ONCE IH ; Start 03/08/19 at 15:05; Stop 03/08/19 at 15:06; Status DC Propofol 20 ml @ As Directed STK-MED ONCE IV ; Start 03/08/19 at 15:05; Stop 03/08/19 at 15:06; Status DC Phenylephrine HCl (PHENYLEPHRINE in 0.9% NACL PF) 1 mg STK-MED ONCE IV ; Start 03/08/19 at 15:05; Stop 03/08/19 at 15:06; Status DC Ketamine HCl (Ketamine) 50 mg STK-MED ONCE .ROUTE ; Start 03/08/19 at 15:06; Stop 03/08/19 at 15:06; Status DC Metoclopramide HCl (Reglan Vial) 10 mg STK-MED ONCE .ROUTE ; Start 03/08/19 at 15:08; Stop 03/08/19 at 15:09; Status DC Famotidine (Pepcid Vial) 20 mg STK-MED ONCE .ROUTE ; Start 03/08/19 at 15:09; Stop 03/08/19 at 15:09; Status DC Morphine Sulfate 5 mg/Ketorolac Tromethamine 30 mg/Ropivacaine 60 ml/Epinephrine HCl 0.5 mg/Sodium Chloride 100 ml @ 100 mls/hr 1X ONCE INT ART Last administered on 03/08/19at 16:08; Start 03/08/19 at 15:30; Stop 03/08/19 at 16:29; Status DC Dexamethasone Sodium Phosphate (Decadron) 4 mg STK-MED ONCE .ROUTE ; Start 03/08/19 at 15:42; Stop 03/08/19 at 15:42; Status DC Ondansetron HCl (Zofran) 4 mg STK-MED ONCE .ROUTE ; Start 03/08/19 at 15:42; Stop 03/08/19 at 15:42; Status DC Oxycodone HCl (Roxicodone) 5 mg PRN Q3HRS PRN PO PAIN Last administered on 03/09/19at 15:24; Start 03/08/19 at 17:30 Morphine Sulfate (Morphine Sulfate) 2 mg PRN Q1HR PRN IV PAIN; Start 03/08/19 at 17:30 Fentanyl Citrate (Fentanyl 2ml Vial) 25 mcg PRN Q1HR PRN IV PAIN; Start 03/08/19 at 17:30 Senna/Docusate Sodium (Senna Plus) 1 tab DAILY PO Last administered on 03/09/19at 09:45; Start 03/09/19 at 09:00 Polyethylene Glycol (miraLAX PACKET) 17 gm PRN DAILY PRN PO CONSTIPATION; St art 03/08/19 at 17:30 Sodium Chloride 1,000 ml @ 75 mls/hr [id number] IV Last administered on 03/10/19at 06:09; Start 03/08/19 at 17:28 Ondansetron HCl (Zofran) 4 mg PRN Q4HRS PRN IV NAUSEA/VOMITING; Start 03/08/19 at 17:30 Enoxaparin Sodium (Lovenox 40mg Syringe) 40 mg DAILY SQ Last administered on 03/09/19at 09:45; Start 03/09/19 at 09:00 Magnesium Hydroxide (Milk Of Magnesia) 2,400 mg 1X PRN PRN PO CONSTIPATION; Start 03/09/19 at 06:00; Stop 03/10/19 at 05:59; Status DC Bisacodyl (Dulcolax Supp) 10 mg 1X PRN PRN SD CONSTIPATION; Start 03/09/19 at 16:00; Stop 03/10/19 at 15:59 Morphine Sulfate (Morphine Sulfate) 4 mg PRN Q2HR PRN IV PAIN; Start 03/08/19 at 17:30 Dextrose (Dextrose 50%-Water Syringe) 12.5 gm PRN Q15MIN PRN IV SEE COMMENTS; Start 03/08/19 at 17:30 Dextrose 250 ml PRN Q15MIN PRN IV SEE COMMENTS; Start 03/08/19 at 17:30 Cefazolin Sodium/ Dextrose 50 ml @ 100 mls/hr Q6H IV Last administered on 03/09/19at 12:58; Start 03/08/19 at 21:00; Stop 03/09/19 at 09:29; Status DC Oxycodone/ Acetaminophen (Percocet 5/325) 1 tab PRN Q4HRS PRN PO MODERATE PAIN, 3RD CHOICE; Start 03/08/19 at 17:30 Aspirin (Ecotrin) 325 mg DAILY PO Last administered on 03/09/19at 09:45; Start 03/09/19 at 09:00 Oxycodone/ Acetaminophen (Percocet 5/325) 2 tab PRN Q4HRS PRN PO SEVERE PAIN, 3RD CHOICE Last administered on 03/10/19at 06:09; Start 03/08/19 at 17:45 Magnesium Sulfate 50 ml @ 25 mls/hr 1X ONCE IV Last administered on 03/09/19at 09:45; Start 03/09/19 at 08:45; Stop 03/09/19 at 10:44; Status DC Active Scripts Active Reported Spiriva (Tiotropium [place]) 18 Mcg Cap.w.dev 2 Inh IH DAILY Ipratropium [place] 0.2 Mg/1 Ml Solution 1 Vial NEB QID Ibuprofen 400 Mg Tablet 400 Mg PO PRN Q6HRS PRN Lisinopril 20 Mg Tablet 1 Tab PO DAILY Aspirin 81 Mg Tab.chew 1 Tab PO DAILY Coreg (Carvedilol) 25 Mg Tablet 25 Mg PO BID Lasix (Furosemide) 40 Mg Tablet 40 Mg PO DAILY Vitals/I & O Vital Sign - Last 24 Hours 03/09/19 03/09/19 03/09/19 03/09/19 09:45 09:45 10:36 10:49 Temp 97.5 97.5 Pulse 96 108 Resp 18 2 B/P (MAP) 131/71 105/45 (65) Pulse Ox 94 O2 Delivery Nasal Cannula Nasal Cannula Nasal Cannula O2 Flow Rate 2.0 3.0 3.0 03/09/19 03/09/19 03/09/19 03/09/19 11:56 15:00 15:24 15:37 Temp 98.0 98.0 Pulse 90 Resp 16 18 B/P (MAP) 113/48 (69) Pulse Ox 99 95 95 O2 Delivery Nasal Cannula Nasal Cannula Nasal Cannula O2 Flow Rate 3.0 3.0 3.0 3.0 03/09/19 03/09/19 03/09/19 03/09/19 16:32 16:34 17:31 17:32 Pulse 90 Resp 17 18 17 B/P (MAP) 113/48 O2 Delivery Nasal Cannula Nasal Cannula Nasal Cannula O2 Flow Rate 3.0 3.0 3.0 03/09/19 03/09/19 03/09/19 03/09/19 19:45 19:45 20:30 21:35 Temp 97.8 97.8 Pulse 82 Resp 16 B/P (MAP) 96/44 (61) Pulse Ox 99 98 O2 Delivery Nasal Cannula Nasal Cannula Mask Nasal Cannula O2 Flow Rate 3.0 3.0 3.0 3.0 03/09/19 03/09/19 03/10/19 03/10/19 22:46 23:16 03:09 06:09 Temp 97.5 97.4 97.5 97.4 Pulse 80 79 Resp 16 16 B/P (MAP) 109/52 (71) 134/50 (78) Pulse Ox 95 97 O2 Delivery Nasal Cannula Nasal Cannula Nasal Cannula Nasal Cannula O2 Flow Rate 3.0 3.0 3.0 3.0 03/10/19 03/10/19 07:00 07:08 Temp 98.1 98.1 Pulse 83 Resp 16 B/P (MAP) 117/53 (74) Pulse Ox 98 98 O2 Delivery Nasal Cannula Nasal Cannula O2 Flow Rate 3.0 2.5 Intake and Output 03/09/19 03/09/19 03/10/19 14:59 22:59 06:59 Intake Total 400 ml 240 ml Output Total 425 ml Balance 400 ml -185 ml Nutrition Consultation Dietary Evaluation: Comments: pt declines ensure and other supplements at this time pt ordering alternate foods from menu Expected Outcomes/Goals: to meet > 75% est nutr needs Interpretation of weight loss: >5% in 1 month Malnutrition Findings: Food and Nutrition Intake (Sev: <50% est energy req 5days Weight Status: Underweight SHUN FELDMAN MD Mar 10, 2019 09:06
[2019-03-10] MEDS: CHOLECALCIFEROL (VITAMIN D3) 5,000 UNIT CAPSULE PO SCH (09:12)
[2019-03-10] MEDS: SENNOSIDES/DOCUSATE 8.6/50MG TABLET. PO SCH (09:12)
[2019-03-10] MEDS: ASPIRIN ENTERIC COATED 325 MG TABLET.DR. PO SCH (09:12)
[2019-03-10] MEDS: CARVEDILOL 12.5 MG TABLET. PO SCH ×2 (09:12→17:36)
[2019-03-10] MEDS: POTASSIUM CHLORIDE 10 MEQ TABLET.ER. PO SCH (09:13)
[2019-03-10] MEDS: POTASSIUM & SODIUM PHOSPHATES PACKET. PO SCH (09:13)
[2019-03-10] MEDS: ENOXAPARIN 40 MG/0.4 ML SYRINGE. SQ SCH (09:13)
[2019-03-10] MEDS: oxyCODONE IR 5 MG TABLET PO PRN (09:17)
--- NOTE | 2019-03-10 09:28 | PDOC ---
PROGRESS NOTES Chief Complaint Chief Complaint ACUTE HYPOXIC RESP FAILURE NEw lung CA with mets to bone s/p left iliac biopsy Tobaccosim CHEST DISCOMFORT, pleuritic - likely from mass HYPERCALCEMIA - of malignancy Liver lesions Bone lytic lesions - Non-ischemic CARDIOMYOPATHY Acute on chronic systolic CHF - EF 25-50% from 2014 echo THC ABUSE Hypokalemia, corrected Hypomagnesemia, corrected Vitamin D deficiency Hypophosphatemia, corrected Leukocytosis Anemia Transaminitis Metabolic alkalosis GEn weakness, SNU candidate Left ventricle systolic function is moderately to severely impaired. The Ejection Fraction is 25-30%. ECHO 2014 CONSULT PALLIATIVE CARE// HOSPICE 38 min pt exam, chart review, > 50% of time spent with exam, chart review, pt care coordination History of Present Illness History of Present Illness no complaints, feels tired agreeable to SNU if needed came from home HE is aware of the new luis cancer dx and mets to bone - weighing options on comfort care vs chemo S.p left iliac bone biopsy Ca improved s/p pinning 03/08 of femur apprec ortho, pulm, onc, pallative care Operative Note 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 Procedure: * right hip prophylactic treatment (intramedullary nail) femoral neck and proximal femur CPT 02087 Surgeon: Dany Borrero MD Anesthesia Type: General EBL: 200 mL Specimens Obtained: none Complications: None Implant Company: [employer] Implants: Gamma 3 system Long Nail Kit R1.5 right 11 mm x 380 mm x 125� Gamma 3 system Lag Screw Titanium 10.5 mm x90 mm; locking screw fully threaded 5 mm x 47.5 mm, locking screw fully threaded 5 mm x 47.5 mm Vitals Vitals Vital Signs Date Time Temp Pulse Resp B/P (MAP) Pulse Ox O2 Delivery O2 Flow Rate FiO2 03/10/19 09:17 17 Nasal Cannula 3.0 03/10/19 09:12 83 117/53 03/10/19 07:08 98 03/10/19 07:00 98.1 98.1 Physical Exam General: Alert, Oriented X3 Heart: Normal S1, Normal S2 Lungs: Other (diminished breath sounds bilaterally) Abdomen: Normal bowel sounds, Soft, No tenderness Extremities: No cyanosis, Other (1+ bilateral LE pitting edema) Skin: No breakdown, No significant lesion Assessment and Plan Assessmemt and Plan Problems Medical Problems: (1) Acute respiratory failure with hypoxia Status: Acute (2) Anemia Status: Acute (3) Atelectasis of left lung Status: Acute (4) CHF (congestive heart failure) Status: Acute (5) Hypercalcemia Status: Acute (6) Hypokalemia Status: Acute (7) Hypomagnesemia Status: Acute (8) Lytic bone lesions on xray Status: Chronic (9) Mild tetrahydrocannabinol (THC) abuse Status: Acute (10) Tobacco abuse Status: Acute Comment Review of Relevant I have reviewed the following items jose (where applicable) has been applied. Labs Laboratory Tests Test 03/09/19 03:40 Hemoglobin 9.2 g/dL (13.0-17.5) Hematocrit 29.0 % (39.0-53.0) Mean Corpuscular Hemoglobin Concent 32 g/dL (31-37) Sodium Level 147 mmol/L (136-145) Potassium Level 4.4 mmol/L (3.5-5.1) Chloride Level 103 mmol/L (98-107) Carbon Dioxide Level 40 mmol/L (21-32) Anion Gap 4 (6-14) Blood Urea Nitrogen 10 mg/dL (8-26) Creatinine 0.7 mg/dL (0.7-1.3) Estimated GFR (Cockcroft-Gault) 115.0 Glucose Level 112 mg/dL (70-99) Calcium Level 7.8 mg/dL (8.5-10.1) Phosphorus Level 3.6 mg/dL (2.6-4.7) Magnesium Level 1.5 mg/dL (1.8-2.4) Medications Current Medications Potassium Chloride/Water 100 ml @ 100 mls/hr Q1H IV Last administered on 03/03/19at 15:19; Start 03/03/19 at 13:30; Stop 03/03/19 at 15:29; Status DC Zoledronic Acid 100 ml @ 400 mls/hr 1X ONCE IV Last administered on 03/03/19at 16:04; Start 03/03/19 at 16:00; Stop 03/03/19 at 16:14; Status DC Sodium Chloride (Normal Saline Flush) 3 ml QSHIFT PRN IV AFTER MEDS AND BLOOD DRAWS Last administered on 03/07/19at 21:25; Start 03/03/19 at 15:30 Sodium Chloride 1,000 ml @ 100 mls/hr Q10H IV Last administered on 03/07/19at 08:06; Start 03/03/19 at 15:24; Stop 03/07/19 at 11:35; Status DC Ondansetron HCl (Zofran) 4 mg PRN Q4HRS PRN IV NAUSEA/VOMITING; Start 03/03/19 at 15:30; Stop 03/09/19 at 16:13; Status DC Acetaminophen (Tylenol) 650 mg PRN Q4HRS PRN PO TEMP OVER 100.4F OR MILD PAIN; Start 03/03/19 at 15:30 Clonidine HCl (Catapres) 0.1 mg PRN Q6HRS PRN PO SBP>160 OR DBP>90; Start 03/03/19 at 15:30 Docusate Sodium (Colace) 100 mg PRN BID PRN PO CONSTIPATION; Start 03/03/19 at 15:30 Albuterol Sulfate (Ventolin Neb Soln) 2.5 mg PRN Q4HRS PRN NEB SHORTNESS OF BREATH Last administered on 03/05/19at 12:43; Start 03/03/19 at 15:30 Guaifenesin (Robitussin) 200 mg PRN Q4HRS PRN PO COUGH; Start 03/03/19 at 15:30 Lorazepam (Ativan) 0.5 mg PRN Q4HRS PRN PO ANXIETY / AGITATION Last administered on 03/03/19at 21:32; Start 03/03/19 at 15:30 Enoxaparin Sodium (Lovenox 40mg Syringe) 40 mg QHS SQ Last administered on 03/06/19at 21:08; Start 03/03/19 at 21:00; Stop 03/08/19 at 17:39; Status DC Furosemide (Lasix) 40 mg DAILY PO ; Start 03/04/19 at 09:00; Stop 03/04/19 at 09:59; Status DC Lisinopril (Prinivil) 5 mg DAILY PO ; Start 03/04/19 at 09:00; Status Cancel Potassium Chloride (Klor-Con) 10 meq DAILY PO Last administered on 03/10/19 09:13; Start 03/04/19 at 09:00 Aspirin (Marcell Aspirin) 325 mg DAILYWBKFT PO ; Start 03/04/19 at 08:00; Status Cancel Carvedilol (Coreg) 25 mg BIDWMEALS PO Last administered on 03/10/19 09:12; Start 03/03/19 at 17:00 Lisinopril (Prinivil) 2.5 mg DAILYWLUN PO ; Start 03/04/19 at 12:00; Status Cancel Magnesium Sulfate 3 gm/Dextrose 106 ml @ 35.333 mls/ hr 1X ONCE IV Last administered on 03/03/19 16:57; Start 03/03/19 at 17:00; Stop 03/03/19 at 19:59; Status DC Ketorolac Tromethamine (Toradol 30mg Vial) 30 mg 1X ONCE IV Last administered on 03/03/19 16:57; Start 03/03/19 at 16:45; Stop 03/03/19 at 16:46; Status DC Aspirin (Children'S Aspirin) 81 mg DAILY PO Last administered on 03/07/19 08:06; Start 03/04/19 at 09:00; Stop 03/08/19 at 17:40; Status DC Ibuprofen (Motrin) 400 mg PRN Q6HRS PRN PO INFLAMMATION Last administered on 03/10/19 06:09; Start 03/03/19 at 21:15 Lisinopril (Prinivil) 20 mg DAILY PO Last administered on 03/04/19at 08:40; Start 03/04/19 at 09:00; Stop 03/04/19 at 16:41; Status DC Ipratropium Sparta (Atrovent) 0.5 mg RTQID NEB Last administered on 03/10/19 07:06; Start 03/03/19 at 21:30 Potassium Chloride/Water 100 ml @ 100 mls/hr Q1H IV Last administered on 03/04/19 15:23; Start 03/04/19 at 10:30; Stop 03/04/19 at 14:29; Status DC Furosemide (Lasix) 40 mg [id number] IVP Last administered on 9/23/19at 08:06; Start 03/04/19 at 10:30; Stop 03/07/19 at 08:56; Status DC Ketorolac Tromethamine (Toradol 15mg Vial) 15 mg PRN Q6HRS PRN IV PAIN Last administered on 03/09/19at 09:45; Start 03/04/19 at 12:00; Stop 03/09/19 at 11:59; Status DC Lidocaine/Sodium Bicarbonate (Buffered Lidocaine 1%) 3 ml STK-MED ONCE .ROUTE ; Start 03/04/19 at 14:33; Stop 03/04/19 at 14:33; Status DC Midazolam HCl (Versed) 2 mg STK-MED ONCE .ROUTE ; Start 03/04/19 at 14:38; Stop 03/04/19 at 14:39; Status DC Fentanyl Citrate (Fentanyl 2ml Vial) 100 mcg STK-MED ONCE .ROUTE ; Start 03/04/19 at 14:38; Stop 03/04/19 at 14:39; Status DC Lidocaine/Sodium Bicarbonate (Buffered Lidocaine 1%) 3 ml 1X ONCE IJ Last administered on 03/04/19at 15:11; Start 03/04/19 at 14:45; Stop 03/04/19 at 14:46; Status DC Midazolam HCl (Versed) 2 mg 1X ONCE IV Last administered on 03/04/19at 15:11; Start 03/04/19 at 14:45; Stop 03/04/19 at 14:46; Status DC Fentanyl Citrate (Fentanyl 2ml Vial) 100 mcg 1X ONCE IV Last administered on 03/04/19at 15:11; Start 03/04/19 at 14:45; Stop 03/04/19 at 14:46; Status DC Potassium Chloride (Klor-Con) 40 meq BIDWBKFT/LUIS ONCE PO Last administered on 03/05/19at 08:43; Start 03/05/19 at 08:00; Stop 03/05/19 at 08:01; Status DC Magnesium Sulfate 50 ml @ 25 mls/hr 1X ONCE IV Last administered on 03/05/19at 11:20; Start 03/05/19 at 09:30; Stop 03/05/19 at 11:29; Status DC Potassium Chloride/Water 100 ml @ 100 mls/hr Q1H IV Last administered on 03/05/19at 17:44; Start 03/05/19 at 10:00; Stop 03/05/19 at 13:59; Status DC Potassium Phos/ Sodium Phos (Phos-Nak) 1 pkt DAILY PO Last administered on 03/10/19at 09:13; Start 03/05/19 at 09:30 Vitamin D (Vitamin D3) 5,000 unit DAILY PO Last administered on 03/10/19at 09:12; Start 03/05/19 at 09:30 Potassium Phosphate 10 mmol/ Dextrose 103.3333 ml @ 51.667 m... Q2H IV Last administered on 03/06/19at 14:36; Start 03/06/19 at 08:00; Stop 03/06/19 at 11:59; Status DC Trazodone HCl (Desyrel) 50 mg PRN QHS PRN PO INSOMNIA, 1ST CHOICE Last administered on 03/06/19at 21:08; Start 03/06/19 at 11:00 Zolpidem Tartrate (Ambien) 5 mg PRN QHS PRN PO INSOMNIA, 2ND CHOICE; Start 03/06/19 at 11:00 Acetaminophen/ Hydrocodone Bitart (Lortab 5/325) 1 tab PRN Q4HRS PRN PO PAIN MODERATE TO SEVERE Last administered on 03/09/19at 09:45; Start 03/07/19 at 09:00 Sodium Phosphate 20 mmol/Dextrose 256.6667 ml @ 64.167 m... 1X ONCE IV Last administered on 03/07/19at 14:42; Start 03/07/19 at 13:00; Stop 03/07/19 at 16:59; Status DC Gadoterate Meglumine (Dotarem) 10 ml 1X ONCE IVP Last administered on 03/07/19at 15:58; Start 03/07/19 at 15:45; Stop 03/07/19 at 15:46; Status DC Cefazolin Sodium/ Dextrose 50 ml @ 100 mls/hr 1X PREOP PRN IV SEE COMMENTS Last administered on 03/08/19at 15:57; Start 03/08/19 at 11:30 Sodium Phosphate 20 mmol/Dextrose 256.6667 ml @ 64.167 m... 1X ONCE IV ; Start 03/08/19 at 14:00; Stop 03/08/19 at 17:59; Status DC Ondansetron HCl (Zofran) 4 mg PRN Q6HRS PRN IV NAUSEA/VOMITING; Start 03/08/19 at 14:45; Stop 03/09/19 at 14:44; Status DC Fentanyl Citrate (Fentanyl 2ml Vial) 25 mcg PRN Q5MIN PRN IV MILD PAIN 1-3; Start 03/08/19 at 14:45; Stop 03/09/19 at 14:44; Status DC Fentanyl Citrate (Fentanyl 2ml Vial) 50 mcg PRN Q5MIN PRN IV MODERATE TO SEVERE PAIN; Start 03/08/19 at 14:45; Stop 03/09/19 at 14:44; Status DC Morphine Sulfate (Morphine Sulfate) 1 mg PRN Q10MIN PRN IV SEVERE PAIN 7-10; Start 03/08/19 at 14:45; Stop 03/09/19 at 14:44; Status DC Ringer's Solution 1,000 ml @ 30 mls/hr Q24H IV Last administered on 03/08/19at 15:16; Start 03/08/19 at 14:41; Stop 03/09/19 at 02:40; Status DC Hydromorphone HCl (Dilaudid) 0.5 mg PRN Q10MIN PRN IV SEV PAIN, Second choice; Start 03/08/19 at 14:45; Stop 03/09/19 at 14:44; Status DC Prochlorperazine Edisylate (Compazine) 5 mg PACU PRN PRN IV NAUSEA, MRX1; Start 03/08/19 at 14:45; Stop 03/09/19 at 14:44; Status DC Sevoflurane (Ultane) 60 ml STK-MED ONCE IH ; Start 03/08/19 at 15:05; Stop 03/08/19 at 15:06; Status DC Propofol 20 ml @ As Directed STK-MED ONCE IV ; Start 03/08/19 at 15:05; Stop 03/08/19 at 15:06; Status DC Phenylephrine HCl (PHENYLEPHRINE in 0.9% NACL PF) 1 mg STK-MED ONCE IV ; Start 03/08/19 at 15:05; Stop 03/08/19 at 15:06; Status DC Ketamine HCl (Ketamine) 50 mg STK-MED ONCE .ROUTE ; Start 03/08/19 at 15:06; S top 03/08/19 at 15:06; Status DC Metoclopramide HCl (Reglan Vial) 10 mg STK-MED ONCE .ROUTE ; Start 03/08/19 at 15:08; Stop 03/08/19 at 15:09; Status DC Famotidine (Pepcid Vial) 20 mg STK-MED ONCE .ROUTE ; Start 03/08/19 at 15:09; Stop 03/08/19 at 15:09; Status DC Morphine Sulfate 5 mg/Ketorolac Tromethamine 30 mg/Ropivacaine 60 ml/Epinephrine HCl 0.5 mg/Sodium Chloride 100 ml @ 100 mls/hr 1X ONCE INT ART Last administered on 03/08/19at 16:08; Start 03/08/19 at 15:30; Stop 03/08/19 at 16:29; Status DC Dexamethasone Sodium Phosphate (Decadron) 4 mg STK-MED ONCE .ROUTE ; Start 03/08/19 at 15:42; Stop 03/08/19 at 15:42; Status DC Ondansetron HCl (Zofran) 4 mg STK-MED ONCE .ROUTE ; Start 03/08/19 at 15:42; Stop 03/08/19 at 15:42; Status DC Oxycodone HCl (Roxicodone) 5 mg PRN Q3HRS PRN PO PAIN Last administered on 03/10/19at 09:17; Start 03/08/19 at 17:30 Morphine Sulfate (Morphine Sulfate) 2 mg PRN Q1HR PRN IV PAIN; Start 03/08/19 at 17:30 Fentanyl Citrate (Fentanyl 2ml Vial) 25 mcg PRN Q1HR PRN IV PAIN; Start 03/08/19 at 17:30 Senna/Docusate Sodium (Senna Plus) 1 tab DAILY PO Last administered on 03/10/19at 09:12; Start 03/09/19 at 09:00 Polyethylene Glycol (miraLAX PACKET) 17 gm PRN DAILY PRN PO CONSTIPATION; Start 03/08/19 at 17:30 Sodium Chloride 1,000 ml @ 75 mls/hr [id number] IV Last administered on 03/10/19at 06:09; Start 03/08/19 at 17:28 Ondansetron HCl (Zofran) 4 mg PRN Q4HRS PRN IV NAUSEA/VOMITING; Start 03/08/19 at 17:30 Enoxaparin Sodium (Lovenox 40mg Syringe) 40 mg DAILY SQ Last administered on 03/10/19at 09:13; Start 03/09/19 at 09:00 Magnesium Hydroxide (Milk Of Magnesia) 2,400 mg 1X PRN PRN PO CONSTIPATION; Start 03/09/19 at 06:00; Stop 03/10/19 at 05:59; Status DC Bisacodyl (Dulcolax Supp) 10 mg 1X PRN PRN [place] CONSTIPATION; Start 03/09/19 at 16:00; Stop 03/10/19 at 15:59 Morphine Sulfate (Morphine Sulfate) 4 mg PRN Q2HR PRN IV PAIN; Start 03/08/19 at 17:30 Dextrose (Dextrose 50%-Water Syringe) 12.5 gm PRN Q15MIN PRN IV SEE COMMENTS; Start 03/08/19 at 17:30 Dextrose 250 ml PRN Q15MIN PRN IV SEE COMMENTS; Start 03/08/19 at 17:30 Cefazolin Sodium/ Dextrose 50 ml @ 100 mls/hr Q6H IV Last administered on 03/09/19at 12:58; Start 03/08/19 at 21:00; Stop 03/09/19 at 09:29; Status DC Oxycodone/ Acetaminophen (Percocet 5/325) 1 tab PRN Q4HRS PRN PO MODERATE PAIN, 3RD CHOICE; Start 03/08/19 at 17:30 Aspirin (Ecotrin) 325 mg DAILY PO Last administered on 03/10/19at 09:12; Start 03/09/19 at 09:00 Oxycodone/ Acetaminophen (Percocet 5/325) 2 tab PRN Q4HRS PRN PO SEVERE PAIN, 3RD CHOICE Last administered on 03/10/19at 06:09; Start 03/08/19 at 17:45 Magnesium Sulfate 50 ml @ 25 mls/hr 1X ONCE IV Last administered on 03/09/19at 09:45; Start 03/09/19 at 08:45; Stop 03/09/19 at 10:44; Status DC Active Scripts Active Reported Spiriva (Tiotropium Sparta) 18 Mcg Cap.w.dev 2 Inh IH DAILY Ipratropium Sparta 0.2 Mg/1 Ml Solution 1 Vial NEB QID Ibuprofen 400 Mg Tablet 400 Mg PO PRN Q6HRS PRN Lisinopril 20 Mg Tablet 1 Tab PO DAILY Aspirin 81 Mg Tab.chew 1 Tab PO DAILY Coreg (Carvedilol) 25 Mg Tablet 25 Mg PO BID Lasix (Furosemide) 40 Mg Tablet 40 Mg PO DAILY Vitals/I & O Vital Sign - Last 24 Hours 03/09/19 03/09/19 03/09/19 03/09/19 09:45 09:45 10:36 10:49 Temp 97.5 97.5 Pulse 96 108 Resp 18 2 B/P (MAP) 131/71 105/45 (65) Pulse Ox 94 O2 Delivery Nasal Cannula Nasal Cannula Nasal Cannula O2 Flow Rate 2.0 3.0 3.0 03/09/19 03/09/19 03/09/19 03/09/19 11:56 15:00 15:24 15:37 Temp 98.0 98.0 Pulse 90 Resp 16 18 B/P (MAP) 113/48 (69) Pulse Ox 99 95 95 O2 Delivery Nasal Cannula Nasal Cannula Nasal Cannula O2 Flow Rate 3.0 3.0 3.0 3.0 03/09/19 03/09/19 03/09/19 03/09/19 16:32 16:34 17:31 17:32 Pulse 90 Resp 17 18 17 B/P (MAP) 113/48 O2 Delivery Nasal Cannula Nasal Cannula Nasal Cannula O2 Flow Rate 3.0 3.0 3.0 03/09/19 03/09/19 03/09/19 03/09/19 19:45 19:45 20:30 21:35 Temp 97.8 97.8 Pulse 82 Resp 16 B/P (MAP) 96/44 (61) Pulse Ox 99 98 O2 Delivery Nasal Cannula Nasal Cannula Mask Nasal Cannula O2 Flow Rate 3.0 3.0 3.0 3.0 03/09/19 03/09/19 03/10/19 03/10/19 22:46 23:16 03:09 06:09 Temp 97.5 97.4 97.5 97.4 Pulse 80 79 Resp 16 16 B/P (MAP) 109/52 (71) 134/50 (78) Pulse Ox 95 97 O2 Delivery Nasal Cannula Nasal Cannula Nasal Cannula Nasal Cannula O2 Flow Rate 3.0 3.0 3.0 3.0 03/10/19 03/10/19 03/10/19 03/10/19 07:00 07:08 07:09 09:12 Temp 98.1 98.1 Pulse 83 83 Resp 16 17 B/P (MAP) 117/53 (74) 117/53 Pulse Ox 98 98 O2 Delivery Nasal Cannula Nasal Cannula Nasal Cannula O2 Flow Rate 3.0 2.5 3.0 03/10/19 09:17 Resp 17 O2 Delivery Nasal Cannula O2 Flow Rate 3.0 Intake and Output 03/09/19 03/09/19 03/10/19 15:00 23:00 07:00 Intake Total 400 ml 240 ml Output Total 425 ml Balance 400 ml -185 ml Nutrition Consultation Dietary Evaluation: Comments: pt declines ensure and other supplements at this time pt ordering alternate foods from menu Expected Outcomes/Goals: to meet > 75% est nutr needs Interpretation of weight loss: >5% in 1 month Malnutrition Findings: Food and Nutrition Intake (Sev: <50% est energy req 5days Weight Status: Underweight MIAH HERNANDEZ MD Mar 10, 2019 09:28
[2019-03-10 11:00] VITALS: BP 92/46
--- NOTE | 2019-03-10 12:13 | PDOC ---
Renal-Progress Notes Subjective Notes Notes NO NEW COMPLAINTS History of Present Illness Hx of present illness NO CHANGE Vitals Vitals Vital Signs Date Time Temp Pulse Resp B/P (MAP) Pulse Ox O2 Delivery O2 Flow Rate FiO2 03/10/19 11:01 98 Nasal Cannula 3.0 03/10/19 11:00 97.9 83 16 92/46 (61) 97.9 Weight Weight [ ] I.O. Intake and Output Intake and Output 03/10/19 07:00 Intake Total 640 ml Output Total 425 ml Balance 215 ml Intake Oral 640 ml Output Urine Total 425 ml Review of Systems Constitutional: yes: weakness, oriented Ears/Nose/Throat: Yes: no symptom reported Eyes: Yes: no symptom reported Pulmonary: Yes dyspnea Cardiovascular: Yes no symptom reported Gastrointestional: Yes: no symptom reported Genitourinary: Yes: no symptom reported Musculoskeletal: Yes: muscle pain, muscle stiffness Skin: Yes no symptom reported Psychiatric/Neurological: Yes: no symptom reported Physical Exam General Appearance: no apparent distress Skin: warm Heart: S1S2 Abdomen: soft, bowel sounds present Genitourinary: bladder flat Extremities: pulses present Neurology: alert, oriented Assessment Assessment IMP HYPERCALCEMIA-RESOLVED HYPERNATREMIA-IMPROVING HYPOPHOSPHATEMIA-RESOLVED LOW MAG MET LUNG CANCER HYPOXIC RESP FAILURE COPD PLAN ONGOING HEME/ONC EVAL AND TX MG REPLACEMENT CHANGE TO HYPOTONIC SALINE ENC FLUID INTAKE WILL FOLLOW NEEDED PALLIATIVE CARE DEVIN HURST MD Mar 10, 2019 12:13
[2019-03-10] MEDS ORDERED: MAGNESIUM SULFATE 2GM 50 ML IV ONE (13:00)
[2019-03-10 15:00] VITALS: BP 104/52
--- NOTE | 2019-03-10 15:37 | PDOC ---
Provider Note Provider Note 58 yo disabled man from CHF now with widespread metastatic lung cancer with osseous and liver mets. Had hypokalemia K 2.6 and hypercalcemia 13.5 on admit. Underwent left iliac bx 03/04/2019 which revealed squamous cell carcinoma CT C/A/P left medial lung mass with prox TITA airway narrowing distal collapse, left iliac met bulky right prox femur met with significant cortical destruction and at risk for path fracture. Multiple low density liver lesions c/w mets. Doing well following right hip pinning for stabilization of impending fx right prox femur done 03/08/2019 Some hoarseness after procedure. Impression: Metastatic lung carcinoma with bulky multiorgan metastatic disease and poor performance status. He would like a period of rehab to gain strength before proceeding with additional treatment. Consider post op RT to femur to preserve bone integrity. Not currently symptomatic at primary site, No localized sites of pain noted at this time. Agree with his choice of DNR code status. Family conference occurred earlier today, await summary of outcome. ERICKA CHOE MD Mar 10, 2019 15:37
--- NOTE | 2019-03-10 16:21 | PDOC2 ---
PALLIATIVE CARE Palliative Care Note Palliative Care Patient sitting up in chair. Drowsy at times, States his throat is sore and needs to write notes. Met with patient, brother Frank and his , patient's Herbert Bhaita and her sister Rosalina by phone Reviewed medical condition; 1. Stage IV NSCLC/Sq cell ca - Left lower lobe lung mass along with left hilar mass and numerous hepatic metastatic disease and numerous lytic lesions are all suggestive of a primary lung cancer stage 4. s/p CT-guided biopsy of the lytic lesion left ilium 03/04/19. MRI brain 03/07/19 - no mets 2. 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 3. Chronic obstructive pulmonary disease. 4. Nonischemic cardiomyopathy. 5. Anemia due to malignancy. 6. Liver metastasis. 7. Bone metastasis.femur and rib. Post -op hip nailing. Discussed options for care; continue current treatment plan with chemotherapy/radiation therapy vs comfort care . Patient will need SNU for strengthening before chemotherapy or going home. Patient and family in agreement. [facility]'s [facility] with [facility]. Receiving Meals of Wheels. Poor functional status and would not be able to care for her cis[employer] maria. Discussed Code Status; DNR/DNI. Would like to complete AD. Plan; SNU for strengthening before going home Chemotherapy if patient able to regain strength. Encourage to work with PT/OT DNR/DNI form completed. Above reviewed with and RICH Wang Mar 10, 2019 16:21
[2019-03-10 19:04] VITALS: BP 110/53
[2019-03-10 23:31] VITALS: BP 115/81
[2019-03-11 04:00] VITALS: BP 137/61
[2019-03-11 05:34] LABS: CALCIUM 7.7 mg/dL (8.5-10.1); CREATININE 0.7 mg/dL (0.7-1.3); MAGNESIUM 2.1 mg/dL (1.8-2.4)
[2019-03-11 07:00] VITALS: BP 142/62
--- NOTE | 2019-03-11 07:32 | PDOC ---
PROGRESS NOTES Chief Complaint Chief Complaint ACUTE HYPOXIC RESP FAILURE NEw lung CA with mets to bone s/p left iliac biopsy Tobaccosim CHEST DISCOMFORT, pleuritic - likely from mass HYPERCALCEMIA - of malignancy Liver lesions Bone lytic lesions - Non-ischemic CARDIOMYOPATHY Acute on chronic systolic CHF - EF 25-50% from 2014 echo THC ABUSE Hypokalemia, corrected Hypomagnesemia, corrected Vitamin D deficiency Hypophosphatemia, corrected Leukocytosis Anemia Transaminitis Metabolic alkalosis GEn weakness, SNU candidate Left ventricle systolic function is moderately to severely impaired. The Ejection Fraction is 25-30%. ECHO 2014 CONSULT PALLIATIVE CARE// HOSPICE Consider post op RT to femur to preserve bone integrity. 34 min pt exam, chart review d/c planning , > 50% of time spent with exam, chart review, pt care coordination History of Present Illness History of Present Illness no complaints, feels tired agreeable to SNU if needed came from home HE is aware of the new luis cancer dx and mets to bone - weighing options on c omfort care vs chemo S.p left iliac bone biopsy Ca improved s/p pinning 03/08 of femur apprec ortho, pulm, onc, pallative care Operative Note 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 Procedure: * right hip prophylactic treatment (intramedullary nail) femoral neck and proximal femur CPT 92493 Surgeon: Dany Borrero MD Anesthesia Type: General EBL: 200 mL Specimens Obtained: none Complications: None Implant Company: [employer] Implants: Gamma 3 system Long Nail Kit R1.5 right 11 mm x 380 mm x 125� Gamma 3 system Lag Screw Titanium 10.5 mm x90 mm; locking screw fully threaded 5 mm x 47.5 mm, locking screw fully threaded 5 mm x 47.5 mm Vitals Vitals Vital Signs Date Time Temp Pulse Resp B/P (MAP) Pulse Ox O2 Delivery O2 Flow Rate FiO2 03/11/19 04:00 97.6 85 18 137/61 (86) 99 Nasal Cannula 3.0 97.6 Physical Exam General: Alert, Oriented X3, Cooperative Heart: Normal S1, Normal S2 Lungs: Other (diminished breath sounds bilaterally) Abdomen: Normal bowel sounds, Soft, No tenderness Extremities: No cyanosis, Other (1+ bilateral LE pitting edema) Skin: No breakdown, No significant lesion Labs LABS Laboratory Tests Test 03/11/19 04:10 Sodium Level 145 mmol/L (136-145) Potassium Level 4.0 mmol/L (3.5-5.1) Chloride Level 102 mmol/L (98-107) Carbon Dioxide Level 41 mmol/L (21-32) Anion Gap 2 (6-14) Blood Urea Nitrogen 8 mg/dL (8-26) Creatinine 0.7 mg/dL (0.7-1.3) Estimated GFR (Cockcroft-Gault) 115.0 Glucose Level 89 mg/dL (70-99) Calcium Level 7.7 mg/dL (8.5-10.1) Magnesium Level 2.1 mg/dL (1.8-2.4) Assessment and Plan Assessmemt and Plan Problems Medical Problems: (1) Acute respiratory failure with hypoxia Status: Acute (2) Anemia Status: Acute (3) Atelectasis of left lung Status: Acute (4) CHF (congestive heart failure) Status: Acute (5) Hypercalcemia Status: Acute (6) Hypokalemia Status: Acute (7) Hypomagnesemia Status: Acute (8) Lytic bone lesions on xray Status: Chronic (9) Mild tetrahydrocannabinol (THC) abuse Status: Acute (10) Tobacco abuse Status: Acute Comment Review of Relevant I have reviewed the following items jose (where applicable) has been applied. Labs Laboratory Tests Test 03/11/19 04:10 Sodium Level 145 mmol/L (136-145) Potassium Level 4.0 mmol/L (3.5-5.1) Chloride Level 102 mmol/L (98-107) Carbon Dioxide Level 41 mmol/L (21-32) Anion Gap 2 (6-14) Blood Urea Nitrogen 8 mg/dL (8-26) Creatinine 0.7 mg/dL (0.7-1.3) Estimated GFR (Cockcroft-Gault) 115.0 Glucose Level 89 mg/dL (70-99) Calcium Level 7.7 mg/dL (8.5-10.1) Magnesium Level 2.1 mg/dL (1.8-2.4) Laboratory Tests Test 03/11/19 04:10 Sodium Level 145 mmol/L (136-145) Potassium Level 4.0 mmol/L (3.5-5.1) Chloride Level 102 mmol/L (98-107) Carbon Dioxide Level 41 mmol/L (21-32) Anion Gap 2 (6-14) Blood Urea Nitrogen 8 mg/dL (8-26) Creatinine 0.7 mg/dL (0.7-1.3) Estimated GFR (Cockcroft-Gault) 115.0 Glucose Level 89 mg/dL (70-99) Calcium Level 7.7 mg/dL (8.5-10.1) Magnesium Level 2.1 mg/dL (1.8-2.4) Medications Current Medications Potassium Chloride/Water 100 ml @ 100 mls/hr Q1H IV Last administered on 03/03/19at 15:19; Start 03/03/19 at 13:30; Stop 03/03/19 at 15:29; Status DC Zoledronic Acid 100 ml @ 400 mls/hr 1X ONCE IV Last administered on 03/03/19at 16:04; Start 03/03/19 at 16:00; Stop 03/03/19 at 16:14; Status DC Sodium Chloride (Normal Saline Flush) 3 ml QSHIFT PRN IV AFTER MEDS AND BLOOD DRAWS Last administered on 03/07/19at 21:25; Start 03/03/19 at 15:30 Sodium Chloride 1,000 ml @ 100 mls/hr Q10H IV Last administered on 03/07/19at 08:06; Start 03/03/19 at 15:24; Stop 03/07/19 at 11:35; Status DC Ondansetron HCl (Zofran) 4 mg PRN Q4HRS PRN IV NAUSEA/VOMITING; Start 03/03/19 at 15:30; Stop 03/09/19 at 16:13; Status DC Acetaminophen (Tylenol) 650 mg PRN Q4HRS PRN PO TEMP OVER 100.4F OR MILD PAIN; Start 03/03/19 at 15:30 Clonidine HCl (Catapres) 0.1 mg PRN Q6HRS PRN PO SBP>160 OR DBP>90; Start 03/03/19 at 15:30 Docusate Sodium (Colace) 100 mg PRN BID PRN PO CONSTIPATION; Start 03/03/19 at 15:30 Albuterol Sulfate (Ventolin Neb Soln) 2.5 mg PRN Q4HRS PRN NEB SHORTNESS OF BREATH Last administered on 03/05/19at 12:43; Start 03/03/19 at 15:30 Guaifenesin (Robitussin) 200 mg PRN Q4HRS PRN PO COUGH; Start 03/03/19 at 15:30 Lorazepam (Ativan) 0.5 mg PRN Q4HRS PRN PO ANXIETY / AGITATION Last administered on 03/03/19at 21:32; Start 03/03/19 at 15:30 Enoxaparin Sodium (Lovenox 40mg Syringe) 40 mg QHS SQ Last administered on 03/06/19at 21:08; Start 03/03/19 at 21:00; Stop 03/08/19 at 17:39; Status DC Furosemide (Lasix) 40 mg DAILY PO ; Start 03/04/19 at 09:00; Stop 03/04/19 at 09:59; Status DC Lisinopril (Prinivil) 5 mg DAILY PO ; Start 03/04/19 at 09:00; Status Cancel Potassium Chloride (Klor-Con) 10 meq DAILY PO Last administered on 03/10/19at 09:13; Start 03/04/19 at 09:00 Aspirin (Marcell Aspirin) 325 mg DAILYWBKFT PO ; Start 03/04/19 at 08:00; Status Cancel Carvedilol (Coreg) 25 mg BIDWMEALS PO Last administered on 03/10/19at 17:36; Start 03/03/19 at 17:00 Lisinopril (Prinivil) 2.5 mg DAILYWLUN PO ; Start 03/04/19 at 12:00; Status Cancel Magnesium Sulfate 3 gm/Dextrose 106 ml @ 35.333 mls/ hr 1X ONCE IV Last administered on 03/03/19at 16:57; Start 03/03/19 at 17:00; Stop 03/03/19 at 19:59; Status DC Ketorolac Tromethamine (Toradol 30mg Vial) 30 mg 1X ONCE IV Last administered on 03/03/19at 16:57; Start 03/03/19 at 16:45; Stop 03/03/19 at 16:46; Status DC Aspirin (Children'S Aspirin) 81 mg DAILY PO Last administered on 03/07/19 08:06; Start 03/04/19 at 09:00; Stop 03/08/19 at 17:40; Status DC Ibuprofen (Motrin) 400 mg PRN Q6HRS PRN PO INFLAMMATION Last administered on 03/10/19 23:32; Start 03/03/19 at 21:15 Lisinopril (Prinivil) 20 mg DAILY PO Last administered on 03/04/19 08:40; Start 03/04/19 at 09:00; Stop 03/04/19 at 16:41; Status DC Ipratropium [place] (Atrovent) 0.5 mg RTQID NEB Last administered on 03/10/19 20:08; Start 03/03/19 at 21:30 Potassium Chloride/Water 100 ml @ 100 mls/hr Q1H IV Last administered on 03/04/19at 15:23; Start 03/04/19 at 10:30; Stop 03/04/19 at 14:29; Status DC Furosemide (Lasix) 40 mg [id number] IVP Last administered on 03/07/19 08:06; Start 03/04/19 at 10:30; Stop 03/07/19 at 08:56; Status DC Ketorolac Tromethamine (Toradol 15mg Vial) 15 mg PRN Q6HRS PRN IV PAIN Last administered on 03/09/19 09:45; Start 03/04/19 at 12:00; Stop 03/09/19 at 11:59; Status DC Lidocaine/Sodium Bicarbonate (Buffered Lidocaine 1%) 3 ml STK-MED ONCE .ROUTE ; Start 03/04/19 at 14:33; Stop 03/04/19 at 14:33; Status DC Midazolam HCl (Versed) 2 mg STK-MED ONCE .ROUTE ; Start 03/04/19 at 14:38; Stop 03/04/19 at 14:39; Status DC Fentanyl Citrate (Fentanyl 2ml Vial) 100 mcg STK-MED ONCE .ROUTE ; Start 9 at 14:38; Stop 03/04/19 at 14:39; Status DC Lidocaine/Sodium Bicarbonate (Buffered Lidocaine 1%) 3 ml 1X ONCE IJ Last administered on 03/04/19at 15:11; Start 03/04/19 at 14:45; Stop 03/04/19 at 14:46; Status DC Midazolam HCl (Versed) 2 mg 1X ONCE IV Last administered on 03/04/19at 15:11; Start 03/04/19 at 14:45; Stop 03/04/19 at 14:46; Status DC Fentanyl Citrate (Fentanyl 2ml Vial) 100 mcg 1X ONCE IV Last administered on 03/04/19at 15:11; Start 03/04/19 at 14:45; Stop 03/04/19 at 14:46; Status DC Potassium Chloride (Klor-Con) 40 meq BIDWBKFT/LUIS ONCE PO Last administered on 03/05/19at 08:43; Start 03/05/19 at 08:00; Stop 03/05/19 at 08:01; Status DC Magnesium Sulfate 50 ml @ 25 mls/hr 1X ONCE IV Last administered on 03/05/19at 11:20; Start 03/05/19 at 09:30; Stop 03/05/19 at 11:29; Status DC Potassium Chloride/Water 100 ml @ 100 mls/hr Q1H IV Last administered on at 17:44; Start 03/05/19 at 10:00; Stop 03/05/19 at 13:59; Status DC Potassium Phos/ Sodium Phos (Phos-Nak) 1 pkt DAILY PO Last administered on 03/10/19at 09:13; Start 03/05/19 at 09:30 Vitamin D (Vitamin D3) 5,000 unit DAILY PO Last administered on 03/10/19at 09:12; Start 03/05/19 at 09:30 Potassium Phosphate 10 mmol/ Dextrose 103.3333 ml @ 51.667 m... Q2H IV Last administered on 03/06/19at 14:36; Start 03/06/19 at 08:00; Stop 03/06/19 at 11:59; Status DC Trazodone HCl (Desyrel) 50 mg PRN QHS PRN PO INSOMNIA, 1ST CHOICE Last administered on 03/06/19at 21:08; Start 03/06/19 at 11:00 Zolpidem Tartrate (Ambien) 5 mg PRN QHS PRN PO INSOMNIA, 2ND CHOICE; Start 03/06/19 at 11:00 Acetaminophen/ Hydrocodone Bitart (Lortab 5/325) 1 tab PRN Q4HRS PRN PO PAIN M ODERATE TO SEVERE Last administered on 03/09/19at 09:45; Start 03/07/19 at 09:00 Sodium Phosphate 20 mmol/Dextrose 256.6667 ml @ 64.167 m... 1X ONCE IV Last administered on 03/07/19at 14:42; Start 03/07/19 at 13:00; Stop 03/07/19 at 16:59; Status DC Gadoterate Meglumine (Dotarem) 10 ml 1X ONCE IVP Last administered on 03/07/19at 15:58; Start 03/07/19 at 15:45; Stop 03/07/19 at 15:46; Status DC Cefazolin Sodium/ Dextrose 50 ml @ 100 mls/hr 1X PREOP PRN IV SEE COMMENTS Last administered on 03/08/19at 15:57; Start 03/08/19 at 11:30 Sodium Phosphate 20 mmol/Dextrose 256.6667 ml @ 64.167 m... 1X ONCE IV ; Start 03/08/19 at 14:00; Stop 03/08/19 at 17:59; Status DC Ondansetron HCl (Zofran) 4 mg PRN Q6HRS PRN IV NAUSEA/VOMITING; Start 03/08/19 at 14:45; Stop 03/09/19 at 14:44; Status DC Fentanyl Citrate (Fentanyl 2ml Vial) 25 mcg PRN Q5MIN PRN IV MILD PAIN 1-3; Start 03/08/19 at 14:45; Stop 03/09/19 at 14:44; Status DC Fentanyl Citrate (Fentanyl 2ml Vial) 50 mcg PRN Q5MIN PRN IV MODERATE TO SEVERE PAIN; Start 03/08/19 at 14:45; Stop 03/09/19 at 14:44; Status DC Morphine Sulfate (Morphine Sulfate) 1 mg PRN Q10MIN PRN IV SEVERE PAIN 7-10; Start 03/08/19 at 14:45; Stop 03/09/19 at 14:44; Status DC Ringer's Solution 1,000 ml @ 30 mls/hr Q24H IV Last administered on 03/08/19at 15:16; Start 03/08/19 at 14:41; Stop 03/09/19 at 02:40; Status DC Hydromorphone HCl (Dilaudid) 0.5 mg PRN Q10MIN PRN IV SEV PAIN, Second choice; Start 03/08/19 at 14:45; Stop 03/09/19 at 14:44; Status DC Prochlorperazine Edisylate (Compazine) 5 mg PACU PRN PRN IV NAUSEA, MRX1; Start 03/08/19 at 14:45; Stop 03/09/19 at 14:44; Status DC Sevoflurane (Ultane) 60 ml STK-MED ONCE IH ; Start 03/08/19 at 15:05; Stop 03/08/19 at 15:06; Status DC Propofol 20 ml @ As Directed STK-MED ONCE IV ; Start 03/08/19 at 15:05; Stop 03/08/19 at 15:06; Status DC Phenylephrine HCl (PHENYLEPHRINE in 0.9% NACL PF) 1 mg STK-MED ONCE IV ; Start 03/08/19 at 15:05; Stop 03/08/19 at 15:06; Status DC Ketamine HCl (Ketamine) 50 mg STK-MED ONCE .ROUTE ; Start 03/08/19 at 15:06; Stop 03/08/19 at 15:06; Status DC Metoclopramide HCl (Reglan Vial) 10 mg STK-MED ONCE .ROUTE ; Start 03/08/19 at 15:08; Stop 03/08/19 at 15:09; Status DC Famotidine (Pepcid Vial) 20 mg STK-MED ONCE .ROUTE ; Start 03/08/19 at 15:09; Stop 03/08/19 at 15:09; Status DC Morphine Sulfate 5 mg/Ketorolac Tromethamine 30 mg/Ropivacaine 60 ml/Epinephrine HCl 0.5 mg/Sodium Chloride 100 ml @ 100 mls/hr 1X ONCE INT ART Last administered on 03/08/19at 16:08; Start 03/08/19 at 15:30; Stop 03/08/19 at 16:29; Status DC Dexamethasone Sodium Phosphate (Decadron) 4 mg STK-MED ONCE .ROUTE ; Start 03/08/19 at 15:42; Stop 03/08/19 at 15:42; Status DC Ondansetron HCl (Zofran) 4 mg STK-MED ONCE .ROUTE ; Start 03/08/19 at 15:42; Stop 03/08/19 at 15:42; Status DC Oxycodone HCl (Roxicodone) 5 mg PRN Q3HRS PRN PO PAIN Last administered on 03/10/19at 09:17; Start 03/08/19 at 17:30 Morphine Sulfate (Morphine Sulfate) 2 mg PRN Q1HR PRN IV PAIN; Start 03/08/19 at 17:30 Fentanyl Citrate (Fentanyl 2ml Vial) 25 mcg PRN Q1HR PRN IV PAIN; Start 03/08/19 at 17:30 Senna/Docusate Sodium (Senna Plus) 1 tab DAILY PO Last administered on 03/10/19at 09:12; Start 03/09/19 at 09:00 Polyethylene Glycol (miraLAX PACKET) 17 gm PRN DAILY PRN PO CONSTIPATION; Start 03/08/19 at 17:30 Sodium Chloride 1,000 ml @ 75 mls/hr [id number] IV Last administered on 03/10/19at 23:32; Start 03/08/19 at 17:28 Ondansetron HCl (Zofran) 4 mg PRN Q4HRS PRN IV NAUSEA/VOMITING; Start 03/08/19 at 17:30 Enoxaparin Sodium (Lovenox 40mg Syringe) 40 mg DAILY SQ Last administered on 03/10/19at 09:13; Start 03/09/19 at 09:00 Magnesium Hydroxide (Milk Of Magnesia) 2,400 mg 1X PRN PRN PO CONSTIPATION; Start 03/09/19 at 06:00; Stop 03/10/19 at 05:59; Status DC Bisacodyl (Dulcolax Supp) 10 mg 1X PRN PRN HI CONSTIPATION; Start 03/09/19 at 16:00; Stop 03/10/19 at 15:59; Status DC Morphine Sulfate (Morphine Sulfate) 4 mg PRN Q2HR PRN IV PAIN; Start 03/08/19 at 17:30 Dextrose (Dextrose 50%-Water Syringe) 12.5 gm PRN Q15MIN PRN IV SEE COMMENTS; Start 03/08/19 at 17:30 Dextrose 250 ml PRN Q15MIN PRN IV SEE COMMENTS; Start 03/08/19 at 17:30 Cefazolin Sodium/ Dextrose 50 ml @ 100 mls/hr Q6H IV Last administered on 03/09/19at 12:58; Start 03/08/19 at 21:00; Stop 03/09/19 at 09:29; Status DC Oxycodone/ Acetaminophen (Percocet 5/325) 1 tab PRN Q4HRS PRN PO MODERATE PAIN, 3RD CHOICE; Start 03/08/19 at 17:30 Aspirin (Ecotrin) 325 mg DAILY PO Last administered on 03/10/19at 09:12; Start 03/09/19 at 09:00 Oxycodone/ Acetaminophen (Percocet 5/325) 2 tab PRN Q4HRS PRN PO SEVERE PAIN, 3RD CHOICE Last administered on 03/10/19at 18:42; Start 03/08/19 at 17:45 Magnesium Sulfate 50 ml @ 25 mls/hr 1X ONCE IV Last administered on 03/09/19at 09:45; Start 03/09/19 at 08:45; Stop 03/09/19 at 10:44; Status DC Magnesium Sulfate 50 ml @ 25 mls/hr 1X ONCE IV Last administered on 03/10/19at 14:50; Start 03/10/19 at 13:00; Stop 03/10/19 at 14:59; Status DC Active Scripts Active Reported Spiriva (Tiotropium [place]) 18 Mcg Cap.w.dev 2 Inh IH DAILY Ipratropium [place] 0.2 Mg/1 Ml Solution 1 Vial NEB QID Ibuprofen 400 Mg Tablet 400 Mg PO PRN Q6HRS PRN Lisinopril 20 Mg Tablet 1 Tab PO DAILY Aspirin 81 Mg Tab.chew 1 Tab PO DAILY Coreg (Carvedilol) 25 Mg Tablet 25 Mg PO BID Lasix (Furosemide) 40 Mg Tablet 40 Mg PO DAILY Vitals/I & O Vital Sign - Last 24 Hours 03/10/19 03/10/19 03/10/19 03/10/19 08:00 09:12 09:17 10:17 Pulse 83 Resp 17 18 B/P (MAP) 117/53 Pulse Ox 98 O2 Delivery Nasal Cannula Nasal Cannula Nasal Cannula O2 Flow Rate 3.0 3.0 3.0 03/10/19 03/10/19 03/10/19 03/10/19 11:00 11:01 14:40 15:00 Temp 97.9 98.0 97.9 98.0 Pulse 83 88 Resp 16 18 16 B/P (MAP) 92/46 (61) 104/52 (69) Pulse Ox 97 98 100 O2 Delivery Nasal Cannula Nasal Cannula Nasal Cannula Room Air O2 Flow Rate 3.0 3.0 3.0 03/10/19 03/10/19 03/10/19 03/10/19 15:40 15:51 17:36 18:42 Pulse 88 Resp 16 16 B/P (MAP) 104/52 O2 Delivery Nasal Cannula Nasal Cannula Nasal Cannula O2 Flow Rate 3.0 3.0 3.0 03/10/19 03/10/19 03/10/19 03/10/19 19:04 20:00 20:00 20:08 Temp 97.9 97.9 Pulse 85 Resp 18 B/P (MAP) 110/53 (72) Pulse Ox 97 O2 Delivery Nasal Cannula Nasal Cannula Nasal Cannula Nasal Cannula O2 Flow Rate 3.0 3.0 3.0 03/10/19 03/11/19 23:31 04:00 Temp 98.2 97.6 98.2 97.6 Pulse 82 85 Resp 18 18 B/P (MAP) 115/81 (92) 137/61 (86) Pulse Ox 99 99 O2 Delivery Nasal Cannula Nasal Cannula O2 Flow Rate 3.0 3.0 Intake and Output 03/10/19 03/10/19 03/11/19 15:00 23:00 07:00 Intake Total 150 ml 240 ml Output Total 300 ml Balance 150 ml -60 ml Nutrition Consultation Dietary Evaluation: Comments: pt declines ensure and other supplements at this time pt ordering alternate foods from menu Expected Outcomes/Goals: to meet > 75% est nutr needs- met, goal ongoing Interpretation of weight loss: >5% in 1 month Malnutrition Findings: Food and Nutrition Intake (Sev: <50% est energy req 5days Weight Status: Underweight MIAH HERNANDEZ MD Mar 11, 2019 07:32
[2019-03-11] MEDS: IPRATROPIUM BROMIDE 0.5 MG/2.5 ML NEBU. NEB SCH ×2 (08:00→12:00)
[2019-03-11] MEDS: POTASSIUM & SODIUM PHOSPHATES PACKET. PO SCH (09:23)
[2019-03-11] MEDS: ASPIRIN ENTERIC COATED 325 MG TABLET.DR. PO SCH (09:24)
[2019-03-11] MEDS: SENNOSIDES/DOCUSATE 8.6/50MG TABLET. PO SCH (09:24)
[2019-03-11] MEDS: CHOLECALCIFEROL (VITAMIN D3) 5,000 UNIT CAPSULE PO SCH (09:24)
[2019-03-11] MEDS: POTASSIUM CHLORIDE 10 MEQ TABLET.ER. PO SCH (09:24)
[2019-03-11] MEDS: CARVEDILOL 12.5 MG TABLET. PO SCH (09:28)
[2019-03-11] MEDS: ENOXAPARIN 40 MG/0.4 ML SYRINGE. SQ SCH (09:29)
[2019-03-11] MEDS: oxyCODONE IR 5 MG TABLET PO PRN (09:30)
[2019-03-11] MEDS: IBUPROFEN 400 MG TABLET. PO PRN (09:30)
--- NOTE | 2019-03-11 09:56 | PDOC3 ---
Discharge Summary Date of Admission: Mar 03, 2019 Date of Discharge: Mar 11, 2019 Follow-Up: 1-2 days Admitting Diagnosis comment: discharge dx Chief Complaint ACUTE HYPOXIC RESP FAILURE NEw lung CA with mets to bone s/p left iliac biopsy Tobaccosim CHEST DISCOMFORT, pleuritic - likely from mass HYPERCALCEMIA - of malignancy Liver lesions Bone lytic lesions - Non-ischemic CARDIOMYOPATHY Acute on chronic systolic CHF - EF 25-50% from 2014 echo THC ABUSE Hypokalemia, corrected Hypomagnesemia, corrected Vitamin D deficiency Hypophosphatemia, corrected Leukocytosis Anemia Transaminitis Metabolic alkalosis GEn weakness, SNU candidate Left ventricle systolic function is moderately to severely impaired. The Ejection Fraction is 25-30%. ECHO 2014 CONSULT PALLIATIVE CARE// HOSPICE Consider post op RT to femur to preserve bone integrity., chose snf rehab in [place] and hospice 34 min pt exam, chart review d/c planning , > 50% of time spent with exam, chart review, pt care coordination History of Present Illness History of Present Illness no complaints, feels tired agreeable to SNU if needed came from home HE is aware of the new luis cancer dx and mets to bone - weighing options on comfort care vs chemo S.p left iliac bone biopsy Ca improved s/p pinning 03/08 of femur apprec ortho, pulm, onc, pallative care Operative Note 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 Procedure: * right hip prophylactic treatment (intramedullary nail) femoral neck and proximal femur CPT 08197 Surgeon: Dany Borrero MD Anesthesia Type: General EBL: 200 mL Specimens Obtained: none Complications: None Implant Company: [employer] Implants: Gamma 3 system Long Nail Kit R1.5 right 11 mm x 380 mm x 125� Gamma 3 system Lag Screw Titanium 10.5 mm x90 mm; locking screw fully threaded 5 mm x 47.5 mm, locking screw fully threaded 5 mm x 47.5 mm FINAL DIAGNOSIS Problems Medical Problems: (1) Acute respiratory failure with hypoxia Status: Acute (2) Anemia Status: Acute (3) Atelectasis of left lung Status: Acute (4) CHF (congestive heart failure) Status: Acute (5) Hypercalcemia Status: Acute (6) Hypokalemia Status: Acute (7) Hypomagnesemia Status: Acute (8) Lytic bone lesions on xray Status: Chronic (9) Mild tetrahydrocannabinol (THC) abuse Status: Acute (10) Tobacco abuse Status: Acute Brief Hospital Course Mr. Almanza is a 58 old [sex] who presented with [ ] CONDITION AT DISCHARGE: Comment (GUARDED, D/C TO SNF REHAB) Discharge Medications Current Medications Potassium Chloride/Water 100 ml @ 100 mls/hr Q1H IV Last administered on 03/03/19at 15:19; Start 03/03/19 at 13:30; Stop 03/03/19 at 15:29; Status DC Zoledronic Acid 100 ml @ 400 mls/hr 1X ONCE IV Last administered on 03/03/19at 16:04; Start 03/03/19 at 16:00; Stop 03/03/19 at 16:14; Status DC Sodium Chloride (Normal Saline Flush) 3 ml QSHIFT PRN IV AFTER MEDS AND BLOOD DRAWS Last administered on 03/07/19at 21:25; Start 03/03/19 at 15:30 Sodium Chloride 1,000 ml @ 100 mls/hr Q10H IV Last administered on 03/07/19at 08:06; Start 03/03/19 at 15:24; Stop 03/07/19 at 11:35; Status DC Ondansetron HCl (Zofran) 4 mg PRN Q4HRS PRN IV NAUSEA/VOMITING; Start 03/03/19 at 15:30; Stop 03/09/19 at 16:13; Status DC Acetaminophen (Tylenol) 650 mg PRN Q4HRS PRN PO TEMP OVER 100.4F OR MILD PAIN; Start 03/03/19 at 15:30 Clonidine HCl (Catapres) 0.1 mg PRN Q6HRS PRN PO SBP>160 OR DBP>90; Start 03/03/19 at 15:30 Docusate Sodium (Colace) 100 mg PRN BID PRN PO CONSTIPATION; Start 03/03/19 at 15:30 Albuterol Sulfate (Ventolin Neb Soln) 2.5 mg PRN Q4HRS PRN NEB SHORTNESS OF BREATH Last administered on 03/05/19at 12:43; Start 03/03/19 at 15:30 Guaifenesin (Robitussin) 200 mg PRN Q4HRS PRN PO COUGH; Start 03/03/19 at 15:30 Lorazepam (Ativan) 0.5 mg PRN Q4HRS PRN PO ANXIETY / AGITATION Last administered on 03/03/19at 21:32; Start 03/03/19 at 15:30 Enoxaparin Sodium (Lovenox 40mg Syringe) 40 mg QHS SQ Last administered on 03/06/19at 21:08; Start 03/03/19 at 21:00; Stop 03/08/19 at 17:39; Status DC Furosemide (Lasix) 40 mg DAILY PO ; Start 03/04/19 at 09:00; Stop 03/04/19 at 09:59; Status DC Lisinopril (Prinivil) 5 mg DAILY PO ; Start 03/04/19 at 09:00; Status Cancel Potassium Chloride (Klor-Con) 10 meq DAILY PO Last administered on 03/11/19at 09:24; Start 03/04/19 at 09:00 Aspirin (Marcell Aspirin) 325 mg DAILYWBKFT PO ; Start 03/04/19 at 08:00; Status Cancel Carvedilol (Coreg) 25 mg BIDWMEALS PO Last administered on 03/11/19at 09:28; Start 03/03/19 at 17:00 Lisinopril (Prinivil) 2.5 mg DAILYWLUN PO ; Start 03/04/19 at 12:00; Status Cancel Magnesium Sulfate 3 gm/Dextrose 106 ml @ 35.333 mls/ hr 1X ONCE IV Last administered on 03/03/19at 16:57; Start 03/03/19 at 17:00; Stop 03/03/19 at 19:59; Status DC Ketorolac Tromethamine (Toradol 30mg Vial) 30 mg 1X ONCE IV Last administered on 03/03/19at 16:57; Start 03/03/19 at 16:45; Stop 03/03/19 at 16:46; Status DC Aspirin (Children'S Aspirin) 81 mg DAILY PO Last administered on 03/07/19 08:06; Start 03/04/19 at 09:00; Stop 03/08/19 at 17:40; Status DC Ibuprofen (Motrin) 400 mg PRN Q6HRS PRN PO INFLAMMATION Last administered on 03/11/19 09:30; Start 03/03/19 at 21:15 Lisinopril (Prinivil) 20 mg DAILY PO Last administered on 03/04/19 08:40; Start 03/04/19 at 09:00; Stop 03/04/19 at 16:41; Status DC Ipratropium [place] (Atrovent) 0.5 mg RTQID NEB Last administered on 03/11/19 08:00; Start 03/03/19 at 21:30 Potassium Chloride/Water 100 ml @ 100 mls/hr Q1H IV Last administered on 03/04/19 15:23; Start 03/04/19 at 10:30; Stop 03/04/19 at 14:29; Status DC Furosemide (Lasix) 40 mg BID92 IVP Last administered on 03/07/19 08:06; Start 03/04/19 at 10:30; Stop 03/07/19 at 08:56; Status DC Ketorolac Tromethamine (Toradol 15mg Vial) 15 mg PRN Q6HRS PRN IV PAIN Last administered on 03/09/19 09:45; Start 03/04/19 at 12:00; Stop 03/09/19 at 11:59; Status DC Lidocaine/Sodium Bicarbonate (Buffered Lidocaine 1%) 3 ml STK-MED ONCE .ROUTE ; Start 03/04/19 at 14:33; Stop 03/04/19 at 14:33; Status DC Midazolam HCl (Versed) 2 mg STK-MED ONCE .ROUTE ; Start 03/04/19 at 14:38; Stop 03/04/19 at 14:39; Status DC Fentanyl Citrate (Fentanyl 2ml Vial) 100 mcg STK-MED ONCE .ROUTE ; Start 03/04/19 at 14:38; Stop 03/04/19 at 14:39; Status DC Lidocaine/Sodium Bicarbonate (Buffered Lidocaine 1%) 3 ml 1X ONCE IJ Last administered on 03/04/19at 15:11; Start 03/04/19 at 14:45; Stop 03/04/19 at 14:46; Status DC Midazolam HCl (Versed) 2 mg 1X ONCE IV Last administered on 03/04/19at 15:11; Start 03/04/19 at 14:45; Stop 03/04/19 at 14:46; Status DC Fentanyl Citrate (Fentanyl 2ml Vial) 100 mcg 1X ONCE IV Last administered on 03/04/19at 15:11; Start 03/04/19 at 14:45; Stop 03/04/19 at 14:46; Status DC Potassium Chloride (Klor-Con) 40 meq BIDWBKFT/LUIS ONCE PO Last administered on 03/05/19 08:43; Start 03/05/19 at 08:00; Stop 03/05/19 at 08:01; Status DC Magnesium Sulfate 50 ml @ 25 mls/hr 1X ONCE IV Last administered on 03/05/19 11:20; Start 03/05/19 at 09:30; Stop 03/05/19 at 11:29; Status DC Potassium Chloride/Water 100 ml @ 100 mls/hr Q1H IV Last administered on 03/05/19at 17:44; Start 03/05/19 at 10:00; Stop 03/05/19 at 13:59; Status DC Potassium Phos/ Sodium Phos (Phos-Nak) 1 pkt DAILY PO Last administered on 03/11/19 09:23; Start 03/05/19 at 09:30 Vitamin D (Vitamin D3) 5,000 unit DAILY PO Last administered on 03/11/19 09:24; Start 03/05/19 at 09:30 Potassium Phosphate 10 mmol/ Dextrose 103.3333 ml @ 51.667 m... Q2H IV Last administered on 03/06/19at 14:36; Start 03/06/19 at 08:00; Stop 03/06/19 at 11:59; Status DC Trazodone HCl (Desyrel) 50 mg PRN QHS PRN PO INSOMNIA, 1ST CHOICE Last administered on 03/06/19at 21:08; Start 03/06/19 at 11:00 Zolpidem Tartrate (Ambien) 5 mg PRN QHS PRN PO INSOMNIA, 2ND CHOICE; Start 03/06/19 at 11:00 Acetaminophen/ Hydrocodone Bitart (Lortab 5/325) 1 tab PRN Q4HRS PRN PO PAIN MODERATE TO SEVERE Last administered on 03/09/19at 09:45; Start 03/07/19 at 09:00 Sodium Phosphate 20 mmol/Dextrose 256.6667 ml @ 64.167 m... 1X ONCE IV Last administered on 03/07/19at 14:42; Start 03/07/19 at 13:00; Stop 03/07/19 at 16:59; Status DC Gadoterate Meglumine (Dotarem) 10 ml 1X ONCE IVP Last administered on 03/07/19at 15:58; Start 03/07/19 at 15:45; Stop 03/07/19 at 15:46; Status DC Cefazolin Sodium/ Dextrose 50 ml @ 100 mls/hr 1X PREOP PRN IV SEE COMMENTS Last administered on 03/08/19at 15:57; Start 03/08/19 at 11:30 Sodium Phosphate 20 mmol/Dextrose 256.6667 ml @ 64.167 m... 1X ONCE IV ; Start 03/08/19 at 14:00; Stop 03/08/19 at 17:59; Status DC Ondansetron HCl (Zofran) 4 mg PRN Q6HRS PRN IV NAUSEA/VOMITING; Start 03/08/19 at 14:45; Stop 03/09/19 at 14:44; Status DC Fentanyl Citrate (Fentanyl 2ml Vial) 25 mcg PRN Q5MIN PRN IV MILD PAIN 1-3; Start 03/08/19 at 14:45; Stop 03/09/19 at 14:44; Status DC Fentanyl Citrate (Fentanyl 2ml Vial) 50 mcg PRN Q5MIN PRN IV MODERATE TO SEVERE PAIN; Start 03/08/19 at 14:45; Stop 03/09/19 at 14:44; Status DC Morphine Sulfate (Morphine Sulfate) 1 mg PRN Q10MIN PRN IV SEVERE PAIN 7-10; Start 03/08/19 at 14:45; Stop 03/09/19 at 14:44; Status DC Ringer's Solution 1,000 ml @ 30 mls/hr Q24H IV Last administered on 03/08/19at 15:16; Start 03/08/19 at 14:41; Stop 03/09/19 at 02:40; Status DC Hydromorphone HCl (Dilaudid) 0.5 mg PRN Q10MIN PRN IV SEV PAIN, Second choice; Start 03/08/19 at 14:45; Stop 03/09/19 at 14:44; Status DC Prochlorperazine Edisylate (Compazine) 5 mg PACU PRN PRN IV NAUSEA, MRX1; Start 03/08/19 at 14:45; Stop 03/09/19 at 14:44; Status DC Sevoflurane (Ultane) 60 ml STK-MED ONCE IH ; Start 03/08/19 at 15:05; Stop 03/08/19 at 15:06; Status DC Propofol 20 ml @ As Directed STK-MED ONCE IV ; Start 03/08/19 at 15:05; Stop 03/08/19 at 15:06; Status DC Phenylephrine HCl (PHENYLEPHRINE in 0.9% NACL PF) 1 mg STK-MED ONCE IV ; Start 03/08/19 at 15:05; Stop 03/08/19 at 15:06; Status DC Ketamine HCl (Ketamine) 50 mg STK-MED ONCE .ROUTE ; Start 03/08/19 at 15:06; Stop 03/08/19 at 15:06; Status DC Metoclopramide HCl (Reglan Vial) 10 mg STK-MED ONCE .ROUTE ; Start 03/08/19 at 15:08; Stop 03/08/19 at 15:09; Status DC Famotidine (Pepcid Vial) 20 mg STK-MED ONCE .ROUTE ; Start 03/08/19 at 15:09; Stop 03/08/19 at 15:09; Status DC Morphine Sulfate 5 mg/Ketorolac Tromethamine 30 mg/Ropivacaine 60 ml/Epinephrine HCl 0.5 mg/Sodium Chloride 100 ml @ 100 mls/hr 1X ONCE INT ART Last administered on 03/08/19at 16:08; Start 03/08/19 at 15:30; Stop 03/08/19 at 16:29; Status DC Dexamethasone Sodium Phosphate (Decadron) 4 mg STK-MED ONCE .ROUTE ; Start 03/08/19 at 15:42; Stop 03/08/19 at 15:42; Status DC Ondansetron HCl (Zofran) 4 mg STK-MED ONCE .ROUTE ; Start 03/08/19 at 15:42; Stop 03/08/19 at 15:42; Status DC Oxycodone HCl (Roxicodone) 5 mg PRN Q3HRS PRN PO PAIN Last administered on 03/11/19at 09:30; Start 03/08/19 at 17:30 Morphine Sulfate (Morphine Sulfate) 2 mg PRN Q1HR PRN IV PAIN; Start 03/08/19 at 17:30 Fentanyl Citrate (Fentanyl 2ml Vial) 25 mcg PRN Q1HR PRN IV PAIN; Start 03/08/19 at 17:30 Senna/Docusate Sodium (Senna Plus) 1 tab DAILY PO Last administered on 03/11/19at 09:24; Start 03/09/19 at 09:00 Polyethylene Glycol (miraLAX PACKET) 17 gm PRN DAILY PRN PO CONSTIPATION; Start 03/08/19 at 17:30 Sodium Chloride 1,000 ml @ 75 mls/hr [id number] IV Last administered on 03/10/19at 23:32; Start 03/08/19 at 17:28 Ondansetron HCl (Zofran) 4 mg PRN Q4HRS PRN IV NAUSEA/VOMITING; Start 03/08/19 at 17:30 Enoxaparin Sodium (Lovenox 40mg Syringe) 40 mg DAILY SQ Last administered on 03/11/19at 09:29; Start 03/09/19 at 09:00 Magnesium Hydroxide (Milk Of Magnesia) 2,400 mg 1X PRN PRN PO CONSTIPATION; Start 03/09/19 at 06:00; Stop 03/10/19 at 05:59; Status DC Bisacodyl (Dulcolax Supp) 10 mg 1X PRN PRN [place] CONSTIPATION; Start 03/09/19 at 16:00; Stop 03/10/19 at 15:59; Status DC Morphine Sulfate (Morphine Sulfate) 4 mg PRN Q2HR PRN IV PAIN; Start 03/08/19 a t 17:30 Dextrose (Dextrose 50%-Water Syringe) 12.5 gm PRN Q15MIN PRN IV SEE COMMENTS; Start 03/08/19 at 17:30 Dextrose 250 ml PRN Q15MIN PRN IV SEE COMMENTS; Start 03/08/19 at 17:30 Cefazolin Sodium/ Dextrose 50 ml @ 100 mls/hr Q6H IV Last administered on 03/09/19at 12:58; Start 03/08/19 at 21:00; Stop 03/09/19 at 09:29; Status DC Oxycodone/ Acetaminophen (Percocet 5/325) 1 tab PRN Q4HRS PRN PO MODERATE PAIN, 3RD CHOICE; Start 03/08/19 at 17:30 Aspirin (Ecotrin) 325 mg DAILY PO Last administered on 03/11/19at 09:24; Start 03/09/19 at 09:00 Oxycodone/ Acetaminophen (Percocet 5/325) 2 tab PRN Q4HRS PRN PO SEVERE PAIN, 3RD CHOICE Last administered on 03/10/19at 18:42; Start 03/08/19 at 17:45 Magnesium Sulfate 50 ml @ 25 mls/hr 1X ONCE IV Last administered on 03/09/19at 09:45; Start 03/09/19 at 08:45; Stop 03/09/19 at 10:44; Status DC Magnesium Sulfate 50 ml @ 25 mls/hr 1X ONCE IV Last administered on 03/10/19at 14:50; Start 03/10/19 at 13:00; Stop 03/10/19 at 14:59; Status DC Active Scripts Active Reported Spiriva (Tiotropium [place]) 18 Mcg Cap.w.dev 2 Inh IH DAILY Ipratropium [place] 0.2 Mg/1 Ml Solution 1 Vial NEB QID Ibuprofen 400 Mg Tablet 400 Mg PO PRN Q6HRS PRN Lisinopril 20 Mg Tablet 1 Tab PO DAILY Aspirin 81 Mg Tab.chew 1 Tab PO DAILY Coreg (Carvedilol) 25 Mg Tablet 25 Mg PO BID Lasix (Furosemide) 40 Mg Tablet 40 Mg PO DAILY Vital Signs Vital Signs Date Time Temp Pulse Resp B/P (MAP) Pulse Ox O2 Delivery O2 Flow Rate FiO2 03/11/19 09:30 97 Nasal Cannula 3.0 03/11/19 09:28 88 142/62 03/11/19 07:00 98.0 18 98.0 Labs Laboratory Tests Test 03/11/19 04:10 Sodium Level 145 mmol/L (136-145) Potassium Level 4.0 mmol/L (3.5-5.1) Chloride Level 102 mmol/L (98-107) Carbon Dioxide Level 41 mmol/L (21-32) Anion Gap 2 (6-14) Blood Urea Nitrogen 8 mg/dL (8-26) Creatinine 0.7 mg/dL (0.7-1.3) Estimated GFR (Cockcroft-Gault) 115.0 Glucose Level 89 mg/dL (70-99) Calcium Level 7.7 mg/dL (8.5-10.1) Magnesium Level 2.1 mg/dL (1.8-2.4) Laboratory Tests Test 03/11/19 04:10 Sodium Level 145 mmol/L (136-145) Potassium Level 4.0 mmol/L (3.5-5.1) Chloride Level 102 mmol/L (98-107) Carbon Dioxide Level 41 mmol/L (21-32) Anion Gap 2 (6-14) Blood Urea Nitrogen 8 mg/dL (8-26) Creatinine 0.7 mg/dL (0.7-1.3) Estimated GFR (Cockcroft-Gault) 115.0 Glucose Level 89 mg/dL (70-99) Calcium Level 7.7 mg/dL (8.5-10.1) Magnesium Level 2.1 mg/dL (1.8-2.4) Allergies Allergies Coded Allergies Type Severity Reaction Last Updated Verified No Known Drug Allergies 08/12/13 No Disposition/Orders: Other MIAH HERNANDEZ MD Mar 11, 2019 09:56
[2019-03-11] MEDS ORDERED: POTA10TA12 PO (10:05)
[2019-03-11] MEDS ORDERED: OXYC1TAB15 PO (10:05)
[2019-03-11] MEDS ORDERED: TRAZ-118 PO (10:05)
[2019-03-11] MEDS ORDERED: ACET325T9 PO (10:05)
[2019-03-11] MEDS ORDERED: POLY17PO28 PO (10:05)
[2019-03-11] MEDS ORDERED: ENOX40DI3 SQ (10:05)
[2019-03-11] MEDS ORDERED: DOCU-109 PO (10:05)
[2019-03-11] MEDS ORDERED: CHOL5000 PO (10:05)
[2019-03-11] MEDS ORDERED: ALBU2.5V8 NEB (10:05)
[2019-03-11] MEDS ORDERED: HYDR-2761 PO (10:05)
[2019-03-11] MEDS ORDERED: LORA0.5T PO (10:05)
[2019-03-11] MEDS ORDERED: SENN-22 PO (10:05)
--- NOTE | 2019-03-11 10:41 | SNU/HH DC ---
DISCHARGE ORDERS DISCHARGE INFORMATION: FINAL DIAGNOSIS Problems Medical Problems: (1) Acute respiratory failure with hypoxia Status: Acute (2) Anemia Status: Acute (3) Atelectasis of left lung Status: Acute (4) CHF (congestive heart failure) Status: Acute (5) Hypercalcemia Status: Acute (6) Hypokalemia Status: Acute (7) Hypomagnesemia Status: Acute (8) Lytic bone lesions on xray Status: Chronic (9) Mild tetrahydrocannabinol (THC) abuse Status: Acute (10) Tobacco abuse Status: Acute CONDITION ON DISCHARGE: Guarded CODE STATUS: Code Status: DNR/DNI [facility]: SNF STAY <30 DAYS: Yes HOSPICE: HOSPICE: No HOSPICE EVAL & TREAT: No LTAC: ADMIT TO LTAC: No POST DISCHARGE ORDERS: ACTIVITY ORDERS: Activity as tolerated WEIGHT BEARING STATUS: As tolerated DIET AFTER DISCHARGE: Regular CHECKS AFTER DISCHARGE: CHECKS AFTER DISCHARGE: Check blood press - daily COMMENTS: pelvis TREATMENT/EQUIPMENT ORDERS: ADAPTIVE EQUIPMENT NEEDED: Front wheeled walker RESPIRATORY EQUIPMENT NEEDED: Oxygen Physical Therapy For: Evalulation/Treatment Occupational Therapy For: Evaluation/Treatment Speech Language Pathology For: Evaluation/Treatment DISCHARGE MEDICATIONS: Home Meds Active Scripts Sennosides/Docusate Sodium (SENNA-TIME S TABLET) 1 Each Tablet, 1 TAB PO DAILY for PREVENT CONSTIPATION for 10 Days, #10 TAB Prov:MIAH HERNANDEZ MD 03/11/19 Cholecalciferol (Vitamin D3) (VITAMIN D3) 5,000 Unit Capsule, 5000 UNIT PO DAILY for BONE HEALTH for 30 Days, #30 CAP Prov:MIAH HERNANDEZ MD 03/11/19 Polyethylene Glycol 3350 (POLYETHYLENE GLYCOL 3350) 17 Gm Powd.pack, 17 GM PO PRN DAILY PRN for CONSTIPATION for 30 Days, #30 PKT Prov:MIAH HERNANDEZ MD 03/11/19 Docusate Sodium (COLACE) 100 Mg Capsule, 100 MG PO PRN BID PRN for CONSTIPATION for 30 Days, #60 CAP Prov:MIAH HERNANDEZ MD 03/11/19 Potassium Chloride (KLOR-CON 10) 10 Meq Tablet.er, 10 MEQ PO DAILY for SUPPLEMENT for 10 Days, #10 TAB.SR Prov:MIAH HERNANDEZ MD 03/11/19 Lorazepam (LORAZEPAM) 0.5 Mg Tablet, 0.5 MG PO PRN Q4HRS PRN for ANXIETY / AGITATION for 14 Days, #60 TAB Prov:MIAH HERNANDEZ MD 03/11/19 Trazodone Hcl (TRAZODONE HCL) 50 Mg Tablet, 50 MG PO PRN QHS PRN for INSOMNIA, 1ST CHOICE for 30 Days, #30 TAB Prov:MIAH HERNANDEZ MD 03/11/19 Acetaminophen (TYLENOL) 325 Mg Tablet, 650 MG PO PRN Q4HRS PRN for TEMP OVER 100.4F OR MILD PAIN for 14 Days, #30 TAB Prov:MIAH HERNANDEZ MD 03/11/19 Oxycodone/Apap 5-325 (PERCOCET 5-325 MG TABLET ) 1 Each Tablet, 1 TAB PO PRN Q4HRS PRN for MODERATE PAIN, 3RD CHOICE for 14 Days, #20 TAB Prov:MIAH HERNANDEZ MD 03/11/19 Hydrocodone Bit/Acetaminophen (HYDROCODONE-APAP 5-325 ) 1 Tab Tablet, 1 TAB P O PRN Q4HRS PRN for PAIN MODERATE TO SEVERE for 30 Days, #60 TAB Prov:MIAH HERNANDEZ MD 03/11/19 Enoxaparin Sodium (ENOXAPARIN SODIUM) 40 Mg/0.4 Ml Disp.syrin, 40 MG SQ DAILY for DVT PREVENTION for 30 Days, #30 DIS.SYR Prov:MIAH HERNANDEZ MD 03/11/19 Albuterol Sulfate (Proair Hfa) 8.5 Gm Hfa.aer.ad, 2.5 MG NEB PRN Q4HRS PRN for SHORTNESS OF BREATH for 30 Days, #1 INHALER Prov:MIAH HERNANDEZ MD 03/11/19 Reported Medications Ipratropium [place] (IPRATROPIUM BROMIDE) 0.2 Mg/1 Ml Solution, 1 VIAL NEB QID for breathing, #300 ML 5 Refills 03/03/19 Ibuprofen (IBUPROFEN) 400 Mg Tablet, 400 MG PO PRN Q6HRS PRN for INFLAMMATION, TAB 03/03/19 Aspirin (ASPIRIN) 81 Mg Tab.chew, 1 TAB PO DAILY for blood thinner, #30 TAB 3 Refills 03/03/19 Carvedilol (COREG) 25 Mg Tablet, 25 MG PO BID 08/13/13 Discontinued Reported Medications Tiotropium [place] (SPIRIVA) 18 Mcg Cap.w.dev, 2 INH IH DAILY for COPD, #1 INH 0 Refills 03/04/19 Lisinopril (LISINOPRIL) 20 Mg Tablet, 1 TAB PO DAILY for htn, #30 TAB 5 Refills 03/03/19 Furosemide (LASIX) 40 Mg Tablet, 40 MG PO DAILY 08/13/13 MIAH HERNANDEZ MD Mar 11, 2019 10:41
[2019-03-11 11:00] VITALS: BP 109/53
--- NOTE | 2019-03-11 11:37 | PDOC ---
PULMONARY PROGRESS NOTES Subjective 58 y.o. male with long past smoking hx, presented with hypoxia, left hilar mass, TITA atelectasis, lytic bone lesions, liver lesions and hypercalcemia. Vitals Vital Signs Date Time Temp Pulse Resp B/P (MAP) Pulse Ox O2 Delivery O2 Flow Rate FiO2 03/11/19 09:30 97 Nasal Cannula 3.0 03/11/19 09:28 88 142/62 03/11/19 07:00 98.0 18 98.0 General: Alert, No acute distress Lungs: Other (diminished breath sounds bilaterally) Cardiovascular: S1, S2 Abdomen: Soft, Non-tender Neuro Exam: Alert, Oriented, No Focal Findings Extremities: No Edema Labs Laboratory Tests Test 03/11/19 04:10 Sodium Level 145 mmol/L (136-145) Potassium Level 4.0 mmol/L (3.5-5.1) Chloride Level 102 mmol/L (98-107) Carbon Dioxide Level 41 mmol/L (21-32) Anion Gap 2 (6-14) Blood Urea Nitrogen 8 mg/dL (8-26) Creatinine 0.7 mg/dL (0.7-1.3) Estimated GFR (Cockcroft-Gault) 115.0 Glucose Level 89 mg/dL (70-99) Calcium Level 7.7 mg/dL (8.5-10.1) Magnesium Level 2.1 mg/dL (1.8-2.4) Laboratory Tests Test 03/11/19 04:10 Sodium Level 145 mmol/L (136-145) Potassium Level 4.0 mmol/L (3.5-5.1) Chloride Level 102 mmol/L (98-107) Carbon Dioxide Level 41 mmol/L (21-32) Anion Gap 2 (6-14) Blood Urea Nitrogen 8 mg/dL (8-26) Creatinine 0.7 mg/dL (0.7-1.3) Estimated GFR (Cockcroft-Gault) 115.0 Glucose Level 89 mg/dL (70-99) Calcium Level 7.7 mg/dL (8.5-10.1) Magnesium Level 2.1 mg/dL (1.8-2.4) Medications Active Scripts Medications Dose Route/Sig Max Daily Dose Days Date Category Spiriva (Tiotropium [place]) 18 Mcg Cap.w.dev 2 Inh IH DAILY 03/04/19 Reported Ipratropium [place] 0.2 Mg/1 Ml Solution 1 Vial NEB QID 03/03/19 Reported Ibuprofen 400 Mg Tablet 400 Mg PO PRN Q6HRS PRN 03/03/19 Reported Lisinopril 20 Mg Tablet 1 Tab PO DAILY 03/03/19 Reported Aspirin 81 Mg Tab.chew 1 Tab PO DAILY 03/03/19 Reported Coreg (Carvedilol) 25 Mg Tablet 25 Mg PO BID 08/13/13 Reported Lasix (Furosemide) 40 Mg Tablet 40 Mg PO DAILY 08/13/13 Reported Impression . 1. hypoxic respiratory failure, STABLE 2. metastatic lung cancer, left hilar mass, TITA atelectasis, lytic bone lesions, liver lesions and hypercalcemia. BX c/w Squamous cell lung cancer 3. COPD 4. hypercalcemia of malignancy Plan . 1. squamous cell lung cancer/ metastatic 2. oxygen 3. nebulized bronchodilators 4. S/P hip pinning by Ortho 5. XRT/ Medical Onc rec 6. Poor prognosis supportive care/ not much to add pulmonary nair ok with dc to skill MAICO COOK MD Mar 11, 2019 11:37
--- NOTE | 2019-03-11 11:42 | PDOC ---
Renal-Progress Notes Subjective Notes Notes NO NEW COMPLAINTS History of Present Illness Hx of present illness NO CHANGES Vitals Vitals Vital Signs Date Time Temp Pulse Resp B/P (MAP) Pulse Ox O2 Delivery O2 Flow Rate FiO2 03/11/19 09:30 97 Nasal Cannula 3.0 03/11/19 09:28 88 142/62 03/11/19 07:00 98.0 18 98.0 Weight Weight [ ] I.O. Intake and Output Intake and Output 03/11/19 06:59 Intake Total 390 ml Output Total 300 ml Balance 90 ml Intake Oral 390 ml Output Urine Total 300 ml # Voids 2 Labs Labs Laboratory Tests Test 03/11/19 04:10 Sodium Level 145 mmol/L (136-145) Potassium Level 4.0 mmol/L (3.5-5.1) Chloride Level 102 mmol/L (98-107) Carbon Dioxide Level 41 mmol/L (21-32) Anion Gap 2 (6-14) Blood Urea Nitrogen 8 mg/dL (8-26) Creatinine 0.7 mg/dL (0.7-1.3) Estimated GFR (Cockcroft-Gault) 115.0 Glucose Level 89 mg/dL (70-99) Calcium Level 7.7 mg/dL (8.5-10.1) Magnesium Level 2.1 mg/dL (1.8-2.4) Review of Systems Constitutional: yes: weakness, oriented Ears/Nose/Throat: Yes: no symptom reported Eyes: Yes: no symptom reported Pulmonary: Yes dyspnea Cardiovascular: Yes no symptom reported Gastrointestional: Yes: no symptom reported Genitourinary: Yes: no symptom reported Musculoskeletal: Yes: muscle pain, muscle stiffness Skin: Yes no symptom reported Psychiatric/Neurological: Yes: no symptom reported Physical Exam General Appearance: no apparent distress Skin: warm Heart: S1S2 Abdomen: soft, bowel sounds present Genitourinary: bladder flat Extremities: pulses present Neurology: alert, oriented Assessment Assessment IMP HYPERCALCEMIA-RESOLVED HYPERNATREMIA-RESOLVED. HYPOPHOSPHATEMIA-RESOLVED LOW MAG-CORRECTED MET LUNG CANCER HYPOXIC RESP FAILURE COPD PLAN LYTES AND ACID BASE BALANCE STABLE WILL SIGN OFF PLEASE CALL IF NEEDED DEVIN SELBY MD Mar 11, 2019 11:42
[2019-03-11] MEDS: IV 1/2 NORMAL SALINE 1,000 ML IV SCH (12:08)
--- NOTE | 2019-03-11 12:19 | PDOC ---
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 ROS - no CP Objective Objective Vital Signs Date Time Temp Pulse Resp B/P (MAP) Pulse Ox O2 Delivery O2 Flow Rate FiO2 03/11/19 11:00 98.3 87 16 109/53 (71) 99 Nasal Cannula 3.0 98.3 Intake and Output 03/11/19 06:59 Intake Total 390 ml Output Total 300 ml Balance 90 ml Intake Oral 390 ml Output Urine Total 300 ml # Voids 2 Physical Exam Heart: Normal S1, Normal S2 General: Alert, Oriented X3 Lungs: Clear to auscultation Neuro: Normal speech Psych/Mental Status: Mental status NL Assessment Assessment Problems Medical Problems: (1) Acute respiratory failure with hypoxia Status: Acute (2) Anemia Status: Acute (3) Atelectasis of left lung Status: Acute (4) CHF (congestive heart failure) Status: Acute (5) Hypercalcemia Status: Acute (6) Hypokalemia Status: Acute (7) Hypomagnesemia Status: Acute (8) Lytic bone lesions on xray Status: Chronic (9) Mild tetrahydrocannabinol (THC) abuse Status: Acute (10) Tobacco abuse Status: Acute IMPRESSION AND PLAN: 1. Stage IV NSCLC/Sq cell ca - Left lower lobe lung mass along with left hilar mass and numerous hepatic metastatic disease and numerous lytic lesions are all suggestive of a primary lung cancer stage 4. s/p CT-guided biopsy of the lytic lesion left ilium 03/04/19. I discussed in detail with the patient that he has stage 4 lung cancer and treatments are only palliative and not curative. I discussed the option of chemotherapy with immunotherapy vs hospice. He wants to think about it. I will order PD-L1 and BRAF biomarkers. MRI brain 03/07/19 - no mets Consulted palliative care. I d/w Pat. Pt wants to f/u with me in 1-2 weeks to discuss treatment options. 2. 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 The patient received Zometa 4 mg on 03/03/2019. Continue to monitor calcium levels. Consulted Nephrology. Ca now 7.7. 3. Chronic obstructive pulmonary disease. He is on oxygen. 4. Nonischemic cardiomyopathy. 5. Anemia. I will check iron studies and B12 levels. I suspect anemia is due to malignancy. 6. Liver metastasis. Continue to monitor. 7. Bone metastasis. I agree to consult Orthopedics because of a potential impending fracture in the femur. Plan radiation therapy after confirmation of diagnosis and also Xgeva as outpatient. Appreciate ortho consult: Proximal R femoral lesion likely metastatic disease. Will benefit from prophylactic surgical stabilization, most likely IM hip nail, but X-rays ordered for surgical planning. s/p surgery 03/08/19: right hip prophylactic treatment (intramedullary nail) femoral neck and proximal femur. Bone scan: 03/07/19: Uptake of radiotracer involving the upper thoracic spine corresponding to metastatic bony lesions noted on recently performed CT exam. Uptake involving the left seventh rib also is present corresponding to a destructive lytic rib lesion Comment Review of Relevant I have reviewed the following items jose (where applicable) has been applied. Labs Laboratory Tests Test 03/11/19 04:10 Sodium Level 145 mmol/L (136-145) Potassium Level 4.0 mmol/L (3.5-5.1) Chloride Level 102 mmol/L (98-107) Carbon Dioxide Level 41 mmol/L (21-32) Anion Gap 2 (6-14) Blood Urea Nitrogen 8 mg/dL (8-26) Creatinine 0.7 mg/dL (0.7-1.3) Estimated GFR (Cockcroft-Gault) 115.0 Glucose Level 89 mg/dL (70-99) Calcium Level 7.7 mg/dL (8.5-10.1) Magnesium Level 2.1 mg/dL (1.8-2.4) Laboratory Tests Test 03/11/19 04:10 Sodium Level 145 mmol/L (136-145) Potassium Level 4.0 mmol/L (3.5-5.1) Chloride Level 102 mmol/L (98-107) Carbon Dioxide Level 41 mmol/L (21-32) Anion Gap 2 (6-14) Blood Urea Nitrogen 8 mg/dL (8-26) Creatinine 0.7 mg/dL (0.7-1.3) Estimated GFR (Cockcroft-Gault) 115.0 Glucose Level 89 mg/dL (70-99) Calcium Level 7.7 mg/dL (8.5-10.1) Magnesium Level 2.1 mg/dL (1.8-2.4) Medications Current Medications Potassium Chloride/Water 100 ml @ 100 mls/hr Q1H IV Last administered on 03/03/19at 15:19; Start 03/03/19 at 13:30; Stop 03/03/19 at 15:29; Status DC Zoledronic Acid 100 ml @ 400 mls/hr 1X ONCE IV Last administered on 03/03/19 16:04; Start 03/03/19 at 16:00; Stop 03/03/19 at 16:14; Status DC Sodium Chloride (Normal Saline Flush) 3 ml QSHIFT PRN IV AFTER MEDS AND BLOOD DRAWS Last administered on 03/07/19 21:25; Start 03/03/19 at 15:30 Sodium Chloride 1,000 ml @ 100 mls/hr Q10H IV Last administered on 03/07/19 08:06; Start 03/03/19 at 15:24; Stop 03/07/19 at 11:35; Status DC Ondansetron HCl (Zofran) 4 mg PRN Q4HRS PRN IV NAUSEA/VOMITING; Start 03/03/19 at 15:30; Stop 03/09/19 at 16:13; Status DC Acetaminophen (Tylenol) 650 mg PRN Q4HRS PRN PO TEMP OVER 100.4F OR MILD PAIN; Start 03/03/19 at 15:30 Clonidine HCl (Catapres) 0.1 mg PRN Q6HRS PRN PO SBP>160 OR DBP>90; Start 03/03/19 at 15:30 Docusate Sodium (Colace) 100 mg PRN BID PRN PO CONSTIPATION; Start 03/03/19 at 15:30 Albuterol Sulfate (Ventolin Neb Soln) 2.5 mg PRN Q4HRS PRN NEB SHORTNESS OF BREATH Last administered on 03/05/19at 12:43; Start 03/03/19 at 15:30 Guaifenesin (Robitussin) 200 mg PRN Q4HRS PRN PO COUGH; Start 03/03/19 at 15:30 Lorazepam (Ativan) 0.5 mg PRN Q4HRS PRN PO ANXIETY / AGITATION Last administered on 03/03/19at 21:32; Start 03/03/19 at 15:30 Enoxaparin Sodium (Lovenox 40mg Syringe) 40 mg QHS SQ Last administered on 03/06/19 21:08; Start 03/03/19 at 21:00; Stop 03/08/19 at 17:39; Status DC Furosemide (Lasix) 40 mg DAILY PO ; Start 03/04/19 at 09:00; Stop 03/04/19 at 09:59; Status DC Lisinopril (Prinivil) 5 mg DAILY PO ; Start 03/04/19 at 09:00; Status Cancel Potassium Chloride (Klor-Con) 10 meq DAILY PO Last administered on 03/11/19at 09:24; Start 03/04/19 at 09:00 Aspirin (Marcell Aspirin) 325 mg DAILYWBKFT PO ; Start 03/04/19 at 08:00; Status Cancel Carvedilol (Coreg) 25 mg BIDWMEALS PO Last administered on 03/11/19at 09:28; Start 03/03/19 at 17:00 Lisinopril (Prinivil) 2.5 mg DAILYWLUN PO ; Start 03/04/19 at 12:00; Status Cancel Magnesium Sulfate 3 gm/Dextrose 106 ml @ 35.333 mls/ hr 1X ONCE IV Last administered on 03/03/19at 16:57; Start 03/03/19 at 17:00; Stop 03/03/19 at 19:59; Status DC Ketorolac Tromethamine (Toradol 30mg Vial) 30 mg 1X ONCE IV Last administered on 03/03/19at 16:57; Start 03/03/19 at 16:45; Stop 03/03/19 at 16:46; Status DC Aspirin (Children'S Aspirin) 81 mg DAILY PO Last administered on 03/07/19 08:06; Start 03/04/19 at 09:00; Stop 03/08/19 at 17:40; Status DC Ibuprofen (Motrin) 400 mg PRN Q6HRS PRN PO INFLAMMATION Last administered on 03/11/19 09:30; Start 03/03/19 at 21:15 Lisinopril (Prinivil) 20 mg DAILY PO Last administered on 03/04/19at 08:40; Start 03/04/19 at 09:00; Stop 03/04/19 at 16:41; Status DC Ipratropium [place] (Atrovent) 0.5 mg RTQID NEB Last administered on 03/11/19at 08:00; Start 03/03/19 at 21:30 Potassium Chloride/Water 100 ml @ 100 mls/hr Q1H IV Last administered on 03/04/19at 15:23; Start 03/04/19 at 10:30; Stop 03/04/19 at 14:29; Status DC Furosemide (Lasix) 40 mg [id number] IVP Last administered on 03/07/19at 08:06; Start 03/04/19 at 10:30; Stop 03/07/19 at 08:56; Status DC Ketorolac Tromethamine (Toradol 15mg Vial) 15 mg PRN Q6HRS PRN IV PAIN Last administered on 03/09/19at 09:45; Start 03/04/19 at 12:00; Stop 03/09/19 at 11:59; Status DC Lidocaine/Sodium Bicarbonate (Buffered Lidocaine 1%) 3 ml STK-MED ONCE .ROUTE ; Start 03/04/19 at 14:33; Stop 03/04/19 at 14:33; Status DC Midazolam HCl (Versed) 2 mg STK-MED ONCE .ROUTE ; Start 03/04/19 at 14:38; Stop 03/04/19 at 14:39; Status DC Fentanyl Citrate (Fentanyl 2ml Vial) 100 mcg STK-MED ONCE .ROUTE ; Start 03/04/19 at 14:38; Stop 03/04/19 at 14:39; Status DC Lidocaine/Sodium Bicarbonate (Buffered Lidocaine 1%) 3 ml 1X ONCE IJ Last administered on 03/04/19at 15:11; Start 03/04/19 at 14:45; Stop 03/04/19 at 14:46; Status DC Midazolam HCl (Versed) 2 mg 1X ONCE IV Last administered on 03/04/19at 15:11; Start 03/04/19 at 14:45; Stop 03/04/19 at 14:46; Status DC Fentanyl Citrate (Fentanyl 2ml Vial) 100 mcg 1X ONCE IV Last administered on 03/04/19at 15:11; Start 03/04/19 at 14:45; Stop 03/04/19 at 14:46; Status DC Potassium Chloride (Klor-Con) 40 meq BIDWBKFT/SARAHI ONCE PO Last administered on 03/05/19at 08:43; Start 03/05/19 at 08:00; Stop 03/05/19 at 08:01; Status DC Magnesium Sulfate 50 ml @ 25 mls/hr 1X ONCE IV Last administered on 03/05/19 11:20; Start 03/05/19 at 09:30; Stop 03/05/19 at 11:29; Status DC Potassium Chloride/Water 100 ml @ 100 mls/hr Q1H IV Last administered on 03/05/19at 17:44; Start 03/05/19 at 10:00; Stop 03/05/19 at 13:59; Status DC Potassium Phos/ Sodium Phos (Phos-Nak) 1 pkt DAILY PO Last administered on 03/11/19 09:23; Start 03/05/19 at 09:30 Vitamin D (Vitamin D3) 5,000 unit DAILY PO Last administered on 03/11/19 09:24; Start 03/05/19 at 09:30 Potassium Phosphate 10 mmol/ Dextrose 103.3333 ml @ 51.667 m... Q2H IV Last administered on 03/06/19at 14:36; Start 03/06/19 at 08:00; Stop 03/06/19 at 11:59; Status DC Trazodone HCl (Desyrel) 50 mg PRN QHS PRN PO INSOMNIA, 1ST CHOICE Last administered on 03/06/19at 21:08; Start 03/06/19 at 11:00 Zolpidem Tartrate (Ambien) 5 mg PRN QHS PRN PO INSOMNIA, 2ND CHOICE; Start 03/06/19 at 11:00 Acetaminophen/ Hydrocodone Bitart (Lortab 5/325) 1 tab PRN Q4HRS PRN PO PAIN MODERATE TO SEVERE Last administered on 03/09/19 09:45; Start 03/07/19 at 09:00 Sodium Phosphate 20 mmol/Dextrose 256.6667 ml @ 64.167 m... 1X ONCE IV Last administered on 03/07/19at 14:42; Start 03/07/19 at 13:00; Stop 03/07/19 at 16:59; Status DC Gadoterate Meglumine (Dotarem) 10 ml 1X ONCE IVP Last administered on 03/07/19at 15:58; Start 03/07/19 at 15:45; Stop 03/07/19 at 15:46; Status DC Cefazolin Sodium/ Dextrose 50 ml @ 100 mls/hr 1X PREOP PRN IV SEE COMMENTS Last administered on 9/24/19at 15:57; Start 03/08/19 at 11:30; Stop 03/11/19 at 11:10; Status DC Sodium Phosphate 20 mmol/Dextrose 256.6667 ml @ 64.167 m... 1X ONCE IV ; Start 03/08/19 at 14:00; Stop 03/08/19 at 17:59; Status DC Ondansetron HCl (Zofran) 4 mg PRN Q6HRS PRN IV NAUSEA/VOMITING; Start 03/08/19 at 14:45; Stop 03/09/19 at 14:44; Status DC Fentanyl Citrate (Fentanyl 2ml Vial) 25 mcg PRN Q5MIN PRN IV MILD PAIN 1-3; Start 03/08/19 at 14:45; Stop 03/09/19 at 14:44; Status DC Fentanyl Citrate (Fentanyl 2ml Vial) 50 mcg PRN Q5MIN PRN IV MODERATE TO SEVERE PAIN; Start 03/08/19 at 14:45; Stop 03/09/19 at 14:44; Status DC Morphine Sulfate (Morphine Sulfate) 1 mg PRN Q10MIN PRN IV SEVERE PAIN 7-10; Start 03/08/19 at 14:45; Stop 03/09/19 at 14:44; Status DC Ringer's Solution 1,000 ml @ 30 mls/hr Q24H IV Last administered on 03/08/19at 15:16; Start 03/08/19 at 14:41; Stop 03/09/19 at 02:40; Status DC Hydromorphone HCl (Dilaudid) 0.5 mg PRN Q10MIN PRN IV SEV PAIN, Second choice; Start 03/08/19 at 14:45; Stop 03/09/19 at 14:44; Status DC Prochlorperazine Edisylate (Compazine) 5 mg PACU PRN PRN IV NAUSEA, MRX1; St art 03/08/19 at 14:45; Stop 03/09/19 at 14:44; Status DC Sevoflurane (Ultane) 60 ml STK-MED ONCE IH ; Start 03/08/19 at 15:05; Stop 03/08/19 at 15:06; Status DC Propofol 20 ml @ As Directed STK-MED ONCE IV ; Start 03/08/19 at 15:05; Stop 03/08/19 at 15:06; Status DC Phenylephrine HCl (PHENYLEPHRINE in 0.9% NACL PF) 1 mg STK-MED ONCE IV ; Start 03/08/19 at 15:05; Stop 03/08/19 at 15:06; Status DC Ketamine HCl (Ketamine) 50 mg STK-MED ONCE .ROUTE ; Start 03/08/19 at 15:06; Stop 03/08/19 at 15:06; Status DC Metoclopramide HCl (Reglan Vial) 10 mg STK-MED ONCE .ROUTE ; Start 03/08/19 at 15:08; Stop 03/08/19 at 15:09; Status DC Famotidine (Pepcid Vial) 20 mg STK-MED ONCE .ROUTE ; Start 03/08/19 at 15:09; Stop 03/08/19 at 15:09; Status DC Morphine Sulfate 5 mg/Ketorolac Tromethamine 30 mg/Ropivacaine 60 ml/Epinephrine HCl 0.5 mg/Sodium Chloride 100 ml @ 100 mls/hr 1X ONCE INT ART Last administered on 03/08/19at 16:08; Start 03/08/19 at 15:30; Stop 03/08/19 at 16:29; Status DC Dexamethasone Sodium Phosphate (Decadron) 4 mg STK-MED ONCE .ROUTE ; Start 03/08/19 at 15:42; Stop 03/08/19 at 15:42; Status DC Ondansetron HCl (Zofran) 4 mg STK-MED ONCE .ROUTE ; Start 03/08/19 at 15:42; Stop 03/08/19 at 15:42; Status DC Oxycodone HCl (Roxicodone) 5 mg PRN Q3HRS PRN PO PAIN Last administered on 03/11/19at 09:30; Start 03/08/19 at 17:30 Morphine Sulfate (Morphine Sulfate) 2 mg PRN Q1HR PRN IV PAIN; Start 03/08/19 at 17:30 Fentanyl Citrate (Fentanyl 2ml Vial) 25 mcg PRN Q1HR PRN IV PAIN; Start 03/08/19 at 17:30 Senna/Docusate Sodium (Senna Plus) 1 tab DAILY PO Last administered on 03/11/19at 09:24; Start 03/09/19 at 09:00 Polyethylene Glycol (miraLAX PACKET) 17 gm PRN DAILY PRN PO CONSTIPATION; Start 03/08/19 at 17:30 Sodium Chloride 1,000 ml @ 75 mls/hr [id number] IV Last administered on 03/10/19at 23:32; Start 03/08/19 at 17:28 Ondansetron HCl (Zofran) 4 mg PRN Q4HRS PRN IV NAUSEA/VOMITING; Start 03/08/19 at 17:30 Enoxaparin Sodium (Lovenox 40mg Syringe) 40 mg DAILY SQ Last administered on 03/11/19at 09:29; Start 03/09/19 at 09:00 Magnesium Hydroxide (Milk Of Magnesia) 2,400 mg 1X PRN PRN PO CONSTIPATION; Start 03/09/19 at 06:00; Stop 03/10/19 at 05:59; Status DC Bisacodyl (Dulcolax Supp) 10 mg 1X PRN PRN RI CONSTIPATION; Start 03/09/19 at 16:00; Stop 03/10/19 at 15:59; Status DC Morphine Sulfate (Morphine Sulfate) 4 mg PRN Q2HR PRN IV PAIN; Start 03/08/19 at 17:30 Dextrose (Dextrose 50%-Water Syringe) 12.5 gm PRN Q15MIN PRN IV SEE COMMENTS; Start 03/08/19 at 17:30 Dextrose 250 ml PRN Q15MIN PRN IV SEE COMMENTS; Start 03/08/19 at 17:30 Cefazolin Sodium/ Dextrose 50 ml @ 100 mls/hr Q6H IV Last administered on 03/09/19at 12:58; Start 03/08/19 at 21:00; Stop 03/09/19 at 09:29; Status DC Oxycodone/ Acetaminophen (Percocet 5/325) 1 tab PRN Q4HRS PRN PO MODERATE PAIN, 3RD CHOICE; Start 03/08/19 at 17:30 Aspirin (Ecotrin) 325 mg DAILY PO Last administered on 03/11/19at 09:24; Start 03/09/19 at 09:00 Oxycodone/ Acetaminophen (Percocet 5/325) 2 tab PRN Q4HRS PRN PO SEVERE PAIN, 3RD CHOICE Last administered on 03/10/19at 18:42; Start 03/08/19 at 17:45 Magnesium Sulfate 50 ml @ 25 mls/hr 1X ONCE IV Last administered on 03/09/19at 09:45; Start 03/09/19 at 08:45; Stop 03/09/19 at 10:44; Status DC Magnesium Sulfate 50 ml @ 25 mls/hr 1X ONCE IV Last administered on 03/10/19at 14:50; Start 03/10/19 at 13:00; Stop 03/10/19 at 14:59; Status DC Active Scripts Active Senna-Time S Tablet (Sennosides/Docusate Sodium) 1 Each Tablet 1 Tab PO DAILY 10 Days Vitamin D3 (Cholecalciferol (Vitamin D3)) 5,000 Unit Capsule 5,000 Unit PO DAILY 30 Days Polyethylene Glycol 3350 17 Gm Powd.pack 17 Gm PO PRN DAILY PRN 30 Days Colace (Docusate Sodium) 100 Mg Capsule 100 Mg PO PRN BID PRN 30 Days Klor-Con 10 (Potassium Chloride) 10 Meq Tablet.er 10 Meq PO DAILY 10 Days Lorazepam 0.5 Mg Tablet 0.5 Mg PO PRN Q4HRS PRN 14 Days Trazodone Hcl 50 Mg Tablet 50 Mg PO PRN QHS PRN 30 Days Tylenol (Acetaminophen) 325 Mg Tablet 650 Mg PO PRN Q4HRS PRN 14 Days Percocet 5-325 Mg Tablet (Oxycodone/Acetaminophen) 1 Each Tablet 1 Tab PO PRN Q4HRS PRN 14 Days Hydrocodone-Apap 5-325 (Hydrocodone Bit/Acetaminophen) 1 Tab Tablet 1 Tab PO PRN Q4HRS PRN 30 Days Enoxaparin Sodium 40 Mg/0.4 Ml Disp.syrin 40 Mg SQ DAILY 30 Days Proair Hfa (Albuterol Sulfate) 8.5 Gm Hfa.aer.ad 2.5 Mg NEB PRN Q4HRS PRN 30 Days Reported Ipratropium [place] 0.2 Mg/1 Ml Solution 1 Vial NEB QID Ibuprofen 400 Mg Tablet 400 Mg PO PRN Q6HRS PRN Aspirin 81 Mg Tab.chew 1 Tab PO DAILY Coreg (Carvedilol) 25 Mg Tablet 25 Mg PO BID Vitals/I & O Vital Sign - Last 24 Hours 03/10/19 03/10/19 03/10/19 03/10/19 14:40 15:00 15:40 15:51 Temp 98.0 98.0 Pulse 88 Resp 18 16 16 B/P (MAP) 104/52 (69) Pulse Ox 100 O2 Delivery Nasal Cannula Room Air Nasal Cannula Nasal Cannula O2 Flow Rate 3.0 3.0 3.0 03/10/19 03/10/19 03/10/19 03/10/19 17:36 18:42 19:04 20:00 Temp 97.9 97.9 Pulse 88 85 Resp 16 18 B/P (MAP) 104/52 110/53 (72) Pulse Ox 97 O2 Delivery Nasal Cannula Nasal Cannula Nasal Cannula O2 Flow Rate 3.0 3.0 03/10/19 03/10/19 03/10/19 03/11/19 20:00 20:08 23:31 04:00 Temp 98.2 97.6 98.2 97.6 Pulse 82 85 Resp 18 18 B/P (MAP) 115/81 (92) 137/61 (86) Pulse Ox 99 99 O2 Delivery Nasal Cannula Nasal Cannula Nasal Cannula Nasal Cannula O2 Flow Rate 3.0 3.0 3.0 3.0 03/11/19 03/11/19 03/11/19 03/11/19 07:00 08:00 08:07 09:28 Temp 98.0 98.0 Pulse 88 88 Resp 18 B/P (MAP) 142/62 (88) 142/62 Pulse Ox 98 97 O2 Delivery Nasal Cannula Nasal Cannula Nasal Cannula O2 Flow Rate 3.0 3.0 3.0 03/11/19 03/11/19 09:30 11:00 Temp 98.3 98.3 Pulse 87 Resp 16 B/P (MAP) 109/53 (71) Pulse Ox 97 99 O2 Delivery Nasal Cannula Nasal Cannula O2 Flow Rate 3.0 3.0 Intake and Output 03/10/19 03/10/19 03/11/19 14:59 22:59 06:59 Intake Total 150 ml 240 ml Output Total 300 ml Balance 150 ml -60 ml Nutrition Consultation Dietary Evaluation: Comments: pt declines ensure and other supplements at this time pt ordering alternate foods from menu Expected Outcomes/Goals: to meet > 75% est nutr needs- met, goal ongoing Interpretation of weight loss: >5% in 1 month Malnutrition Findings: Food and Nutrition Intake (Sev: <50% est energy req 5days Weight Status: Underweight SHUN FELDMAN MD Mar 11, 2019 12:19
== END 2019-03-11 13:47 | DRG 981 ==
LOC: ER 13:00 → ED HOLD 13:20 → 6 SOUTH 19:51
PROVIDERS: ADMIT Family Medicine; ATTEND Family Medicine
PROC: 07DR3ZX Extraction of Iliac Bone Marrow, Percutaneous Approach, Diagnostic (ICD-10-PCS; principal; 2019-03-04)
PROC: 0QH636Z Insertion of Intramedullary Internal Fixation Device into Right Upper Femur, Percutaneous Approach (ICD-10-PCS; 2019-03-08)
DX: C34.12 Malignant neoplasm of upper lobe, left bronchus or lung (principal); J96.21 Acute and chronic respiratory failure with hypoxia; I50.23 Acute on chronic systolic (congestive) heart failure; C79.51 Secondary malignant neoplasm of bone; C78.02 Secondary malignant neoplasm of left lung; C78.7 Secondary malignant neoplasm of liver and intrahepatic bile duct; E87.0 Hyperosmolality and hypernatremia; E87.3 Alkalosis; J98.11 Atelectasis; I42.0 Dilated cardiomyopathy; I11.0 Hypertensive heart disease with heart failure; Z40.9 Encounter for prophylactic surgery, unspecified; G43.909 Migraine, unspecified, not intractable, without status migrainosus; D64.9 Anemia, unspecified; E78.5 Hyperlipidemia, unspecified; E83.39 Other disorders of phosphorus metabolism; D63.0 Anemia in neoplastic disease; E83.42 Hypomagnesemia; E83.52 Hypercalcemia; E87.6 Hypokalemia; F12.10 Cannabis abuse, uncomplicated; F17.200 Nicotine dependence, unspecified, uncomplicated; I25.10 Atherosclerotic heart disease of native coronary artery without angina pectoris; J44.9 Chronic obstructive pulmonary disease, unspecified; K57.10 Diverticulosis of small intestine without perforation or abscess without bleeding; Z66 Do not resuscitate; Z82.49 Family history of ischemic heart disease and other diseases of the circulatory system; Z85.118 Personal history of other malignant neoplasm of bronchus and lung; Z99.81 Dependence on supplemental oxygen
CPT/HCPCS: 20225; 36415; 70553; 71045; 71250; 73502; 73552; 74176; 76000; 77012; 78306; 78451; 80048; 80053; 80061; 80069; 80307; 81001; 82306; 82607; 82728; 83540; 83721; 83735; 83880; 83970; 84100; 84443; 84484; 85007; 85014; 85018; 85025; 85045; 85610; 86850; 86900; 86901; 88307; 88311; 93005; 93970; 94640; 94760; 96365; 96366; 96367; 96368; 96375; 99152; A7015; A9500; A9503; A9575; C1713; C1887; J0696; J1100; J1650; J1885; J1940; J2250; J2370; J2405; J2704; J2765; J3010; J3475; J3480; J3490; J7030; J7120; J7613; J7644; 97110; 97530; 97535; 99285-25; G0378